=== PATIENT | male | born 1950 | race African-American/Black ===

== ENCOUNTER 2019-02-11 11:23 | Inpatient (IN) | payer OTHER ==
[2019-02-11 11:59] VITALS: BMI 22.6
--- NOTE | 2019-02-11 12:07 | PDOC ---
History of Present Illness - General Chief Complaint: Syncope/Near Syncope Stated Complaint: Syncope/Near Syncope Time Seen by Provider: 02/11/19 12:05 Past History - Past Medical History Allergies/Adverse Reactions: Allergies Allergy/AdvReac Type Severity Reaction Status Date / Time No Known Allergies Allergy Verified 02/11/19 11:59 COPD: No - Suicide/Smoking/Psychosocial Hx Smoking History: Never smoked Have you smoked in the past 12 months: No Information on smoking cessation initiated: No Hx Alcohol Use: No Drug/Substance Use Hx: No *Physical Exam - Vital Signs Last Vital Signs Temp Pulse Resp BP Pulse Ox 97.3 F L 80 16 103/68 100 02/11/19 11:23 02/11/19 11:23 02/11/19 11:23 02/11/19 11:23 02/11/19 11:23
--- NOTE | 2019-02-11 12:37 | PDOC ---
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 Per the patient, he was eating at the table when he felt lightheadedness, similar in quality to his previous episodes, and was subsequently laid down and had a LOC lasting for 1 hour. Per the patient, he did not have the following antecedent symptoms: chest pain, SOB, headache, visual disturbance, nausea, vomiting, and abdominal pain. After the LOC, he had 1x vomiting episode without hematemesis. Currently is asymptomatic. Denies the following: fever, chills, worsening FND, chest pain, palpitations, SOB, head trauma, hx of seizures, and new medication usage. Of note, his BP per EMS had a systolic in the 60s and is s/p 250 cc bolus in the ED. Allergies: NKDA Meds: amlodipine, omeprazole, and aspirin Allergies: NKDA Social: Denies tobacco, alcohol, and substance abuse Shx: Denies Past History - Past Medical History Allergies/Adverse Reactions: Allergies Allergy/AdvReac Type Severity Reaction Status Date / Time No Known Allergies Allergy Verified 02/11/19 11:59 Home Medications: Ambulatory Orders Amlodipine Besylate/Benazepril [Amlodipine-Benazepril 10-20 mg] 1 cap PO DAILY 02/11/19 Atorvastatin Calcium 20 mg PO HS 02/11/19 Brimonidine Tartrate [Alphagan 0.2% -] 1 drop OU BID 02/11/19 Dorzolamide HCl [Trusopt 2% -] 1 drop OU BID 02/11/19 Fluticasone Propionate [Flonase Allergy Relief] 2 spray NS DAILY PRN 02/11/19 Gabapentin 300 mg PO BID 02/11/19 Metformin HCl [Glucophage] 500 mg PO DAILY 02/11/19 Metoclopramide HCl [Reglan] 10 mg PO TID 02/11/19 Montelukast Sodium [Singulair] 10 mg PO DAILY 02/11/19 Omeprazole 40 mg PO DAILY 02/11/19 Sucralfate Oral Suspension [Carafate Oral Suspension -] 10 ml PO TID 02/11/19 COPD: No - Suicide/Smoking/Psychosocial Hx Smoking History: Never smoked Have you smoked in the past 12 months: No Information on smoking cessation initiated: No Hx Alcohol Use: No Drug/Substance Use Hx: No Review of Systems - Review of Systems Able to Perform ROS?: Yes Is the patient limited [place]er proficient: No Constitutional: No: Chills, Diaphoresis, Fever, Weakness HEENTM: No: Eye Pain, Ear Pain, Nose Pain, Throat Pain, Mouth Pain Respiratory: No: Cough, Shortness of Breath, Hemoptysis Cardiac (ROS): Yes: Syncope. No: Chest Pain, Lightheadedness, Palpitations, Chest Tightness ABD/GI: Yes: Nausea. No: Constipated, Diarrhea, Rectal Bleeding, Vomiting, Tarry Stools : No: Burning, Dysuria, Hematuria, Incontinence Musculoskeletal: No: Back Pain, Joint Pain, Neck Pain Integumentary: No: Bruising, Erythema, Rash Neurological: No: Headache, Numbness, Tingling, Tremors Psychiatric: No: Change in Appetite Endocrine: No: Unexplained Weight Gain Hematologic/Lymphatic: No: Anemia *Physical Exam - Vital Signs Last Vital Signs Temp Pulse Resp BP Pulse Ox 97.3 F L 80 16 103/68 100 02/11/19 11:23 02/11/19 11:23 02/11/19 11:23 02/11/19 11:02/11/19 11:23 - Physical Exam General Appearance: Yes: Nourished, Appropriately Dressed. No: Apparent Distress, Intoxicated HEENT: positive: EOMI, SHILPI, Normal Voice, Symmetrical, Pharynx Normal, Hearing Grossly Normal. negative: Pale Conjunctivae, Scleral Icterus (R), Scleral Icterus (L), Muffled/Hoarse voice, Pharyngeal Erythema, Tonsillar Exudate, Tonsillar Erythema, Nasal Congestion, Rhinorrhea, Excessive drooling Neck: positive: Trachea midline, Supple. negative: Tender, Lymphadenopathy (R) , Lymphadenopathy (L), Tender lateral, Tender midline Respiratory/Chest: positive: Lungs Clear, Normal Breath Sounds. negative: Chest Tender, Respiratory Distress, Accessory Muscle Use, Rhonchi, Stridor, Wheezing, Hyperresonant Cardiovascular: positive: Regular Rhythm, Regular Rate, S1, S2. negative: Edema , Systolic Murmur Gastrointestinal/Abdominal: positive: Normal Bowel Sounds, Flat, Soft. negative : Tender, Distended, Guarding, Rebound, Tenderness Lymphatic: negative: Adenopathy Musculoskeletal: positive: Normal Inspection. negative: CVA Tenderness, Vertebral Tenderness Extremity: positive: Normal Capillary Refill, Normal Inspection, Normal Range of Motion. negative: Tender, Swelling ED Treatment Course - LABORATORY CBC & Chemistry Diagram: 02/11/19 12:39 02/11/19 12:39 Medical Decision Making - Medical Decision Making 02/11/19 19:14 68 yo with a hx of CVA (10 years ago with residual weakness in the left leg with difficulty walking) and labile BPs (currently on amlodipine with hypotensive episodes precipitating LOC episodes most recent 1 month ago) presents to the emergency department s/p syncopal event while at home. Initial vitals: Initial Vital Signs Temp Pulse Resp BP Pulse Ox 97.3 F L 80 16 103/68 100 02/11/19 11:23 02/11/19 11:23 02/11/19 11:23 02/11/19 11:23 02/11/19 11:23 Work up: ddx: syncope 2/2 to cardiogenic vs neurogenic vs metabolic abnormality vs anemia Laboratory Tests 02/11/19 02/11/19 02/11/19 12:39 12:39 12:39 WBC 8.1 RBC 4.29 Hgb 14.1 Hct 41.9 MCV 97.7 H MCH 32.9 MCHC 33.6 RDW 13.7 Plt Count 165 MPV 8.6 Absolute Neuts (auto) 6.3 Neutrophils % 77.2 Lymphocytes % 12.2 Monocytes % 9.3 Eosinophils % 1.0 Basophils % 0.3 Nucleated RBC % 0 D-Dimer Sodium 144 Potassium 3.9 Chloride 110 H Carbon Dioxide 29 Anion Gap 6 L BUN 6.5 L Creatinine 1.1 Est GFR (CKD-EPI)AfAm 78.41 Est GFR (CKD-EPI)NonAf 67.66 Random Glucose 100 Calcium 8.4 L Total Bilirubin 0.3 AST 11 L ALT 16 Alkaline Phosphatase 138 H Creatine Kinase 52 Troponin I < 0.02 Total Protein 6.1 L Albumin 3.1 L 02/11/19 15:17 WBC RBC Hgb Hct MCV MCH MCHC RDW Plt Count MPV Absolute Neuts (auto) Neutrophils % Lymphocytes % Monocytes % Eosinophils % Basophils % Nucleated RBC % D-Dimer 6184 H Sodium Potassium Chloride Carbon Dioxide Anion Gap BUN Creatinine Est GFR (CKD-EPI)AfAm Est GFR (CKD-EPI)NonAf Random Glucose Calcium Total Bilirubin AST ALT Alkaline Phosphatase Creatine Kinase Troponin I Total Protein Albumin CT head negative for acute process. CXR negative for acute process. patient's trop negative, but d-dimer is elevated at 6184. considering syncope with hypotension, will rule out obstructive pathology with CTA chest. POCUS reveals no pericardial effusion or gross deficits on LV wall movement. no aortic root dilatation. CTA is negative for PE, but nodules noted in the lung that are stable in nature. Will admit patient for syncope work up. EKG shows NSR without ST elevation or depression. Ventricular rate 90 bpm, QRS is 78 ms, QTc 459 ms. Dispo: Admit *DC/Admit/Observation/Transfer Diagnosis at time of Disposition: Syncope - Referrals - Patient Instructions - Post Discharge Activity
[2019-02-11] MEDS ORDERED: SODIUM CHLORIDE 1,000 ML IV STA ×2 (12:57→16:53)
[2019-02-11 13:17] LABS: BASO % 0.3 % (0-2.0); HEMATOCRIT 41.9 % (35.4-49); HEMOGLOBIN 14.1 GM/dL (11.7-16.9); LYMPH % 12.2 % (8-40); MCH 32.9 pg (25.7-33.7); MCHC 33.6 g/dl (32.0-35.9); MEAN CELL VOLUME 97.7 fl (80-96); MEAN PLT VOLUME 8.6 fl (7.5-11.1); MONO % 9.3 % (3.8-10.2); NEUT % 77.2 % (42.8-82.8); PLATELET COUNT 165 K/MM3 (134-434); RBC 4.29 M/mm3 (4.00-5.60); RDW 13.7 % (11.9-15.9); WHITE BLOOD COUNT 8.1 K/mm3 (4.0-10.0)
[2019-02-11 13:39] LABS: ALBUMIN 3.1 g/dl (3.4-5.0); BILIRUBIN,TOTAL 0.3 mg/dL (0.2-1); BLOOD UREA NITROGEN 6.5 mg/dL (7-18); CALCIUM 8.4 mg/dL (8.5-10.1); CREATININE 1.1 mg/dL (0.55-1.3); POTASSIUM 3.9 mmol/L (3.5-5.1); TOT PROT 6.1 g/dl (6.4-8.2)
--- NOTE | 2019-02-11 14:04 | PDOC ---
Attending Attestation - Resident Resident Name: Сергей Srinivasan - ED Attending Attestation I have performed the following: I have examined & evaluated the patient, The case was reviewed & discussed with the resident, I agree w/resident's findings & plan, Exceptions are as noted
--- NOTE | 2019-02-11 19:25 | PN ---
Teaching Attending Note Name of Resident: Pepe Bowman ATTENDING PHYSICIAN STATEMENT I saw and evaluated the patient. I reviewed the resident's note and discussed the case with the resident. I agree with the resident's findings and plan as documented. SUBJECTIVE: Patient is a 68 year old man with PMH of CVA (10 years ago with residual weakness in the left leg with difficulty walking) and labile BPs (currently on amlodipine with hypotensive episodes precipitating LOC episodes most recent 1 month ago), presents to the ER after a syncopal event while at home. Per the patient, he was eating at the table when he felt lightheadedness, similar in quality to his previous episodes, and was subsequently laid down and had a LOC lasting for 1 hour. He did not have the following antecedent symptoms: chest pain, SOB, headache, visual disturbance, nausea, vomiting, and abdominal pain. After the LOC, he vomited once. Currently is asymptomatic. Denies fever, chills , chest pain, palpitations, SOB or headache. No head trauma, history of seizures or or new medication usage. Of note, per EMS he had a systolic in the 60s and got 250 cc bolus IV NS in the ER. Denies tobacco use, alcohol, or substance abuse OBJECTIVE: Alert and not orthostatic Vital Signs Period Temp Pulse Resp BP Sys/Chance Pulse Ox Last 24 Hr 97.3 F-99.0 F 80-90 16-20 103-127/68-96 96-100 HEENT: No Jaundice, eye redness or discharge, PERRLA, EOMI. Normocephalic, atraumatic. External ears are normal and hearing is grossly intact. No nasal discharge. Neck: Supple, nontender. No palpable adenopathy or thyromegaly. No JVD Chest: Good effort. Clear to auscultation and percussion. Heart: Regular. No S3, rub or murmur Abdomen: Not distended, soft, nontender and no HSM. No rebound or guarding. Normal bowel sounds. Ext: Peripheral pulses intact. No leg edema. Skin: Warm and dry. No petechiae, rash or ecchymosis. Neuro: Alert. Oriented x3. CN 2-12 grossly intact. Sensation grossly intact in all four extremities and DTR are symmetric. Psych: Appropriate mood and affect. Good insight. Abnormal Lab Results 09/05/2002/11/19 02/11/19 12:39 12:39 15:17 MCV 97.7 H D-Dimer 6184 H Chloride 110 H Anion Gap 6 L BUN 6.5 L Calcium 8.4 L AST 11 L Alkaline Phosphatase 138 H Total Protein 6.1 L Albumin 3.1 L ASSESSMENT AND PLAN: 1. Syncope - Etiology unclear. No acute abnormality on CXR, head CT, chest CTA or leg doppler. EKG shows NSR with no significant ST-T wave changes. Will admit to telemetry, get ECHO, carotid doppler, hydrate gently and consult Neurology. Will continue comprehensive care of all his comorbid conditions. 2. Hypoalbuminemia - Possibly due to combined effects of malnutrition and inflammation associated with comorbid chronic conditions. Will ensure adequate dietary protein intake and also consult candy bar attendant. 3. Hypertension - Will hold all outpatient antihypertensive drugs. May restart when clinically appropriate. 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 Nonpharmacologic measures to control hypertension like weight loss , salt restriction and exercise discussed. Importance of adherence to treatment regimen and attainment of normotension emphasized. 4. DVT prophylaxis - Lovenox 40 mg SQ q 24 hours. 5. Advance directives - Full code
--- NOTE | 2019-02-12 00:01 | HP ---
CHIEF COMPLAINT: syncope PCP: Dr. Geetha Freire (in [place]) HISTORY OF PRESENT ILLNESS: Ronnell Duran is a 68 year old male with a past medical history of CVA (10 years ago with residual L sided leg weakness), labile BP's (on amlodipine with hypertensive and hypotensive episodes), GERD, and syncopal episodes who presents for syncope. The patient was sitting at a table on 0700 on day of admission when he told his family he felt unwell and was about to lose consciousness. His family brought him down the ground and stated that there was no head hit. Prior to the episode the patient stated that he felt nauseous, some diaphoresis, visual darkening, dizziness. During the syncopal episode the family noted that he had an episode of vomiting. After the patient awoke after about an hour he stated that he had another vomiting episode. Patient stated that his previous syncopal episode was one year prior and was similar in nature to presentation. Patient noted that he had not been eating well for approximately a week prior to this episode and felt that he was sick, had nausea , and had generalized weakness. On day prior to admission, the patient stated that he took amlodipine 10mg before bed and states that when he takes his blood pressure medications, he gets very labile pressures that can decrease his systolic pressures into the 70's and 80s. At interview, the patient stated that he felt better but continued to have weakness. Denied history of seizures, denied recent head trauma, recent medication changes, sick contacts. Denied chest pain, shortness of breath, abdominal pain, numbness, tingling, dysuria, urinary frequency, hesitancy, urgency, fever, chills. Patient at baseline ambulates with a cane. ER course was notable for: (1) NSx1L (2) D-dimer >6000 (3) Doppler on L leg negative for DVT, CXR with no acute pathology, head CT with no acute intracranial pathology, minimal periventricular chronic microvascular changes (4) Chest CTA with no acute PE. 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 Social History: Smoking: denies Alcohol: denies Drugs: denies Lives at home with family Family History: Sister - HTN Sister - DM Allergies No Known Allergies Allergy (Verified 02/11/19 11:59) HOME MEDICATIONS: REVIEW OF SYSTEMS CONSTITUTIONAL: generalized weakness, loss of appetite Absent: fever, chills, diaphoresis, malaise, weight change HEENT: Absent: rhinorrhea, nasal congestion, throat pain, throat swelling, visual changes CARDIOVASCULAR: syncope, lightheadedness Absent: chest pain, palpitations, irregular heart rate, peripheral edema RESPIRATORY: Absent: cough, shortness of breath, dyspnea with exertion, orthopnea, wheezing, GASTROINTESTINAL: nausea, vomiting, reflux Absent: abdominal pain, abdominal distension, diarrhea, constipation, GENITOURINARY: Absent: dysuria, frequency, urgency, hesitancy, hematuria, flank pain, MUSCULOSKELETAL: Absent: myalgia, arthralgia, joint swelling, back pain, neck pain SKIN: Absent: rash, itching, pallor HEMATOLOGIC/IMMUNOLOGIC: Absent: easy bleeding, easy bruising, lymphadenopathy, frequent infections ENDOCRINE: Absent: unexplained weight gain, unexplained weight loss, heat intolerance, cold intolerance NEUROLOGIC: dizziness, unsteady gait, L leg weakness (chronic) Absent: headache, seizure, mental status changes, bladder or bowel incontinence PSYCHIATRIC: Absent: anxiety, depression, suicidal or homicidal ideation, hallucinations. PHYSICAL EXAMINATION Vital Signs - 24 hr 02/11/19 02/11/19 02/11/19 11:23 12:05 19:03 Temperature 97.3 F L Pulse Rate 80 Pulse Rate [ 87 Right Radial] Respiratory 16 18 Rate Blood Pressure 103/68 Blood Pressure 127/88 [Right Arm] O2 Sat by Pulse 100 99 96 Oximetry (%) 02/11/19 02/11/19 19:30 19:45 Temperature 99.0 F Pulse Rate Pulse Rate [ 90 Right Radial] Respiratory 20 Rate Blood Pressure Blood Pressure 125/96 [Right Arm] O2 Sat by Pulse 97 96 Oximetry (%) GENERAL: Awake, alert, and fully oriented, in no acute distress. HEAD: Normal with no signs of trauma. EYES: Pupils equal, round and reactive to light, extraocular movements intact, sclera anicteric, conjunctival injection. EARS, NOSE, THROAT: Oropharynx clear without exudates. Dry mucous membranes. NECK: Normal range of motion, supple without lymphadenopathy, JVD. LUNGS: Breath sounds equal, clear to auscultation bilaterally. No wheezes, and no crackles. No accessory muscle use. HEART: Regular rate and rhythm, normal S1 and S2 without murmur, rub. ABDOMEN: Soft, nontender, not distended, normoactive bowel sounds, no guarding, no rebound, no masses. MUSCULOSKELETAL: Normal range of motion at all joints. No bony deformities or tenderness. UPPER EXTREMITIES: 2+ pulses, warm, well-perfused. No cyanosis. No clubbing. No peripheral edema. LOWER EXTREMITIES: 2+ pulses, warm, well-perfused. No calf tenderness. No peripheral edema. NEUROLOGICAL: Cranial nerves II-XII intact. 5/5 muscle strength bilaterally upper extremities. 5/5 muscle strength RLE, 4/5 muscle strength LLE. Mild sensory loss on LLE. Babinski downgoing bilaterally. PSYCHIATRIC: Cooperative. Good eye contact. Appropriate mood and affect. SKIN: Warm, dry, normal turgor, no rashes or lesions noted, normal capillary refill. Laboratory Results - last 24 hr 02/11/19 02/11/19 02/11/19 12:39 12:39 12:39 WBC 8.1 RBC 4.29 Hgb 14.1 Hct 41.9 MCV 97.7 H MCH 32.9 MCHC 33.6 RDW 13.7 Plt Count 165 MPV 8.6 Absolute Neuts (auto) 6.3 Neutrophils % 77.2 Lymphocytes % 12.2 Monocytes % 9.3 Eosinophils % 1.0 Basophils % 0.3 Nucleated RBC % 0 D-Dimer Sodium 144 Potassium 3.9 Chloride 110 H Carbon Dioxide 29 Anion Gap 6 L BUN 6.5 L Creatinine 1.1 Est GFR (CKD-EPI)AfAm 78.41 Est GFR (CKD-EPI)NonAf 67.66 Random Glucose 100 Calcium 8.4 L Total Bilirubin 0.3 AST 11 L ALT 16 Alkaline Phosphatase 138 H Creatine Kinase 52 Troponin I < 0.02 Total Protein 6.1 L Albumin 3.1 L 02/11/19 15:17 WBC RBC Hgb Hct MCV MCH MCHC RDW Plt Count MPV Absolute Neuts (auto) Neutrophils % Lymphocytes % Monocytes % Eosinophils % Basophils % Nucleated RBC % D-Dimer 6184 H Sodium Potassium Chloride Carbon Dioxide Anion Gap BUN Creatinine Est GFR (CKD-EPI)AfAm Est GFR (CKD-EPI)NonAf Random Glucose Calcium Total Bilirubin AST ALT Alkaline Phosphatase Creatine Kinase Troponin I Total Protein Albumin EKG--> NSR, left axis deviation, no ST segment changes, QTc 459 ASSESSMENT/PLAN: Ronnell Duran is a 68 year old male with a past medical history of CVA (10 years ago with residual L sided leg weakness), labile BP's (on amlodipine with hypertensive and hypotensive episodes), GERD, and syncopal episodes who is admitted for syncope. Syncope HTN DM hx of CVA Syncope - likely in the setting of poor oral intake, recent sickness, and high BP medication dose - orthostatics taken supine 137/87 HR 87, sitting 126/77 HR 90, refused standing - will need to repeat orthostatics in standing position - EKG as above - cardiac monitoring - echo - carotids - hold BP meds while patient evaluated for syncope, will need outpatient follow up to adjust BP medications properly - gentle IVF at 50 cc/hr - fall precautions - physical therapy - neurology consult HTN - hold BP meds - monitor pressures DM - home meds show that patient on metformin 500mg daily, patient denied DM - BGM - ISS - A1c to assess for status of DM hx of CVA - not on aspirin, obtain records from PCP as to why patient not on aspirin with hx of CVA - continue Lipitor - monitor BP FEN - NS at 50 cc/hr - continue to monitor electrolytes and replete as necessary - sodium controlled diet, may need adjustment if found with DM Prophylaxis - Lovenox 40 units subq daily Code - full code JORDI IVY DO - PGY-1 Visit type - Emergency Visit Emergency Visit: Yes ED Registration Date: 02/11/19 Care time: The patient presented to the Emergency Department on the above date and was hospitalized for further evaluation of their emergent condition. - New Patient This patient is new to me today: Yes Date on this admission: 02/12/19 - Critical Care Critical Care patient: No
[2019-02-12] MEDS: SUCRALFATE 1 GM/10 ML UNIT DOSE CUPS PO SCH ×3 (06:26→21:36)
[2019-02-12] MEDS: METOCLOPRAMIDE HCL 10 MG TABLET (FP) PO SCH ×2 (06:27→14:05)
[2019-02-12] MEDS: SODIUM CHLORIDE 1,000 ML IV SCH ×2 (06:28→21:41)
[2019-02-12] MEDS: INSULIN SLIDING SCALE (NOVOLOG) 1 VIAL SQ SCH ×3 (06:28→21:41)
[2019-02-12 08:05] LABS: BASO % 0.5 % (0-2.0); EOS % 2.2 % (0-4.5); HEMATOCRIT 37.6 % (35.4-49); HEMOGLOBIN 12.7 GM/dL (11.7-16.9); LYMPH % 25.6 % (8-40); MCHC 33.8 g/dl (32.0-35.9); MEAN CELL VOLUME 97.7 fl (80-96); MONO % 9.6 % (3.8-10.2); NEUT % 62.1 % (42.8-82.8); PLATELET COUNT 149 K/MM3 (134-434); RBC 3.84 M/mm3 (4.00-5.60); RDW 13.9 % (11.9-15.9); WHITE BLOOD COUNT 4.6 K/mm3 (4.0-10.0)
[2019-02-12 08:42] LABS: ALBUMIN 2.9 g/dl (3.4-5.0); BILIRUBIN,TOTAL 0.3 mg/dL (0.2-1); BLOOD UREA NITROGEN 8.9 mg/dL (7-18); CALCIUM 8.1 mg/dL (8.5-10.1); MAGNESIUM 1.9 mg/dL (1.8-2.4); POTASSIUM 3.5 mmol/L (3.5-5.1); TOT PROT 5.8 g/dl (6.4-8.2)
[2019-02-12] MEDS ORDERED: LISINOPRIL 20 MG TABLET (FP) PO SCH (10:00)
[2019-02-12] MEDS ORDERED: amLODIPine BESYLATE 10 MG TABLET (FP) PO SCH (10:00)
[2019-02-12] MEDS ORDERED: PATIENT'S OWN MEDICATION (NON-FORMULARY) (Amlodipine Besylate/Benazepril [Amlodipine-Benaz PO SCH (10:00)
[2019-02-12] MEDS: MONTELUKAST NA 10 MG TABLET PO SCH (10:13)
[2019-02-12] MEDS: DORZOLAMIDE 2% HCL OPHTHALMIC SOLUTION 10 ML BOTTLE OU SCH ×2 (10:13→21:41)
[2019-02-12] MEDS: GABAPENTIN 300 MG CAPSULE (FP) PO SCH ×2 (10:13→21:36)
[2019-02-12] MEDS ORDERED: PT OWN MED DRAWER 7, Y5N ONE (10:36)
[2019-02-12] MEDS: BRIMONIDINE TARTRATE 0.2% OPHTHALMIC 5 ML BOTTLE OU SCH ×2 (10:52→21:40)
[2019-02-12] MEDS: FLUTICASONE PROP 0.05% 16 GM NASAL SPRAY NS SCH (10:52)
--- NOTE | 2019-02-12 11:45 | ECHO ---
Name: QIAN LANTIGUA Exam:Adult Echocardiogram Study Date: 02/12/2019 07:16 AM Age: 68 yrs Reason For Study: syncope,evaluate heart function Height: 66 in Weight: 140 lb BSA: 1.7 m2 MMode/2D Measurements & Calculations IVSd: 0.83 cm Ao root diam: 3.3 cm LVIDd: 4.6 cm LA dimension: 1.9 cm LVIDs: 2.8 cm ACS: 1.8 cm LVPWd: 0.89 cm IVSs: 1.3 cm LVPWs: 1.2 cm EDV(Teich): 95.5 ml ESV(Teich): 30.7 ml Doppler Measurements & Calculations MV E max jose david: 43.2 cm/sec Ao V2 max: 117.4 cm/sec MV A max jose david: 60.7 cm/sec Ao max P.5 mmHg MV E/A: 0.71 TR max jose david: 222.9 cm/sec Med Peak E' Jose David: 5.6 cm/sec TR max P.2 mmHg Med E/e': 7.8 Lat Peak E' Jose David: 5.8 cm/sec Lat E/e': 7.5 Left Ventricle Left ventricular systolic function is normal. Ejection Fraction = 55-60%. The transmitral spectral Do ppler flow pattern is suggestive of impaired LV relaxation. Right Ventricle The right ventricle is normal in size and function. Atria Normal left and right atrial size and function. Mitral Valve The mitral valve is normal in structure and function. There is no mitral valve stenosis. There is no mitral regurgitation noted. Tricuspid Valve The tricuspid valve is normal in structure and function. There is mild tricuspid regurgitation. Right ventricular systolic pressure is normal. Aortic Valve The aortic valve is trileaflet. No hemodynamically significant valvular aortic stenosis. No aortic regurgitation is present. Pulmonic Valve The pulmonic valve is not well seen, but is grossly normal. There is no pulmonic valvular stenosis. T here is no pulmonic valvular regurgitation. Great Vessels The aortic root is normal size. Pericardium/Pleura There is no pericardial effusion. Interpretation Summary Left ventricular systolic function is normal. Ejection Fraction = 55-60%. The transmitral spectral Doppler flow pattern is suggestive of impaired LV relaxation. The right ventricle is normal in size and function. There is mild tricuspid regurgitation. Right ventricular systolic pressure is normal. MD Kraft *Yaima 02/12/2019 11:44 AM
--- NOTE | 2019-02-12 14:10 | EKG ---
Test Reason : Blood Pressure : / mmHG Vent. Rate : 090 BPM Atrial Rate : 090 BPM P-R Int : 158 ms QRS Dur : 078 ms QT Int : 376 ms P-R-T Axes : 037 -47 040 degrees QTc Int : 459 ms POOR DATA QUALITY, INTERPRETATION MAY BE ADVERSELY AFFECTED NORMAL SINUS RHYTHM LEFT AXIS DEVIATION CANNOT RULE OUT INFERIOR INFARCT , AGE UNDETERMINED ABNORMAL ECG NO PREVIOUS ECGS AVAILABLE Confirmed by RUTHY JIMÉNEZ, LELE ([id number]) on 02/12/2019 2:10:04 PM Referred By: Confirmed By:LELE BLISS MD
--- NOTE | 2019-02-12 14:16 | PN ---
Teaching Attending Note Name of Resident: Hue Lazcano ATTENDING PHYSICIAN STATEMENT I saw and evaluated the patient. I reviewed the resident's note and discussed the case with the resident. I agree with the resident's findings and plan as documented. SUBJECTIVE: Feeling better - lightheadedness resolved. Denies CP/palpitations. No LOC/HI. No visual impairment/new extremity weakness. OBJECTIVE: Afebrile, Hemodynamically Stable. Last Vital Signs Temp Pulse Resp BP Pulse Ox 98.2 F 79 18 133/83 100 02/12/19 06:00 02/12/19 06:00 02/12/19 06:00 02/12/19 06:00 02/11/19 23:37 HEENT - Atramatic, normocephalic. SHILPI. EOMI. Heart - S1, S2, RRR Lungs - clear to auscultation Abdomen - Soft, non-tender. Bowel Sounds normal. Extrmeities - no edema, no calf tenderness. Neuro - AAO x 3. CN intact. No new neuro deficits. Laboratory Results - last 24 hr 02/11/19 02/12/19 02/12/19 15:17 06:24 06:30 WBC 4.6 RBC 3.84 L Hgb 12.7 Hct 37.6 MCV 97.7 H MCH 33.0 MCHC 33.8 RDW 13.9 Plt Count 149 MPV 9.0 Absolute Neuts (auto) 2.8 Neutrophils % 62.1 Lymphocytes % 25.6 D Monocytes % 9.6 Eosinophils % 2.2 D Basophils % 0.5 Nucleated RBC % 0 D-Dimer 6184 H Sodium Potassium Chloride Carbon Dioxide Anion Gap BUN Creatinine Est GFR (CKD-EPI)AfAm Est GFR (CKD-EPI)NonAf POC Glucometer 103 Random Glucose Hemoglobin A1c % Calcium Magnesium Total Bilirubin AST ALT Alkaline Phosphatase Total Protein Albumin Triglycerides Cholesterol Total LDL Cholesterol HDL Cholesterol TSH 02/12/19 02/12/19 02/12/19 06:30 06:30 11:56 WBC RBC Hgb Hct MCV MCH MCHC RDW Plt Count MPV Absolute Neuts (auto) Neutrophils % Lymphocytes % Monocytes % Eosinophils % Basophils % Nucleated RBC % D-Dimer Sodium 143 Potassium 3.5 Chloride 110 H Carbon Dioxide 28 Anion Gap 6 L BUN 8.9 Creatinine 1.0 Est GFR (CKD-EPI)AfAm 87.99 Est GFR (CKD-EPI)NonAf 75.92 POC Glucometer 110 Random Glucose 108 H Hemoglobin A1c % 6.1 Calcium 8.1 L Magnesium 1.9 Total Bilirubin 0.3 AST 13 L ALT 14 Alkaline Phosphatase 129 H Total Protein 5.8 L Albumin 2.9 L Triglycerides 69 Cholesterol 96 Total LDL Cholesterol 47 HDL Cholesterol 33 L TSH 0.48 Current Medications Generic Name Dose Route Start Last Admin Trade Name Theodore PRN Reason Stop Dose Admin Amlodipine Besylate 10 mg 02/12/19 10:00 Norvasc - PO DAILY NOEMY Atorvastatin Calcium 20 mg 02/12/19 22:00 Lipitor - PO HS [facility] Brimonidine Tartrate 1 drop 02/12/19 10:00 02/12/19 10:52 Alphagan 0.2% - OU 1 drop BID NOEMY Administration Dorzolamide HCl 1 drop 02/12/19 10:00 02/12/19 10:13 Trusopt 2% OU 1 drop BID NOEMY Administration Fluticasone Propionate 2 spray 02/12/19 10:00 02/12/19 10:52 Flonase - NS 2 spray DAILY NOEMY Administration Gabapentin 300 mg 02/12/19 10:00 02/12/19 10:13 Neurontin - PO 300 mg BID NOEMY Administration Sodium Chloride 1,000 mls @ 50 mls/hr 02/11/19 21:30 02/12/19 06:28 Normal Saline - IV 02/12/19 22:00 50 mls/hr ASDIR NOEMY Administration Insulin Aspart 1 vial 02/12/19 07:00 02/12/19 11:58 Novolog Vial Sliding Scale - SQ Not Given ACHS NOEMY Protocol Lisinopril 20 mg 02/12/19 10:00 Prinivil PO DAILY NOEMY Metoclopramide HCl 10 mg 02/12/19 06:00 02/12/19 06:27 Reglan - PO 10 mg TID NOEMY Administration Montelukast Sodium 10 mg 02/12/19 10:00 02/12/19 10:13 Singulair - PO 10 mg DAILY NOEMY Administration Sucralfate 1 gm 02/12/19 06:00 02/12/19 06:26 Carafate Oral Suspension - PO 1 gm TID NOEMY Administration Home Medications Medication Instructions Recorded Amlodipine Besylate/Benazepril 1 cap PO DAILY 02/11/19 [Amlodipine-Benazepril 10-20 mg] Atorvastatin Calcium 20 mg PO HS 02/11/19 Brimonidine Tartrate [Alphagan 1 drop OU BID 02/11/19 0.2% -] Dorzolamide HCl [Trusopt 2% -] 1 drop OU BID 02/11/19 Fluticasone Propionate [Flonase 2 spray NS DAILY PRN 02/11/19 Allergy Relief] Gabapentin 300 mg PO BID 02/11/19 Metformin HCl [Glucophage] 500 mg PO DAILY 02/11/19 Metoclopramide HCl [Reglan] 10 mg PO TID 02/11/19 Montelukast Sodium [Singulair] 10 mg PO DAILY 02/11/19 Omeprazole 40 mg PO DAILY 02/11/19 Sucralfate Oral Suspension 10 ml PO TID 02/11/19 [Carafate Oral Suspension -] ASSESSMENT AND PLAN: 68 year old male with 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 No CP/Palpitations. 1. Post Prandial Hypotension, symptomatic with syncope Orthostatics negative CT head - no acute intracranial findings. Mild/Mod volume loss DDIMER positive - CTA negative for PE; Duplex LEs - no DVT ECG - no acute changes Echo - normal Ef, impaired LV relaxation. Carotid Duplex - no hemodynamically significant stenosis. Neuro consult Counselled regarding importance of small ore freq meals. Will hold Norvasc. Continue Lisinopril. For close BP follow up with PCP. PT and likely discharge home 2. HTN - Hold norvasc. resume Lisinopril, PCP follow up of BP and anti- hypertensive medication titration. 3. DM 2 - Resume home diabetic regimen. 4. Hx CVA - residual LLE weakness Continue Statin. Unclear why not on aspirin. For PCP/Neuro follow up. 5. GERD - Continue PPI/Sucralfate.
--- NOTE | 2019-02-12 15:50 | CONSULT ---
Consult - text type - Consultation Consultation Note: NEUROLOGY CONSULT GREATLY APPRECIATED: Events reviewed. Cardiology consult read and appreciated. Pt examined by me with and grandson at bedside. Discussed with RN. This 68 yo RH [place] man has pmhx R CVA affecting left limb x 10 years ago, S/P ACD, GERD, DM, prior syncope. Ambulates with cane at home. On: amlodipine/benazepril, atorvastatin, gabapentin 300 mg BID, metformin, metoclopramide, Singulair, omeprazole, Carafate. Describes 1 year of post-prandial "dizziness." Within the past month, this prodrome of "dizziness" has progressed to post-prandial syncope last month and today. He denies falls or change in bowel/bladder. Pt descrives persistant hiccoughs x 7 months. Noted lisinopril held today due to persistently low BPs - now 69/49. RN describes diaphoresis and lightheadedness this AM immediately after breakfast which resolved when patient was made supine. Review of systems sign for persistent nausea and poor appetite. Head CT (reviewed): Mild diffuse cerebral atrophy with ex vacuo ventricular dilation. Chronic periventricular ischemic changes present. Calcification of intracranial vessels. Carotid duplex: Mild athlerosclerosis but no heme sig stenosis. EKG NSR. ECHO: EF 55-60% Chest CTA: RLL pulmonary nodules D-Dimer 6184; TSH 0.48; A1c= 6.1%; WBC 4.6 JOE: BP supine 124/78, 124/87 sitting, standing 116/86. Cor reg. No bruit. Neck supple. S/P ACD. No evidence of head trauma. 133/87 sitting -> 100/56 standing (just after dinner). NEURO: Awake, alert, responsive. [facility]. Feb 11 or 2018. TRUMP. A mild OMS may be present. CNII-CNXII: EOM's full. Full webb. No facial. Gag ok. Min jaw tremor with reinforcement. Frequent hiccoughs. Motor: Minimal left drift No tremor. Decreased PEPPER's (L>R). Isolated weakness of toe extensors 4+/5 on L, 4-/5 on R. Reflexes brisk with spread ( Biceps to finger flexors), brisk at knees and present AJ's. Plantars silent. Coordination: No FTN dystaxia. Sensation: Feels vibration both legs to mid-calf (but feels cold). Romberg +/- Gait: Sl flexed, sl. wide-based gait with mild left circumduction. Difficulty with heel walk. Impression: 1. Post-Prandial syncope very suggestive of underlying dysautonomia. Etiology uncertain but would consider a small fibre neuropathy due to diabetes or amyloidosis. 2. Mild extrapyramidal features- dysautonomia can be seen as an early minifestation of PD, as can GI disturbances. 3. Mild B/L cerebral dysfunction with mild, residual, right cerebral accentuation. Suggest: Orthostatic BP's Rx Midodrine 5 mg PO BID at 6AM (before breakfast) and 3 PM D/C metoclopramide Observe off BP meds and monitor BP while home MRI of Brain and Cervical Spine (C-), which can be done on outpatient basis Electrodiagnostic studies of the legs for neuropathy. Autonomic testing can be done at that time. Sleep with HOB elevated, keep OO Bed to Chair as much as possible. Small frequent meals. Neurology follow-up as outpt for testing and dtitration of meds. Thank you very much, Brandin Hutchison MD.
[2019-02-12] MEDS ORDERED: SODIUM CHLORIDE 1,000 ML IV STA (16:50)
--- NOTE | 2019-02-12 19:43 | PN ---
Physical Exam: SUBJECTIVE: Patient seen and examined. Pt had episode of hypotension this morning while eating breakfast. He became lightheaded and diaphoretic. He did not syncopize. Nurse put pt in Trendelenburg, and he quickly recovered. During time of exam, he denies ROB, dizziness, nausea, chest pain, palpitations, and diaphoresis. OBJECTIVE: Vital Signs Period Temp Pulse Resp BP Sys/Chance Pulse Ox Last 24 Hr 98.2 F-99.0 F 79-101 18-20 69-133/49-96 96-100 GENERAL: The patient is awake, alert, and fully oriented, in no acute distress. HEAD: Normal with no signs of trauma. EYES: PERRL, extraocular movements intact, sclera anicteric, conjunctiva clear. No ptosis. ENT: Ears normal, nares patent, moist mucous membranes. NECK: Trachea midline, full range of motion, supple. LUNGS: Breath sounds equal, clear to auscultation bilaterally, no wheezes, no crackles, no accessory muscle use. HEART: Regular rate and rhythm, S1, S2 without murmur, rub or gallop. ABDOMEN: Soft, nontender, nondistended, normoactive bowel sounds EXTREMITIES: 2+ pulses, warm, well-perfused, no edema. NEUROLOGICAL: Cranial nerves II through XII grossly intact. Normal speech, gait not observed. PSYCH: Normal mood, normal affect. SKIN: Warm, dry, normal turgor, no rashes or lesions noted Laboratory Results - last 24 hr 02/12/19 02/12/19 02/12/19 06:24 06:30 06:30 WBC 4.6 RBC 3.84 L Hgb 12.7 Hct 37.6 MCV 97.7 H MCH 33.0 MCHC 33.8 RDW 13.9 Plt Count 149 MPV 9.0 Absolute Neuts (auto) 2.8 Neutrophils % 62.1 Lymphocytes % 25.6 D Monocytes % 9.6 Eosinophils % 2.2 D Basophils % 0.5 Nucleated RBC % 0 Sodium 143 Potassium 3.5 Chloride 110 H Carbon Dioxide 28 Anion Gap 6 L BUN 8.9 Creatinine 1.0 Est GFR (CKD-EPI)AfAm 87.99 Est GFR (CKD-EPI)NonAf 75.92 POC Glucometer 103 Random Glucose 108 H Hemoglobin A1c % Calcium 8.1 L Magnesium 1.9 Total Bilirubin 0.3 AST 13 L ALT 14 Alkaline Phosphatase 129 H Troponin I Total Protein 5.8 L Albumin 2.9 L Triglycerides 69 Cholesterol 96 Total LDL Cholesterol 47 HDL Cholesterol 33 L TSH 0.48 02/12/19 02/12/19 02/12/19 06:30 11:56 18:30 WBC RBC Hgb Hct MCV MCH MCHC RDW Plt Count MPV Absolute Neuts (auto) Neutrophils % Lymphocytes % Monocytes % Eosinophils % Basophils % Nucleated RBC % Sodium Potassium Chloride Carbon Dioxide Anion Gap BUN Creatinine Est GFR (CKD-EPI)AfAm Est GFR (CKD-EPI)NonAf POC Glucometer 110 Random Glucose Hemoglobin A1c % 6.1 Calcium Magnesium Total Bilirubin AST ALT Alkaline Phosphatase Troponin I < 0.02 Total Protein Albumin Triglycerides Cholesterol Total LDL Cholesterol HDL Cholesterol TSH Active Medications Generic Name Dose Route Start Last Admin Trade Name Freq PRN Reason Stop Dose Admin Atorvastatin Calcium 20 mg 02/12/19 22:00 Lipitor - PO HS NOEMY Brimonidine Tartrate 1 drop 02/12/19 10:00 02/12/19 10:52 Alphagan 0.2% - OU 1 drop BID NOEMY Administration Dorzolamide HCl 1 drop 02/12/19 10:00 02/12/19 10:13 Trusopt 2% OU 1 drop BID NOEMY Administration Fluticasone Propionate 2 spray 02/12/19 10:00 02/12/19 10:52 Flonase - NS 2 spray DAILY NOEMY Administration Gabapentin 300 mg 02/12/19 10:00 02/12/19 10:13 Neurontin - PO 300 mg BID NOEMY Administration Sodium Chloride 1,000 mls @ 50 mls/hr 02/11/19 21:30 02/12/19 06:28 Normal Saline - IV 02/12/19 22:00 50 mls/hr ASDIR NOEMY Administration Insulin Aspart 1 vial 02/12/19 07:00 02/12/19 11:58 Novolog Vial Sliding Scale - SQ Not Given ACHS NOEMY Protocol Lisinopril 20 mg 02/12/19 10:00 Prinivil PO DAILY NOEMY Montelukast Sodium 10 mg 02/12/19 10:00 02/12/19 10:13 Singulair - PO 10 mg DAILY NOEMY Administration Sucralfate 1 gm 02/12/19 06:00 02/12/19 17:04 Carafate Oral Suspension - PO 1 gm TID NOEMY Administration ASSESSMENT/PLAN: Mr. 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 #syncope 2/2 post-prandial hypotension Pt reports dizziness and diaphoresis associated with eating. He had 1 other episode of syncope while eating in the last year. He was on amlodipine/ benazapril prior to admission. Orthostatics positive. Became hypotensive again this afternoon and given 1L bolus fluids. -EKG normal -echo EF normal -carotid doppler-minimal atherosclerosis -lisinopril, hold amlodipine -neuro consult- start midodrine 5mg BID at 6am before breakfast and 3pm. D/c metaclopramide. -eat small meals and more frequently -establish care with resident clinic--recently moved from [place], originally from [facility] #GERD asymptomatic today #pulmonary nodule found on CT -f/u in 3 months FEN NS 50mL/hr monitor cardiac diet Visit type - Emergency Visit Emergency Visit: Yes ED Registration Date: 02/11/19 Care time: The patient presented to the Emergency Department on the above date and was hospitalized for further evaluation of their emergent condition. - New Patient This patient is new to me today: Yes Date on this admission: 02/12/19 - Critical Care Critical Care patient: No - Discharge Referral Referred to [facility] Med [facility].C.: No ATTENDING PHYSICIAN STATEMENT I saw and evaluated the patient. I reviewed the resident's note and discussed the case with the resident. I agree with the resident's findings and plan as documented. SUBJECTIVE: OBJECTIVE: ASSESSMENT AND PLAN:
[2019-02-12] MEDS ORDERED: ATORVASTATIN CA 20 MG TABLET (FP) PO SCH (22:00)
[2019-02-13] MEDS: MIDODRINE HCL 2.5 MG TABLET PO SCH ×2 (06:59→10:58)
[2019-02-13] MEDS: INSULIN SLIDING SCALE (NOVOLOG) 1 VIAL SQ SCH ×3 (06:59→16:30)
[2019-02-13] MEDS: SUCRALFATE 1 GM/10 ML UNIT DOSE CUPS PO SCH ×2 (06:59→15:24)
[2019-02-13 07:11] LABS: BASO % 0.6 % (0-2.0); EOS % 3.9 % (0-4.5); HEMATOCRIT 34.3 % (35.4-49); HEMOGLOBIN 11.8 GM/dL (11.7-16.9); LYMPH % 42.6 % (8-40); MCH 33.3 pg (25.7-33.7); MCHC 34.3 g/dl (32.0-35.9); MEAN CELL VOLUME 97.1 fl (80-96); MEAN PLT VOLUME 8.7 fl (7.5-11.1); MONO % 12.8 % (3.8-10.2); NEUT % 40.1 % (42.8-82.8); PLATELET COUNT 138 K/MM3 (134-434); RBC 3.54 M/mm3 (4.00-5.60); WHITE BLOOD COUNT 3.5 K/mm3 (4.0-10.0)
[2019-02-13 07:17] VITALS: TEMP 98.2
[2019-02-13 07:54] LABS: ALBUMIN 2.8 g/dl (3.4-5.0); BILIRUBIN,TOTAL 0.3 mg/dL (0.2-1); BLOOD UREA NITROGEN 10.5 mg/dL (7-18); CALCIUM 8.1 mg/dL (8.5-10.1); POTASSIUM 3.5 mmol/L (3.5-5.1); TOT PROT 5.7 g/dl (6.4-8.2)
[2019-02-13] MEDS: DORZOLAMIDE 2% HCL OPHTHALMIC SOLUTION 10 ML BOTTLE OU SCH (10:55)
[2019-02-13] MEDS: BRIMONIDINE TARTRATE 0.2% OPHTHALMIC 5 ML BOTTLE OU SCH (10:56)
[2019-02-13] MEDS: MONTELUKAST NA 10 MG TABLET PO SCH (10:57)
[2019-02-13] MEDS: FLUTICASONE PROP 0.05% 16 GM NASAL SPRAY NS SCH (10:57)
[2019-02-13] MEDS: GABAPENTIN 300 MG CAPSULE (FP) PO SCH (10:57)
--- NOTE | 2019-02-13 11:57 | PN ---
Teaching Attending Note Name of Resident: Hue Lazcano ATTENDING PHYSICIAN STATEMENT I saw and evaluated the patient. I reviewed the resident's note and discussed the case with the resident. I agree with the resident's findings and plan as documented. SUBJECTIVE: Feeling better - lightheadedness resolved. Denies CP/palpitations. No LOC/HI. No visual impairment/new extremity weakness. OBJECTIVE: Afebrile, Hemodynamically Stable. Episode of hypotension after eating yesterday. Last Vital Signs Temp Pulse Resp BP Pulse Ox 98.2 F 68 20 139/96 100 02/13/19 06:00 02/13/19 06:00 02/13/19 06:00 02/13/19 06:00 02/12/19 20:38 HEENT - Atramatic, normocephalic. SHILPI. EOMI. Heart - S1, S2, RRR Lungs - clear to auscultation Abdomen - Soft, non-tender. Bowel Sounds normal. Extrmeities - no edema, no calf tenderness. Neuro - AAO x 3. CN intact. No new neuro deficits. Laboratory Results - last 24 hr 02/12/19 02/12/19 02/12/19 11:56 18:30 21:35 WBC RBC Hgb Hct MCV MCH MCHC RDW Plt Count MPV Absolute Neuts (auto) Neutrophils % Lymphocytes % Monocytes % Eosinophils % Basophils % Nucleated RBC % Sodium Potassium Chloride Carbon Dioxide Anion Gap BUN Creatinine Est GFR (CKD-EPI)AfAm Est GFR (CKD-EPI)NonAf POC Glucometer 110 127 Random Glucose Calcium Total Bilirubin AST ALT Alkaline Phosphatase Troponin I < 0.02 Total Protein Albumin 02/13/19 02/13/19 02/13/19 05:58 05:58 06:55 WBC 3.5 L RBC 3.54 L Hgb 11.8 Hct 34.3 L MCV 97.1 H MCH 33.3 MCHC 34.3 RDW 13.0 Plt Count 138 MPV 8.7 Absolute Neuts (auto) 1.4 L Neutrophils % 40.1 L D Lymphocytes % 42.6 H D Monocytes % 12.8 H Eosinophils % 3.9 Basophils % 0.6 Nucleated RBC % 0 Sodium 142 Potassium 3.5 Chloride 108 H Carbon Dioxide 27 Anion Gap 6 L BUN 10.5 Creatinine 1.0 Est GFR (CKD-EPI)AfAm 87.99 Est GFR (CKD-EPI)NonAf 75.92 POC Glucometer 109 Random Glucose 111 H Calcium 8.1 L Total Bilirubin 0.3 AST 18 ALT 18 Alkaline Phosphatase 119 H Troponin I Total Protein 5.7 L Albumin 2.8 L 02/13/19 11:12 WBC RBC Hgb Hct MCV MCH MCHC RDW Plt Count MPV Absolute Neuts (auto) Neutrophils % Lymphocytes % Monocytes % Eosinophils % Basophils % Nucleated RBC % Sodium Potassium Chloride Carbon Dioxide Anion Gap BUN Creatinine Est GFR (CKD-EPI)AfAm Est GFR (CKD-EPI)NonAf POC Glucometer 112 Random Glucose Calcium Total Bilirubin AST ALT Alkaline Phosphatase Troponin I Total Protein Albumin Current Medications Generic Name Dose Route Start Last Admin Trade Name Freq PRN Reason Stop Dose Admin Atorvastatin Calcium 20 mg 02/12/19 22:00 02/12/19 21:36 Lipitor - PO 20 mg HS NOEMY Administration Brimonidine Tartrate 1 drop 02/12/19 10:00 02/13/19 10:56 Alphagan 0.2% - OU 1 drop BID NOEMY Administration Dorzolamide HCl 1 drop 02/12/19 10:00 02/13/19 10:55 Trusopt 2% OU 1 drop BID NOEMY Administration Fluticasone Propionate 2 spray 02/12/19 10:00 02/13/19 10:57 Flonase - NS Not Given DAILY NOEMY Gabapentin 300 mg 02/12/19 10:00 02/13/19 10:57 Neurontin - PO 300 mg BID NOEMY Administration Insulin Aspart 1 vial 02/12/19 07:00 02/13/19 06:59 Novolog Vial Sliding Scale - SQ Not Given ACHS NOEMY Protocol Lisinopril 20 mg 02/12/19 10:00 Prinivil PO DAILY NOEMY Midodrine 2.5 mg 02/13/19 06:00 02/13/19 10:58 Proamatine - PO Not Given BID-MID NOEMY Montelukast Sodium 10 mg 02/12/19 10:00 02/13/19 10:57 Singulair - PO 10 mg DAILY NOEMY Administration Sucralfate 1 gm 02/12/19 06:00 02/13/19 06:59 Carafate Oral Suspension - PO 1 gm TID NOEMY Administration Home Medications Medication Instructions Recorded Amlodipine Besylate/Benazepril 1 cap PO DAILY 02/11/19 [Amlodipine-Benazepril 10-20 mg] Atorvastatin Calcium 20 mg PO HS 02/11/19 Brimonidine Tartrate [Alphagan 1 drop OU BID 02/11/19 0.2% -] Dorzolamide HCl [Trusopt 2% -] 1 drop OU BID 02/11/19 Fluticasone Propionate [Flonase 2 spray NS DAILY PRN 02/11/19 Allergy Relief] Gabapentin 300 mg PO BID 02/11/19 Metformin HCl [Glucophage] 500 mg PO DAILY 02/11/19 Metoclopramide HCl [Reglan] 10 mg PO TID 02/11/19 Montelukast Sodium [Singulair] 10 mg PO DAILY 02/11/19 Omeprazole 40 mg PO DAILY 02/11/19 Sucralfate Oral Suspension 10 ml PO TID 02/11/19 [Carafate Oral Suspension -] ASSESSMENT AND PLAN: 68 year old male with 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 No CP/Palpitations. 1. Post Prandial Hypotension, symptomatic with syncope - suggestive of Autonomic Neuropathy ?sec to DM [address] head - no acute intracranial findings. Mild/Mod volume loss DDIMER positive - CTA negative for PE; Duplex LEs - no DVT ECG - no acute changes Echo - normal EF, impaired LV relaxation. Carotid Duplex - no hemodynamically significant stenosis. Neuro consulted - recommend Midodrine, discontinue reglan, small frequent meals , MRI Head and C-Spine as out-patient. Counselled regarding importance of small more freq meals. Will hold CCB and ERNA-I. PT and discharge home with close PCP follow up for BP monitoring and Neuro follow up for further Ix including MRI. 2. HTN - Hold Amlodipine/Benazepril, PCP follow up of BP and anti-hypertensive medication titration. 3. DM 2 - Resume home diabetic regimen. 4. Hx CVA - residual LLE weakness Continue Statin. Unclear why not on aspirin. For PCP/Neuro follow up. 5. GERD - Continue PPI/Sucralfate.
[2019-02-13 12:32] VITALS: BP 160/90; PULSE 74
[2019-02-13] MEDS ORDERED: RANITIDINE HCL 150 MG TABLET (FP) PO ONE (14:00)
[2019-02-13] MEDS: MIDODRINE HCL 5 MG TABLET PO SCH ×2 (15:24→17:32)
--- NOTE | 2019-02-13 16:25 | DS ---
Physical Exam: SUBJECTIVE: Patient seen and examined. Pt reports no hypotensive events since yesterday afternoon. He denies dizziness, diaphoresis, chest pain, palpitations , n/v/d. He reports mild epigastric burning. OBJECTIVE: Vital Signs Period Temp Pulse Resp BP Sys/Chance Pulse Ox Last 24 Hr 98.2 F-98.8 F 68-101 18-20 109-160/54-96 98-100 PHYSICAL EXAM GENERAL: The patient is awake, alert, and fully oriented, in no acute distress. HEAD: Normal with no signs of trauma. EYES: PERRL, extraocular movements intact, sclera anicteric, conjunctiva clear. ENT: Ears normal, nares patent, moist mucous membranes. NECK: Trachea midline, full range of motion, supple. LUNGS: Breath sounds equal, clear to auscultation bilaterally, no wheezes, no crackles, no accessory muscle use. HEART: Regular rate and rhythm, S1, S2 without murmur, rub or gallop. ABDOMEN: Soft, nontender, nondistended, normoactive bowel sounds EXTREMITIES: 2+ pulses, warm, well-perfused, no edema. NEUROLOGICAL: Cranial nerves II through XII grossly intact. Normal speech, gait not observed. PSYCH: Normal mood, normal affect. SKIN: Warm, dry, normal turgor, no rashes or lesions noted. LABS Laboratory Results - last 24 hr 02/12/19 02/12/19 02/13/19 18:30 21:35 05:58 WBC 3.5 L RBC 3.54 L Hgb 11.8 Hct 34.3 L MCV 97.1 H MCH 33.3 MCHC 34.3 RDW 13.0 Plt Count 138 MPV 8.7 Absolute Neuts (auto) 1.4 L Neutrophils % 40.1 L D Lymphocytes % 42.6 H D Monocytes % 12.8 H Eosinophils % 3.9 Basophils % 0.6 Nucleated RBC % 0 Sodium Potassium Chloride Carbon Dioxide Anion Gap BUN Creatinine Est GFR (CKD-EPI)AfAm Est GFR (CKD-EPI)NonAf POC Glucometer 127 Random Glucose Calcium Total Bilirubin AST ALT Alkaline Phosphatase Troponin I < 0.02 Total Protein Albumin 02/13/19 02/13/19 02/13/19 05:58 06:55 11:12 WBC RBC Hgb Hct MCV MCH MCHC RDW Plt Count MPV Absolute Neuts (auto) Neutrophils % Lymphocytes % Monocytes % Eosinophils % Basophils % Nucleated RBC % Sodium 142 Potassium 3.5 Chloride 108 H Carbon Dioxide 27 Anion Gap 6 L BUN 10.5 Creatinine 1.0 Est GFR (CKD-EPI)AfAm 87.99 Est GFR (CKD-EPI)NonAf 75.92 POC Glucometer 109 112 Random Glucose 111 H Calcium 8.1 L Total Bilirubin 0.3 AST 18 ALT 18 Alkaline Phosphatase 119 H Troponin I Total Protein 5.7 L Albumin 2.8 L HOSPITAL COURSE: Mr. 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 He was sitting when he became dizzy and diaphoretic. He reports being unconscious for 1 hour in which time he vomited once per family. He had been feeling weak and generally unwell the week leading to this. He also reports one episode last year. He takes amlodipine/benazapril and reports labile pressures. In the ED, fluids were started. Doppler left leg, CXR, CT head were negative. CTA showed right side pulmonary nodules ( radiologist recommended 3 month f/u). The patient's amlodipine was discontinued. on 02/12 the patient was eating breakfast when he became hypotensive with no loss of consciousness. He also became hypotensive in the afternoon. Neurology saw pt and recommended midodrine 5mg BID 0600 and 1500. Patient was observed overnight and had no acute events. His ERNA inhibitor was also discontinued. He was discharged home with a prescription for midodrine and given instructions to follow up with PCP and neuro. Date of Admission:02/11/19 Date of Discharge: 02/13/19 Minutes to complete discharge: 35 Discharge Summary Reason For Visit: SYNCOPE Current Active Problems Syncope (Acute) Condition: Stable - Instructions Diet, Activity, Other Instructions: Hospital visit: You were admitted to the hospital after you became lightheaded and passed out. Tests were done to check your brain, neck, and heart, and they came back normal. You had multiple episodes where your blood pressure dropped, and you almost passed out at the hospital. You were seen by a neurologist. You have post -prandial hypotension, which means your blood pressure drops when you eat. You are being given a prescription that will help keep your blood pressure steady, so you do not pass out again. Medications: STOP taking your blood pressure medication amlodipine/benazapril. Your pressure is low when you take it. You are being given a prescription for midodrine 5mg twice daily. You should take this medication at 6:00am and 3:00pm. Follow up with the following physicians: Dr. Hutchison, neurology, in the next [address] Garcias, primary care, in the next week If you already have a primary care physician here, you may see that physician instead. Other instructions: You should monitor your blood pressure everyday and write it down in a log. If it gets above 160/100, go to the emergency room. Eat small meals every few hours instead of large meals. You should be sitting when you eat. When you get up from eating, do so slowly so you do not get lightheaded or pass out. If you feel lightheaded and sweaty, you should immediately sit down or lie down. Elevating your feet and legs above the level of your heart may help this pass quicker and stop you from passing out. Staying hydrated by drinking water throughout the day may also help. You should also go to the emergency room if you have lightheadedness and sweating that does not improve within a few minutes, if you do pass out again, if you have chest pain, if you have difficulty breathing. Referrals: Brandin Hutchison MD [Staff Physician] - Sandrita Garcias MD [Staff Physician] - Disposition: HOME - Home Medications Comprehensive Discharge Medication List: Ambulatory Orders Atorvastatin Calcium 20 mg PO HS 02/11/19 Brimonidine Tartrate [Alphagan 0.2% -] 1 drop OU BID 02/11/19 Dorzolamide HCl [Trusopt 2% -] 1 drop OU BID 02/11/19 Fluticasone Propionate [Flonase Allergy Relief] 2 spray NS DAILY PRN 02/11/19 Gabapentin 300 mg PO BID 02/11/19 Metformin HCl [Glucophage] 500 mg PO DAILY 02/11/19 Montelukast Sodium [Singulair] 10 mg PO DAILY 02/11/19 Omeprazole 40 mg PO DAILY 02/11/19 Sucralfate Oral Suspension [Carafate Oral Suspension -] 10 ml PO TID 02/11/19 Midodrine HCl [Proamatine -] 5 mg PO BID-MID 30 Days #60 tablet 02/13/19 This patient is new to me today: No Emergency Visit: Yes ED Registration Date: 02/11/19 Care time: The patient presented to the Emergency Department on the above date and was hospitalized for further evaluation of their emergent condition. Critical Care patient: No - Discharge Referral Referred to [facility] Med P.C.: No ATTENDING PHYSICIAN STATEMENT I saw and evaluated the patient. I reviewed the resident's note and discussed the case with the resident. I agree with the resident's findings and plan as documented. SUBJECTIVE: OBJECTIVE: ASSESSMENT AND PLAN:
== END 2019-02-13 17:33 | disposition home or self-care (01) | DRG 315 ==
LOC: JER 11:23 → JERBED 19:45 → J4W 22:24
PROVIDERS: ADMIT Internal Medicine
DX: I95.9 Hypotension, unspecified (principal); I69.354 Hemiplegia and hemiparesis following cerebral infarction affecting left non-dominant side; E88.09 Other disorders of plasma-protein metabolism, not elsewhere classified; K21.9 Gastro-esophageal reflux disease without esophagitis; I10 Essential (primary) hypertension; E11.40 Type 2 diabetes mellitus with diabetic neuropathy, unspecified; R91.1 Solitary pulmonary nodule; Z79.84 Long term (current) use of oral hypoglycemic drugs
CPT/HCPCS: 36415; 70450-TC; 71045-TC-FY; 71275-TC; 80053; 80061; 82550; 82962; 83036; 83721; 83735; 84443; 84484; 85025; 85379; 93005; 93010; 93306-TC; 93880-TC; 93971-TC; 97116-GP; 97161-GP; 99284-25; J7030

== ENCOUNTER 2019-05-25 15:47 | Inpatient (IN) | payer OTHER ==
--- NOTE | 2019-05-25 16:00 | PDOC ---
History of Present Illness - General Chief Complaint: Nausea/Vomiting Stated Complaint: N/V Time Seen by Provider: 05/25/19 16:00 History Source: Patient Exam Limitations: Language Barrier - History of Present Illness Initial Comments: 05/25/19 16:01 68yM w PMHx labile BPs, L kidney removal, CVA (residual L leg weakness) presenting w constipation, AB pain. Last BM 3 weeks ago. Last 3 days, endorsed diffuse ABD pain, distension, nausea, headache, non productive cough, nasal congestion, vomiting with meals, loss of appetite, body rigors. Denies fevers, chest pain, urinary symptoms. Visiting family from [place] Past History - Past Medical History Allergies/Adverse Reactions: Allergies Allergy/AdvReac Type Severity Reaction Status Date / Time No Known Allergies Allergy Verified 05/25/19 16:19 Home Medications: Ambulatory Orders Atorvastatin Calcium 20 mg PO HS 02/11/19 Brimonidine Tartrate [Alphagan 0.2% -] 1 drop OU BID 02/11/19 Dorzolamide HCl [Trusopt 2% -] 1 drop OU BID 02/11/19 Fluticasone Propionate [Flonase Allergy Relief] 2 spray NS DAILY PRN 02/11/19 Gabapentin 300 mg PO BID 02/11/19 Metformin HCl [Glucophage] 500 mg PO DAILY 02/11/19 Montelukast Sodium [Singulair] 10 mg PO DAILY 02/11/19 Omeprazole 40 mg PO DAILY 02/11/19 Sucralfate Oral Suspension [Carafate Oral Suspension -] 10 ml PO TID 02/11/19 Midodrine HCl [Proamatine -] 5 mg PO BID-MID 30 Days #60 tablet 02/13/19 Anemia: Yes Asthma: No Cancer: No Cardiac Disorders: No CVA: Yes (10 years ago) COPD: No CHF: No Dementia: No Diabetes: No GI Disorders: No Disorders: No HTN: Yes Hypercholesterolemia: No Liver Disease: No Seizures: No Thyroid Disease: No - Psycho Social/Smoking Cessation Hx Smoking History: Never smoked Have you smoked in the past 12 months: No Hx Alcohol Use: No Drug/Substance Use Hx: No Review of Systems - Review of Systems Constitutional: No: Chills, Fever HEENTM: Yes: Nose Congestion. No: Eye Pain, Nose Pain, Throat Pain, Mouth Pain Respiratory: Yes: Cough. No: Shortness of Breath Cardiac (ROS): No: Chest Pain, Palpitations, Syncope ABD/GI: Yes: Abdominal Distended, Constipated, Nausea, Poor Appetite, Vomiting. No: Diarrhea : No: Burning, Dysuria, Hematuria Musculoskeletal: No: Back Pain, Joint Pain Integumentary: No: Bruising, Flushing, Lesions Neurological: Yes: Headache. No: Seizure, Tingling Psychiatric: No: Anxiety, Depression, Stressors Endocrine: No: Excessive Sweating, Flushing, Intolerance to Cold, Intolerance to Heat Hematologic/Lymphatic: No: Anemia, Blood Clots *Physical Exam - Physical Exam General Appearance: Yes: Nourished, Appropriately Dressed, Mild Distress HEENT: positive: EOMI, SHILPI, Normal Voice, Nasal Congestion, Hearing Grossly Normal. negative: Scleral Icterus (R), Scleral Icterus (L) Respiratory/Chest: positive: Lungs Clear, Normal Breath Sounds. negative: Chest Tender, Respiratory Distress, Crackles, Rales, Rhonchi, Stridor, Wheezing Cardiovascular: positive: Regular Rhythm, Regular Rate, S1, S2. negative: Edema , Murmur Gastrointestinal/Abdominal: positive: Normal Bowel Sounds, Tender (mild tenderness diffuse), Flat, Soft, Distended (mild). negative: Organomegaly, Hernia, Mass Rectal Exam: positive: normal exam, normal rectal tone. negative: melena, hemorrhoids Musculoskeletal: negative: CVA Tenderness (R), CVA Tenderness (L) Extremity: positive: Delayed Capillary Refill Integumentary: positive: Normal Color, Dry Neurologic: positive: Fully Oriented, Alert, Normal Response, Motor Strength 5/ 5 (4/5 hip flexion L leg), Responsive. negative: Sensory Deficit, Confused, Disoriented ED Treatment Course - LABORATORY CBC & Chemistry Diagram: 05/25/19 16:47 05/25/19 16:47 Medical Decision Making - Medical Decision Making 05/25/19 16:21 CBC CMP trop lipase lactate UA Ucx CXR shows new R basilar infiltrates CT A/P EKG shows NSR, HR 64, QTc 404, no ST changes tylenol zofran 1L NS WBC 3 (stable), ALP 150, lactate 2.1, trop - lipase - --- 68yM w PMHx labile BPs, L kidney removal, CVA (residual L leg weakness) presenting w 3 wk constipation, 3d AB pain. ABD pain ddx : Diverticulitis vs SBO vs colitis vs constipation. Normal rectal exam. Has community acquired PNA (R basilar infiltrates CXR). Low concern for ACS ( NSR EKG, neg trop) vs pancreatitis (lipase normal). Sable leukopenia WBC 3 Given tylenol, zofran, 2L NS, zosyn, azithromycin for PNA Anticipate admit for CAP, abdominal pathology - pending repeat lactate - pending CT A/P Signed out to night team Discharge - Discharge Information Problems reviewed: Yes Clinical Impression/Diagnosis: Constipation Qualifiers: Constipation type: unspecified constipation type Qualified Code(s): K59.00 - Constipation, unspecified Abdominal pain Qualifiers: Abdominal location: generalized Qualified Code(s): R10.84 - Generalized abdominal pain Condition: Guarded - Follow up/Referral Referrals: ON STAFF,NOT [Primary Care Provider] - - Patient Discharge Instructions - Post Discharge Activity
[2019-05-25] MEDS ORDERED: ACETAMINOPHEN 1000 MG/100 ML VIAL (NON FORMULARY) IVPB ONE (16:17)
[2019-05-25] MEDS ORDERED: SODIUM CHLORIDE 0.9% 500 ML INFUS.BAG IV ONE ×2 (16:17→18:06)
[2019-05-25] MEDS ORDERED: ONDANSETRON 4 MG/2 ML VIAL IVPUSH ONE (16:17)
[2019-05-25] MEDS ORDERED: ACETAMINOPHEN INJECTION 100 ML IVPB ONE (16:54)
[2019-05-25] MEDS ORDERED: ONDANSETRON 4 MG/2 ML VIAL ONE (16:55)
--- NOTE | 2019-05-25 16:55 | PDOC ---
Documentation entered by Miriam Beltre SCRIBE, acting as scribe for Juliana Melton DO. Juliana Melton DO: This documentation has been prepared by the Alexsander greco Brenda, SCRIBE, under my direction and personally reviewed by me in its entirety. I confirm that the documentation accurately reflects all work, treatment, procedures, and medical decision making performed by me. Attending Attestation - Resident Resident Name: Kobe Stacy - ED Attending Attestation I have performed the following: I have examined & evaluated the patient, The case was reviewed & discussed with the resident, I agree w/resident's findings & plan, Exceptions are as noted - HPI HPI: 05/25/19 16:56 The patient is a year old female, with a significant PMH ofabile BPs, L kidney removal, CVA (residual L leg weakness) who presents to the emergency department with constipation for 3 weeks. Patient states that he has not had a bowel movement in 3 weeks along with decreased PO intake and appetite. Patient also endorses intermittent abdominal pain upon eating. Patient is visiting from [place]. The patient denies chest pain, shortness of breath, headache and dizziness. Denies fever, chills, nausea, vomiting, diarrhea. Denies dysuria, frequency, urgency and hematuria. Allergies: NKA PCP: Not on staff - Physicial Exam PE: 05/25/19 16:56 GENERAL: Awake, alert, and fully oriented, in no acute distress HEAD: No signs of trauma EYES: EOMI, sclera anicteric, conjunctiva clear ENT: (+) Dry mucous membranes. hearing grossly normal, nares patent, oropharynx clear without exudates. NECK: Normal ROM, supple, no lymphadenopathy, JVD, or masses LUNGS: Breath sounds equal, clear to auscultation bilaterally. No wheezes, and no crackles HEART: Regular rate and rhythm, normal S1 and S2, no murmurs, rubs or gallops ABDOMEN: no abd ttp, no distension. Soft, normoactive bowel sounds. No guarding , no rebound. No masses EXTREMITIES: Normal range of motion, no edema. No clubbing or cyanosis. No cords, erythema, or tenderness NEUROLOGICAL: Cranial nerves II through XII grossly intact. Normal speech, normal gait SKIN: Warm, Dry, normal turgor, no rashes or lesions noted. 05/25/19 17:02 - Medical Decision Making 05/25/19 16:50 I, Dr. Juliana Melton, DO, attest that this document has been prepared under my direction and personally reviewed by me in its entirety. I further attest, that it accurately reflects all work, treatment, procedures and medical decision -making performed by me. a/p: 68yo male from [place] with n/v and abd pain -pt states last bm was 3 weeks ago -n/v intermittently -pain when he eats -denies wt loss -denies f/c -no cp/sob -visiting from [place] -will send labs, ct abd/pelvis, ekg -will monitor and reassess 05/25/19 18:13 pt with leukopenia elevated lactate ivf hydration running 05/25/19 18:26 cxr shows RML infiltrate recent new cough- will need abx Heart Score/ECG Review - ECG Intrepretation Comment:: 05/25/19 16:54 sinus at 64, nl axis, nl interval, no acute st/t wave findings
[2019-05-25 17:03] LABS: BASO % 0.8 % (0-2.0); EOS % 1.9 % (0-4.5); HEMATOCRIT 43.7 % (35.4-49); HEMOGLOBIN 14.5 GM/dL (11.7-16.9); LYMPH % 47.8 % (8-40); MCH 32.5 pg (25.7-33.7); MCHC 33.2 g/dl (32.0-35.9); MEAN CELL VOLUME 97.9 fl (80-96); MEAN PLT VOLUME 8.3 fl (7.5-11.1); MONO % 9.1 % (3.8-10.2); NEUT % 40.4 % (42.8-82.8); PLATELET COUNT 189 K/MM3 (134-434); RBC 4.47 M/mm3 (4.00-5.60); RDW 14.5 % (11.9-15.9)
[2019-05-25 17:27] LABS: INR 1.06 (0.83-1.09); PROTHROMBIN TIME (PATIENT) 12.5 SEC (9.7-13.0)
[2019-05-25 17:35] LABS: ALBUMIN 3.7 g/dl (3.4-5.0); BILIRUBIN,TOTAL 0.6 mg/dL (0.2-1); CALCIUM 8.8 mg/dL (8.5-10.1); CREATININE 1.3 mg/dL (0.55-1.3); TOT PROT 7.2 g/dl (6.4-8.2)
[2019-05-25] MEDS ORDERED: PIPERACILLIN/TAZOB 4.5 GM 4.5 GM in DEXTROSE 5%-WATER 100 ML IVPB ONE (18:31)
[2019-05-25] MEDS ORDERED: AZITHROMYCIN IVPB 500 MG in DEXTROSE 5%-WATER - 250 ML IVPB ONE (18:31)
[2019-05-25] MEDS ORDERED: PIPERACILLIN/TAZOB 4.5 GM 4.5 GM/100 ML BAG IVPB ONE (19:43)
[2019-05-25] MEDS ORDERED: AZITHROMYCIN IVPB 500 MG/250 ML BAG IVPB ONE (19:43)
--- NOTE | 2019-05-25 20:43 | PDOC ---
*Physical Exam - Vital Signs Last Vital Signs Temp Pulse Resp BP Pulse Ox 98.1 F 64 16 135/95 100 05/25/19 15:47 05/25/19 15:47 05/25/19 15:47 05/25/19 15:47 05/25/19 19:59 ED Treatment Course - LABORATORY CBC & Chemistry Diagram: 05/25/19 16:47 05/25/19 16:47 - ADDITIONAL ORDERS Additional order review: Laboratory Results 05/25/19 05/25/19 05/25/19 16:47 16:47 16:47 PT with INR 12.50 INR 1.06 Sodium Potassium Chloride Carbon Dioxide Anion Gap BUN Creatinine Est GFR (CKD-EPI)AfAm Est GFR (CKD-EPI)NonAf Random Glucose Lactic Acid 2.1 H Calcium Total Bilirubin AST ALT Alkaline Phosphatase Creatine Kinase Troponin I Total Protein Albumin Lipase Blood Type A POSITIVE Antibody Screen Negative 05/25/19 05/25/19 16:47 16:47 PT with INR INR Sodium 139 Potassium 4.0 Chloride 105 Carbon Dioxide 28 Anion Gap 6 L BUN 11.0 Creatinine 1.3 Est GFR (CKD-EPI)AfAm 64.07 Est GFR (CKD-EPI)NonAf 55.28 Random Glucose 88 Lactic Acid Calcium 8.8 Total Bilirubin 0.6 AST 14 L ALT 16 Alkaline Phosphatase 150 H Creatine Kinase 42 Troponin I < 0.02 Total Protein 7.2 Albumin 3.7 Lipase 128 Blood Type Antibody Screen 05/25/19 16:47 RBC 4.47 MCV 97.9 H MCHC 33.2 RDW 14.5 D MPV 8.3 Neutrophils % 40.4 L Lymphocytes % 47.8 H Monocytes % 9.1 Eosinophils % 1.9 Basophils % 0.8 - RADIOLOGY Radiology Studies Ordered: Category Date Time Status CHEST CT WITH CONTRAST [CT] Stat CT Scan 05/25/19 19:11 Completed - Medications Given in the ED: ED Medications Discontinued Medications Generic Name Dose Route Start Last Admin Trade Name Freq PRN Reason Stop Dose Admin Acetaminophen 1,000 mg 05/25/19 16:17 05/25/19 17:05 Ofirmev Injection - IVPB 05/25/19 16:18 1,000 mg ONCE ONE Administration Azithromycin 500 mg/ Dextrose 250 mls @ 250 mls/hr 05/25/19 18:31 05/25/19 20 :21 IVPB 05/25/19 19:30 250 mls/hr ONCE ONE Administration Piperacillin Sod/Tazobactam 100 mls @ 200 mls/hr 05/25/19 18:31 05/25/19 19: 46 Sod 4.5 gm/ Dextrose IVPB 05/25/19 19:00 200 mls/hr ONCE ONE Administration Protocol Ondansetron HCl 4 mg 05/25/19 16:17 05/25/19 17:05 Zofran Injection IVPUSH 05/25/19 16:18 4 mg NOW ONE Administration Sodium Chloride 1,000 ml 05/25/19 16:17 05/25/19 17:05 Normal Saline - IV 05/25/19 16:18 1,000 ml ONCE ONE Administration Sodium Chloride 1,000 ml 05/25/19 18:06 05/25/19 18:30 Normal Saline - IV 05/25/19 18:07 1,000 ml ONCE ONE Administration Medical Decision Making - Medical Decision Making 05/25/19 20:41 CT Chest: No infiltrate or pleural effusion is seen. Small stable right lower lobe pulmonary nodules are noted. Correlation 6 month follow-up CT is suggested. CT Abdomen: No CT evidence of bowel obstruction. There is no CT evidence of acute pathology. The left kidney is not visualized probably on a postsurgical basis. Correlate clinically. 05/25/19 20:52 Patient states he actually has been here in [place] for 6 months, no appetite but can eat if he forces himself. 05/25/19 20:57 No sign of infection on ct. OK to discharge for follow up. Discharge - Discharge Information Problems reviewed: Yes Clinical Impression/Diagnosis: Anorexia Condition: Guarded Disposition: HOME - Admission No - Follow up/Referral Referrals: ON STAFF,NOT [Primary Care Provider] - Carlos Lopez MD [Staff Physician] - Jl Mancera MD [Staff Physician] - Renu Mills MD [Staff Physician] - Geetha Simon DO [Staff Physician] - - Patient Discharge Instructions Patient Printed Discharge Instructions: Anorexia-Adult Additional Instructions: Follow up with the family medicine clinic listed below as well as with the camp head counselor of your choice. Come back to the emergency department for any new, worsening or concerning symptom. - Post Discharge Activity
[2019-05-25 20:50] LABS: PH,URINE 6.5 (5.0-8.0); URINE APPEARANCE CLEAR; URINE BILIRUBIN NEGATIVE (NEGATIVE); URINE COLOR YELLOW; URINE GLUCOSE (UA) NEGATIVE (NEGATIVE); URINE KETONE TRACE (NEGATIVE); URINE LEUK ESTERASE NEGATIVE (NEGATIVE); URINE NITRITE NEGATIVE (NEGATIVE); URINE PROTEIN NEGATIVE (NEGATIVE)
--- NOTE | 2019-05-25 21:54 | PDOC ---
*Physical Exam - Vital Signs Last Vital Signs Temp Pulse Resp BP Pulse Ox 98.3 F 69 18 133/90 100 05/25/19 21:14 05/25/19 21:14 05/25/19 21:14 05/25/19 21:14 05/25/19 21:14 ED Treatment Course - LABORATORY CBC & Chemistry Diagram: 05/25/19 16:47 05/25/19 16:47 - ADDITIONAL ORDERS Additional order review: Laboratory Results 05/25/19 05/25/19 05/25/19 20:30 19:45 16:47 PT with INR INR Sodium Potassium Chloride Carbon Dioxide Anion Gap BUN Creatinine Est GFR (CKD-EPI)AfAm Est GFR (CKD-EPI)NonAf Random Glucose Lactic Acid 1.4 Calcium Total Bilirubin AST ALT Alkaline Phosphatase Creatine Kinase Troponin I Total Protein Albumin Lipase Urine Color Yellow Urine Appearance Clear Urine pH 6.5 Ur Specific [place] 1.018 Urine Protein Negative Urine Glucose (UA) Negative Urine Ketones Trace H Urine Blood Negative Urine Nitrite Negative Urine Bilirubin Negative Urine Urobilinogen 1.0 Ur Leukocyte Esterase Negative Blood Type A POSITIVE Antibody Screen Negative 05/25/19 05/25/19 05/25/19 16:47 16:47 16:47 PT with INR 12.50 INR 1.06 Sodium 139 Potassium 4.0 Chloride 105 Carbon Dioxide 28 Anion Gap 6 L BUN 11.0 Creatinine 1.3 Est GFR (CKD-EPI)AfAm 64.07 Est GFR (CKD-EPI)NonAf 55.28 Random Glucose 88 Lactic Acid 2.1 H Calcium 8.8 Total Bilirubin 0.6 AST 14 L ALT 16 Alkaline Phosphatase 150 H Creatine Kinase Troponin I Total Protein 7.2 Albumin 3.7 Lipase 128 Urine Color Urine Appearance Urine pH Ur Specific [place] Urine Protein Urine Glucose (UA) Urine Ketones Urine Blood Urine Nitrite Urine Bilirubin Urine Urobilinogen Ur Leukocyte Esterase Blood Type Antibody Screen 05/25/19 16:47 PT with INR INR Sodium Potassium Chloride Carbon Dioxide Anion Gap BUN Creatinine Est GFR (CKD-EPI)AfAm Est GFR (CKD-EPI)NonAf Random Glucose Lactic Acid Calcium Total Bilirubin AST ALT Alkaline Phosphatase Creatine Kinase 42 Troponin I < 0.02 Total Protein Albumin Lipase Urine Color Urine Appearance Urine pH Ur Specific [place] Urine Protein Urine Glucose (UA) Urine Ketones Urine Blood Urine Nitrite Urine Bilirubin Urine Urobilinogen Ur Leukocyte Esterase Blood Type Antibody Screen 05/25/19 16:47 RBC 4.47 MCV 97.9 H MCHC 33.2 RDW 14.5 D MPV 8.3 Neutrophils % 40.4 L Lymphocytes % 47.8 H Monocytes % 9.1 Eosinophils % 1.9 Basophils % 0.8 - RADIOLOGY Radiology Studies Ordered: Category Date Time Status CHEST CT WITH CONTRAST [CT] Stat CT Scan 05/25/19 19:[address] WITHOUT CONTRAST [CT] Stat CT Scan 05/25/19 21:52 Ordered - Medications Given in the ED: ED Medications Discontinued Medications Generic Name Dose Route Start Last Admin Trade Name Freq PRN Reason Stop Dose Admin Acetaminophen 1,000 mg 05/25/19 16:17 05/25/19 17:05 Ofirmev Injection - IVPB 05/25/19 16:18 1,000 mg ONCE ONE Administration Azithromycin 500 mg/ Dextrose 250 mls @ 250 mls/hr 05/25/19 18:31 05/25/19 20 :21 IVPB 05/25/19 19:30 250 mls/hr ONCE ONE Administration Piperacillin Sod/Tazobactam 100 mls @ 200 mls/hr 05/25/19 18:31 05/25/19 19: 46 Sod 4.5 gm/ Dextrose IVPB 05/25/19 19:00 200 mls/hr ONCE ONE Administration Protocol Ondansetron HCl 4 mg 05/25/19 16:17 05/25/19 17:05 Zofran Injection IVPUSH 05/25/19 16:18 4 mg NOW ONE Administration Sodium Chloride 1,000 ml 05/25/19 16:17 05/25/19 17:05 Normal Saline - IV 05/25/19 16:18 1,000 ml ONCE ONE Administration Sodium Chloride 1,000 ml 05/25/19 18:06 05/25/19 18:30 Normal Saline - IV 05/25/19 18:07 1,000 ml ONCE ONE Administration Medical Decision Making - Medical Decision Making 05/25/19 23:25 Patient now unable to leave, states he feels too dizzy. Communicated in Georgian with the patient. Has not been able to eat for weeks and vomits if he forces himself. Ct head negative. Will admit for failure to thrive. Discharge - Discharge Information Problems reviewed: Yes Clinical Impression/Diagnosis: Anorexia, Failure to thrive Condition: Guarded - Admission Yes - Follow up/Referral Referrals: Carlos Lopez MD [Staff Physician] - Renu Mills MD [Staff Physician] - Geetha Simon DO [Staff Physician] - ON STAFF,NOT [Primary Care Provider] - Jl Mancera MD [Staff Physician] - - Patient Discharge Instructions Patient Printed Discharge Instructions: Anorexia-Adult Additional Instructions: Follow up with the family medicine clinic listed below as well as with the utility worker of your choice. Come back to the emergency department for any new, worsening or concerning symptom. - Post Discharge Activity
--- NOTE | 2019-05-25 22:55 | PN ---
Teaching Attending Note Name of Resident: Marlene Dugan ATTENDING PHYSICIAN STATEMENT I saw and evaluated the patient. I reviewed the resident's note and discussed the case with the resident. I agree with the resident's findings and plan as documented. SUBJECTIVE: Patient is a year old man visiting from [place] who has a PMH Labile BPs, Prostate cancer (s/p radiotherapy 2010), ?PUD, Left nephrectomy and CVA ( residual left leg weakness) who presents to the ER with constipation for 3 weeks. Patient states that he has not had a bowel movement in 3 weeks along with decreased PO intake and poor appetite. Says he has nausea and vomiting whenever he attempt to eat. Says he has lost about 25 lbs in the past month. Patient also has intermittent abdominal pain upon eating. The patient denies chest pain, shortness of breath, headache, dizziness, fever, chills, nausea, vomiting, diarrhea, dysuria, frequency, urgency or hematuria. No recent sick contacts. Denies alcohol, tobacco or illicit drug use. OBJECTIVE: Alert Vital Signs Period Temp Pulse Resp BP Sys/Chance Pulse Ox Last 24 Hr 98.1 F-98.3 F 64-69 16-18 133-135/90-95 100-100 HEENT: No Jaundice, eye redness or discharge, PERRLA, EOMI. Normocephalic, atraumatic. External ears are normal and hearing is grossly intact. No nasal discharge. Neck: Supple, nontender. No palpable adenopathy or thyromegaly. No JVD Chest: Good effort. Clear to auscultation and percussion. Heart: Regular. No S3, rub or murmur Abdomen: Not distended, soft, nontender and no HSM. No rebound or guarding. Normal bowel sounds. Ext: Peripheral pulses intact. No leg edema. Skin: Warm and dry. No petechiae, rash or ecchymosis. Neuro: Alert. Oriented x3. CN 2-12 grossly intact. Sensation grossly intact in all four extremities and DTR are symmetric. Psych: Appropriate mood and affect. Good insight. Home Medications Medication Instructions Recorded Atorvastatin Calcium 20 mg PO HS 02/11/19 Brimonidine Tartrate [Alphagan 1 drop OU BID 02/11/19 0.2% -] Dorzolamide HCl [Trusopt 2% -] 1 drop OU BID 02/11/19 Fluticasone Propionate [Flonase 2 spray NS DAILY PRN 02/11/19 Allergy Relief] Gabapentin 300 mg PO BID 02/11/19 Metformin HCl [Glucophage] 500 mg PO DAILY 02/11/19 Montelukast Sodium [Singulair] 10 mg PO DAILY 02/11/19 Omeprazole 40 mg PO DAILY 02/11/19 Midodrine HCl [Proamatine -] 5 mg PO BID-MID 30 Days #60 tablet 02/13/19 Abnormal Lab Results 05/25/19 05/25/19 05/25/19 16:47 16:47 16:47 WBC 3.0 L MCV 97.9 H Absolute Neuts (auto) 1.2 L Neutrophils % 40.4 L Lymphocytes % 47.8 H Anion Gap 6 L Lactic Acid 2.1 H AST 14 L Alkaline Phosphatase 150 H Urine Ketones 05/25/19 20:30 WBC MCV Absolute Neuts (auto) Neutrophils % Lymphocytes % Anion Gap Lactic Acid AST Alkaline Phosphatase Urine Ketones Trace H ASSESSMENT AND PLAN: 1. Abdominal pain syndrome - CXR shows cardiomegaly and RLL infiltrate/ atelectasis. Chest CT showed RLL pulmonary nodules but report does not confirm RLL infiltrate/atelectasis. CT scan of abdomen/pelvis with IV contrast showed mild colonic fecal retention but no evidence of obstruction, colitis or diverticulitis. Constipation may explain some of his symptoms. But weight loss and leukopenia are concerning for cancer. Eduardo treat constipation with Fleet enema, then Miralax bid. Repeat CBC, get PSA and consult GI (?EGD), oncology and pulmonary - needs workup for RLL nodules. Lactic acidosis may be partly due to metformin. Will hydrate and repeat lactic acid level. Will continue comprehensive care for all of patients comorbid conditions midodrine for labile BP. 2. DM For now, we will hold the home diabetes drugs and implement sliding scale insulin regimen. Provide comprehensive diabetes care with patient teaching and counseling about the importance of adherence to prescribed diabetes regimen, euglycemia, eye care and foot care. 3. DVT prophylaxis - Lovenox 40 mg SQ q 24 hours. 4. Advance directives - Full code
--- NOTE | 2019-05-26 00:37 | HP ---
CHIEF COMPLAINT: Weakness, decreased appetite PCP: None HISTORY OF PRESENT ILLNESS: Patient is a 68 year old male visiting from [place] with PMH of labile BP, L nephrectomy (2/2 mass), prostate CA (s/p radiation) CVA (>10 years ago, residual LLE weakess), DM, GERD who presents with constipation and decreased appetite for 3 weeks. Pt reports that he has not had a BM for almost a month. He has no appetite, but forces himself to eat. However, 30 min after eating, he develops pain that results in vomiting. Pt has not been able to hold any food down. Endorses a 25 pound weight loss over past month. He states that he feels overall weak and generalized malaise. Denies night sweats. No fevers, chills, urinary symptoms, chest pain, SOB. No recent travel. Pt states that L kidney was removed 15 years ago due to malignant mass and his prostate CA was treated with radiation. He has not followed up with oncologist in 11 years. Last colonoscopy was 15 years ago. He is aware of leuokopenia, but has never been worked up for this. Recent Travel: denies PAST MEDICAL HISTORY: As per HPI PAST SURGICAL HISTORY: L nephrectomy Social History: Smoking: denies Alcohol: denies Drugs: denies Allergies No Known Allergies Allergy (Verified 05/25/19 16:19) HOME MEDICATIONS: Home Medications Medication Instructions Recorded Atorvastatin Calcium 20 mg PO HS 02/11/19 Brimonidine Tartrate [Alphagan 1 drop OU BID 02/11/19 0.2% -] Dorzolamide HCl [Trusopt 2% -] 1 drop OU BID 02/11/19 Fluticasone Propionate [Flonase 2 spray NS DAILY PRN 02/11/19 Allergy Relief] Gabapentin 300 mg PO BID 02/11/19 Metformin HCl [Glucophage] 500 mg PO DAILY 02/11/19 Montelukast Sodium [Singulair] 10 mg PO DAILY 02/11/19 Omeprazole 40 mg PO DAILY 02/11/19 Midodrine HCl [Proamatine -] 5 mg PO BID-MID 30 Days #60 tablet 02/13/19 REVIEW OF SYSTEMS CONSTITUTIONAL: generalized weakness, malaise, loss of appetite, weight change Absent: fever, chills, diaphoresis HEENT: Absent: rhinorrhea, nasal congestion, throat pain, throat swelling, difficulty swallowing, mouth swelling, ear pain, eye pain, visual changes CARDIOVASCULAR: Absent: chest pain, syncope, palpitations, irregular heart rate, lightheadedness , peripheral edema RESPIRATORY: Absent: cough, shortness of breath, dyspnea with exertion, orthopnea, wheezing, stridor, hemoptysis GASTROINTESTINAL: abdominal pain, nausea, vomiting, constipation Absent: abdominal distension, diarrhea, melena, hematochezia GENITOURINARY: Absent: dysuria, frequency, urgency, hesitancy, hematuria, flank pain, genital pain MUSCULOSKELETAL: Absent: myalgia, arthralgia, joint swelling, back pain, neck pain SKIN: Absent: rash, itching, pallor HEMATOLOGIC/IMMUNOLOGIC: Absent: easy bleeding, easy bruising, lymphadenopathy, frequent infections ENDOCRINE: Absent: unexplained weight gain, unexplained weight loss, heat intolerance, cold intolerance NEUROLOGIC: Absent: headache, focal weakness or paresthesias, dizziness, unsteady gait, seizure, mental status changes, bladder or bowel incontinence PSYCHIATRIC: Absent: anxiety, depression, suicidal or homicidal ideation, hallucinations. PHYSICAL EXAMINATION Vital Signs - 24 hr 05/25/19 05/25/19 05/25/19 15:47 19:59 21:14 Temperature 98.1 F 98.3 F Pulse Rate 64 Pulse Rate [ 69 Radial] Respiratory 16 18 Rate Blood Pressure 135/95 Blood Pressure 133/90 [Left Arm] O2 Sat by Pulse 100 100 100 Oximetry (%) GENERAL: Awake, alert, and fully oriented, in no acute distress. Thin appearing HEAD: Normal with no signs of trauma. EYES: Pupils equal, round and reactive to light, extraocular movements intact, sclera anicteric, conjunctiva clear. No lid lag. EARS, NOSE, THROAT: Ears normal, nares patent, oropharynx clear without exudates. Moist mucous membranes. NECK: Normal range of motion, supple without lymphadenopathy, JVD, or masses. LUNGS: Breath sounds equal, clear to auscultation bilaterally. No wheezes, and no crackles. No accessory muscle use. HEART: Regular rate and rhythm, normal S1 and S2 without murmur, rub or gallop. ABDOMEN: Soft, nontender, not distended, normoactive bowel sounds, no guarding, no rebound, no masses. No hepatomegaly or splenomegaly. MUSCULOSKELETAL: Normal range of motion at all joints. No bony deformities or tenderness. No CVA tenderness. UPPER EXTREMITIES: 2+ pulses, warm, well-perfused. No cyanosis. No clubbing. No peripheral edema. LOWER EXTREMITIES: 2+ pulses, warm, well-perfused. No calf tenderness. No peripheral edema. NEUROLOGICAL: Cranial nerves II-XII intact. Normal speech. Gait not observed. Decreases sensation LLE, residual from CVA PSYCHIATRIC: Cooperative. Good eye contact. Appropriate mood and affect. SKIN: Warm, dry, normal turgor, no rashes or lesions noted, normal capillary refill. Laboratory Results - last 24 hr CBC, BMP 05/25/19 16:47 05/25/19 16:47 ASSESSMENT/PLAN: Patient is a 68 year old male visiting from [place] with PMH of labile BP, L nephrectomy (2/2 mass), prostate CA (s/p radiation) CVA (>10 years ago, residual LLE weakess), DM, GERD who presents with constipation and decreased appetite for 3 weeks. #Abdominal pain syndrome CXR: RLL infiltrate/atelectasis Chest CT: RLL pulmonary nodules; report does not confirm RLL infiltrate/ atelectasis >>Pt was given zosyn/azithromycin in ED for PNA. No fevers, WBC, cough and no evidence of PNA on CT. Will hold abx for now. CTAP: mild colonic fecal retention but no evidence of obstruction, colitis or diverticulitis Pt's leuokpenia, weight loss, anorexia, as well as PMH is concerning for cancer metastasis Pulmonary consult (Dr. Hermosillo) for workup of pulmonary nodules. Pt may need bronchoscopy Oncology consult (Dr. Rincon) for pt's unexplained leukopenia and PMH of malignancies (lost to follow up with primary oncologist) GI consult (Dr. Snyder) for abd symptoms, possible malignancy, pt may need endoscopy Will treat constipation with enema followed by Miralax BID Repeat CBC, f/u PSA Cont home omeprazole 40mg daily #DM2 Pt takes metformin at home, will hold during admission ISS TIDAC and frequent FSG monitoring #Labile BP Cont home meds: midodrine 5mg BID #FEN IV NS @ 12 ml/hr Regular diet, as tolerated #DVT ppx Heparin sq #Dispo Monitor on med-surg Pt to be med-rec'ed n am and will cont home meds as necessary Visit type - Emergency Visit Emergency Visit: Yes ED Registration Date: 05/25/19 Care time: The patient presented to the Emergency Department on the above date and was hospitalized for further evaluation of their emergent condition. - New Patient This patient is new to me today: Yes Date on this admission: 05/26/19 - Critical Care Critical Care patient: No ATTENDING PHYSICIAN STATEMENT I saw and evaluated the patient. I reviewed the resident's note and discussed the case with the resident. I agree with the resident's findings and plan as documented. SUBJECTIVE: OBJECTIVE: ASSESSMENT AND PLAN:
[2019-05-26 01:12] VITALS: BMI 21.9
[2019-05-26] MEDS: SODIUM CHLORIDE 1,000 ML IV SCH ×3 (01:50→18:39)
[2019-05-26 02:02] LABS: BASO % 1.9 % (0-2.0); EOS % 2.7 % (0-4.5); HEMOGLOBIN 12.8 GM/dL (11.7-16.9); LYMPH % 39.6 % (8-40); MCH 32.8 pg (25.7-33.7); MCHC 33.7 g/dl (32.0-35.9); MEAN CELL VOLUME 97.4 fl (80-96); MEAN PLT VOLUME 8.4 fl (7.5-11.1); MONO % 10.7 % (3.8-10.2); NEUT % 45.1 % (42.8-82.8); PLATELET COUNT 173 K/MM3 (134-434); RDW 14.1 % (11.9-15.9)
[2019-05-26] MEDS ORDERED: PNEUMOC 13-VAL CONJ-DIP CRM/PF 0.5 ML DISP.SYRIN IM ONE (02:45)
[2019-05-26] MEDS: INSULIN SLIDING SCALE (NOVOLOG) 1 VIAL SQ SCH ×3 (06:03→16:40)
[2019-05-26 09:12] LABS: ALBUMIN 3.3 g/dl (3.4-5.0); BILIRUBIN,TOTAL 0.7 mg/dL (0.2-1); BLOOD UREA NITROGEN 7.9 mg/dL (7-18); CALCIUM 8.3 mg/dL (8.5-10.1); CREATININE 1.1 mg/dL (0.55-1.3); POTASSIUM 4.6 mmol/L (3.5-5.1); TOT PROT 6.6 g/dl (6.4-8.2)
[2019-05-26] MEDS ORDERED: FLU VACCINE QUAD 60 MCG/0.5 ML (MDV 19-20) IM ONE (10:00)
--- NOTE | 2019-05-26 11:27 | CON.PULM ---
Consult Consult Specialty:: PULM/CCM Referred by:: Hospitalist Reason for Consultation:: Abnormal Chest CT - History of Present Illness Chief Complaint: Abdominal pain History of Present Illness: 68 M, non-smoker, HTN, history of a Left nephrectomy (? due to CA), prostate CA (s/p radiation), CVA, DM, and GERD. Patient is visiting from [place]. Admitted via the ER due to constipation and decreased appetite for 3 weeks. He reports not being able to digest his food down and not having a BM for almost 1 month. Reports an almost 25 pound weight loss over the past month. Denies CP, SOB, AGGARWAL, cough, sputum, etc. No history of night sweats or hemoptysis. 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 CT Chest: Compared to 01/2019: 0.5 and 0.4 non-calcified nodules in the Right Lower Lobe by the oblique fissure. - History Source History Provided By: Patient Limitations to Obtaining History: Poor Historian - Alcohol/Substance Use Hx Alcohol Use: No - Smoking History Smoking history: Never smoked Have you smoked in the past 12 months: No Home Medications - Allergies Allergies/Adverse Reactions: Allergies Allergy/AdvReac Type Severity Reaction Status Date / Time No Known Allergies Allergy Verified 05/25/19 16:19 - Home Medications Home Medications: Ambulatory Orders Atorvastatin Calcium 20 mg PO HS 02/11/19 Brimonidine Tartrate [Alphagan 0.2% -] 1 drop OU BID 02/11/19 Dorzolamide HCl [Trusopt 2% -] 1 drop OU BID 02/11/19 Fluticasone Propionate [Flonase Allergy Relief] 2 spray NS DAILY PRN 02/11/19 Gabapentin 300 mg PO BID 02/11/19 Metformin HCl [Glucophage] 500 mg PO DAILY 02/11/19 Montelukast Sodium [Singulair] 10 mg PO DAILY 02/11/19 Omeprazole 40 mg PO DAILY 02/11/19 Midodrine HCl [Proamatine -] 5 mg PO BID-MID 30 Days #60 tablet 02/13/19 Review of Systems - Review of Systems Constitutional: reports: Loss of Appetite, Malaise, Unintentional Wgt. Loss, Weakness. denies: Chills, Diaphoresis, Night Sweats Eyes: reports: No Symptoms HENT: reports: No Symptoms Neck: reports: No Symptoms Cardiovascular: denies: Chest Pain, Edema, Palpitations, Shortness of Breath Respiratory: denies: Cough, Exercise Intolerance, Hemoptysis, Orthopnea, PND, Snoring, SOB on Exertion, Wheezing Gastrointestinal: reports: Abdominal Pain, Constipation, Dysphagia, Indigestion , Nausea, Vomiting. denies: Melena, Rectal Bleeding, Vomiting Blood Genitourinary: reports: No Symptoms Breasts: reports: No Symptoms Reported Musculoskeletal: reports: No Symptoms Integumentary: reports: No Symptoms Neurological: reports: No Symptoms Endocrine: reports: No Symptoms Hematology/Lymphatic: reports: No Symptoms Psychiatric: reports: No Symptoms Physical Exam Vital Sings: Vital Signs Temperature 97.9 F 05/26/19 06:00 Pulse Rate 77 05/26/19 06:00 Respiratory Rate 18 05/26/19 09:00 Blood Pressure 152/97 05/26/19 06:00 O2 Sat by Pulse Oximetry (%) 100 05/26/19 09:00 Constitutional: Yes: No Distress, Thin Eyes: Yes: Conjunctiva Clear, EOM Intact HENT: Yes: Atraumatic, Normocephalic Neck: Yes: Supple, Trachea Midline Cardiovascular: Yes: Regular Rate and Rhythm Respiratory: Yes: Regular, CTA Bilaterally ...Inspection: Yes: WNL ...Clubbing: No Gastrointestinal: Yes: Normal Bowel Sounds, Soft Musculoskeletal: Yes: WNL Extremities: Yes: WNL Edema: No Peripheral Pulses WNL: Yes Integumentary: Yes: WNL Neurological: Yes: WNL, Alert, Oriented ...Motor Strength: WNL Psychiatric: Yes: WNL, Alert, Oriented Labs: CBC, BMP 05/26/19 01:50 05/26/19 08:02 Imaging - Results Chest X-ray: Report Reviewed, Image Reviewed Cat Scan: Report Reviewed, Image Reviewed Problem List - Problems (1) Prostate cancer Code(s): C61 - MALIGNANT NEOPLASM OF PROSTATE (2) History of nephrectomy Code(s): Z90.5 - ACQUIRED ABSENCE OF KIDNEY (3) Lung nodule < 6cm on CT Code(s): R91.1 - SOLITARY PULMONARY NODULE (4) Diabetes mellitus Code(s): E11.9 - TYPE 2 DIABETES MELLITUS WITHOUT COMPLICATIONS (5) GERD (gastroesophageal reflux disease) Code(s): K21.9 - GASTRO-ESOPHAGEAL REFLUX DISEASE WITHOUT ESOPHAGITIS (6) Anorexia Code(s): R63.0 - ANOREXIA Assessment/Plan According to the 2017 updated Fleischner Society Guidelines, if the patient is considered low risk for having Lung carcinoma, no follow up suggested. If he is followed as high risk, the recommendation is for a [address] Chest[address] The patient reports that his health care providers are in [place]. I suggested that he have the images of his 2 CT scans put onto a disc that he can provide to his doctors in [place] for further follow up. No smoking counseled. There is no history that would be consistent with OSAS. GI evaluation and workup is pending. Thank you. Dr Armstrong
--- NOTE | 2019-05-26 12:15 | CON.GI ---
Consult Consult Specialty:: Gastroenterology ( covering the [facility] GI service) Referred by:: Marlene Dugan MD Reason for Consultation:: Abdominal pain and weight loss - History of Present Illness Chief Complaint: Loss or appetite and weight History of Present Illness: 68M reports that his weight has dropped from 160 to 136lbs over the past few weeks. This has occurred in the setting of diminished appetite, early satiety and worsening constipation. He has vomited when he forces himself to eat. He denies any overt bleeding or narrowing of stool caliber. He has a diffuse dull bloating pain. He had an EGD and a colonoscopy remotely. His colon was normal but the EGD revealed an ulcer. 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year[place] 1980 Home Medications - Allergies Allergies/Adverse Reactions: Allergies Allergy/AdvReac Type Severity Reaction Status Date / Time No Known Allergies Allergy Verified 05/25/19 16:19 - Home Medications Home Medications: Ambulatory Orders Atorvastatin Calcium 20 mg PO HS 02/11/19 Brimonidine Tartrate [Alphagan 0.2% -] 1 drop OU BID 02/11/19 Dorzolamide HCl [Trusopt 2% -] 1 drop OU BID 02/11/19 Fluticasone Propionate [Flonase Allergy Relief] 2 spray NS DAILY PRN 02/11/19 Gabapentin 300 mg PO BID 02/11/19 Metformin HCl [Glucophage] 500 mg PO DAILY 02/11/19 Montelukast Sodium [Singulair] 10 mg PO DAILY 02/11/19 Omeprazole 40 mg PO DAILY 02/11/19 Midodrine HCl [Proamatine -] 5 mg PO BID-MID 30 Days #60 tablet 02/13/19 Family Medical History Family Hx Diabetes: Sister (Mother and father "naturally") Review of Systems - Review of Systems Constitutional: reports: Loss of Appetite, Unintentional Wgt. Loss, Weakness Eyes: reports: No Symptoms HENT: reports: No Symptoms Neck: reports: No Symptoms Cardiovascular: reports: No Symptoms Respiratory: reports: No Symptoms Gastrointestinal: reports: Abdominal Pain, Bloating, Constipation, Vomiting Genitourinary: reports: No Symptoms Physical Exam-GI Vital Signs: Vital Signs Temperature 97.9 F 05/26/19 06:00 Pulse Rate 77 05/26/19 06:00 Respiratory Rate 18 05/26/19 09:00 Blood Pressure 152/97 05/26/19 06:00 O2 Sat by Pulse Oximetry (%) 100 05/26/19 09:00 CBC,CMP WBC 3.0 K/mm3 (4.0-10.0) L 05/26/19 01:50 RBC 3.90 M/mm3 (4.00-5.60) L 05/26/19 01:50 Hgb 12.8 GM/dL (11.7-16.9) 05/26/19 01:50 Hct 38.0 % (35.4-49) 05/26/19 01:50 MCV 97.4 fl (80-96) H 05/26/19 01:50 MCH 32.8 pg (25.7-33.7) 05/26/19 01:50 MCHC 33.7 g/dl (32.0-35.9) 05/26/19 01:50 RDW 14.1 % (11.9-15.9) 05/26/19 01:50 Plt Count 173 K/MM3 (134-434) 05/26/19 01:50 MPV 8.4 fl (7.5-11.1) 05/26/19 01:50 Absolute Neuts (auto) 1.4 K/mm3 (1.5-8.0) L 05/26/19 01:50 Neutrophils % 45.1 % (42.8-82.8) 05/26/19 01:50 Lymphocytes % 39.6 % (8-40) 05/26/19 01:50 Monocytes % 10.7 % (3.8-10.2) H 05/26/19 01:50 Eosinophils % 2.7 % (0-4.5) 05/26/19 01:50 Basophils % 1.9 % (0-2.0) 05/26/19 01:50 Nucleated RBC % 0 % (0-0) 05/26/19 01:50 Sodium 140 mmol/L (136-145) 05/26/19 08:02 Potassium 4.6 mmol/L (3.5-5.1) 05/26/19 08:02 Chloride 109 mmol/L (98-107) H 05/26/19 08:02 Carbon Dioxide 21 mmol/L (21-32) 05/26/19 08:02 Anion Gap 10 MMOL/L (8-16) 05/26/19 08:02 BUN 7.9 mg/dL (7-18) 05/26/19 08:02 Creatinine 1.1 mg/dL (0.55-1.3) 05/26/19 08:02 Est GFR (CKD-EPI)AfAm 78.41 05/26/19 08:02 Est GFR (CKD-EPI)NonAf 67.66 05/26/19 08:02 POC Glucometer 69 UNITS (80-120) 05/26/19 11:17 Random Glucose 75 mg/dL (74-106) 05/26/19 08:02 Lactic Acid 1.4 mmol/L (0.4-2.0) 05/25/19 19:45 Calcium 8.3 mg/dL (8.5-10.1) L 05/26/19 08:02 Total Bilirubin 0.7 mg/dL (0.2-1) 05/26/19 08:02 AST 16 U/L (15-37) 05/26/19 08:02 ALT 15 U/L (13-61) 05/26/19 08:02 Alkaline Phosphatase 134 U/L (45-117) H 05/26/19 08:02 Creatine Kinase 42 U/L (26-308) 05/25/19 16:47 Troponin I < 0.02 ng/ml (0.00-0.05) 05/25/19 16:47 Total Protein 6.6 g/dl (6.4-8.2) 05/26/19 08:02 Albumin 3.3 g/dl (3.4-5.0) L 05/26/19 08:02 Lipase 128 U/L (73-393) 05/25/19 16:47 Current Medications Generic Name Dose Route Start Last Admin Trade Name Freq PRN Reason Stop Dose Admin Sodium Chloride 1,000 mls @ 125 mls/hr 05/26/19 01:15 05/26/19 10:05 Normal Saline - IV 125 mls/hr ASDIR NOEMY Administration Insulin Aspart 1 vial 05/26/19 07:00 05/26/19 11:31 Novolog Vial Sliding Scale - SQ Not Given TIDAC [facility] Protocol Constitutional: Yes: Calm Eyes: Yes: Conjunctiva Clear HENT: Yes: Normocephalic Neck: Yes: Trachea Midline Cardiovascular: Yes: Regular Rate and Rhythm Respiratory: Yes: CTA Bilaterally Gastrointestinal Inspection: Yes: Scars (left flank incision) ...Auscultate: Yes: Normoactive Bowel Sounds ...Palpate: Yes: Soft, Other (nontender) ...Rectal Exam: Yes: Guaiac Positive (no masses, no prostate is palpable, brown guaiac positive stool) Edema: No Neurological: Yes: Alert, Oriented Labs: CBC, BMP 05/26/19 01:50 05/26/19 08:02 INR, PTT INR 1.06 (0.83-1.09) 05/25/19 16:47 Imaging - Results Cat Scan: Report Reviewed ( Final Report CT ABDOMEN & PELVIS CT WITH CONTR Show Printer-Friendly Version Patient Name: Ronnell Duran : 1950 ID: [id number] Study Date: 25-May-2019 19:06 [facility] Name: [facility] DEPARTMENT OF RADIOLOGY Phys: Kobe Stacy RESIDENT; Derick Miller RESIDENT : 1950 Age: 68 Sex: M [facility] Acct: [id number] Loc: [address] Exam Date: 05/25/19 Status: HALIE Rob [id number] Unit Number: [id number] EXAM#: TYPE/EXAM: RESULT: [id number] CT/ABDOMEN PELVIS CT WITH CONTR [id number] CT/CHEST CT WITH CONTRAST CHEST CT with contrast CLINICAL INFORMATION: dyspnea Multiplanar imaging was performed following the intravenous administration of nonionic contrast. No infiltrate or pleural effusion is noted. In comparison to a prior CT study of 02/11/2019 interval resolution of minimal to mild bibasilar discoid atelectasis is seen. Unchanged 0.5 cm and 0.4 cm right lower lobe pulmonary nodules are noted adjacent to the oblique fissure ( transaxial image 47). There is no definite cardiac enlargement. No pericardial effusion is seen. No aortic aneurysm is noted. The trachea and central bronchi demonstrate no obvious pathology. No discrete lymphadenopathy is identified. No gross acute osseous abnormality is seen. IMPRESSION: No infiltrate or pleural effusion is seen. Small stable right lower lobe pulmonary nodules are noted. Correlation 6 month follow- up CT is suggested. ABDOMEN AND PELVIS CT with contrast CLINICAL INFORMATION: 3 wks constipation, pain, evaluate for small bowel obstruction Multiplanar imaging was performed following the intravenous administration of nonionic contrast. Enteric contrast was not administered. No prior dedicated abdomen/pelvic imaging studies are available at this facility for direct comparison. No evidence of pneumoperitoneum, abscess, free intraperitoneal fluid or bowel obstruction. Mild colonic fecal retention. The left kidney is not visualized which may be on a postsurgical basis. Surgical clips are seen within the left lower retroperitoneum. Correlate with surgical history. The right kidney, right adrenal gland, liver, spleen, pancreas, and gallbladder demonstrate no discrete pathology. Minimal to mild stable left adrenal gland thickening is noted in comparison to a chest CT exam of 2018 probably on the basis of nodule hyperplasia versus subcentimeter adenomas. There is no aortic aneurysm. No definite lymphadenopathy is seen on the basis of size criteria. The appendix appears unremarkable. No CT evidence of acute diverticulitis or obvious acute colitis. There is no gross noncontrast small bowel abnormality. Mild to moderate prostate enlargement. Healed fracture of the right inferior pubic ramus. Moderate to marked multilevel lumbar degenerative disc changes. IMPRESSION: No CT evidence of bowel obstruction. There is no CT evidence of acute pathology. The left kidney is not visualized probably on a postsurgical basis. Correlate clinically. IMPRESSION: Reported By: Dom Agee MD 05/25/192024 Kobe Stacy RESIDENT; Derick Miller Technologist: Jacoby Malave Transcribed Date/Time: 05/25/192024 Banking Assistant: Dom Agee Printed Date/Time: By: Signed by: Dom Agee Signed on: 2018 20:27) Problem List - Problems (1) Abnormal weight loss Code(s): R63.4 - ABNORMAL WEIGHT LOSS (2) Occult blood in stools Code(s): R19.5 - OTHER FECAL ABNORMALITIES (3) Constipation Code(s): K59.00 - CONSTIPATION, UNSPECIFIED (4) Abdominal pain Code(s): R10.9 - UNSPECIFIED ABDOMINAL PAIN (5) Early satiety Code(s): R68.81 - EARLY SATIETY (6) Vomiting Code(s): R11.10 - VOMITING, UNSPECIFIED (7) Kidney carcinoma Code(s): C64.9 - MALIGNANT NEOPLASM OF UNSP KIDNEY, EXCEPT RENAL PELVIS (8) Glaucoma Code(s): H40.9 - UNSPECIFIED GLAUCOMA (9) Diabetes mellitus Code(s): E11.9 - TYPE 2 DIABETES MELLITUS WITHOUT COMPLICATIONS (10) History of nephrectomy Code(s): Z90.5 - ACQUIRED ABSENCE OF KIDNEY (11) Prostate cancer Code(s): C61 - MALIGNANT NEOPLASM OF PROSTATE (12) Anorexia Code(s): R63.0 - ANOREXIA Assessment/Plan Impression: - Given his occult bleeding, early satiety and vomiting and altered bowel habits towards constipation gastric and colon cancers need to be excluded as the cause of Ronnell's weight loss. I have advised an EGD and a colonoscopy. I informed Ronnell of the potential for such complications as perforation and hemorrhage and he has granted an informed consent. - Personal h/o peptic ulcer - a recurrence with gastric outlet obstruction could alternatively explain his symptoms Plan: -- Miralax TID -- PPI empirically -- Golytely prep tomorrow for EGD and colonoscopy for 05/[address] Porter
--- NOTE | 2019-05-26 13:00 | PN ---
Progress Note (short form) - Note Progress Note: Subjective: no fever or chills. abd discomfort. had a small BM after enema last night . feels nauseous when he eats Objective: Vital Signs: Last Vital Signs Temp Pulse Resp BP Pulse Ox 97.9 F 77 18 152/97 100 05/26/19 06:00 05/26/19 06:00 05/26/19 09:00 05/26/19 06:00 05/26/19 09:00 Laboratory Results - last 24 hr 05/25/19 05/25/19 05/25/19 16:47 16:47 16:47 WBC 3.0 L RBC 4.47 Hgb 14.5 Hct 43.7 D MCV 97.9 H MCH 32.5 MCHC 33.2 RDW 14.5 D Plt Count 189 D MPV 8.3 Absolute Neuts (auto) 1.2 L Neutrophils % 40.4 L Lymphocytes % 47.8 H Monocytes % 9.1 Eosinophils % 1.9 Basophils % 0.8 Nucleated RBC % 0 PT with INR INR Sodium 139 Potassium 4.0 Chloride 105 Carbon Dioxide 28 Anion Gap 6 L BUN 11.0 Creatinine 1.3 Est GFR (CKD-EPI)AfAm 64.07 Est GFR (CKD-EPI)NonAf 55.28 POC Glucometer Random Glucose 88 Lactic Acid Calcium 8.8 Total Bilirubin 0.6 AST 14 L ALT 16 Alkaline Phosphatase 150 H Creatine Kinase 42 Troponin I < 0.02 Total Protein 7.2 Albumin 3.7 Lipase 128 Urine Color Urine Appearance Urine pH Ur Specific Chama Urine Protein Urine Glucose (UA) Urine Ketones Urine Blood Urine Nitrite Urine Bilirubin Urine Urobilinogen Ur Leukocyte Esterase Blood Type Antibody Screen 05/25/19 05/25/19 05/25/19 16:47 16:47 16:47 WBC RBC Hgb Hct MCV MCH MCHC RDW Plt Count MPV Absolute Neuts (auto) Neutrophils % Lymphocytes % Monocytes % Eosinophils % Basophils % Nucleated RBC % PT with INR 12.50 INR 1.06 Sodium Potassium Chloride Carbon Dioxide Anion Gap BUN Creatinine Est GFR (CKD-EPI)AfAm Est GFR (CKD-EPI)NonAf POC Glucometer Random Glucose Lactic Acid 2.1 H Calcium Total Bilirubin AST ALT Alkaline Phosphatase Creatine Kinase Troponin I Total Protein Albumin Lipase Urine Color Urine Appearance Urine pH Ur Specific Chama Urine Protein Urine Glucose (UA) Urine Ketones Urine Blood Urine Nitrite Urine Bilirubin Urine Urobilinogen Ur Leukocyte Esterase Blood Type A POSITIVE Antibody Screen Negative 05/25/19 05/25/19 05/26/19 19:45 20:30 01:50 WBC 3.0 L RBC 3.90 L Hgb 12.8 Hct 38.0 MCV 97.4 H MCH 32.8 MCHC 33.7 RDW 14.1 Plt Count 173 MPV 8.4 Absolute Neuts (auto) 1.4 L Neutrophils % 45.1 Lymphocytes % 39.6 Monocytes % 10.7 H Eosinophils % 2.7 Basophils % 1.9 Nucleated RBC % 0 PT with INR INR Sodium Potassium Chloride Carbon Dioxide Anion Gap BUN Creatinine Est GFR (CKD-EPI)AfAm Est GFR (CKD-EPI)NonAf POC Glucometer Random Glucose Lactic Acid 1.4 Calcium Total Bilirubin AST ALT Alkaline Phosphatase Creatine Kinase Troponin I Total Protein Albumin Lipase Urine Color Yellow Urine Appearance Clear Urine pH 6.5 Ur Specific Chama 1.018 Urine Protein Negative Urine Glucose (UA) Negative Urine Ketones Trace H Urine Blood Negative Urine Nitrite Negative Urine Bilirubin Negative Urine Urobilinogen 1.0 Ur Leukocyte Esterase Negative Blood Type Antibody Screen 05/26/19 05/26/19 05/26/19 05:35 08:02 11:17 WBC RBC Hgb Hct MCV MCH MCHC RDW Plt Count MPV Absolute Neuts (auto) Neutrophils % Lymphocytes % Monocytes % Eosinophils % Basophils % Nucleated RBC % PT with INR INR Sodium 140 Potassium 4.6 Chloride 109 H Carbon Dioxide 21 Anion Gap 10 BUN 7.9 Creatinine 1.1 Est GFR (CKD-EPI)AfAm 78.41 Est GFR (CKD-EPI)NonAf 67.66 POC Glucometer 87 69 Random Glucose 75 Lactic Acid Calcium 8.3 L Total Bilirubin 0.7 AST 16 ALT 15 Alkaline Phosphatase 134 H Creatine Kinase Troponin I Total Protein 6.6 Albumin 3.3 L Lipase Urine Color Urine Appearance Urine pH Ur Specific Chama Urine Protein Urine Glucose (UA) Urine Ketones Urine Blood Urine Nitrite Urine Bilirubin Urine Urobilinogen Ur Leukocyte Esterase Blood Type Antibody Screen Physical Exam: NAD, comfortable in bed CV: RRR, no MRG Lungs: CTAB Ext : No edema or erythema in uper or lower ext Abd: soft, NT, ND , NL BS. Imaging: CT of abd and head reviewed. EKG reviewed. Assessment/Plan: 68 y/o man with h/o prostate cancer s/p RTx , h/o HTN ( off meds due to hypotension) , PUD, CVA, left nephrectomy, who presented with abd pain and constipation 1- ABd pain , due to constipation . Abd exam is benign and he had a BM after an enema. last colo and EGD were [address] scan reviewed. - GI Recs pending, but Per RN patient will undergo colonoscopy on or Friday - cont miralax ZTID. - diet as tolerated - ZOfran for nausea if needed . QTC 404 - for the colonoscopy, which is a low risk procedrue , this patient is considered at low risk for mckenzie-surgical cardiac complications . his EKG is SInus with L axis but no ischemic changes. no exertional CP . no h/o NC or CAD. has h/o stroke but no sx now and CT head is unremarkable. will monitor his BP before procedure 2- H/o HTN: he self stopped his norvasc 10 mg daily due to low BP and syncope frm that . - meds were confirmed with him. will dc midodrine form his med list - Monitor BP 3- H/o Stroke: - on asa at home .hold for now, in case something is found in colo or he needs a procedrue - cont statin 4- h/o DM : sugar in 70s here . check A1c . 5- Weight loss. colonoscopy . other cancer screening as out pt 6- leukopenia. unclear etiology. need to r/o BM pathology ( MDS ) due to macrocytosis - check B12 and folic . r/o B12 and folate def - referral to heme as out pt if B12 and folate are nl dispo : HLOC Visit type - Emergency Visit Emergency Visit: Yes ED Registration Date: 05/25/19 Care time: The patient presented to the Emergency Department on the above date and was hospitalized for further evaluation of their emergent condition. - New Patient This patient is new to me today: Yes Date on this admission: 05/26/19 - Critical Care Critical Care patient: No
[2019-05-26] MEDS ORDERED: PT OWN MED DRAWER 7, Y5N ONE (13:59)
[2019-05-26] MEDS: POLYETHYLENE GLYCOL 3350 119 GM BTL PO SCH ×2 (14:14→22:45)
[2019-05-26] MEDS: ACETAMINOPHEN 500 MG TABLET (FP) PO PRN (14:59)
--- NOTE | 2019-05-26 16:26 | CONSULT ---
Consult - text type - Consultation Consultation Note: 68M reports that his weight has dropped from 160 to 136lbs over the past few weeks. This has occurred in the setting of diminished appetite, early satiety and worsening constipation. He has vomited when he forces himself to eat. He denies any overt bleeding or narrowing of stool caliber. Also reports chest tightness h/o strokes -- reports limited mobility since 05/2018--bed bound per patient He had an EGD and a colonoscopy remotely. His colon was normal but the EGD revealed an ulcer. 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 1980 Home Medications - Allergies Allergies/Adverse Reactions: Allergies Allergy/AdvReac Type Severity Reaction Status Date / Time No Known Allergies Allergy Verified 05/25/19 16:19 - Home Medications Home Medications: Ambulatory Orders Atorvastatin Calcium 20 mg PO HS 02/11/19 Brimonidine Tartrate [Alphagan 0.2% -] 1 drop OU BID 02/11/19 Dorzolamide HCl [Trusopt 2% -] 1 drop OU BID 02/11/19 Fluticasone Propionate [Flonase Allergy Relief] 2 spray NS DAILY PRN 02/11/19 Gabapentin 300 mg PO BID 02/11/19 Metformin HCl [Glucophage] 500 mg PO DAILY 02/11/19 Montelukast Sodium [Singulair] 10 mg PO DAILY 02/11/19 Omeprazole 40 mg PO DAILY 02/11/19 Midodrine HCl [Proamatine -] 5 mg PO BID-MID 30 Days #60 tablet 02/13/19 Family Medical History Family Hx Diabetes: Sister (Mother and father "naturally") Vital Signs: Last Vital Signs Temp Pulse Resp BP Pulse Ox 98.4 F 70 18 137/87 100 05/26/19 14:10 05/26/19 14:10 05/26/19 14:10 05/26/19 14:10 05/26/19 09:00 Cor: RSR, No murmurs, No gallops Lungs: Clear to P&A Abd: Soft, Normal bowel sounds, No organomegaly Ext:No significant edema labs/meds reviewed Assessment/Plan 68M reports that his weight has dropped from 160 to 136lbs over the past few weeks. This has occurred in the setting of diminished appetite, early satiety and worsening constipation. He has vomited when he forces himself to eat. He denies any overt bleeding or narrowing of stool caliber. He has a diffuse dull bloating pain. He had an EGD and a colonoscopy remotely. His colon was normal but the EGD revealed an ulcer. Also reports chest tightness h/o strokes -- reports limited mobility since 05/2018--bed bound per patient He had an EGD and a colonoscopy remotely. His colon was normal but the EGD revealed an ulcer. h/o left renal cancer --s/p nephrectomy 2007 h/o prostate cancer --s/p EBRT --2005 GI w/u for wt. loss check PSA check bone scan cardiology consult - atypical chest pain
[2019-05-26] MEDS: MONTELUKAST NA 10 MG TABLET PO SCH (22:44)
[2019-05-26] MEDS: GABAPENTIN 300 MG CAPSULE (FP) PO SCH (22:44)
[2019-05-26] MEDS: PANTOPRAZOLE 40 MG TABLET (FP) PO SCH (22:44)
[2019-05-26] MEDS: ATORVASTATIN CA 20 MG TABLET (FP) PO SCH (22:44)
[2019-05-26] MEDS: BRIMONIDINE TARTRATE 0.2% OPHTHALMIC 5 ML BOTTLE OU SCH (22:44)
[2019-05-26] MEDS: DORZOLAMIDE 2% HCL OPHTHALMIC SOLUTION 10 ML BOTTLE OU SCH (22:45)
[2019-05-27] MEDS: SODIUM CHLORIDE 1,000 ML IV SCH ×2 (03:00→08:00)
--- NOTE | 2019-05-27 05:22 | EKG ---
Test Reason : Blood Pressure : / mmHG Vent. Rate : 064 BPM Atrial Rate : 064 BPM P-R Int : 132 ms QRS Dur : 076 ms QT Int : 392 ms P-R-T Axes : 062 -24 042 degrees QTc Int : 404 ms NORMAL SINUS RHYTHM NORMAL ECG WHEN COMPARED WITH ECG OF 11-FEB-2019 11:57, QT HAS SHORTENED Confirmed by CARLINE PERAZA MD ([id number]) on 05/27/2019 5:22:47 AM Referred By: Confirmed By:CARLINE PERAZA MD
[2019-05-27] MEDS: INSULIN SLIDING SCALE (NOVOLOG) 1 VIAL SQ SCH ×3 (06:23→18:18)
[2019-05-27] MEDS: POLYETHYLENE GLYCOL 3350 119 GM BTL PO SCH ×3 (06:23→21:37)
[2019-05-27 09:00] LABS: BLOOD UREA NITROGEN 5.4 mg/dL (7-18); CALCIUM 8.3 mg/dL (8.5-10.1)
[2019-05-27] MEDS ORDERED: PEG 3350/NA SULF BICARB CL/KCL 4000 ML SOLN.RECON PO ONE (09:00)
[2019-05-27] MEDS ORDERED: PT OWN MED DRAWER 7, Y5N ONE (09:52)
[2019-05-27] MEDS: GABAPENTIN 300 MG CAPSULE (FP) PO SCH ×2 (10:17→21:38)
[2019-05-27] MEDS: PANTOPRAZOLE 40 MG TABLET (FP) PO SCH ×2 (10:17→21:37)
[2019-05-27] MEDS: BRIMONIDINE TARTRATE 0.2% OPHTHALMIC 5 ML BOTTLE OU SCH ×2 (10:18→21:38)
[2019-05-27] MEDS: DORZOLAMIDE 2% HCL OPHTHALMIC SOLUTION 10 ML BOTTLE OU SCH ×2 (10:18→21:38)
--- NOTE | 2019-05-27 13:28 | PN ---
Progress Note (short form) - Note Progress Note: Resting in NAD. No CP or SOB. Small BM post enema last night. Intake & Output 05/24/19 05/25/19 05/26/19 05/27/19 23:59 23:59 23:59 23:59 Intake Total 2775 1450 Output Total 600 760 Balance 2175 690 Weight 160 lb 136 lb Last Vital Signs Temp Pulse Resp BP Pulse Ox 98.6 F 77 20 141/77 98 05/27/19 10:19 05/27/19 10:19 05/27/19 10:19 05/27/19 10:19 05/26/19 21:00 Active Medications Acetaminophen (Tylenol -) 500 mg PO Q6H PRN PRN Reason: PAIN 1-3 Last Admin: 05/26/19 14:59 Dose: 500 mg Atorvastatin Calcium (Lipitor -) 20 mg PO HS [facility] Last Admin: 05/26/19 22:44 Dose: 20 mg Bisacodyl (Dulcolax -) 20 mg PO ONCE ONE Stop: 05/27/19 18:01 Brimonidine Tartrate (Alphagan 0.2% -) 1 drop OU BID [facility] Last Admin: 05/27/19 10:18 Dose: 1 drop Dorzolamide HCl (Trusopt 2%) 1 drop OU BID [facility] Last Admin: 05/27/19 10:18 Dose: 1 drop Gabapentin (Neurontin -) 300 mg PO BID [facility] Last Admin: 05/27/19 10:17 Dose: 300 mg Sodium Chloride (Normal Saline -) 1,000 mls @ 75 mls/hr IV ASDIR [facility] Last Admin: 05/27/19 08:00 Dose: 75 mls/hr Insulin Aspart (Novolog Vial Sliding Scale -) 1 vial SQ TIDAC [facility]; Protocol Last Admin: 05/27/19 12:46 Dose: Not Given Montelukast Sodium (Singulair -) 10 mg PO HS [facility] Last Admin: 05/26/19 22:44 Dose: 10 mg Pantoprazole Sodium (Protonix -) 40 mg PO BID [facility] Last Admin: 05/27/19 10:17 Dose: 40 mg Polyethylene Glycol (Miralax (For Daily Use) -) 17 gm PO TID [facility] Last Admin: 05/27/19 06:23 Dose: 17 gm Constitutional: Yes: No Distress, Thin Eyes: Yes: Conjunctiva Clear, EOM Intact HENT: Yes: Atraumatic, Normocephalic Neck: Yes: Supple, Trachea Midline Cardiovascular: Yes: Regular Rate and Rhythm Respiratory: Yes: Regular, CTA Bilaterally ...Inspection: Yes: WNL ...Clubbing: No Gastrointestinal: Yes: Normal Bowel Sounds, Soft Musculoskeletal: Yes: WNL Extremities: Yes: WNL Edema: No Peripheral Pulses WNL: Yes Integumentary: Yes: WNL Neurological: Yes: WNL, Alert, Oriented ...Motor Strength: WNL Psychiatric: Yes: WNL, Alert, Oriented Labs: Laboratory Results - last 24 hr 05/26/19 05/26/19 05/27/19 16:38 22:40 06:22 Sodium Potassium Chloride Carbon Dioxide Anion Gap BUN Creatinine Est GFR (CKD-EPI)AfAm Est GFR (CKD-EPI)NonAf POC Glucometer 78 113 77 Random Glucose Hemoglobin A1c % Calcium Vitamin B12 Serum Folate 05/27/19 05/27/19 07:28 07:28 Sodium 142 Potassium 4.0 Chloride 110 H Carbon Dioxide 28 Anion Gap 4 L BUN 5.4 L Creatinine 1.0 Est GFR (CKD-EPI)AfAm 87.99 Est GFR (CKD-EPI)NonAf 75.92 POC Glucometer Random Glucose 80 Hemoglobin A1c % 5.6 Calcium 8.3 L Vitamin B12 580 Serum Folate 15 Problem List - Problems (1) Prostate cancer Code(s): C61 - MALIGNANT NEOPLASM OF PROSTATE (2) History of nephrectomy Code(s): Z90.5 - ACQUIRED ABSENCE OF KIDNEY (3) Lung nodule < 6cm on CT Code(s): R91.1 - SOLITARY PULMONARY NODULE (4) Diabetes mellitus Code(s): E11.9 - TYPE 2 DIABETES MELLITUS WITHOUT COMPLICATIONS (5) GERD (gastroesophageal reflux disease) Code(s): K21.9 - GASTRO-ESOPHAGEAL REFLUX DISEASE WITHOUT ESOPHAGITIS (6) Anorexia Code(s): R63.0 - ANOREXIA Assessment/Plan According to the 2017 updated Fleischner Society Guidelines, if the patient is considered low risk for having Lung carcinoma, no follow up suggested. If he is followed as high risk, the recommendation is for a [address] Chest. The patient reports that his health care providers are in [place]. I suggested that he have the images of his 2 CT scans put onto a disc that he can provide to his doctors in [place] for further follow up. No smoking counseled. GI workup ongoing Dr Armstrong Problem List - Problems (1) Prostate cancer Code(s): C61 - MALIGNANT NEOPLASM OF PROSTATE (2) History of nephrectomy Code(s): Z90.5 - ACQUIRED ABSENCE OF KIDNEY (3) Lung nodule < 6cm on CT Code(s): R91.1 - SOLITARY PULMONARY NODULE (4) Diabetes mellitus Code(s): E11.9 - TYPE 2 DIABETES MELLITUS WITHOUT COMPLICATIONS (5) GERD (gastroesophageal reflux disease) Code(s): K21.9 - GASTRO-ESOPHAGEAL REFLUX DISEASE WITHOUT ESOPHAGITIS (6) Anorexia Code(s): R63.0 - ANOREXIA
--- NOTE | 2019-05-27 13:28 | CON.CARD ---
Consult Consult Specialty:: Cardiology Referred by:: Dr. Rincon Reason for Consultation:: Atypical chest pain - History of Present Illness Chief Complaint: Atypical chest pain History of Present Illness: 68 M, non-smoker, HTN, history of a Left nephrectomy (? due to CA), prostate CA (s/p radiation), CVA, DM, and GERD admitted for constipation, early satiety, diffuse dull bloating pain, and decreased appetite for 3 weeks. He reports not being able to keep his food down, odynophagia , and vomits when he forces himself to eat, has not had a BM for almost 1 month. Reports an almost 25 pound weight loss over the past month. Denies CP, SOB, AGGARWAL, cough, palpitations, orthopnea, PND or LE edema. He had an EGD and a colonoscopy remotely. His colon was normal but the EGD revealed an ulcer. He is a prostate and renal cancer survivor. - History Source History Provided By: Patient Limitations to Obtaining History: No Limitations - Past Medical History [employer]: Yes: CVA (left hemiparesis resolved), Other (Glaucoma) Cardio/Vascular: Yes: HTN, Hyperlipdemia Gastrointestinal: Yes: Constipation, Peptic Ulcer Disease Renal/: Yes: Cancer (Prostate cancer was radiated. 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 Home Medications - Allergies Allergies/Adverse Reactions: Allergies Allergy/AdvReac Type Severity Reaction Status Date / Time No Known Allergies Allergy Verified 05/25/19 16:19 - Home Medications Home Medications: Ambulatory Orders Atorvastatin Calcium 20 mg PO HS 02/11/19 Brimonidine Tartrate [Alphagan 0.2% -] 1 drop OU BID 02/11/19 Dorzolamide HCl [Trusopt 2% -] 1 drop OU BID 02/11/19 Fluticasone Propionate [Flonase Allergy Relief] 2 spray NS DAILY PRN 02/11/19 Gabapentin 300 mg PO BID 02/11/19 Metformin HCl [Glucophage] 500 mg PO DAILY 02/11/19 Montelukast Sodium [Singulair] 10 mg PO DAILY 02/11/19 Omeprazole 40 mg PO DAILY 02/11/19 Aspirin Coated [Ecotrin -] 1 tab PO DAILY 05/26/19 Review of Systems - Review of Systems Gastrointestinal: reports: Abdominal Pain, Bloating, Constipation, Dysphagia, Vomiting Vital Signs: Vital Signs Temperature 98.6 F 05/27/19 10:19 Pulse Rate 77 05/27/19 10:19 Respiratory Rate 20 05/27/19 10:19 Blood Pressure 141/77 05/27/19 10:19 O2 Sat by Pulse Oximetry (%) 98 05/26/19 21:00 Constitutional: Yes: No Distress, Calm, Thin Neck: Yes: Supple Respiratory: Yes: Regular, CTA Bilaterally Gastrointestinal: Yes: Soft, Hypoactive Bowel Sounds Cardiovascular: Yes: Regular Rate and Rhythm JVD: No Carotid Bruit: No Heart Sounds: Yes: S1, S2 Murmur: Yes: Systolic Murmur, Grade 1 Edema: No - Other Data Labs, Other Data: CBC, BMP 05/26/19 01:50 05/27/19 07:28 INR, PTT INR 1.06 (0.83-1.09) 05/25/19 16:47 NSR @ 64 Ejection Fraction %: LVEF > or = 40 % Imaging - Results Chest X-ray: Report Reviewed (NAD) Cat Scan: Report Reviewed (CT Chest: Compared to 01/2019: 0.5 and 0.4 non- calcified nodules in the Right Lower Lobe by the oblique fissure.) Problem List - Problems (1) Atypical chest pain Code(s): R07.89 - OTHER CHEST PAIN (2) Dysphagia Code(s): R13.10 - DYSPHAGIA, UNSPECIFIED Qualifiers: Dysphagia type: esophageal phase Qualified Code(s): R13.10 - Dysphagia, unspecified (3) Pre-procedural cardiovascular examination Code(s): Z01.810 - ENCOUNTER FOR PREPROCEDURAL CARDIOVASCULAR EXAMINATION (4) Abdominal pain Code(s): R10.9 - UNSPECIFIED ABDOMINAL PAIN (5) Early satiety Code(s): R68.81 - EARLY SATIETY (6) GERD (gastroesophageal reflux disease) Code(s): K21.9 - GASTRO-ESOPHAGEAL REFLUX DISEASE WITHOUT ESOPHAGITIS Qualifiers: Esophagitis presence: esophagitis presence not specified Qualified Code(s) : K21.9 - Gastro-esophageal reflux disease without esophagitis (7) Vomiting Code(s): R11.10 - VOMITING, UNSPECIFIED Qualifiers: Vomiting type: unspecified (8) Anorexia Code(s): R63.0 - ANOREXIA Assessment/Plan 05/27/2019 Echo: Normal LV and RV size and fxn, tr TR 1. Atypical chest pain and dysphagia 2. H/o strokes, bedbound since 05/2018 3. Pre-procedure CV evaluation 4. h/o left renal cancer --s/p nephrectomy 2007 5. h/o prostate cancer --s/p EBRT --2005 6. HTN 7. Hyperlipidemia 8. Leukopenia r/o MDS 9. H/o peptic ulcer r/o recurrence with gastric outlet obstruction P: 1. May proceed with EGD/colonoscopy from CV-standpoint given absence of symptoms of acute coronary syndrome, decompensated CHF or maliganant arrhythmia 2. F/u PSA, bone scan 3. F/u GI studies, PPI empirically 4. Thank you for consultative opportunity
--- NOTE | 2019-05-27 15:19 | ECHO ---
Name: QIAN LANTIGUA Exam:Adult Echocardiogram Study Date: 05/27/2019 01:12 PM Age: 68 yrs Reason For Study: SOB Height: 66 in Weight: 136 lb BSA: 1.7 m2 MMode/2D Measurements & Calculations IVSd: 0.79 cm Ao root diam: 3.0 cm LVIDd: 5.0 cm LA dimension: 3.1 cm LVIDs: 3.5 cm ACS: 2.0 cm LVPWd: 1.1 cm IVSs: 0.89 cm LVPWs: 1.3 cm EDV(Teich): 119.8 ml ESV(Teich): 51.1 ml Doppler Measurements & Calculations MV E max jose david: 40.2 cm/sec Ao V2 max: 120.5 cm/sec MV A max jose david: 81.9 cm/sec Ao max P.8 mmHg MV E/A: 0.49 Ao V2 mean: 85.0 cm/sec Ao mean P.2 mmHg Ao V2 VTI: 21.2 cm TR max jose david: 184.0 cm/sec Med Peak E' Jose David: 3.0 cm/sec TR max P.5 mmHg Med E/e': 13.3 Lat Peak E' Jose David: 3.5 cm/sec Lat E/e': 11.5 Procedure A complete two-dimensional transthoracic echocardiogram was performed (2D, M-mode, Doppler and color flow Doppler). Left Ventricle The left ventricular size, thickness and function are normal. The left ventricular ejection fraction is normal. Ejection Fraction = 60-65%. The left ventricular wall motion is normal. Right Ventricle The right ventricle is normal in size and function. Atria Normal left and right atrial size and function. Mitral Valve There is no mitral regurgitation noted. Tricuspid Valve There is trace tricuspid regurgitation. There was insufficient TR detected to calculate RV systolic p ressure. Aortic Valve No hemodynamically significant valvular aortic stenosis. No aortic regurgitation is present. Pulmonic Valve There is no pulmonic valvular regurgitation. Great Vessels The aortic root is normal size. Pericardium/Pleura There is no pericardial effusion. Interpretation Summary The left ventricular size, thickness and function are normal The right ventricle is normal in size and function. There is trace tricuspid regurgitation. MD Vincent Campos 05/27/2019 03:19 PM
--- NOTE | 2019-05-27 16:08 | PN ---
Teaching Attending Note Name of Resident: Yoan Frias ATTENDING PHYSICIAN STATEMENT I saw and evaluated the patient. I reviewed the resident's note and discussed the case with the resident. I agree with the resident's findings and plan as documented. SUBJECTIVE: No fever or chills. No ROB . no abd pain today. no BM since the one he had after the enema. no N/V. he denies CP today or yesterday. He again denies DPE, or exertional CP. spoke to vasyl Martinez reported to her tightness in chest yesterday OBJECTIVE: NAD, comfortable in bed CV: RRR, no MRG Lungs: CTAB Ext: No edema or erythema in upper or lower ext. Abd: soft, NT, ND, NL BS. Assessment/Plan: 68 y/o man with h/o prostate cancer s/p RTx , h/o HTN ( off meds due to hypotension) , PUD, CVA, left nephrectomy due to L renal cancer , who presented with abd pain and constipation 1- ABd pain, due to constipation . resolved today - for colonoscopy tomorrow - bowel prep tonight, NPO after MN - patient cont to deny any CP or exertional sx to me. he informed Dr. Rincon of Chest tightness yesterday. card was consulted by brianna. Recs are pending 2- H/o HTN: not on any meds for now. BP is slightly elevated. Will watch and give antihypertensives if needed 3- H/o Stroke: - hold asa till after the procedure in case a mass is found and a procedure is needed - cont statin 4- h/o DM : A1c 5.6. actually patient is no longer on metformin as outpt 5- Weight loss. colonoscopy. due to h/o prosate and renal , cancer Bone scan was ordered. regardless of the results , the patint is to follow up with his oncologist in [place] 6- Leukopenia. unclear etiology. need to r/o BM pathology ( MDS ) due to macrocytosis - B12 and folic normal . - out pt complete w/u dispo : HLOC
[2019-05-27] MEDS ORDERED: BISACODYL 5 MG TABLET.DR (FP) PO ONE (18:00)
[2019-05-27] MEDS: MONTELUKAST NA 10 MG TABLET PO SCH (21:38)
[2019-05-27] MEDS: ATORVASTATIN CA 20 MG TABLET (FP) PO SCH (21:38)
--- NOTE | 2019-05-27 23:47 | PN ---
Physical Exam: SUBJECTIVE: Patient seen and examined at bedside this morning with present. He offers no new complaints and is eager to know when he can go home. He denies CP, palpitations, and stomach ache. OBJECTIVE: Vital Signs Period Temp Pulse Resp BP Sys/Chance Pulse Ox Last 24 Hr 97.9 F-98.6 F 75-78 20-20 141-151/77-99 98 GENERAL: AOx3, in no acute distress HEAD: NCAT EYES: KEVIN, EOMI, conjunctiva clear. ENT: Ears normal, nares patent, oropharynx clear without exudates. Moist mucous membranes. NECK: Normal range of motion, supple without lymphadenopathy, JVD, or masses. LUNGS: CTAB. No wheezes, and no crackles. No accessory muscle use. HEART: RRR s1 s2 ABDOMEN: Soft, BS present in all 4 quadrants, non-distended, no JVD, MUSCULOSKELETAL: No bony deformities or tenderness. No CVA tenderness. UPPER EXTREMITIES: 2+ pulses, warm, well-perfused. No cyanosis. No clubbing. No peripheral edema. LOWER EXTREMITIES: 2+ pulses, warm, well-perfused. No calf tenderness. No peripheral edema. NEUROLOGICAL: No focal deficits. Cranial nerves II-XII intact. Normal speech. Ambulates with cane. PSYCHIATRIC: Cooperative. Good eye contact. Appropriate mood and affect. SKIN: Warm, dry, normal turgor, no rashes or lesions noted, normal capillary refill. Laboratory Results - last 24 hr 05/26/19 05/26/19 05/27/19 10:28 10:28 06:22 Sodium Potassium Chloride Carbon Dioxide Anion Gap BUN Creatinine Est GFR (CKD-EPI)AfAm Est GFR (CKD-EPI)NonAf POC Glucometer 77 Random Glucose Hemoglobin A1c % Calcium Prostate Specific Ag 0.50 % Free PSA 26.0 Vitamin B12 Serum Folate 05/27/19 05/27/19 05/27/19 07:28 07:28 18:23 Sodium 142 Potassium 4.0 Chloride 110 H Carbon Dioxide 28 Anion Gap 4 L BUN 5.4 L Creatinine 1.0 Est GFR (CKD-EPI)AfAm 87.99 Est GFR (CKD-EPI)NonAf 75.92 POC Glucometer 96 Random Glucose 80 Hemoglobin A1c % 5.6 Calcium 8.3 L Prostate Specific Ag % Free PSA Vitamin B12 580 Serum Folate 15 05/27/19 21:20 Sodium Potassium Chloride Carbon Dioxide Anion Gap BUN Creatinine Est GFR (CKD-EPI)AfAm Est GFR (CKD-EPI)NonAf POC Glucometer 112 Random Glucose Hemoglobin A1c % Calcium Prostate Specific Ag % Free PSA Vitamin B12 Serum Folate Active Medications Generic Name Dose Route Start Last Admin Trade Name Freq PRN Reason Stop Dose Admin Acetaminophen 500 mg 05/26/19 12:50 05/26/19 14:59 Tylenol - PO 500 mg Q6H PRN Administration PAIN 1-3 Atorvastatin Calcium 20 mg 05/26/19 22:00 05/27/19 21:38 Lipitor - PO 20 mg HS [facility] Administration Brimonidine Tartrate 1 drop 05/26/19 22:00 05/27/19 21:38 Alphagan 0.2% - OU 1 drop BID [facility] Administration Dorzolamide HCl 1 drop 05/26/19 22:00 05/27/19 21:38 Trusopt 2% OU 1 drop BID [facility] Administration Gabapentin 300 mg 05/26/19 22:00 05/27/19 21:38 Neurontin - PO 300 mg BID [facility] Administration Sodium Chloride 1,000 mls @ 75 mls/hr 05/27/19 08:00 05/27/19 08:00 Normal Saline - IV 75 mls/hr ASDIR [facility] Administration Insulin Aspart 1 vial 05/26/19 07:00 05/27/19 18:18 Novolog Vial Sliding Scale - SQ Not Given TIDAC [facility] Protocol Montelukast Sodium 10 mg 05/26/19 22:00 05/27/19 21:38 Singulair - PO 10 mg HS [facility] Administration Pantoprazole Sodium 40 mg 05/26/19 22:00 05/27/19 21:37 Protonix - PO 40 mg BID [facility] Administration Polyethylene Glycol 17 gm 05/26/19 14:00 05/27/19 21:37 Miralax (For Daily Use) - PO 17 gm TID [facility] Administration ASSESSMENT/PLAN: 68 y/o male PMH prostate and renal CA s/p rtx, RVP, CVA with LEFT sided deficit , and constant abdominal pain. Constipation for nearly 2 weeks. # Ab pain/constipation - Miralax - Colonoscopy tomorrow 28 May 2019 - Latoya tonight - ECHO today and cardiology assessment. CP noted in chart but pt denying CP. Will f/u. - Hold ASA for coloscopy (part of regimen given stroke hx) # HTN - Normotensive - Not currently on a home regimen - Cont. appropriate diet # DM Hx - A1c 5.6 - Not currently on a home regimen - Cont. appropriate diet # Leukopenia and weight loss - Etiology unclear etiolog - R/o BM pathology (MDS) given macrocytosis - B12 and folic normal . - out pt complete w/u in pt's medical spraggs/[place] # F/E/N - NS - Cont. to monitor - Regular diet # DVT prophylaxis - Heparin SQ # Disposition - Admit to observation Tony Templeton MD Visit type - Emergency Visit Emergency Visit: No - New Patient This patient is new to me today: Yes Date on this admission: 05/28/19 - Critical Care Critical Care patient: No ATTENDING PHYSICIAN STATEMENT I saw and evaluated the patient. I reviewed the resident's note and discussed the case with the resident. I agree with the resident's findings and plan as documented. SUBJECTIVE: OBJECTIVE: ASSESSMENT AND PLAN:
[2019-05-28] MEDS: POLYETHYLENE GLYCOL 3350 119 GM BTL PO SCH ×3 (05:34→22:30)
[2019-05-28] MEDS: INSULIN SLIDING SCALE (NOVOLOG) 1 VIAL SQ SCH ×3 (06:15→16:51)
[2019-05-28] MEDS ORDERED: ACETAMINOPHEN 1000 MG/100 ML VIAL (NON FORMULARY) IVPB ONE (07:45)
[2019-05-28] MEDS: SODIUM CHLORIDE 1,000 ML IV SCH (07:59)
[2019-05-28] MEDS ORDERED: PT OWN MED DRAWER 7, Y5N ONE (10:08)
--- NOTE | 2019-05-28 10:19 | PN ---
Progress Note, Physician History of Present Illness: EGD shows mild gastritis, colonoscopy shows mild diverticulosis and small ulcer in rectum stercocal vs radiation proctitis, reports lack of appetite persists. - Current Medication List Current Medications: Active Medications Acetaminophen (Tylenol -) 500 mg PO Q6H PRN PRN Reason: PAIN 1-3 Last Admin: 05/26/19 14:59 Dose: 500 mg Atorvastatin Calcium (Lipitor -) 20 mg PO [facility] Last Admin: 05/27/19 21:38 Dose: 20 mg Brimonidine Tartrate (Alphagan 0.2% -) 1 drop OU BID [facility] Last Admin: 05/27/19 21:38 Dose: 1 drop Dorzolamide HCl (Trusopt 2%) 1 drop OU BID [facility] Last Admin: 05/27/19 21:38 Dose: 1 drop Gabapentin (Neurontin -) 300 mg PO BID [facility] Last Admin: 05/27/19 21:38 Dose: 300 mg Sodium Chloride (Normal Saline -) 1,000 mls @ 75 mls/hr IV ASDIR [facility] Last Admin: 05/28/19 07:59 Dose: 75 mls/hr Insulin Aspart (Novolog Vial Sliding Scale -) 1 vial SQ TIDAC [facility]; Protocol Last Admin: 05/28/19 06:15 Dose: Not Given Montelukast Sodium (Singulair -) 10 mg PO [facility] Last Admin: 05/27/19 21:38 Dose: 10 mg Pantoprazole Sodium (Protonix -) 40 mg PO BID [facility] Last Admin: 05/27/19 21:37 Dose: 40 mg Polyethylene Glycol (Miralax (For Daily Use) -) 17 gm PO TID [facility] Last Admin: 05/28/19 05:34 Dose: Not Given - Objective Vital Signs: Vital Signs Temperature 98.3 F 05/28/19 02:00 Pulse Rate 77 05/28/19 06:15 Respiratory Rate 20 05/28/19 06:15 Blood Pressure 123/87 05/28/19 06:15 O2 Sat by Pulse Oximetry (%) 98 05/27/19 21:00 Constitutional: Yes: No Distress, Calm Neck: Yes: Supple Cardiovascular: Yes: Regular Rate and Rhythm Respiratory: Yes: Regular, CTA Bilaterally Gastrointestinal: Yes: Soft, Hypoactive Bowel Sounds Edema: No Labs: INR, PTT INR 1.06 (0.83-1.09) 05/25/19 16:47 Problem List - Problems (1) Atypical chest pain Code(s): R07.89 - OTHER CHEST PAIN (2) Dysphagia Code(s): R13.10 - DYSPHAGIA, UNSPECIFIED Qualifiers: Dysphagia type: esophageal phase Qualified Code(s): R13.10 - Dysphagia, unspecified (3) Abdominal pain Code(s): R10.9 - UNSPECIFIED ABDOMINAL PAIN (4) Early satiety Code(s): R68.81 - EARLY SATIETY (5) GERD (gastroesophageal reflux disease) Code(s): K21.9 - GASTRO-ESOPHAGEAL REFLUX DISEASE WITHOUT ESOPHAGITIS Qualifiers: Esophagitis presence: esophagitis presence not specified Qualified Code(s) : K21.9 - Gastro-esophageal reflux disease without esophagitis (6) Vomiting Code(s): R11.10 - VOMITING, UNSPECIFIED Qualifiers: Vomiting type: unspecified (7) Anorexia Code(s): R63.0 - ANOREXIA (8) Rectal ulcer Code(s): K62.6 - ULCER OF ANUS AND RECTUM Assessment/Plan 05/27/2019 Echo: Normal LV and RV size and fxn, tr TR 05/27/2019 Bone scan: No metastases 1. Atypical chest pain and dysphagia 2. H/o strokes, bedbound since 05/2018 3. Glaucoma 4. h/o left renal cancer --s/p nephrectomy 2007 5. h/o prostate cancer --s/p EBRT --2005 6. HTN 7. Hyperlipidemia 8. Leukopenia r/o MDS 9. Gastritis, diverticulosis and rectal ulcer (stercocal vs radiation) P: 1. EGD and colonoscopy results noted 2. PPI empirically, Lipitor 20 qd
[2019-05-28] MEDS: GABAPENTIN 300 MG CAPSULE (FP) PO SCH ×2 (10:35→22:30)
[2019-05-28] MEDS: PANTOPRAZOLE 40 MG TABLET (FP) PO SCH (10:35)
[2019-05-28] MEDS: DORZOLAMIDE 2% HCL OPHTHALMIC SOLUTION 10 ML BOTTLE OU SCH ×2 (10:36→22:53)
[2019-05-28] MEDS: BRIMONIDINE TARTRATE 0.2% OPHTHALMIC 5 ML BOTTLE OU SCH ×2 (10:37→22:52)
[2019-05-28 10:45] LABS: BILIRUBIN,TOTAL 0.4 mg/dL (0.2-1); BLOOD UREA NITROGEN 3.9 mg/dL (7-18); CALCIUM 8.2 mg/dL (8.5-10.1); MAGNESIUM 1.8 mg/dL (1.8-2.4); PHOSPHOROUS 3.5 mg/dL (2.5-4.9); TOT PROT 6.1 g/dl (6.4-8.2)
[2019-05-28 10:58] LABS: BASO % 0.6 % (0-2.0); EOS % 3.1 % (0-4.5); HEMATOCRIT 37.4 % (35.4-49); HEMOGLOBIN 12.7 GM/dL (11.7-16.9); LYMPH % 27.3 % (8-40); MCH 33.1 pg (25.7-33.7); MCHC 33.9 g/dl (32.0-35.9); MEAN CELL VOLUME 97.7 fl (80-96); MEAN PLT VOLUME 9.3 fl (7.5-11.1); MONO % 11.2 % (3.8-10.2); NEUT % 57.8 % (42.8-82.8); PLATELET COUNT 153 K/MM3 (134-434); RBC 3.83 M/mm3 (4.00-5.60); RDW 14.3 % (11.9-15.9); WHITE BLOOD COUNT 3.5 K/mm3 (4.0-10.0)
--- NOTE | 2019-05-28 14:30 | PN ---
Progress Note (short form) - Note Progress Note: EGD/Colon complete. Reports left in physical chart and will be scanned into [facility] [employer]. No source of weight loss identified
--- NOTE | 2019-05-28 15:19 | PN ---
Progress Note (short form) - Note Progress Note: Resting in NAD. No CP or SOB. Post endoscopy. Intake & Output 05/25/19 05/26/19 05/27/19 05/28/19 23:59 23:59 23:59 23:59 Intake Total 2775 4450 750 Output Total 600 1485 Balance 2175 2965 750 Weight 160 lb 136 lb 136 lb Last Vital Signs Temp Pulse Resp BP Pulse Ox 97 F L 71 18 116/80 100 05/28/19 14:27 05/28/19 14:57 05/28/19 14:57 05/28/19 14:57 05/28/19 14:57 Active Medications Acetaminophen (Tylenol -) 500 mg PO Q6H PRN PRN Reason: PAIN 1-3 Last Admin: 05/26/19 14:59 Dose: 500 mg Atorvastatin Calcium (Lipitor -) 20 mg PO [facility] Last Admin: 05/27/19 21:38 Dose: 20 mg Brimonidine Tartrate (Alphagan 0.2% -) 1 drop OU BID [facility] Last Admin: 05/28/19 10:37 Dose: 1 drop Dorzolamide HCl (Trusopt 2%) 1 drop OU BID [facility] Last Admin: 05/28/19 10:36 Dose: 1 drop Gabapentin (Neurontin -) 300 mg PO BID [facility] Last Admin: 05/28/19 10:35 Dose: 300 mg Sodium Chloride (Normal Saline -) 1,000 mls @ 75 mls/hr IV [facility] Last Admin: 05/28/19 07:59 Dose: 75 mls/hr Insulin Aspart (Novolog Vial Sliding Scale -) 1 vial SQ [facility]; Protocol Last Admin: 05/28/19 11:40 Dose: Not Given Montelukast Sodium (Singulair -) 10 mg PO [facility] Last Admin: 05/27/19 21:38 Dose: 10 mg Polyethylene Glycol (Miralax (For Daily Use) -) 17 gm PO BID [facility] Constitutional: Yes: No Distress, Thin Eyes: Yes: Conjunctiva Clear, EOM Intact HENT: Yes: Atraumatic, Normocephalic Neck: Yes: Supple, Trachea Midline Cardiovascular: Yes: Regular Rate and Rhythm Respiratory: Yes: Regular, CTA Bilaterally ...Inspection: Yes: WNL ...Clubbing: No Gastrointestinal: Yes: Normal Bowel Sounds, Soft Musculoskeletal: Yes: WNL Extremities: Yes: WNL Edema: No Peripheral Pulses WNL: Yes Integumentary: Yes: WNL Neurological: Yes: WNL, Alert, Oriented ...Motor Strength: WNL Psychiatric: Yes: WNL, Alert, Oriented Labs: Laboratory Results - last 24 hr 05/26/19 05/26/19 05/27/19 10:28 10:28 18:23 WBC RBC Hgb Hct MCV MCH MCHC RDW Plt Count MPV Absolute Neuts (auto) Neutrophils % Lymphocytes % Monocytes % Eosinophils % Basophils % Nucleated RBC % Sodium Potassium Chloride Carbon Dioxide Anion Gap BUN Creatinine Est GFR (CKD-EPI)AfAm Est GFR (CKD-EPI)NonAf POC Glucometer 96 Random Glucose Calcium Phosphorus Magnesium Total Bilirubin AST ALT Alkaline Phosphatase Total Protein Albumin Prostate Specific Ag 0.50 % Free PSA 26.0 05/27/19 05/28/19 05/28/19 21:20 06:14 09:40 WBC 3.5 L RBC 3.83 L Hgb 12.7 Hct 37.4 MCV 97.7 H MCH 33.1 MCHC 33.9 RDW 14.3 Plt Count 153 MPV 9.3 D Absolute Neuts (auto) 2.0 Neutrophils % 57.8 D Lymphocytes % 27.3 D Monocytes % 11.2 H Eosinophils % 3.1 Basophils % 0.6 Nucleated RBC % 0 Sodium Potassium Chloride Carbon Dioxide Anion Gap BUN Creatinine Est GFR (CKD-EPI)AfAm Est GFR (CKD-EPI)NonAf POC Glucometer 112 99 Random Glucose Calcium Phosphorus Magnesium Total Bilirubin AST ALT Alkaline Phosphatase Total Protein Albumin Prostate Specific Ag % Free PSA 05/28/19 05/28/19 09:40 11:38 WBC RBC Hgb Hct MCV MCH MCHC RDW Plt Count MPV Absolute Neuts (auto) Neutrophils % Lymphocytes % Monocytes % Eosinophils % Basophils % Nucleated RBC % Sodium 143 Potassium 4.0 Chloride 108 H Carbon Dioxide 29 Anion Gap 6 L BUN 3.9 L Creatinine 1.0 Est GFR (CKD-EPI)AfAm 87.99 Est GFR (CKD-EPI)NonAf 75.92 POC Glucometer 85 Random Glucose 88 Calcium 8.2 L Phosphorus 3.5 Magnesium 1.8 Total Bilirubin 0.4 AST 13 L ALT 12 L Alkaline Phosphatase 134 H Total Protein 6.1 L Albumin 3.0 L Prostate Specific Ag % Free PSA Problem List - Problems (1) Prostate cancer Code(s): C61 - MALIGNANT NEOPLASM OF PROSTATE (2) History of nephrectomy Code(s): Z90.5 - ACQUIRED ABSENCE OF KIDNEY (3) Lung nodule < 6cm on CT Code(s): R91.1 - SOLITARY PULMONARY NODULE (4) Diabetes mellitus Code(s): E11.9 - TYPE 2 DIABETES MELLITUS WITHOUT COMPLICATIONS (5) GERD (gastroesophageal reflux disease) Code(s): K21.9 - GASTRO-ESOPHAGEAL REFLUX DISEASE WITHOUT ESOPHAGITIS (6) Anorexia Code(s): R63.0 - ANOREXIA Assessment/Plan According to the 2017 updated Fleischner Society Guidelines, if the patient is considered low risk for having Lung carcinoma, no follow up suggested. If he is followed as high risk, the recommendation is for a [address] Chest. The patient reports that his health care providers are in [place]. I suggested that he have the images of his 2 CT scans put onto a disc that he can provide to his doctors in [place] for further follow up. No smoking counseled. GI workup ongoing Dr Armstrong Problem List - Problems (1) Prostate cancer Code(s): C61 - MALIGNANT NEOPLASM OF PROSTATE (2) History of nephrectomy Code(s): Z90.5 - ACQUIRED ABSENCE OF KIDNEY (3) Lung nodule < 6cm on CT Code(s): R91.1 - SOLITARY PULMONARY NODULE (4) Diabetes mellitus Code(s): E11.9 - TYPE 2 DIABETES MELLITUS WITHOUT COMPLICATIONS (5) GERD (gastroesophageal reflux disease) Code(s): K21.9 - GASTRO-ESOPHAGEAL REFLUX DISEASE WITHOUT ESOPHAGITIS Qualifiers: Esophagitis presence: esophagitis presence not specified Qualified Code(s) : K21.9 - Gastro-esophageal reflux disease without esophagitis (6) Anorexia Code(s): R63.0 - ANOREXIA
--- NOTE | 2019-05-28 17:29 | PN ---
Physical Exam: SUBJECTIVE: Patient seen and examined in bed. Overnight he completed 3/4 bowel prep and is s/p warm water enema. BM have been watery and clear/yellow; confirmed this is ok with GI. Today he has a mild holocranial ROB consistent with tension headaches he has had in the past. Otherwise he has no other concerns. OBJECTIVE: Vital Signs Period Temp Pulse Resp BP Sys/Chance Pulse Ox Last 24 Hr 97 F-98.3 F 66-81 18-20 112-159/74-100 98-100 GENERAL: AOx3, in no acute distress HEAD: NCAT EYES: KEVIN, EOMI, conjunctiva clear. ENT: Ears normal, nares patent, oropharynx clear without exudates. Moist mucous membranes. NECK: Normal range of motion, supple without lymphadenopathy, JVD, or masses. LUNGS: CTAB. No wheezes, and no crackles. No accessory muscle use. HEART: RRR s1 s2 ABDOMEN: Soft, BS present in all 4 quadrants, non-distended, no JVD, MUSCULOSKELETAL: No bony deformities or tenderness. No CVA tenderness. UPPER EXTREMITIES: 2+ pulses, warm, well-perfused. No cyanosis. No clubbing. No peripheral edema. LOWER EXTREMITIES: 2+ pulses, warm, well-perfused. No calf tenderness. No peripheral edema. NEUROLOGICAL: No focal deficits. Cranial nerves II-XII intact. Normal speech. Ambulates with cane. PSYCHIATRIC: Cooperative. Good eye contact. Appropriate mood and affect. SKIN: Warm, dry, normal turgor, no rashes or lesions noted, normal capillary refill Laboratory Results - last 24 hr 05/26/19 05/27/19 05/27/19 10:28 18:23 21:20 WBC RBC Hgb Hct MCV MCH MCHC RDW Plt Count MPV Absolute Neuts (auto) Neutrophils % Lymphocytes % Monocytes % Eosinophils % Basophils % Nucleated RBC % Sodium Potassium Chloride Carbon Dioxide Anion Gap BUN Creatinine Est GFR (CKD-EPI)AfAm Est GFR (CKD-EPI)NonAf POC Glucometer 96 112 Random Glucose Calcium Phosphorus Magnesium Total Bilirubin AST ALT Alkaline Phosphatase Total Protein Albumin Prostate Specific Ag 0.50 05/28/19 05/28/19 05/28/19 06:14 09:40 09:40 WBC 3.5 L RBC 3.83 L Hgb 12.7 Hct 37.4 MCV 97.7 H MCH 33.1 MCHC 33.9 RDW 14.3 Plt Count 153 MPV 9.3 D Absolute Neuts (auto) 2.0 Neutrophils % 57.8 D Lymphocytes % 27.3 D Monocytes % 11.2 H Eosinophils % 3.1 Basophils % 0.6 Nucleated RBC % 0 Sodium 143 Potassium 4.0 Chloride 108 H Carbon Dioxide 29 Anion Gap 6 L BUN 3.9 L Creatinine 1.0 Est GFR (CKD-EPI)AfAm 87.99 Est GFR (CKD-EPI)NonAf 75.92 POC Glucometer 99 Random Glucose 88 Calcium 8.2 L Phosphorus 3.5 Magnesium 1.8 Total Bilirubin 0.4 AST 13 L ALT 12 L Alkaline Phosphatase 134 H Total Protein 6.1 L Albumin 3.0 L Prostate Specific Ag 05/28/19 05/28/19 11:38 16:49 WBC RBC Hgb Hct MCV MCH MCHC RDW Plt Count MPV Absolute Neuts (auto) Neutrophils % Lymphocytes % Monocytes % Eosinophils % Basophils % Nucleated RBC % Sodium Potassium Chloride Carbon Dioxide Anion Gap BUN Creatinine Est GFR (CKD-EPI)AfAm Est GFR (CKD-EPI)NonAf POC Glucometer 85 74 Random Glucose Calcium Phosphorus Magnesium Total Bilirubin AST ALT Alkaline Phosphatase Total Protein Albumin Prostate Specific Ag Active Medications Generic Name Dose Route Start Last Admin Trade Name Freq PRN Reason Stop Dose Admin Acetaminophen 500 mg 05/26/19 12:50 05/26/19 14:59 Tylenol - PO 500 mg Q6H PRN Administration PAIN 1-3 Atorvastatin Calcium 20 mg 05/26/19 22:00 05/27/19 21:38 Lipitor - PO 20 mg HS [facility] Administration Brimonidine Tartrate 1 drop 05/26/19 22:00 05/28/19 10:37 Alphagan 0.2% - OU 1 drop BID [facility] Administration Dorzolamide HCl 1 drop 05/26/19 22:00 05/28/19 10:36 Trusopt 2% OU 1 drop BID [facility] Administration Gabapentin 300 mg 05/26/19 22:00 05/28/19 10:35 Neurontin - PO 300 mg BID [facility] Administration Sodium Chloride 1,000 mls @ 75 mls/hr 05/27/19 08:00 05/28/19 07:59 Normal Saline - IV 75 mls/hr ASDIR [facility] Administration Insulin Aspart 1 vial 05/26/19 07:00 05/28/19 16:51 Novolog Vial Sliding Scale - SQ Not Given TIDAC [facility] Protocol Montelukast Sodium 10 mg 05/26/19 22:00 05/27/19 21:38 Singulair - PO 10 mg HS [facility] Administration Polyethylene Glycol 17 gm 05/28/19 22:00 Miralax (For Daily Use) - PO BID [facility] ASSESSMENT/PLAN: 68 y/o male PMH prostate and renal CA s/p rtx, RVP, CVA with LEFT sided deficit , and constant abdominal pain. Constipation for nearly 2 weeks. # Ab pain/constipation, resolved - Not present today. Going for colonoscopy today. - Miralax - Golytely tonight - ECHO EF 60-65% and trace tricuspid regurg. - Bone scan with no bone lesions - CP noted in chart but pt denying CP. - Can resume ASA; was held for coloscopy (part of regimen given stroke hx) # HTN - Normotensive - Not currently on a home regimen - Cont. appropriate diet # DM Hx - A1c 5.6 - Not currently on a home regimen - Cont. appropriate diet # Leukopenia and weight loss - Etiology unclear etiology - R/o BM pathology (MDS) given macrocytosis - B12 and folic normal . - out pt complete w/u in pt's medical [place] # F/E/N - NS - Cont. to monitor - Regular diet # DVT prophylaxis - Heparin SQ # Disposition - Pending colonoscopy results and PT assessment, DC to home Tony Templeton MD Visit type - Emergency Visit Emergency Visit: No - New Patient This patient is new to me today: No - Critical Care Critical Care patient: No ATTENDING PHYSICIAN STATEMENT I saw and evaluated the patient. I reviewed the resident's note and discussed the case with the resident. I agree with the resident's findings and plan as documented. SUBJECTIVE: OBJECTIVE: ASSESSMENT AND PLAN:
--- NOTE | 2019-05-28 19:46 | PN ---
Teaching Attending Note Name of Resident: Tony Templeton ATTENDING PHYSICIAN STATEMENT I saw and evaluated the patient. I reviewed the resident's note and discussed the case with the resident. I agree with the resident's findings and plan as documented. SUBJECTIVE: no fever or chills. No ROB. no abd pain. OBJECTIVE: NAD, comfortable in bed CV: RRR, no MRG Lungs: CTAB Ext: No edema or erythema in upper or lower ext. Abd: soft, NT, ND, NL BS. Assessment/Plan: 68 y/o man with h/o prostate cancer s/p RTx , h/o HTN ( off meds due to hypotension) , PUD, CVA, left nephrectomy due to L renal cancer , who presented with abd pain and constipation 1- ABD pain, due to constipation. - colonoscopy performed today 2- H/o HTN: not on any meds for now. nl Bp . cont to monitor 3- H/o Stroke: - resume aspirin - cont statin 4- h/o DM : A1c 5.6. actually patient is no longer on metformin as outpt 5- Weight loss. colonoscopy. bone scan with no bone lesions. cont w/u as out pt 6- Leukopenia. unclear etiology. need to r/o BM pathology ( MDS ) due to macrocytosis - B12 and folic normal . - out pt complete w/u dispo : needs pT as he complains of weakness
[2019-05-28] MEDS: ATORVASTATIN CA 20 MG TABLET (FP) PO SCH (22:30)
[2019-05-28] MEDS: MONTELUKAST NA 10 MG TABLET PO SCH (22:30)
[2019-05-29] MEDS: INSULIN SLIDING SCALE (NOVOLOG) 1 VIAL SQ SCH ×3 (06:34→17:26)
[2019-05-29 08:00] LABS: HEMATOCRIT 36.7 % (35.4-49); HEMOGLOBIN 12.3 GM/dL (11.7-16.9); MCH 32.7 pg (25.7-33.7); MCHC 33.6 g/dl (32.0-35.9); MEAN CELL VOLUME 97.3 fl (80-96); MEAN PLT VOLUME 9.1 fl (7.5-11.1); PLATELET COUNT 152 K/MM3 (134-434); RBC 3.77 M/mm3 (4.00-5.60); RDW 14.2 % (11.9-15.9); WHITE BLOOD COUNT 3.1 K/mm3 (4.0-10.0)
[2019-05-29 08:22] LABS: ALBUMIN 2.9 g/dl (3.4-5.0); BILIRUBIN,TOTAL 0.4 mg/dL (0.2-1); BLOOD UREA NITROGEN 5.8 mg/dL (7-18); CALCIUM 8.4 mg/dL (8.5-10.1); MAGNESIUM 1.7 mg/dL (1.8-2.4); PHOSPHOROUS 3.9 mg/dL (2.5-4.9); POTASSIUM 3.5 mmol/L (3.5-5.1); TOT PROT 5.8 g/dl (6.4-8.2)
[2019-05-29] MEDS: DORZOLAMIDE 2% HCL OPHTHALMIC SOLUTION 10 ML BOTTLE OU SCH ×2 (09:42→22:39)
[2019-05-29] MEDS: POLYETHYLENE GLYCOL 3350 119 GM BTL PO SCH ×2 (09:46→22:38)
[2019-05-29] MEDS: GABAPENTIN 300 MG CAPSULE (FP) PO SCH ×2 (09:48→22:37)
[2019-05-29] MEDS: BRIMONIDINE TARTRATE 0.2% OPHTHALMIC 5 ML BOTTLE OU SCH ×2 (09:52→22:39)
[2019-05-29] MEDS: SODIUM CHLORIDE 1,000 ML IV SCH (09:54)
--- NOTE | 2019-05-29 11:00 | PN ---
Progress Note (short form) - Note Progress Note: Resting in NAD. No CP or SOB. Intake & Output 05/26/19 05/27/19 05/28/19 05/29/19 23:59 23:59 23:59 23:59 Intake Total 2775 4450 2025 300 Output Total 600 1485 300 Balance 2175 2965 1725 300 Weight 136 lb 136 lb Last Vital Signs Temp Pulse Resp BP Pulse Ox 98.7 F 70 18 142/89 98 05/29/19 06:00 05/29/19 06:00 05/29/19 06:00 05/29/19 06:00 05/28/19 21:00 Active Medications Acetaminophen (Tylenol -) 500 mg PO Q6H PRN PRN Reason: PAIN 1-3 Last Admin: 05/26/19 14:59 Dose: 500 mg Atorvastatin Calcium (Lipitor -) 20 mg PO [facility] Last Admin: 05/28/19 22:30 Dose: 20 mg Brimonidine Tartrate (Alphagan 0.2% -) 1 drop OU BID [facility] Last Admin: 05/29/19 09:52 Dose: 1 drop Dorzolamide HCl (Trusopt 2%) 1 drop OU BID [facility] Last Admin: 05/29/19 09:42 Dose: 1 drop Gabapentin (Neurontin -) 300 mg PO BID [facility] Last Admin: 05/29/19 09:48 Dose: 300 mg Sodium Chloride (Normal Saline -) 1,000 mls @ 75 mls/hr IV ASDIR [facility] Last Admin: 05/29/19 09:54 Dose: 75 mls/hr Insulin Aspart (Novolog Vial Sliding Scale -) 1 vial SQ TIDAC [facility]; Protocol Last Admin: 05/29/19 06:34 Dose: Not Given Montelukast Sodium (Singulair -) 10 mg PO [facility] Last Admin: 05/28/19 22:30 Dose: 10 mg Polyethylene Glycol (Miralax (For Daily Use) -) 17 gm PO BID [facility] Last Admin: 05/29/19 09:46 Dose: 17 gm Constitutional: Yes: No Distress, Thin Eyes: Yes: Conjunctiva Clear, EOM Intact HENT: Yes: Atraumatic, Normocephalic Neck: Yes: Supple, Trachea Midline Cardiovascular: Yes: Regular Rate and Rhythm Respiratory: Yes: Regular, CTA Bilaterally ...Inspection: Yes: WNL ...Clubbing: No Gastrointestinal: Yes: Normal Bowel Sounds, Soft Musculoskeletal: Yes: WNL Extremities: Yes: WNL Edema: No Peripheral Pulses WNL: Yes Integumentary: Yes: WNL Neurological: Yes: WNL, Alert, Oriented ...Motor Strength: WNL Psychiatric: Yes: WNL, Alert, Oriented Labs: Laboratory Results - last 24 hr 05/28/19 05/28/19 05/28/19 09:40 11:38 16:49 WBC 3.5 L RBC 3.83 L Hgb 12.7 Hct 37.4 MCV 97.7 H MCH 33.1 MCHC 33.9 RDW 14.3 Plt Count 153 MPV 9.3 D Absolute Neuts (auto) 2.0 Neutrophils % 57.8 D Lymphocytes % 27.3 D Monocytes % 11.2 H Eosinophils % 3.1 Basophils % 0.6 Nucleated RBC % 0 Sodium Potassium Chloride Carbon Dioxide Anion Gap BUN Creatinine Est GFR (CKD-EPI)AfAm Est GFR (CKD-EPI)NonAf POC Glucometer 85 74 Random Glucose Calcium Phosphorus Magnesium Total Bilirubin AST ALT Alkaline Phosphatase Total Protein Albumin 05/29/19 05/29/19 05/29/19 06:31 07:25 07:25 WBC 3.1 L RBC 3.77 L Hgb 12.3 Hct 36.7 MCV 97.3 H MCH 32.7 MCHC 33.6 RDW 14.2 Plt Count 152 MPV 9.1 Absolute Neuts (auto) Neutrophils % Lymphocytes % Monocytes % Eosinophils % Basophils % Nucleated RBC % Sodium 142 Potassium 3.5 Chloride 108 H Carbon Dioxide 28 Anion Gap 6 L BUN 5.8 L Creatinine 1.0 Est GFR (CKD-EPI)AfAm 87.99 Est GFR (CKD-EPI)NonAf 75.92 POC Glucometer 92 Random Glucose 98 Calcium 8.4 L Phosphorus 3.9 Magnesium 1.7 L Total Bilirubin 0.4 AST 8 L ALT 12 L Alkaline Phosphatase 123 H Total Protein 5.8 L Albumin 2.9 L Problem List - Problems (1) Prostate cancer Code(s): C61 - MALIGNANT NEOPLASM OF PROSTATE (2) History of nephrectomy Code(s): Z90.5 - ACQUIRED ABSENCE OF KIDNEY (3) Lung nodule < 6cm on CT Code(s): R91.1 - SOLITARY PULMONARY NODULE (4) Diabetes mellitus Code(s): E11.9 - TYPE 2 DIABETES MELLITUS WITHOUT COMPLICATIONS (5) GERD (gastroesophageal reflux disease) Code(s): K21.9 - GASTRO-ESOPHAGEAL REFLUX DISEASE WITHOUT ESOPHAGITIS (6) Anorexia Code(s): R63.0 - ANOREXIA Assessment/Plan According to the 2017 updated Fleischner Society Guidelines, if the patient is considered low risk for having Lung carcinoma, no follow up suggested. If he is followed as high risk, the recommendation is for a [address] Chest. The patient reports that his health care providers are in [place]. I suggested that he have the images of his 2 CT scans put onto a disc that he can provide to his doctors in [place] for further follow up. No smoking counseled. GI workup ongoing Dr Armstrong Problem List - Problems (1) Prostate cancer Code(s): C61 - MALIGNANT NEOPLASM OF PROSTATE (2) History of nephrectomy Code(s): Z90.5 - ACQUIRED ABSENCE OF KIDNEY (3) Lung nodule < 6cm on CT Code(s): R91.1 - SOLITARY PULMONARY NODULE (4) Diabetes mellitus Code(s): E11.9 - TYPE 2 DIABETES MELLITUS WITHOUT COMPLICATIONS (5) GERD (gastroesophageal reflux disease) Code(s): K21.9 - GASTRO-ESOPHAGEAL REFLUX DISEASE WITHOUT ESOPHAGITIS Qualifiers: Esophagitis presence: esophagitis presence not specified Qualified Code(s) : K21.9 - Gastro-esophageal reflux disease without esophagitis (6) Anorexia Code(s): R63.0 - ANOREXIA
--- NOTE | 2019-05-29 13:48 | PN ---
Physical Exam: SUBJECTIVE: Patient seen and examined in bed s/p colonoscopy and endoscopy. He still has no appetite, has not eaten, and has not had a BM since the procedures. He endorses LLQ pain. Otherwise he has no complaints. OBJECTIVE: Vital Signs Period Temp Pulse Resp BP Sys/Chance Pulse Ox Last 24 Hr 97 F-98.7 F 66-83 18-18 116-153/74-96 97-100 GENERAL: AOx3, in no acute distress HEAD: NCAT EYES: KEVIN, EOMI, conjunctiva clear. ENT: Ears normal, nares patent, oropharynx clear without exudates. Moist mucous membranes. NECK: Normal range of motion, supple without lymphadenopathy, JVD, or masses. LUNGS: CTAB. No wheezes, and no crackles. No accessory muscle use. HEART: RRR s1 s2 ABDOMEN: Soft, BS present in all 4 quadrants, non-distended, no JVD, MUSCULOSKELETAL: No bony deformities or tenderness. No CVA tenderness. UPPER EXTREMITIES: 2+ pulses, warm, well-perfused. No cyanosis. No clubbing. No peripheral edema. LOWER EXTREMITIES: 2+ pulses, warm, well-perfused. No calf tenderness. No peripheral edema. NEUROLOGICAL: No focal deficits. Cranial nerves II-XII intact. Normal speech. Ambulates with cane. PSYCHIATRIC: Cooperative. Good eye contact. Appropriate mood and affect. SKIN: Warm, dry, normal turgor, no rashes or lesions noted, normal capillary refill Laboratory Results - last 24 hr 05/28/19 05/29/19 05/29/19 16:49 06:31 07:25 WBC 3.1 L RBC 3.77 L Hgb 12.3 Hct 36.7 MCV 97.3 H MCH 32.7 MCHC 33.6 RDW 14.2 Plt Count 152 MPV 9.1 Sodium Potassium Chloride Carbon Dioxide Anion Gap BUN Creatinine Est GFR (CKD-EPI)AfAm Est GFR (CKD-EPI)NonAf POC Glucometer 74 92 Random Glucose Calcium Phosphorus Magnesium Total Bilirubin AST ALT Alkaline Phosphatase Total Protein Albumin 05/29/19 05/29/19 07:25 11:51 WBC RBC Hgb Hct MCV MCH MCHC RDW Plt Count MPV Sodium 142 Potassium 3.5 Chloride 108 H Carbon Dioxide 28 Anion Gap 6 L BUN 5.8 L Creatinine 1.0 Est GFR (CKD-EPI)AfAm 87.99 Est GFR (CKD-EPI)NonAf 75.92 POC Glucometer 115 Random Glucose 98 Calcium 8.4 L Phosphorus 3.9 Magnesium 1.7 L Total Bilirubin 0.4 AST 8 L ALT 12 L Alkaline Phosphatase 123 H Total Protein 5.8 L Albumin 2.9 L Active Medications Generic Name Dose Route Start Last Admin Trade Name Freq PRN Reason Stop Dose Admin Acetaminophen 500 mg 05/26/19 12:50 05/26/19 14:59 Tylenol - PO 500 mg Q6H PRN Administration PAIN 1-3 Atorvastatin Calcium 20 mg 05/26/19 22:00 05/28/19 22:30 Lipitor - PO 20 mg HS [facility] Administration Brimonidine Tartrate 1 drop 05/26/19 22:00 05/29/19 09:52 Alphagan 0.2% - OU 1 drop BID [facility] Administration Dorzolamide HCl 1 drop 05/26/19 22:00 05/29/19 09:42 Trusopt 2% OU 1 drop BID [facility] Administration Gabapentin 300 mg 05/26/19 22:00 05/29/19 09:48 Neurontin - PO 300 mg BID [facility] Administration Sodium Chloride 1,000 mls @ 75 mls/hr 05/27/19 08:00 05/29/19 09:54 Normal Saline - IV 75 mls/hr ASD[facility] Administration Insulin Aspart 1 vial 05/26/19 07:00 05/29/19 12:00 Novolog Vial Sliding Scale - SQ Not Given TIDAC [facility] Protocol Montelukast Sodium 10 mg 05/26/19 22:00 05/28/19 22:30 Singulair - PO 10 mg HS [facility] Administration Polyethylene Glycol 17 gm 05/28/19 22:00 05/29/19 09:46 Miralax (For Daily Use) - PO 17 gm BID [facility] Administration ASSESSMENT/PLAN: 68 y/o male PMH prostate and renal CA s/p rtx, RVP, CVA with LEFT sided deficit , and constant abdominal pain. Constipation for nearly 2 weeks. # Ab pain/constipation - Pt encouraged/educated on diet - EGD shows mild gastritis, colonoscopy shows mild diverticulosis and small ulcer in rectum stercocal vs radiation proctitis - ECHO EF 60-65% and trace tricuspid regurg. - Bone scan with no bone lesions - CP noted in chart but pt denying CP. - Can resume ASA; was held for coloscopy (part of regimen given stroke hx) - Miralax 17 gm PO BID # Hypomagnesemia - 1.7 today - Magneseum oxide 400 mg PO ONCE provided # HTN - Normotensive - Not currently on a home regimen - Cont. appropriate diet # HLD/ H/o stroke - Atorvastatin 20 mg P HS # Glaucoma - Cont. home regimen: brimonidine 1 drop OU BID and dorzolamide 1 drop ou BID # DM Hx - A1c 5.6 - Not currently on a home regimen - ISS BGM ACHS - Cont. appropriate diet # Leukopenia and weight loss - Etiology unclear etiology - R/o BM pathology (MDS) given macrocytosis - B12 and folic normal . - out pt complete w/u in pt's medical home/[place] # F/E/N - NS - Cont. to monitor - Regular diet # DVT prophylaxis - Heparin SQ # Disposition - PT walked 80 feet with PT but was unsteady and could benefit from rehab. servicing manager made aware. - Pt advised on need to get medical records (CT, bone scan, endoscopy/ colonoscopy report); facilitated by requesting help from [facility] records office closed on weekend. Tony Templeton MD Visit type - Emergency Visit Emergency Visit: No - New Patient This patient is new to me today: No - Critical Care Critical Care patient: No ATTENDING PHYSICIAN STATEMENT I saw and evaluated the patient. I reviewed the resident's note and discussed the case with the resident. I agree with the resident's findings and plan as documented. SUBJECTIVE: OBJECTIVE: ASSESSMENT AND PLAN:
[2019-05-29] MEDS ORDERED: MAGNESIUM OXIDE 400 MG TABLET (FP) PO ONE (17:38)
--- NOTE | 2019-05-29 18:31 | PN ---
Teaching Attending Note Name of Resident: Tony Templeton ATTENDING PHYSICIAN STATEMENT I saw and evaluated the patient. I reviewed the resident's note and discussed the case with the resident. I agree with the resident's findings and plan as documented. SUBJECTIVE: no fever or chills. No ROB . no abd pain. decreased appetite. OBJECTIVE: NAD, comfortable in bed CV: RRR, no MRG Lungs: CTAB Ext: No edema or erythema in upper or lower ext. Abd: soft, NT, ND, NL BS. Assessment/Plan: 68 y/o man with h/o prostate cancer s/p RTx , h/o HTN ( off meds due to hypotension) , PUD, CVA, left nephrectomy due to L renal cancer , who presented with abd pain and constipation 1- ABD pain, due to constipation. - Reports of colo and EGD reviewed. colonoscopy with stercoral ulcer on anterior rectal wall. polys were found. EGD with gastritis - Bx to be followed - avoid constipation. cont miralax and add senna 2- H/o HTN: not on any meds for now. nl Bp . cont to monitor 3- H/o Stroke: - cont aspirin - cont statin 4- H/o DM: A1c 5.6. patient is no longer on metformin as outpt 5- Weight loss. bone scan with no bone lesions. cont w/u as out pt 6- Leukopenia. unclear etiology. need to r/o BM pathology ( MDS ) due to macrocytosis - B12 and folic normal . - out pt complete w/u with his oncologist . he was informed 7- Pulmonary nodule on CT scan: f/u as out pt with repeat imaging in 12 month per pulm recs. will make sure we provide with the disc at [place] and he can request his chart [facility] medical records after dc Dispo: Needs rehab. he is agreeable. CM was notified
[2019-05-29] MEDS: SENNOSIDES 8.6MG TABLET (FP) PO SCH (22:37)
[2019-05-29] MEDS: ATORVASTATIN CA 20 MG TABLET (FP) PO SCH (22:37)
[2019-05-29] MEDS: MONTELUKAST NA 10 MG TABLET PO SCH (22:38)
[2019-05-30] MEDS: SODIUM CHLORIDE 1,000 ML IV SCH ×2 (02:18→21:17)
[2019-05-30] MEDS: INSULIN SLIDING SCALE (NOVOLOG) 1 VIAL SQ SCH ×3 (06:59→18:00)
[2019-05-30 08:07] LABS: ALBUMIN 2.9 g/dl (3.4-5.0); BILIRUBIN,TOTAL 0.3 mg/dL (0.2-1); BLOOD UREA NITROGEN 4.6 mg/dL (7-18); CALCIUM 8.3 mg/dL (8.5-10.1); CREATININE 0.8 mg/dL (0.55-1.3); POTASSIUM 3.3 mmol/L (3.5-5.1); TOT PROT 5.9 g/dl (6.4-8.2)
--- NOTE | 2019-05-30 10:47 | PN ---
Progress Note (short form) - Note Progress Note: Resting in NAD. No CP or SOB. Intake & Output 05/27/19 05/28/19 05/29/19 05/30/19 23:59 23:59 23:59 23:59 Intake Total 4450 2025 600 600 Output Total 1485 300 350 Balance 2965 1725 250 600 Weight 136 lb Last Vital Signs Temp Pulse Resp BP Pulse Ox 98.4 F 74 18 140/94 99 05/30/19 06:00 05/30/19 06:00 05/30/19 06:00 05/30/19 06:00 05/29/19 21:00 Active Medications Acetaminophen (Tylenol -) 500 mg PO Q6H PRN PRN Reason: PAIN 1-3 Last Admin: 05/26/19 14:59 Dose: 500 mg Atorvastatin Calcium (Lipitor -) 20 mg PO [facility] Last Admin: 05/29/19 22:37 Dose: 20 mg Brimonidine Tartrate (Alphagan 0.2% -) 1 drop OU BID [facility] Last Admin: 05/29/19 22:39 Dose: 1 drop Dorzolamide HCl (Trusopt 2%) 1 drop OU BID [facility] Last Admin: 05/29/19 22:39 Dose: 1 drop Gabapentin (Neurontin -) 300 mg PO BID [facility] Last Admin: 05/29/19 22:37 Dose: 300 mg Sodium Chloride (Normal Saline -) 1,000 mls @ 75 mls/hr IV ASDIR [facility] Last Admin: 05/30/19 02:18 Dose: 75 mls/hr Insulin Aspart (Novolog Vial Sliding Scale -) 1 vial SQ TIDAC [facility]; Protocol Last Admin: 05/30/19 06:59 Dose: Not Given Montelukast Sodium (Singulair -) 10 mg PO HS [facility] Last Admin: 05/29/19 22:38 Dose: 10 mg Polyethylene Glycol (Miralax (For Daily Use) -) 17 gm PO BID [facility] Last Admin: 05/29/19 22:38 Dose: 17 gm Senna (Senna -) 2 tab PO [facility] Last Admin: 05/29/19 22:37 Dose: 2 tab Constitutional: Yes: No Distress, Thin Eyes: Yes: Conjunctiva Clear, EOM Intact HENT: Yes: Atraumatic, Normocephalic Neck: Yes: Supple, Trachea Midline Cardiovascular: Yes: Regular Rate and Rhythm Respiratory: Yes: Regular, CTA Bilaterally ...Inspection: Yes: WNL ...Clubbing: No Gastrointestinal: Yes: Normal Bowel Sounds, Soft Musculoskeletal: Yes: WNL Extremities: Yes: WNL Edema: No Peripheral Pulses WNL: Yes Integumentary: Yes: WNL Neurological: Yes: WNL, Alert, Oriented ...Motor Strength: WNL Psychiatric: Yes: WNL, Alert, Oriented Labs: Laboratory Results - last 24 hr 05/29/19 05/29/19 05/29/19 11:51 17:16 22:34 Sodium Potassium Chloride Carbon Dioxide Anion Gap BUN Creatinine Est GFR (CKD-EPI)AfAm Est GFR (CKD-EPI)NonAf POC Glucometer 115 106 112 Random Glucose Calcium Total Bilirubin AST ALT Alkaline Phosphatase Total Protein Albumin 05/30/19 05/30/19 06:48 06:54 Sodium 140 Potassium 3.3 L Chloride 109 H Carbon Dioxide 27 Anion Gap 4 L BUN 4.6 L Creatinine 0.8 Est GFR (CKD-EPI)AfAm 104.90 Est GFR (CKD-EPI)NonAf 90.51 POC Glucometer 117 Random Glucose 115 H Calcium 8.3 L Total Bilirubin 0.3 AST 11 L ALT 13 Alkaline Phosphatase 117 Total Protein 5.9 L Albumin 2.9 L Problem List - Problems (1) Prostate cancer Code(s): C61 - MALIGNANT NEOPLASM OF PROSTATE (2) History of nephrectomy Code(s): Z90.5 - ACQUIRED ABSENCE OF KIDNEY (3) Lung nodule < 6cm on CT Code(s): R91.1 - SOLITARY PULMONARY NODULE (4) Diabetes mellitus Code(s): E11.9 - TYPE 2 DIABETES MELLITUS WITHOUT COMPLICATIONS (5) GERD (gastroesophageal reflux disease) Code(s): K21.9 - GASTRO-ESOPHAGEAL REFLUX DISEASE WITHOUT ESOPHAGITIS (6) Anorexia Code(s): R63.0 - ANOREXIA Assessment/Plan According to the 2017 updated Fleischner Society Guidelines, if the patient is considered low risk for having Lung carcinoma, no follow up suggested. If he is followed as high risk, the recommendation is for a [address] Chest. The patient reports that his health care providers are in [place]. I suggested that he have the images of his 2 CT scans put onto a disc that he can provide to his doctors in [place] for further follow up. No smoking counseled. Dr Armstrong Problem List - Problems (1) Prostate cancer Code(s): C61 - MALIGNANT NEOPLASM OF PROSTATE (2) History of nephrectomy Code(s): Z90.5 - ACQUIRED ABSENCE OF KIDNEY (3) Lung nodule < 6cm on CT Code(s): R91.1 - SOLITARY PULMONARY NODULE (4) Diabetes mellitus Code(s): E11.9 - TYPE 2 DIABETES MELLITUS WITHOUT COMPLICATIONS (5) GERD (gastroesophageal reflux disease) Code(s): K21.9 - GASTRO-ESOPHAGEAL REFLUX DISEASE WITHOUT ESOPHAGITIS Qualifiers: Esophagitis presence: esophagitis presence not specified Qualified Code(s) : K21.9 - Gastro-esophageal reflux disease without esophagitis (6) Anorexia Code(s): R63.0 - ANOREXIA
[2019-05-30] MEDS ORDERED: PT OWN MED DRAWER 7, Y5N ONE (12:10)
[2019-05-30] MEDS: BRIMONIDINE TARTRATE 0.2% OPHTHALMIC 5 ML BOTTLE OU SCH ×2 (12:13→22:08)
[2019-05-30] MEDS: DORZOLAMIDE 2% HCL OPHTHALMIC SOLUTION 10 ML BOTTLE OU SCH ×2 (12:13→22:08)
[2019-05-30] MEDS: POLYETHYLENE GLYCOL 3350 119 GM BTL PO SCH ×2 (12:13→22:06)
[2019-05-30] MEDS: GABAPENTIN 300 MG CAPSULE (FP) PO SCH ×2 (12:13→22:08)
--- NOTE | 2019-05-30 14:51 | PN ---
Progress Note (short form) - Note Progress Note: Subjective: no fever or chills. has abd pain in LLQ. no fever or chills. no BM today . nauseous Objective: Vital Signs: Last Vital Signs Temp Pulse Resp BP Pulse Ox 98.4 F 74 18 140/94 99 05/30/19 06:00 05/30/19 06:00 05/30/19 06:00 05/30/19 06:00 05/29/19 21:00 Laboratory Results - last 24 hr 05/29/19 05/29/19 05/30/19 17:16 22:34 06:48 Sodium 140 Potassium 3.3 L Chloride 109 H Carbon Dioxide 27 Anion Gap 4 L BUN 4.6 L Creatinine 0.8 Est GFR (CKD-EPI)AfAm 104.90 Est GFR (CKD-EPI)NonAf 90.51 POC Glucometer 106 112 Random Glucose 115 H Calcium 8.3 L Total Bilirubin 0.3 AST 11 L ALT 13 Alkaline Phosphatase 117 Total Protein 5.9 L Albumin 2.9 L 05/30/19 05/30/19 06:54 12:09 Sodium Potassium Chloride Carbon Dioxide Anion Gap BUN Creatinine Est GFR (CKD-EPI)AfAm Est GFR (CKD-EPI)NonAf POC Glucometer 117 125 Random Glucose Calcium Total Bilirubin AST ALT Alkaline Phosphatase Total Protein Albumin Physical Exam: NAD, comfortable in bed CV: RRR, no MRG Lungs: CTAB Ext: No edema or erythema in upper or lower ext. Abd: soft, NT, ND, NL BS. Assessment/Plan: 68 y/o man with h/o prostate cancer s/p RTx , h/o HTN ( off meds due to hypotension) , PUD, CVA, left nephrectomy due to L renal cancer , who presented with abd pain and constipation 1- ABD pain, due to constipation. s/p EGD and colo - follow Bx from EGD and colonoscopy - avoid constipation. cont miralax and senna - KUB today due to abd pain after colo. Nl gas pattern,no free air 2- H/o HTN: will d/w patient if he agrees to resuming low dose of antihypertensive meds. 3- H/o Stroke: - cont aspirin - cont statin 4- H/o DM: A1c 5.6. patient is no longer on metformin as outpt 5- Weight loss. bone scan with no bone lesions. cont w/u as out pt 6- Leukopenia. unclear etiology. need to r/o BM pathology ( MDS ) due to macrocytosis - B12 and folic normal . - out pt complete w/u with his oncologist. 7- Pulmonary nodule on CT scan: f/u as out pt with repeat imaging in 12 month per pulm recs. will make sure we provide with the disc at dc and he can request his chart from medical records after dc 8- Protein calorie malnutrition Dispo: Needs rehab. d/w CM . no labs tomorrow Visit type - Emergency Visit Emergency Visit: Yes ED Registration Date: 05/25/19 Care time: The patient presented to the Emergency Department on the above date and was hospitalized for further evaluation of their emergent condition. - New Patient This patient is new to me today: No - Critical Care Critical Care patient: No
[2019-05-30] MEDS: SENNOSIDES 8.6MG TABLET (FP) PO SCH (22:07)
[2019-05-30] MEDS: MONTELUKAST NA 10 MG TABLET PO SCH (22:07)
[2019-05-30] MEDS: ATORVASTATIN CA 20 MG TABLET (FP) PO SCH (22:07)
[2019-05-31] MEDS: INSULIN SLIDING SCALE (NOVOLOG) 1 VIAL SQ SCH ×3 (07:08→16:41)
[2019-05-31] MEDS ORDERED: POTASSIUM CHLORIDE TABS 20 MEQ TABLET.ER (FP) PO ONE (08:26)
[2019-05-31] MEDS: POLYETHYLENE GLYCOL 3350 119 GM BTL PO SCH ×2 (10:07→21:39)
[2019-05-31] MEDS: GABAPENTIN 300 MG CAPSULE (FP) PO SCH ×2 (10:07→21:41)
[2019-05-31] MEDS: SODIUM CHLORIDE 1,000 ML IV SCH (10:08)
[2019-05-31] MEDS: BRIMONIDINE TARTRATE 0.2% OPHTHALMIC 5 ML BOTTLE OU SCH ×2 (10:09→21:43)
[2019-05-31] MEDS: DORZOLAMIDE 2% HCL OPHTHALMIC SOLUTION 10 ML BOTTLE OU SCH ×2 (10:09→21:43)
--- NOTE | 2019-05-31 10:15 | PN ---
Progress Note, Physician Chief Complaint: Events noted Complains of abdominal discomfort intermittently History of Present Illness: Patient was seen and examined. Awake and alert. Chart was reviewed Denies chest pain, SOB or palpitations - Current Medication List Current Medications: Active Medications Acetaminophen (Tylenol -) 500 mg PO Q6H PRN PRN Reason: PAIN 1-3 Last Admin: 05/26/19 14:59 Dose: 500 mg Atorvastatin Calcium (Lipitor -) 20 mg PO [facility] Last Admin: 05/30/19 22:07 Dose: 20 mg Brimonidine Tartrate (Alphagan 0.2% -) 1 drop OU BID [facility] Last Admin: 05/31/19 10:09 Dose: 1 drop Dorzolamide HCl (Trusopt 2%) 1 drop OU BID [facility] Last Admin: 05/31/19 10:09 Dose: 1 drop Gabapentin (Neurontin -) 300 mg PO BID [facility] Last Admin: 05/31/19 10:07 Dose: 300 mg Sodium Chloride (Normal Saline -) 1,000 mls @ 75 mls/hr IV ASDIR [facility] Last Admin: 05/31/19 10:08 Dose: 75 mls/hr Insulin Aspart (Novolog Vial Sliding Scale -) 1 vial SQ TIDAC [facility]; Protocol Last Admin: 05/31/19 07:08 Dose: Not Given Montelukast Sodium (Singulair -) 10 mg PO [facility] Last Admin: 05/30/19 22:07 Dose: 10 mg Polyethylene Glycol (Miralax (For Daily Use) -) 17 gm PO BID [facility] Last Admin: 05/31/19 10:07 Dose: 17 gm Senna (Senna -) 2 tab PO [facility] Last Admin: 05/30/19 22:07 Dose: 2 tab - Objective Vital Signs: Vital Signs Temperature 98.5 F 05/31/19 10:05 Pulse Rate 76 05/31/19 10:05 Respiratory Rate 18 05/31/19 10:05 Blood Pressure 140/85 05/31/19 10:05 O2 Sat by Pulse Oximetry (%) 99 05/30/19 22:00 Eyes: Yes: PERRL HENT: Yes: Atraumatic Neck: Yes: Supple Cardiovascular: Yes: Regular Rate and Rhythm, S1, S2 Respiratory: Yes: CTA Bilaterally Gastrointestinal: Yes: Normal Bowel Sounds, Soft Edema: No Labs: CBC, BMP 05/29/19 07:25 12/29/19 06:48 Problem List - Problems (1) Diverticulosis Code(s): K57.90 - DVRTCLOS OF INTEST, PART UNSP, W/O PERF OR ABSCESS W/O BLEED (2) Abdominal pain Code(s): R10.9 - UNSPECIFIED ABDOMINAL PAIN (3) Atypical chest pain Code(s): R07.89 - OTHER CHEST PAIN (4) Constipation Code(s): K59.00 - CONSTIPATION, UNSPECIFIED (5) Diabetes mellitus Code(s): E11.9 - TYPE 2 DIABETES MELLITUS WITHOUT COMPLICATIONS (6) GERD (gastroesophageal reflux disease) Code(s): K21.9 - GASTRO-ESOPHAGEAL REFLUX DISEASE WITHOUT ESOPHAGITIS Qualifiers: Esophagitis presence: esophagitis presence not specified Qualified Code(s) : K21.9 - Gastro-esophageal reflux disease without esophagitis (7) History of nephrectomy Code(s): Z90.5 - ACQUIRED ABSENCE OF KIDNEY (8) Kidney carcinoma Code(s): C64.9 - MALIGNANT NEOPLASM OF UNSP KIDNEY, EXCEPT RENAL PELVIS (9) Prostate cancer Code(s): C61 - MALIGNANT NEOPLASM OF PROSTATE Assessment/Plan 1. Atypical chest pain and dysphagia 2. History of stroke 3. Glaucoma 4. Renal cancer s/p left nephrectomy 5. Prostate cancer s/p EBRT 6. HTN 7. Hyperlipidemia 8. Leukopenia r/o MDS 9. Gastritis, diverticulosis and rectal ulcer PLAN: 1. EGD and colonoscopy results noted. GI follow up 2. PPI empirically as per GI 3. Continue Lipitor 20 mg QHS Josh Carroll MD
[2019-05-31] MEDS ORDERED: MIRTAZAPINE 15 MG TABLET (FP) PO SCH (14:45)
[2019-05-31] MEDS: ACETAMINOPHEN 500 MG TABLET (FP) PO PRN ×2 (15:06→21:40)
--- NOTE | 2019-05-31 15:13 | PN ---
Teaching Attending Note Name of Resident: Tony Templeton ATTENDING PHYSICIAN STATEMENT I saw and evaluated the patient. I reviewed the resident's note and discussed the case with the resident. I agree with the resident's findings and plan as documented. SUBJECTIVE: No fever or chills. No ROB. no abd pain, no nausea today. tolerated food. decreased appetite OBJECTIVE: NAD, comfortable in bed CV: RRR, no MRG Lungs: CTAB Ext: No edema or erythema in his extremities Abd: soft, NT, ND, NL BS. Assessment/Plan: 68 y/o man with h/o prostate cancer s/p RTx , h/o HTN ( off meds due to hypotension) , PUD, CVA, left nephrectomy due to L renal cancer , who presented with abd pain and constipation 1- ABD pain, due to constipation. s/p EGD and colonoscopy - follow Bx from EGD and colonoscopy - patient understands that bx results need to be followed by him and his PCP. ideally, he needs to follow with GI, if not back to [place], his home city - avoid constipation. cont miralax and senna - KUB reviewed. 2- H/o HTN: will d/w patient if he agrees to being on BP medication ( preferably low dose lisinopril with BMP in 1 week) 3- H/o Stroke: - cont aspirin - cont statin 4- H/o DM: A1c 5.6. patient is no longer on metformin as outpt 5- Weight loss. bone scan with no bone lesions. cont w/u as out pt add remeron for appetite stimulation 6- Leukopenia. unclear etiology. need to r/o BM pathology ( MDS ) due to macrocytosis - B12 and folic normal . - out pt complete w/u with his oncologist. 7- Pulmonary nodule on CT scan: f/u as out pt with repeat imaging in 12 month per pulm recs. will make sure we provide with the disc at dc and he can request his chart from medical records after dc 8- Protein calorie malnutrition Dispo: d/wd [facility]. rehab placement pending '
--- NOTE | 2019-05-31 17:37 | PN ---
Physical Exam: SUBJECTIVE: Patient seen and examined at bedside. He was eating for the 1st time in 2 days; hospital breakfast of pancakes. He denies abdominal pain and headache. No BM yet. Voiding well. OBJECTIVE: Vital Signs Period Temp Pulse Resp BP Sys/Chance Pulse Ox Last 24 Hr 98.5 F-98.8 F 74-82 18-18 121-148/79-96 98-99 GENERAL: AOx3, in no acute distress HEAD: NCAT EYES: KEVIN, EOMI, conjunctiva clear. ENT: Ears normal, nares patent, oropharynx clear without exudates. Moist mucous membranes. NECK: Normal range of motion, supple without lymphadenopathy, JVD, or masses. LUNGS: CTAB. No wheezes, and no crackles. No accessory muscle use. HEART: RRR s1 s2 ABDOMEN: Soft, BS present in all 4 quadrants, non-distended, no JVD, MUSCULOSKELETAL: No bony deformities or tenderness. No CVA tenderness. UPPER EXTREMITIES: 2+ pulses, warm, well-perfused. No cyanosis. No clubbing. No peripheral edema. LOWER EXTREMITIES: 2+ pulses, warm, well-perfused. No calf tenderness. No peripheral edema. NEUROLOGICAL: No focal deficits. Cranial nerves II-XII intact. Normal speech. Ambulates with cane. PSYCHIATRIC: Cooperative. Good eye contact. Appropriate mood and affect. SKIN: Warm, dry, normal turgor, no rashes or lesions noted, normal capillary refill Laboratory Results - last 24 hr 05/30/19 05/31/19 05/31/19 17:59 07:06 12:18 POC Glucometer 132 117 157 05/31/19 16:39 POC Glucometer 105 Active Medications Generic Name Dose Route Start Last Admin Trade Name Freq PRN Reason Stop Dose Admin Acetaminophen 500 mg 05/26/19 12:50 05/31/19 15:06 Tylenol - PO 500 mg Q6H PRN Administration PAIN 1-3 Atorvastatin Calcium 20 mg 05/26/19 22:00 05/30/19 22:07 Lipitor - PO 20 mg HS NOEMY Administration Brimonidine Tartrate 1 drop 05/26/19 22:00 05/31/19 10:09 Alphagan 0.2% - OU 1 drop BID [facility] Administration Dorzolamide HCl 1 drop 05/26/19 22:00 05/31/19 10:09 Trusopt 2% OU 1 drop BID [facility] Administration Gabapentin 300 mg 05/26/19 22:00 05/31/19 10:07 Neurontin - PO 300 mg BID NO[facility] Administration Sodium Chloride 1,000 mls @ 75 mls/hr 05/27/19 08:00 05/31/19 10:08 Normal Saline - IV 75 mls/hr ASDIR [facility] Administration Insulin Aspart 1 vial 05/26/19 07:00 05/31/19 16:41 Novolog Vial Sliding Scale - SQ Not Given [facility] Protocol Mirtazapine 7.5 mg 05/31/19 22:00 Remeron - PO HS NOEMY Montelukast Sodium 10 mg 05/26/19 22:00 05/30/19 22:07 Singulair - PO 10 mg HS [facility] Administration Polyethylene Glycol 17 gm 05/28/19 22:00 05/31/19 10:07 Miralax (For Daily Use) - PO 17 gm BID [facility] Administration Senna 2 tab 05/29/19 22:00 05/30/19 22:07 Senna - PO 2 tab HS [facility]EMY Administration ASSESSMENT/PLAN: 68 y/o male PMH prostate and renal CA s/p rtx, RVP, CVA with LEFT sided deficit , and constant abdominal pain. Constipation for nearly 2 weeks. # Ab pain/constipation - Pt encouraged/educated on diet - EGD shows mild gastritis, colonoscopy shows mild diverticulosis and small ulcer in rectum stercocal vs radiation proctitis - ECHO EF 60-65% and trace tricuspid regurg. - Bone scan with no bone lesions - CP noted in chart but pt denying CP. - Can resume ASA; was held for coloscopy (part of regimen given stroke hx) - Miralax 17 gm PO BID # Hypomagnesemia - 1.7 today - Magneseum oxide 400 mg PO ONCE provided # HTN - Normotensive - Not currently on a home regimen - Cont. appropriate diet # HLD/ H/o stroke - Atorvastatin 20 mg P HS # Glaucoma - Cont. home regimen: brimonidine 1 drop OU BID and dorzolamide 1 drop ou BID # DM Hx - A1c 5.6 - Not currently on a home regimen - ISS BGM ACHS - Cont. appropriate diet # Leukopenia and weight loss - Etiology unclear etiology - R/o BM pathology (MDS) given macrocytosis - B12 and folic normal . - out pt complete w/u in pt's medical home/[place] # F/E/N - NS - Cont. to monitor - Regular diet # DVT prophylaxis - Heparin SQ # Disposition - PT walked 80 feet with PT but was unsteady and could benefit from rehab. change management manager made aware and process of acquiring prior auth initiated - Pt advised on need to get medical records (CT, bone scan, endoscopy/ colonoscopy report) Tony Templeton MD Visit type - Emergency Visit Emergency Visit: No - New Patient This patient is new to me today: No - Critical Care Critical Care patient: No ATTENDING PHYSICIAN STATEMENT I saw and evaluated the patient. I reviewed the resident's note and discussed the case with the resident. I agree with the resident's findings and plan as documented. SUBJECTIVE: OBJECTIVE: ASSESSMENT AND PLAN:
[2019-05-31] MEDS: SENNOSIDES 8.6MG TABLET (FP) PO SCH (21:40)
[2019-05-31] MEDS: MONTELUKAST NA 10 MG TABLET PO SCH (21:41)
[2019-05-31] MEDS: ATORVASTATIN CA 20 MG TABLET (FP) PO SCH (21:42)
[2019-05-31] MEDS: MIRTAZAPINE 15 MG TABLET (FP) PO SCH (21:42)
[2019-06-01] MEDS: SODIUM CHLORIDE 1,000 ML IV SCH ×2 (00:27→09:33)
[2019-06-01] MEDS: INSULIN SLIDING SCALE (NOVOLOG) 1 VIAL SQ SCH ×3 (06:04→17:52)
[2019-06-01] MEDS: ACETAMINOPHEN 500 MG TABLET (FP) PO PRN (06:10)
[2019-06-01] MEDS: DORZOLAMIDE 2% HCL OPHTHALMIC SOLUTION 10 ML BOTTLE OU SCH ×2 (09:40→21:10)
[2019-06-01] MEDS: POLYETHYLENE GLYCOL 3350 119 GM BTL PO SCH ×2 (09:40→21:10)
[2019-06-01] MEDS: GABAPENTIN 300 MG CAPSULE (FP) PO SCH ×2 (09:40→21:07)
[2019-06-01] MEDS: BRIMONIDINE TARTRATE 0.2% OPHTHALMIC 5 ML BOTTLE OU SCH ×2 (09:42→21:11)
--- NOTE | 2019-06-01 14:44 | PN ---
Physical Exam: SUBJECTIVE: Patient seen and examined at bedside. He is doing well this AM and offers no complaints. His insurance is based in [place] and prior auth to be performed by [facility]; anticipate placement/dc to SNF for 03 Jun 2019. OBJECTIVE: Vital Signs Period Temp Pulse Resp BP Sys/Chance Pulse Ox Last 24 Hr 98.6 F-99.2 F 73-82 18-20 121-152/76-101 98 GENERAL: AOx3, in no acute distress HEAD: NCAT EYES: KEVIN, EOMI, conjunctiva clear. ENT: Ears normal, nares patent, oropharynx clear without exudates. Moist mucous membranes. NECK: Normal range of motion, supple without lymphadenopathy, JVD, or masses. LUNGS: CTAB. No wheezes, and no crackles. No accessory muscle use. HEART: RRR s1 s2 ABDOMEN: Soft, BS present in all 4 quadrants, non-distended, no JVD, MUSCULOSKELETAL: No bony deformities or tenderness. No CVA tenderness. UPPER EXTREMITIES: 2+ pulses, warm, well-perfused. No cyanosis. No clubbing. No peripheral edema. LOWER EXTREMITIES: 2+ pulses, warm, well-perfused. No calf tenderness. No peripheral edema. NEUROLOGICAL: No focal deficits. Cranial nerves II-XII intact. Normal speech. Ambulates with cane. PSYCHIATRIC: Cooperative. Good eye contact. Appropriate mood and affect. SKIN: Warm, dry, normal turgor, no rashes or lesions noted, normal capillary refill Laboratory Results - last 24 hr 05/31/19 06/01/19 06/01/19 16:39 06:01 11:58 POC Glucometer 105 92 139 Active Medications Generic Name Dose Route Start Last Admin Trade Name Freq PRN Reason Stop Dose Admin Acetaminophen 500 mg 05/26/19 12:50 06/01/19 06:10 Tylenol - PO 500 mg Q6H PRN Administration PAIN 1-3 Atorvastatin Calcium 20 mg 05/26/19 22:00 05/31/19 21:42 Lipitor - PO 20 mg HS [facility] Administration Brimonidine Tartrate 1 drop 05/26/19 22:00 06/01/19 09:42 Alphagan 0.2% - OU 1 drop BID [facility] Administration Dorzolamide HCl 1 drop 05/26/19 22:00 06/01/19 09:40 Trusopt 2% OU 1 drop BID [facility] Administration Gabapentin 300 mg 05/26/19 22:00 06/01/19 09:40 Neurontin - PO 300 mg BID [facility] Administration Sodium Chloride 1,000 mls @ 75 mls/hr 05/27/19 08:00 06/01/19 09:33 Normal Saline - IV Not Given ASDIR [facility] Insulin Aspart 1 vial 05/26/19 07:00 06/01/19 12:00 Novolog Vial Sliding Scale - SQ Not Given TIDAC [facility] Protocol Mirtazapine 7.5 mg 05/31/19 22:00 05/31/19 21:42 Remeron - PO 7.5 mg HS [facility] Administration Montelukast Sodium 10 mg 05/26/19 22:00 05/31/19 21:41 Singulair - PO 10 mg HS [facility] Administration Polyethylene Glycol 17 gm 05/28/19 22:00 06/01/19 09:40 Miralax (For Daily Use) - PO 17 gm BID [facility] Administration Senna 2 tab 05/29/19 22:00 05/31/19 21:40 Senna - PO 2 tab HS [facility] Administration ASSESSMENT/PLAN: 68 y/o male PMH prostate and renal CA s/p rtx, RVP, CVA with LEFT sided deficit , and constant abdominal pain. Constipation for nearly 2 weeks. # Ab pain/constipation, resolved - Pt encouraged/educated on diet - EGD shows mild gastritis, colonoscopy shows mild diverticulosis and small ulcer in rectum stercocal vs radiation proctitis - ECHO EF 60-65% and trace tricuspid regurg. - Bone scan with no bone lesions - CP noted in chart but pt denying CP. - Can resume ASA; was held for coloscopy (part of regimen given stroke hx) - Miralax 17 gm PO BID # Hypomagnesemia, resolved - Magneseum oxide 400 mg PO ONCE provided # HTN - Normotensive - Not currently on a home regimen - Cont. appropriate diet # HLD/ H/o stroke - Atorvastatin 20 mg P HS # Glaucoma - Cont. home regimen: brimonidine 1 drop OU BID and dorzolamide 1 drop ou BID # DM Hx - A1c 5.6 - Not currently on a home regimen - ISS BGM ACHS - Cont. appropriate diet # Leukopenia and weight loss - Etiology unclear etiology - R/o BM pathology (MDS) given macrocytosis - B12 and folic normal . - out pt complete w/u in pt's medical home/[place] # Severe protein calorie malnutrition - Diet as tolerated # F/E/N - NS - Cont. to monitor - Regular diet # DVT prophylaxis - Heparin SQ # Disposition - PT walked 80 feet with PT but was unsteady and could benefit from rehab. manager non profit made aware and process of acquiring prior auth initiated (see above) - Pt advised on need to get medical records (CT, bone scan, endoscopy/ colonoscopy report) and he now has these documents at bedside. - Advised to f/u with GI for biopsy results Tony Templeton MD Visit type - Emergency Visit Emergency Visit: No - New Patient This patient is new to me today: No - Critical Care Critical Care patient: No ATTENDING PHYSICIAN STATEMENT I saw and evaluated the patient. I reviewed the resident's note and discussed the case with the resident. I agree with the resident's findings and plan as documented. SUBJECTIVE: OBJECTIVE: ASSESSMENT AND PLAN:
--- NOTE | 2019-06-01 17:16 | PN ---
Teaching Attending Note Name of Resident: Tony Templeton ATTENDING PHYSICIAN STATEMENT I saw and evaluated the patient. I reviewed the resident's note and discussed the case with the resident. I agree with the resident's findings and plan as documented. SUBJECTIVE: no fever or chills. no ROB , no SOB , no abd pain , no diarrhea OBJECTIVE: NAD, comfortable in bed CV: RRR, no MRG Lungs: CTAB Ext: No edema or erythema in his extremities Abd: soft, NT, ND, NL BS. Assessment/Plan: 68 y/o man with h/o prostate cancer s/p RTx , h/o HTN ( off meds due to hypotension) , PUD, CVA, left nephrectomy due to L renal cancer , who presented with abd pain and constipation 1- ABD pain, due to constipation. s/p EGD and colonoscopy - follow Bx from EGD and colonoscopy -f/u with GI in 1 week for Bx results - avoid constipation. cont miralax and senna 2- H/o HTN: labile BP. monitor ( self stopped his out pt norvasc due to hypotension and syncope ) 3- H/o Stroke: - cont aspirin - cont statin 4- H/o DM: A1c 5.6. patient is no longer on metformin as outpt 5- Weight loss. bone scan with no bone lesions. cont w/u as out pt remeron for appetite stimulation ( added here ) 6- Leukopenia. unclear etiology. need to r/o BM pathology ( MDS ) due to macrocytosis - B12 and folic normal . - out pt complete w/u with his oncologist. 7- Pulmonary nodule on CT scan: f/u as out pt with repeat imaging in 12 month per pulm recs. will make sure we provide with the disc at dc and he can request his chart from medical records after dc 8- Protein calorie malnutrition 9- F/u with his oncologist for prostate and kidney cancer Dispo:. rehab placement probably on
[2019-06-01] MEDS: ATORVASTATIN CA 20 MG TABLET (FP) PO SCH (21:07)
[2019-06-01] MEDS: SENNOSIDES 8.6MG TABLET (FP) PO SCH (21:08)
[2019-06-01] MEDS: MONTELUKAST NA 10 MG TABLET PO SCH (21:08)
[2019-06-01] MEDS: MIRTAZAPINE 15 MG TABLET (FP) PO SCH (21:08)
[2019-06-02] MEDS: SODIUM CHLORIDE 1,000 ML IV SCH ×2 (05:47→09:14)
[2019-06-02] MEDS: INSULIN SLIDING SCALE (NOVOLOG) 1 VIAL SQ SCH ×3 (06:03→17:34)
--- NOTE | 2019-06-02 08:45 | PN ---
Teaching Attending Note Name of Resident: Tony Templeton ATTENDING PHYSICIAN STATEMENT I saw and evaluated the patient. I reviewed the resident's note and discussed the case with the resident. I agree with the resident's findings and plan as documented. SUBJECTIVE: Patient is comfortable with no acute distress. No nausea or vomiting. Vital Signs Temperature 98.6 F 06/02/19 06:00 Pulse Rate 73 06/02/19 06:00 Respiratory Rate 18 06/02/19 06:00 Blood Pressure 141/93 06/02/19 06:00 O2 Sat by Pulse Oximetry (%) 98 06/01/19 21:00 GENERAL: The patient is awake, alert, and fully oriented, in no acute distress. HEAD: Normal with no signs of trauma. EYES: PERRL, extraocular movements intact, sclera anicteric, conjunctiva clear. ENT: Ears normal, oropharynx clear without exudates, moist mucous membranes. NECK: Trachea midline, full range of motion, supple. LUNGS: Breath sounds equal, clear to auscultation bilaterally, no wheezes, no crackles, no accessory muscle use. HEART: Regular rate and rhythm, S1, S2 without murmur, rub or gallop. ABDOMEN: Soft, nontender, nondistended, normoactive bowel sounds, no guarding, no rebound, no hepatosplenomegaly, no masses. EXTREMITIES: 2+ pulses, warm, well-perfused, no edema. NEUROLOGICAL: Cranial nerves II through XII grossly intact. Normal speech, gait not observed. PSYCH: Normal mood, normal affect. SKIN: Warm, dry, normal turgor, no rashes or lesions noted CBCD WBC 3.1 K/mm3 (4.0-10.0) L 05/29/19 07:25 RBC 3.77 M/mm3 (4.00-5.60) L 05/29/19 07:25 Hgb 12.3 GM/dL (11.7-16.9) 05/29/19 07:25 Hct 36.7 % (35.4-49) 05/29/19 07:25 MCV 97.3 fl (80-96) H 05/29/19 07:25 MCHC 33.6 g/dl (32.0-35.9) 05/29/19 07:25 RDW 14.2 % (11.9-15.9) 05/29/19 07:25 Plt Count 152 K/MM3 (134-434) 05/29/19 07:25 MPV 9.1 fl (7.5-11.1) 05/29/19 07:25 CMP Sodium 140 mmol/L (136-145) 05/30/19 06:48 Potassium 3.3 mmol/L (3.5-5.1) L 05/30/19 06:48 Chloride 109 mmol/L (98-107) H 05/30/19 06:48 Carbon Dioxide 27 mmol/L (21-32) 05/30/19 06:48 Anion Gap 4 MMOL/L (8-16) L 05/30/19 06:48 BUN 4.6 mg/dL (7-18) L 05/30/19 06:48 Creatinine 0.8 mg/dL (0.55-1.3) 05/30/19 06:48 Random Glucose 115 mg/dL (74-106) H 05/30/19 06:48 Calcium 8.3 mg/dL (8.5-10.1) L 05/30/19 06:48 Total Bilirubin 0.3 mg/dL (0.2-1) 05/30/19 06:48 AST 11 U/L (15-37) L 05/30/19 06:48 ALT 13 U/L (13-61) 05/30/19 06:48 Alkaline Phosphatase 117 U/L (45-117) 05/30/19 06:48 Total Protein 5.9 g/dl (6.4-8.2) L 05/30/19 06:48 Albumin 2.9 g/dl (3.4-5.0) L 05/30/19 06:48 CARDIAC ENZYMES Creatine Kinase 42 U/L (26-308) 05/25/19 16:47 Troponin I < 0.02 ng/ml (0.00-0.05) 05/25/19 16:47 Assessment/Plan: 68 y/o man with h/o prostate cancer s/p RTx , h/o HTN ( off meds due to hypotension) , PUD, CVA, left nephrectomy due to L renal cancer , who presented with abd pain and constipation # Acute ABD pain, due to constipation. s/p EGD and colonoscopy , follow Bx from EGD; esophagus appeared normal, mild gastritis in the gastric body continue taking protonix, follow the bx result. f/u with GI in 1 week for Bx results # Constipation. cont miralax 17gm 2x per day # H/o HTN: labile BP. monitor ( self stopped his out pt norvasc due to hypotension and syncope ) # H/o Stroke: continue aspirin , statin # H/o DM: A1c 5.6. patient is no longer on metformin as outpt # Weight loss. bone scan with no bone lesions. cont w/u as out pt, remeron for appetite stimulation ( added here ) # Leukopenia. unclear etiology. need to r/o BM pathology ( MDS ) due to macrocytosis - B12 and folic normal . out pt complete w/u with his oncologist. F/u with his oncologist for prostate and kidney cancer # Pulmonary nodule on CT scan: f/u as out pt with repeat imaging in 12 month per pulm recluther. will make sure we provide with the disc at dc and he can request his chart from medical records after dc # Protein calorie malnutrition Dispo:. rehab placement probably on
[2019-06-02] MEDS ORDERED: PT OWN MED DRAWER 7, Y5N ONE (09:10)
[2019-06-02] MEDS: GABAPENTIN 300 MG CAPSULE (FP) PO SCH ×2 (09:13→21:10)
[2019-06-02] MEDS: POLYETHYLENE GLYCOL 3350 119 GM BTL PO SCH ×2 (09:13→21:10)
[2019-06-02] MEDS: DORZOLAMIDE 2% HCL OPHTHALMIC SOLUTION 10 ML BOTTLE OU SCH ×2 (09:18→21:11)
[2019-06-02] MEDS: BRIMONIDINE TARTRATE 0.2% OPHTHALMIC 5 ML BOTTLE OU SCH ×2 (09:18→21:11)
--- NOTE | 2019-06-02 18:31 | PN ---
Physical Exam: SUBJECTIVE: Patient seen and examined at bedside. He is doing well this AM. He states that he continues to feel weak/heaviness in abdomen. His insurance is based in [place] and prior auth to be performed by [facility]; anticipate placement/dc to SNF for 03 Jun 2019. OBJECTIVE: Vital Signs Period Temp Pulse Resp BP Sys/Chance Pulse Ox Last 24 Hr 98.1 F-98.6 F 73-82 18-18 127-141/84-93 98-98 GENERAL: AOx3, in no acute distress HEAD: NCAT EYES: KEVIN, EOMI, conjunctiva clear. ENT: Ears normal, nares patent, oropharynx clear without exudates. Moist mucous membranes. NECK: Normal range of motion, supple without lymphadenopathy, JVD, or masses. LUNGS: CTAB. No wheezes, and no crackles. No accessory muscle use. HEART: RRR s1 s2 ABDOMEN: Soft, BS present in all 4 quadrants, non-distended, no JVD, MUSCULOSKELETAL: No bony deformities or tenderness. No CVA tenderness. UPPER EXTREMITIES: 2+ pulses, warm, well-perfused. No cyanosis. No clubbing. No peripheral edema. LOWER EXTREMITIES: 2+ pulses, warm, well-perfused. No calf tenderness. No peripheral edema. NEUROLOGICAL: No focal deficits. Cranial nerves II-XII intact. Normal speech. Ambulates with cane. PSYCHIATRIC: Cooperative. Good eye contact. Appropriate mood and affect. SKIN: Warm, dry, normal turgor, no rashes or lesions noted, normal capillary refill Laboratory Results - last 24 hr 06/02/19 06/02/19 06/02/19 05:42 12:30 17:28 POC Glucometer 90 121 90 Active Medications Generic Name Dose Route Start Last Admin Trade Name Freq PRN Reason Stop Dose Admin Acetaminophen 500 mg 05/26/19 12:50 06/01/19 06:10 Tylenol - PO 500 mg Q6H PRN Administration PAIN 1-3 Atorvastatin Calcium 20 mg 05/26/19 22:00 06/01/19 21:07 Lipitor - PO 20 mg HS NOEMY Administration Brimonidine Tartrate 1 drop 05/26/19 22:00 06/02/19 09:18 Alphagan 0.2% - OU 1 drop BID NOEMY Administration Dorzolamide HCl 1 drop 05/26/19 22:00 06/02/19 09:18 Trusopt 2% OU 1 drop BID NOEMY Administration Gabapentin 300 mg 05/26/19 22:00 06/02/19 09:13 Neurontin - PO 300 mg BID NOEMY Administration Sodium Chloride 1,000 mls @ 75 mls/hr 05/27/19 08:00 06/02/19 09:14 Normal Saline - IV 75 mls/hr ASDIR NOEMY Administration Insulin Aspart 1 vial 05/26/19 07:00 06/02/19 17:34 Novolog Vial Sliding Scale - SQ Not Given TIDAC [facility] Protocol Mirtazapine 7.5 mg 05/31/19 22:00 06/01/19 21:08 Remeron - PO 7.5 mg HS NOEMY Administration Montelukast Sodium 10 mg 05/26/19 22:00 06/01/19 21:08 Singulair - PO 10 mg HS NOEMY Administration Polyethylene Glycol 17 gm 05/28/19 22:00 06/02/19 09:13 Miralax (For Daily Use) - PO 17 gm BID NOEMY Administration Senna 2 tab 05/29/19 22:00 06/01/19 21:08 Senna - PO 2 tab HS NOEMY Administration ASSESSMENT/PLAN: 68 y/o male PMH prostate and renal CA s/p rtx, RVP, CVA with LEFT sided deficit , and constant abdominal pain. Constipation for nearly 2 weeks. # Ab pain/constipation, resolved - Pt passed stool, loose but mainly formed - He is eating well now - Pt encouraged/educated on diet - EGD shows mild gastritis, colonoscopy shows mild diverticulosis and small ulcer in rectum stercocal vs radiation proctitis - ECHO EF 60-65% and trace tricuspid regurg. - Bone scan with no bone lesions - CP noted in chart but pt denying CP. - Can resume ASA; was held for coloscopy (part of regimen given stroke hx) - Miralax 17 gm PO BID # Hypomagnesemia, resolved - Magneseum oxide 400 mg PO ONCE provided # HTN - Normotensive - Not currently on a home regimen - Cont. appropriate diet # HLD/ H/o stroke - Atorvastatin 20 mg P HS # Glaucoma - Cont. home regimen: brimonidine 1 drop OU BID and dorzolamide 1 drop ou BID # DM Hx - A1c 5.6 - Not currently on a home regimen - ISS BGM ACHS - Cont. appropriate diet # Leukopenia and weight loss - Etiology unclear etiology - R/o BM pathology (MDS) given macrocytosis - B12 and folic normal . - out pt complete w/u in pt's medical home/[place] # Severe protein calorie malnutrition - Diet as tolerated # F/E/N - NS - Cont. to monitor - Regular diet # DVT prophylaxis - Heparin SQ # Disposition - PT walked 80 feet with PT but was unsteady and could benefit from rehab. real estate portfolio manager made aware and process of acquiring prior auth initiated (see above) - Pt advised on need to get medical records (CT, bone scan, endoscopy/ colonoscopy report) and he now has these documents at bedside. - Advised to f/u with GI for biopsy results Tony Templeton MD Visit type - Emergency Visit Emergency Visit: No - New Patient This patient is new to me today: No - Critical Care Critical Care patient: No ATTENDING PHYSICIAN STATEMENT I saw and evaluated the patient. I reviewed the resident's note and discussed the case with the resident. I agree with the resident's findings and plan as documented. SUBJECTIVE: OBJECTIVE: ASSESSMENT AND PLAN:
[2019-06-02] MEDS: SENNOSIDES 8.6MG TABLET (FP) PO SCH (21:10)
[2019-06-02] MEDS: MONTELUKAST NA 10 MG TABLET PO SCH (21:11)
[2019-06-02] MEDS: ATORVASTATIN CA 20 MG TABLET (FP) PO SCH (21:11)
[2019-06-02] MEDS: MIRTAZAPINE 15 MG TABLET (FP) PO SCH (21:11)
[2019-06-03] MEDS: SODIUM CHLORIDE 1,000 ML IV SCH ×2 (05:39→08:00)
[2019-06-03] MEDS: INSULIN SLIDING SCALE (NOVOLOG) 1 VIAL SQ SCH ×3 (06:01→16:29)
[2019-06-03 07:43] LABS: HEMATOCRIT 36.2 % (35.4-49); HEMOGLOBIN 12.1 GM/dL (11.7-16.9); MCH 32.5 pg (25.7-33.7); MCHC 33.5 g/dl (32.0-35.9); MEAN CELL VOLUME 96.9 fl (80-96); MEAN PLT VOLUME 8.4 fl (7.5-11.1); PLATELET COUNT 166 K/MM3 (134-434); RBC 3.74 M/mm3 (4.00-5.60); RDW 14.4 % (11.9-15.9)
[2019-06-03 08:38] LABS: ALBUMIN 2.7 g/dl (3.4-5.0); BILIRUBIN,TOTAL 0.4 mg/dL (0.2-1); BLOOD UREA NITROGEN 11.3 mg/dL (7-18); CALCIUM 8.4 mg/dL (8.5-10.1); CREATININE 0.9 mg/dL (0.55-1.3); PHOSPHOROUS 4.2 mg/dL (2.5-4.9)
[2019-06-03] MEDS ORDERED: PT OWN MED DRAWER 7, Y5N ONE (09:05)
[2019-06-03] MEDS: GABAPENTIN 300 MG CAPSULE (FP) PO SCH ×2 (09:08→21:19)
[2019-06-03] MEDS: BRIMONIDINE TARTRATE 0.2% OPHTHALMIC 5 ML BOTTLE OU SCH ×2 (09:10→21:23)
[2019-06-03] MEDS: DORZOLAMIDE 2% HCL OPHTHALMIC SOLUTION 10 ML BOTTLE OU SCH ×2 (09:11→21:23)
[2019-06-03] MEDS: POLYETHYLENE GLYCOL 3350 119 GM BTL PO SCH ×2 (09:13→21:18)
--- NOTE | 2019-06-03 10:06 | PN ---
Progress Note, Physician History of Present Illness: EGD shows mild gastritis, colonoscopy shows mild diverticulosis and small ulcer in rectum stercocal vs radiation proctitis, lack of appetite improved on Remeron. - Current Medication List Current Medications: Active Medications Acetaminophen (Tylenol -) 500 mg PO Q6H PRN PRN Reason: PAIN 1-3 Last Admin: 06/01/19 06:10 Dose: 500 mg Atorvastatin Calcium (Lipitor -) 20 mg PO [facility] Last Admin: 06/02/19 21:11 Dose: 20 mg Brimonidine Tartrate (Alphagan 0.2% -) 1 drop OU BID [facility] Last Admin: 06/03/19 09:10 Dose: 1 drop Dorzolamide HCl (Trusopt 2%) 1 drop OU BID [facility] Last Admin: 06/03/19 09:11 Dose: 1 drop Gabapentin (Neurontin -) 300 mg PO BID [facility] Last Admin: 06/03/19 09:08 Dose: 300 mg Sodium Chloride (Normal Saline -) 1,000 mls @ 75 mls/hr IV ASDIR [facility] Last Admin: 06/03/19 08:00 Dose: Not Given Insulin Aspart (Novolog Vial Sliding Scale -) 1 vial SQ TIDAC [facility]; Protocol Last Admin: 06/03/19 06:01 Dose: Not Given Mirtazapine (Remeron -) 7.5 mg PO [facility] Last Admin: 06/02/19 21:11 Dose: 7.5 mg Montelukast Sodium (Singulair -) 10 mg PO [facility] Last Admin: 06/02/19 21:11 Dose: 10 mg Polyethylene Glycol (Miralax (For Daily Use) -) 17 gm PO BID [facility] Last Admin: 06/03/19 09:13 Dose: 17 gm Senna (Senna -) 2 tab PO [facility] Last Admin: 06/02/19 21:10 Dose: 2 tab - Objective Vital Signs: Vital Signs Temperature 98.2 F 06/03/19 05:32 Pulse Rate 78 06/03/19 05:32 Respiratory Rate 18 06/03/19 05:32 Blood Pressure 129/92 06/03/19 05:32 O2 Sat by Pulse Oximetry (%) 98 06/02/19 21:00 Constitutional: Yes: No Distress, Calm, Thin Neck: Yes: Supple Cardiovascular: Yes: Regular Rate and Rhythm Respiratory: Yes: Regular, CTA Bilaterally Gastrointestinal: Yes: Normal Bowel Sounds, Soft Edema: No Labs: CBC, BMP 06/03/19 06:50 06/03/19 06:50 INR, PTT INR 1.06 (0.83-1.09) 05/25/19 16:47 Problem List - Problems (1) Atypical chest pain Code(s): R07.89 - OTHER CHEST PAIN (2) Dysphagia Code(s): R13.10 - DYSPHAGIA, UNSPECIFIED Qualifiers: Dysphagia type: esophageal phase Qualified Code(s): R13.10 - Dysphagia, unspecified (3) Abdominal pain Code(s): R10.9 - UNSPECIFIED ABDOMINAL PAIN (4) Early satiety Code(s): R68.81 - EARLY SATIETY (5) GERD (gastroesophageal reflux disease) Code(s): K21.9 - GASTRO-ESOPHAGEAL REFLUX DISEASE WITHOUT ESOPHAGITIS Qualifiers: Esophagitis presence: esophagitis presence not specified Qualified Code(s) : K21.9 - Gastro-esophageal reflux disease without esophagitis (6) Vomiting Code(s): R11.10 - VOMITING, UNSPECIFIED Qualifiers: Vomiting type: unspecified (7) Anorexia Code(s): R63.0 - ANOREXIA (8) Rectal ulcer Code(s): K62.6 - ULCER OF ANUS AND RECTUM Assessment/Plan 05/27/2019 Echo: Normal LV and RV size and fxn, tr TR 05/27/2019 Bone scan: No metastases 1. Atypical chest pain and dysphagia 2. History of stroke 3. Glaucoma 4. Renal cancer s/p left nephrectomy 5. Prostate cancer s/p EBRT 6. HTN 7. Hyperlipidemia 8. Leukopenia r/o MDS 9. Gastritis, diverticulosis and rectal ulcer PLAN: 1. EGD and colonoscopy results noted. GI follow up 2. PPI empirically as per GI 3. Continue Lipitor 20 mg QHS
--- NOTE | 2019-06-03 12:10 | PATH ---
Surgical Pathology Report Patient Name: QIAN LANTIGUA [facility]. Rec. #: [id number] /Age/Gender: 1950 (Age: 68) / M Account: [id number] Location: [address] [place] [address]/[facility] Taken: 05/28/2019 Received: 05/31/2019 Reported: 06/03/2019 Physicians: Fernando Porter D.O. Specimen(s) Received A: GASTRITIS STOMACH B: ANGULARIS AND BODY C: TRANSVERSE COLON POLYP D: DESCENDING COLON POLYP E: RECTUM ULCER Clinical History Weight loss, altered bowel habits Postoperative diagnosis: Gastritis, diverticulosis in colon, colon polyps, rectal ulcer Final Diagnosis A. GASTRITIS, STOMACH, BIOPSY: GASTRIC MUCOSA WITH CHRONIC, FOCALLY ACUTE GASTRITIS. IMMUNOSTAIN FOR H. PYLORI IS NEGATIVE. NEGATIVE FOR INTESTINAL METAPLASIA. B. ANGULARIS, BODY, BIOPSY: GASTRIC MUCOSA WITH CHRONIC GASTRITIS. IMMUNOSTAIN FOR H. PYLORI IS NEGATIVE. NEGATIVE FOR INTESTINAL METAPLASIA. C. TRANSVERSE COLON POLYP, POLYPECTOMY: TUBULAR ADENOMA. D. DESCENDING COLON POLYP, POLYPECTOMY: TUBULAR ADENOMA. E. RECTAL ULCER, BIOPSY: COLONIC MUCOSA WITH ULCERATION AND ASSOCIATED ACUTE INFLAMMATION. NEGATIVE FOR CARCINOMA. SEE COMMENT. Comment: Multiple serial H&E stained levels have been examined. Electronically Signed Chase Joya M.D. Gross Description A. Received in formalin, labeled "biopsy gastritis stomach" are 2 peres, irregular portions of soft tissue averaging 0.3 cm. in greatest dimension. The specimens are submitted in toto in one cassette. B. Received in formalin, labeled "biopsy angularis and body" are 2 peres, irregular portions of soft tissue measuring 0.1 and 0.3 cm. in greatest dimension. The specimens are submitted in toto in one cassette. C. Received in formalin, labeled "biopsy transverse colon polyp" are 2 peres, irregular portions of soft tissue measuring 0.1 and 0.3 cm. in greatest dimension. The specimens are submitted in toto in one cassette. D. Received in formalin, labeled "biopsy polyp descending" is a peres, irregular portion of soft tissue measuring 0.4 cm. in greatest dimension. The specimen is submitted in toto in one cassette. E. Received in formalin, labeled "biopsy rectal ulcer" are 2 peres, irregular portions of soft tissue measuring 0.1 and 0.4 cm. in greatest dimension. The specimens are submitted in toto in one cassette. 05/31/201905/31/2019
--- NOTE | 2019-06-03 16:00 | DS ---
Physical Exam: SUBJECTIVE: Patient seen and examined at bedside. He feels well and is eating more regularly. He described generalized weakness; same as described in PT note. He is eager to continue care at physical rehab. He denies ROB, nausea, vomiting, and abdominal pain. Last BM 2 days ago and was normal. OBJECTIVE: Vital Signs Period Temp Pulse Resp BP Sys/Chance Pulse Ox Last 24 Hr 98.2 F-98.7 F 78-85 18-18 120-143/79-96 98-98 PHYSICAL EXAM GENERAL: AOx3, in no acute distress HEAD: NCAT EYES: KEVIN, EOMI, conjunctiva clear. ENT: Ears normal, nares patent, oropharynx clear without exudates. Moist mucous membranes. NECK: Normal range of motion, supple without lymphadenopathy, JVD, or masses. LUNGS: CTAB. No wheezes, and no crackles. No accessory muscle use. HEART: RRR s1 s2 ABDOMEN: Soft, BS present in all 4 quadrants, non-distended, no JVD, MUSCULOSKELETAL: No bony deformities or tenderness. No CVA tenderness. UPPER EXTREMITIES: 2+ pulses, warm, well-perfused. No cyanosis. No clubbing. No peripheral edema. LOWER EXTREMITIES: 2+ pulses, warm, well-perfused. No calf tenderness. No peripheral edema. NEUROLOGICAL: No focal deficits. Cranial nerves II-XII intact. Normal speech. Ambulates with cane. PSYCHIATRIC: Cooperative. Good eye contact. Appropriate mood and affect. SKIN: Warm, dry, normal turgor, no rashes or lesions noted, normal capillary refill LABS Laboratory Results - last 24 hr 06/02/19 06/03/19 06/03/19 17:28 05:33 06:50 WBC RBC Hgb Hct MCV MCH MCHC RDW Plt Count MPV Sodium 145 Potassium 4.0 Chloride 110 H Carbon Dioxide 29 Anion Gap 6 L BUN 11.3 Creatinine 0.9 Est GFR (CKD-EPI)AfAm 99.94 Est GFR (CKD-EPI)NonAf 86.23 POC Glucometer 90 98 Random Glucose 100 Hemoglobin A1c % Calcium 8.4 L Phosphorus 4.2 Magnesium 2.0 Total Bilirubin 0.4 AST 11 L ALT 17 Alkaline Phosphatase 110 Total Protein 6.0 L Albumin 2.7 L 06/03/19 06/03/19 06/03/19 06:50 06:50 11:06 WBC 4.0 RBC 3.74 L Hgb 12.1 Hct 36.2 MCV 96.9 H MCH 32.5 MCHC 33.5 RDW 14.4 Plt Count 166 MPV 8.4 Sodium Potassium Chloride Carbon Dioxide Anion Gap BUN Creatinine Est GFR (CKD-EPI)AfAm Est GFR (CKD-EPI)NonAf POC Glucometer 121 Random Glucose Hemoglobin A1c % 5.8 Calcium Phosphorus Magnesium Total Bilirubin AST ALT Alkaline Phosphatase Total Protein Albumin HOSPITAL COURSE: Date of Admission:05/25/19 68 y/o male PMH prostate and renal CA s/p rtx, RVP, CVA with LEFT sided deficit , and constant abdominal pain. He came in with c/o generalized weakness and constipation for nearly 2 weeks. He was administered a bowel regimen and produced BM. Severe protein calorie malnutrition tx with diet/Ensure. While here , he was assessed for potential causes of constipation given h/o malignancy. Leukopenia and weight loss noted but etiology unclear. Pt from [place] and chooses to cont onc care at home. Would r/o BM pathology (MDS) given macrocytosis. His B12 and folic were normal. His records were physically provided to him and it was recommended he cont out pt care at medical home/ [place]. Bone scan with no bone lesions. EGD shows mild gastritis, colonoscopy shows mild diverticulosis and small ulcer in rectum stercocal vs radiation proctitis. Bowel regimen cont. and pt encouraged/educated on diet. CP noted in chart but pt denies CP and instead describes chest weakness consistent with overall weakness. ECHO EF 60-65% and trace tricuspid regurg. Whil here he demonstrated hypomagnesemia, which resolved with magneseum oxide 400 mg PO ONCE provided. His chronic conditions are not medically treated; normotensive throughout stay HTN, FS WNL for DM a1c 5.6. HLD given h/o stroke tx w Atorvastatin 20 mg P HS. His glaucoma was tx w home regimen: brimonidine 1 drop OU BID and dorzolamide 1 drop ou BID. Date of Discharge: 06/03/19 Tony Templeton MD Discharge Summary Problems reviewed: Yes Reason For Visit: LOSS OF APPETITE, FAILURE TO THRIVE Current Active Problems Abdominal pain (Acute) Abnormal weight loss (Acute) Atypical chest pain (Acute) Constipation (Acute) Diabetes mellitus (Acute) Diverticulosis (Acute) Dysphagia (Acute) Early satiety (Acute) GERD (gastroesophageal reflux disease) (Acute) Glaucoma (Acute) History of nephrectomy (Acute) Kidney carcinoma (Acute) Lung nodule < 6cm on CT (Acute) Occult blood in stools (Acute) Pre-procedural cardiovascular examination (Acute) Prostate cancer (Acute) Rectal ulcer (Acute) Vomiting (Acute) Condition: Improved - Instructions Diet, Activity, Other Instructions: YOUR VISIT You came to the hospital because you were feeling generalized weakness. You were admitted to the hospital for care. While here, you were seen by pulmonology , gastroenterology, and hematology/oncology. A colonoscopy and bone scan were performed. Physical therapy determined you can benefit from physical rehab. You are now stable and can continue care at rehab. MEDICATIONS Please continue to take your home medications as prescribed. Continue miralax and senna to avoid constipation. ADDITIONAL CARE Please make an appointment to see your primary care provider, 1 week from today. It is important you take a copy of the CT images, bone scan, and colonoscopy reports performed here with you to your doctors in [place]. -Please follow up with wine and spirits clerk, Dr Porter, for your biopsy results. Please follow up with the sponsorship coordinator as you were found to have a pulmonary nodule. Repeat imaging in 12 month per pulmonology. Please make appointments within a week to see a sponsorship coordinator, wine and spirits clerk, and visual developer/oncologist in [place], when you return. ADDITIONAL INFORMATION Please call 911 or come directly to the emergency department if you experience unusual headache, vision change, shortness of breath, chest pain, numbness, tingling, loss of alertness/awareness, loss of function, unusual bleeding or any alarming symptoms. Referrals: Biju Porter DO [Staff Physician] - ON STAFF,NOT [Primary Care Provider] - Disposition: HALF-WAY FACILITY - Home Medications Comprehensive Discharge Medication List: Ambulatory Orders Atorvastatin Calcium 20 mg PO HS 02/11/19 Brimonidine Tartrate [Alphagan 0.2% -] 1 drop OU BID 02/11/19 Dorzolamide HCl [Trusopt 2% -] 1 drop OU BID 02/11/19 Fluticasone Propionate [Flonase Allergy Relief] 2 spray NS DAILY PRN 02/11/19 Gabapentin 300 mg PO BID 02/11/19 Metformin HCl [Glucophage] 500 mg PO DAILY 02/11/19 Montelukast Sodium [Singulair] 10 mg PO DAILY 02/11/19 Omeprazole 40 mg PO DAILY 02/11/19 Aspirin Coated [Ecotrin -] 1 tab PO DAILY 05/26/19 ATTENDING PHYSICIAN STATEMENT I saw and evaluated the patient. I reviewed the resident's note and discussed the case with the resident. I agree with the resident's findings and plan as documented. SUBJECTIVE: OBJECTIVE: ASSESSMENT AND PLAN:
--- NOTE | 2019-06-03 16:14 | PN ---
Teaching Attending Note Name of Resident: Tony Templeton ATTENDING PHYSICIAN STATEMENT I saw and evaluated the patient. I reviewed the resident's note and discussed the case with the resident. I agree with the resident's findings and plan as documented. SUBJECTIVE: Patient is feeling better , but continues to feel weak, but better in general . OBJECTIVE: Vital Signs Temperature 98.6 F 06/03/19 14:00 Pulse Rate 85 06/03/19 14:00 Respiratory Rate 18 06/03/19 14:00 Blood Pressure 120/79 06/03/19 14:00 O2 Sat by Pulse Oximetry (%) 98 06/03/19 09:00 GENERAL: The patient is awake, alert, and fully oriented, in no acute distress. HEAD: Normal with no signs of trauma. EYES: PERRL, extraocular movements intact, sclera anicteric, conjunctiva clear. ENT: Ears normal, oropharynx clear without exudates, moist mucous membranes. NECK: Trachea midline, full range of motion, supple. LUNGS: Breath sounds equal, clear to auscultation bilaterally, no wheezes, no crackles, no accessory muscle use. HEART: Regular rate and rhythm, S1, S2 without murmur, rub or gallop. ABDOMEN: Soft, nontender, nondistended, normoactive bowel sounds, no guarding, no rebound, no hepatosplenomegaly, no masses. EXTREMITIES: 2+ pulses, warm, well-perfused, no edema. NEUROLOGICAL: Cranial nerves II through XII grossly intact. Normal speech, gait not observed. PSYCH: Normal mood, normal affect. SKIN: Warm, dry, normal turgor, no rashes or lesions noted CBCD WBC 4.0 K/mm3 (4.0-10.0) 06/03/19 06:50 RBC 3.74 M/mm3 (4.00-5.60) L 06/03/19 06:50 Hgb 12.1 GM/dL (11.7-16.9) 06/03/19 06:50 Hct 36.2 % (35.4-49) 06/03/19 06:50 MCV 96.9 fl (80-96) H 06/03/19 06:50 MCHC 33.5 g/dl (32.0-35.9) 06/03/19 06:50 RDW 14.4 % (11.9-15.9) 06/03/19 06:50 Plt Count 166 K/MM3 (134-434) 06/03/19 06:50 MPV 8.4 fl (7.5-11.1) 06/03/19 06:50 CMP Sodium 145 mmol/L (136-145) 06/03/19 06:50 Potassium 4.0 mmol/L (3.5-5.1) 06/03/19 06:50 Chloride 110 mmol/L (98-107) H 06/03/19 06:50 Carbon Dioxide 29 mmol/L (21-32) 06/03/19 06:50 Anion Gap 6 MMOL/L (8-16) L 06/03/19 06:50 BUN 11.3 mg/dL (7-18) 06/03/19 06:50 Creatinine 0.9 mg/dL (0.55-1.3) 06/03/19 06:50 Random Glucose 100 mg/dL (74-106) 06/03/19 06:50 Calcium 8.4 mg/dL (8.5-10.1) L 06/03/19 06:50 Total Bilirubin 0.4 mg/dL (0.2-1) 06/03/19 06:50 AST 11 U/L (15-37) L 06/03/19 06:50 ALT 17 U/L (13-61) 06/03/19 06:50 Alkaline Phosphatase 110 U/L (45-117) 06/03/19 06:50 Total Protein 6.0 g/dl (6.4-8.2) L 06/03/19 06:50 Albumin 2.7 g/dl (3.4-5.0) L 06/03/19 06:50 CARDIAC ENZYMES Creatine Kinase 42 U/L (26-308) 05/25/19 16:47 Troponin I < 0.02 ng/ml (0.00-0.05) 05/25/19 16:47 Current Medications Generic Name Dose Route Start Last Admin Trade Name Freq PRN Reason Stop Dose Admin Acetaminophen 500 mg 05/26/19 12:50 06/01/19 06:10 Tylenol - PO 500 mg Q6H PRN Administration PAIN 1-3 Atorvastatin Calcium 20 mg 05/26/19 22:00 06/02/19 21:11 Lipitor - PO 20 mg HS NOEMY Administration Brimonidine Tartrate 1 drop 05/26/19 22:00 06/03/19 09:10 Alphagan 0.2% - OU 1 drop BID NOEMY Administration Dorzolamide HCl 1 drop 05/26/19 22:00 06/03/19 09:11 Trusopt 2% OU 1 drop BID NOEMY Administration Gabapentin 300 mg 05/26/19 22:00 06/03/19 09:08 Neurontin - PO 300 mg BID NOEMY Administration Insulin Aspart 1 vial 05/26/19 07:00 06/03/19 11:10 Novolog Vial Sliding Scale - SQ Not Given TIDAC [facility] Protocol Mirtazapine 7.5 mg 05/31/19 22:00 06/02/19 21:11 Remeron - PO 7.5 mg HS NOEMY Administration Montelukast Sodium 10 mg 05/26/19 22:00 06/02/19 21:11 Singulair - PO 10 mg HS NOEMY Administration Polyethylene Glycol 17 gm 05/28/19 22:00 06/03/19 09:13 Miralax (For Daily Use) - PO 17 gm BID NOEMY Administration Senna 2 tab 05/29/19 22:00 06/02/19 21:10 Senna - PO 2 tab HS NOEMY Administration Home Medications Medication Instructions Recorded Atorvastatin Calcium 20 mg PO HS 02/11/19 Brimonidine Tartrate [Alphagan 1 drop OU BID 02/11/19 0.2% -] Dorzolamide HCl [Trusopt 2% -] 1 drop OU BID 02/11/19 Fluticasone Propionate [Flonase 2 spray NS DAILY PRN 02/11/19 Allergy Relief] Gabapentin 300 mg PO BID 02/11/19 Metformin HCl [Glucophage] 500 mg PO DAILY 02/11/19 Montelukast Sodium [Singulair] 10 mg PO DAILY 02/11/19 Omeprazole 40 mg PO DAILY 02/11/19 Aspirin Coated [Ecotrin -] 1 tab PO DAILY 05/26/19 Microbiology 05/25/19 19:45 Blood - Peripheral Venous Blood Culture - Final NO GROWTH AFTER 5 DAYS INCUBATION 05/25/19 19:45 Blood - Peripheral Venous Blood Culture - Final NO GROWTH AFTER 5 DAYS INCUBATION 05/25/19 20:30 Urine - Urine Clean Catch Urine Culture - Final Gram Negative Mahesh Assessment/Plan: Patient is a 68 y/o man with h/o prostate cancer s/p RTx , h/o HTN ( off meds due to hypotension) , PUD, CVA, left nephrectomy due to L renal cancer , who presented with abdominal pain and constipation # Acute Abdominal pain improved due to constipation. s/p EGD and colonoscopy , follow Bx from EGD; esophagus appeared normal, mild gastritis in the gastric body continue taking protonix, follow the bx result. f/u with GI in 1 week for Bx results # Constipation. cont miralax 17gm 2x per day # Generalized weakness with hx of CVA : being evaluated by PT # H/o HTN: labile BP. monitor ( self stopped his out pt norvasc due to hypotension and syncope ) # H/o Stroke: continue aspirin , statin # H/o DM: A1c 5.6. patient is no longer on metformin as outpt # Weight loss. bone scan with no bone lesions. cont w/u as out pt, remeron for appetite stimulation ( added here ) # Leukopenia. improved , further follow up with hem/onc for possible bx if needed. to r/o BM pathology ( MDS ) due to macrocytosis - B12 and folic normal . out pt complete w/u with his oncologist. F/u with his oncologist for prostate and kidney cancer # Pulmonary nodule on CT scan: f/u as out pt with repeat imaging in 12 month per pulm recluther. will make sure we provide with the disc at dc and he can request his chart from medical records after dc # Protein calorie malnutrition Dispo:. rehab placement
[2019-06-03] MEDS: ACETAMINOPHEN 500 MG TABLET (FP) PO PRN (20:35)
[2019-06-03] MEDS: ATORVASTATIN CA 20 MG TABLET (FP) PO SCH (21:18)
[2019-06-03] MEDS: SENNOSIDES 8.6MG TABLET (FP) PO SCH (21:19)
[2019-06-03] MEDS: MONTELUKAST NA 10 MG TABLET PO SCH (21:19)
[2019-06-03] MEDS: MIRTAZAPINE 15 MG TABLET (FP) PO SCH (21:20)
[2019-06-03] MEDS: ACETIC ACID 2% OTIC SOLN 15ML BOTTLE AU SCH (21:21)
[2019-06-04] MEDS: ACETIC ACID 2% OTIC SOLN 15ML BOTTLE AU SCH ×2 (05:47→14:06)
[2019-06-04] MEDS: INSULIN SLIDING SCALE (NOVOLOG) 1 VIAL SQ SCH ×3 (06:19→17:25)
--- NOTE | 2019-06-04 10:03 | PN ---
Progress Note, Physician History of Present Illness: EGD shows mild gastritis, colonoscopy shows mild diverticulosis and small ulcer in rectum stercocal vs radiation proctitis, lack of appetite improved on Remeron. - Current Medication List Current Medications: Active Medications Acetaminophen (Tylenol -) 500 mg PO Q6H PRN PRN Reason: PAIN 1-3 Last Admin: 06/03/19 20:35 Dose: 500 mg Acetic Acid (Vosol 2% Ear Drops -) 3 drop AU TID [facility] Last Admin: 06/04/19 05:47 Dose: 3 drop Atorvastatin Calcium (Lipitor -) 20 mg PO [facility] Last Admin: 06/03/19 21:18 Dose: 20 mg Brimonidine Tartrate (Alphagan 0.2% -) 1 drop OU BID [facility] Last Admin: 06/03/19 21:23 Dose: 1 drop Dorzolamide HCl (Trusopt 2%) 1 drop OU BID [facility] Last Admin: 06/03/19 21:23 Dose: 1 drop Gabapentin (Neurontin -) 300 mg PO BID [facility] Last Admin: 06/03/19 21:19 Dose: 300 mg Insulin Aspart (Novolog Vial Sliding Scale -) 1 vial SQ TIDAC [facility]; Protocol Last Admin: 06/04/19 06:19 Dose: Not Given Mirtazapine (Remeron -) 7.5 mg PO [facility] Last Admin: 06/03/19 21:20 Dose: 7.5 mg Montelukast Sodium (Singulair -) 10 mg PO [facility] Last Admin: 06/03/19 21:19 Dose: 10 mg Pantoprazole Sodium (Protonix -) 40 mg PO DAILY [facility] Polyethylene Glycol (Miralax (For Daily Use) -) 17 gm PO BID [facility] Last Admin: 06/03/19 21:18 Dose: 17 gm Senna (Senna -) 2 tab PO [facility] Last Admin: 06/03/19 21:19 Dose: 2 tab - Objective Vital Signs: Vital Signs Temperature 98.3 F 06/04/19 06:00 Pulse Rate 79 06/04/19 06:00 Respiratory Rate 18 06/04/19 06:00 Blood Pressure 120/83 06/04/19 06:00 O2 Sat by Pulse Oximetry (%) 98 06/03/19 21:00 Constitutional: Yes: No Distress, Calm Neck: Yes: Supple Cardiovascular: Yes: Regular Rate and Rhythm Respiratory: Yes: Regular, CTA Bilaterally Gastrointestinal: Yes: Normal Bowel Sounds, Soft Edema: No Labs: CBC, BMP 06/03/19 06:50 06/03/19 06:50 INR, PTT INR 1.06 (0.83-1.09) 05/25/19 16:47 Problem List - Problems (1) Atypical chest pain Code(s): R07.89 - OTHER CHEST PAIN (2) Dysphagia Code(s): R13.10 - DYSPHAGIA, UNSPECIFIED Qualifiers: Dysphagia type: esophageal phase Qualified Code(s): R13.10 - Dysphagia, unspecified (3) Abdominal pain Code(s): R10.9 - UNSPECIFIED ABDOMINAL PAIN (4) Early satiety Code(s): R68.81 - EARLY SATIETY (5) GERD (gastroesophageal reflux disease) Code(s): K21.9 - GASTRO-ESOPHAGEAL REFLUX DISEASE WITHOUT ESOPHAGITIS Qualifiers: Esophagitis presence: esophagitis presence not specified Qualified Code(s) : K21.9 - Gastro-esophageal reflux disease without esophagitis (6) Vomiting Code(s): R11.10 - VOMITING, UNSPECIFIED Qualifiers: Vomiting type: unspecified (7) Anorexia Code(s): R63.0 - ANOREXIA (8) Rectal ulcer Code(s): K62.6 - ULCER OF ANUS AND RECTUM Assessment/Plan 05/27/2019 Echo: Normal LV and RV size and fxn, tr TR 05/27/2019 Bone scan: No metastases 1. Atypical chest pain and dysphagia since resolved 2. History of stroke 3. Glaucoma 4. Renal cancer s/p left nephrectomy 5. Prostate cancer s/p EBRT 6. HTN 7. Hyperlipidemia 8. Leukopenia r/o MDS 9. Gastritis, diverticulosis and rectal ulcer PLAN: 1. EGD and colonoscopy results noted. Remeron for appetite stimulant. 2. PPI empirically as per GI 3. Continue Lipitor 20 mg QHS 4. D/c planning
--- NOTE | 2019-06-04 10:20 | PN ---
Physical Exam: SUBJECTIVE: Patient seen and examined at bedside. Overnight he c/o earpain. PM team offered tylenol and acetic acid, which provided relief. Upon assessment today, pt confirm use of Q-tips/cotton-tipped swabs for his ears and was education on dangers/cessation; otoscopic examination described below. He offers no complaints today. BM last night. Was dc in anticipation for SNF but out of [facility] insurance is still processing. OBJECTIVE: Vital Signs Period Temp Pulse Resp BP Sys/Chance Pulse Ox Last 24 Hr 98.3 F-98.8 F 78-85 18-18 120-142/76-96 98 GENERAL: AOx3, in no acute distress HEAD: NCAT (healed scars on LEFT scalp) EYES: KEVIN, EOMI, conjunctiva clear. ENT: Ears normal morphology with no gross discharge. Tragus NT. Otoscopic examination demonstrated auditory canal stripped of wax, no errythema or bleeding, some hair. + lgiht reflection from umbo with no evidence of perforation, translucent and in neutral position. Nares patent, oropharynx clear without exudates. Moist mucous membranes. NECK: Normal range of motion, supple without lymphadenopathy, JVD, or masses. LUNGS: CTAB. No wheezes, and no crackles. No accessory muscle use. HEART: RRR s1 s2 ABDOMEN: Soft, BS present in all 4 quadrants, non-distended, no JVD, MUSCULOSKELETAL: No bony deformities or tenderness. No CVA tenderness. UPPER EXTREMITIES: 2+ pulses, warm, well-perfused. No cyanosis. No clubbing. No peripheral edema. LOWER EXTREMITIES: 2+ pulses, warm, well-perfused. No calf tenderness. No peripheral edema. NEUROLOGICAL: No focal deficits. Cranial nerves II-XII intact. Normal speech. Ambulates with cane. PSYCHIATRIC: Cooperative. Good eye contact. Appropriate mood and affect. SKIN: Warm, dry, normal turgor, no rashes or lesions noted, normal capillary refill Laboratory Results - last 24 hr 06/03/19 06/03/19 06/04/19 11:06 16:15 05:45 POC Glucometer 121 90 124 Active Medications Acetaminophen (Tylenol -) 500 mg PO Q6H PRN PRN Reason: PAIN 1-3 Last Admin: 06/03/19 20:35 Dose: 500 mg Acetic Acid (Vosol 2% Ear Drops -) 3 drop AU TID [facility] Last Admin: 06/04/19 05:47 Dose: 3 drop Atorvastatin Calcium (Lipitor -) 20 mg PO [facility] Last Admin: 06/03/19 21:18 Dose: 20 mg Brimonidine Tartrate (Alphagan 0.2% -) 1 drop OU BID [facility] Last Admin: 06/03/19 21:23 Dose: 1 drop Dorzolamide HCl (Trusopt 2%) 1 drop OU BID [facility] Last Admin: 06/03/19 21:23 Dose: 1 drop Gabapentin (Neurontin -) 300 mg PO BID [facility] Last Admin: 06/03/19 21:19 Dose: 300 mg Insulin Aspart (Novolog Vial Sliding Scale -) 1 vial SQ TIDAC [facility]; Protocol Last Admin: 06/04/19 06:19 Dose: Not Given Mirtazapine (Remeron -) 7.5 mg PO [facility] Last Admin: 06/03/19 21:20 Dose: 7.5 mg Montelukast Sodium (Singulair -) 10 mg PO [facility] Last Admin: 06/03/19 21:19 Dose: 10 mg Pantoprazole Sodium (Protonix -) 40 mg PO DAILY [facility] Polyethylene Glycol (Miralax (For Daily Use) -) 17 gm PO BID [facility] Last Admin: 06/03/19 21:18 Dose: 17 gm Senna (Senna -) 2 tab PO [facility] Last Admin: 06/03/19 21:19 Dose: 2 tab ASSESSMENT/PLAN: 68 y/o male PMH prostate and renal CA s/p rtx, RVP, CVA with LEFT sided deficit , and constant abdominal pain. Constipation for nearly 2 weeks. Cause of constipation unclear (see work up below). Pt to f/u with medical home in [place], [place]. Records provided. Awaiting insurance approval for SNF. # Ear pain - Educated on ear hygeine / warm wash cloth to ears - DO NOT provide cotton tipped swabs # Ab pain/constipation, resolved - Pt passed stool, loose but mainly formed - He is eating well now - Pt encouraged/educated on diet - EGD shows mild gastritis, colonoscopy shows mild diverticulosis and small ulcer in rectum stercocal vs radiation proctitis - ECHO EF 60-65% and trace tricuspid regurg. - Bone scan with no bone lesions - CP noted in chart but pt denying CP. - Can resume ASA; was held for coloscopy (part of regimen given stroke hx) - Miralax 17 gm PO BID # Hypomagnesemia, resolved - Magneseum oxide 400 mg PO ONCE provided # HTN - Normotensive - Not currently on a home regimen - Cont. appropriate diet # HLD/ H/o stroke - Atorvastatin 20 mg PO HS # Glaucoma - Cont. home regimen: brimonidine 1 drop OU BID and dorzolamide 1 drop ou BID # DM Hx - A1c 5.8 on 03 Jun 2019 - Not currently on a home regimen - ISS BGM ACHS - Cont. appropriate diet # Leukopenia and weight loss - Etiology unclear etiology - R/o BM pathology (MDS) given macrocytosis - B12 and folic normal . - out pt complete w/u in pt's medical home/[facility] # Severe protein calorie malnutrition - Diet as tolerated # F/E/N - PO - Cont. to monitor - Diabetic diet, mirtazepine 7.5 mg PO HS for appetite stimulation # GI ppx - Pantoprazole 40 mg PO QD # DVT prophylaxis - Heparin SQ # Disposition - PT walked 80 feet with PT but was unsteady and could benefit from rehab. casework manager made aware and process of acquiring prior auth initiated (see above) - Pt advised on need to get medical records (CT, bone scan, endoscopy/ colonoscopy report) and he now has these documents at bedside. - Advised to f/u with GI for biopsy results Tony Templeton MD Visit type - Emergency Visit Emergency Visit: No - New Patient This patient is new to me today: No - Critical Care Critical Care patient: No ATTENDING PHYSICIAN STATEMENT I saw and evaluated the patient. I reviewed the resident's note and discussed the case with the resident. I agree with the resident's findings and plan as documented. SUBJECTIVE: OBJECTIVE: ASSESSMENT AND PLAN:
[2019-06-04] MEDS: PANTOPRAZOLE 40 MG TABLET (FP) PO SCH (10:31)
[2019-06-04] MEDS: POLYETHYLENE GLYCOL 3350 119 GM BTL PO SCH ×2 (10:31→21:15)
[2019-06-04] MEDS: GABAPENTIN 300 MG CAPSULE (FP) PO SCH ×2 (10:31→21:15)
[2019-06-04] MEDS: DORZOLAMIDE 2% HCL OPHTHALMIC SOLUTION 10 ML BOTTLE OU SCH ×2 (10:32→21:16)
[2019-06-04] MEDS: BRIMONIDINE TARTRATE 0.2% OPHTHALMIC 5 ML BOTTLE OU SCH ×2 (10:32→21:16)
[2019-06-04] MEDS ORDERED: PT OWN MED DRAWER 7, Y5N ONE (18:16)
--- NOTE | 2019-06-04 18:55 | PN ---
Teaching Attending Note Name of Resident: Tony Templeton ATTENDING PHYSICIAN STATEMENT I saw and evaluated the patient. I reviewed the resident's note and discussed the case with the resident. I agree with the resident's findings and plan as documented. SUBJECTIVE: Patient is feeling better with no acute distress. continues to feel weak. Vital Signs Temperature 97.3 F L 06/04/19 14:00 Pulse Rate 82 06/04/19 14:00 Respiratory Rate 18 06/04/19 14:00 Blood Pressure 110/73 06/04/19 14:00 O2 Sat by Pulse Oximetry (%) 98 06/04/19 09:00 GENERAL: The patient is awake, alert, and oriented, in no acute distress. HEAD: Normal with no signs of trauma. EYES: PERRL, extraocular movements intact, sclera anicteric, conjunctiva clear. ENT: Ears normal, oropharynx clear without exudates, moist mucous membranes. NECK: Trachea midline, full range of motion, supple. LUNGS: Breath sounds equal, clear to auscultation bilaterally, no wheezes, no crackles, no accessory muscle use. HEART: Regular rate and rhythm, S1, S2 without murmur, rub or gallop. ABDOMEN: Soft, nontender, nondistended, normoactive bowel sounds, no guarding, no rebound, no hepatosplenomegaly, no masses. EXTREMITIES: 2+ pulses, warm, well-perfused, no edema. NEUROLOGICAL: Cranial nerves II through XII grossly intact. Normal speech, gait not observed. PSYCH: Normal mood, normal affect. SKIN: Warm, dry, normal turgor, no rashes or lesions noted CBCD WBC 4.0 K/mm3 (4.0-10.0) 06/03/19 06:50 RBC 3.74 M/mm3 (4.00-5.60) L 06/03/19 06:50 Hgb 12.1 GM/dL (11.7-16.9) 06/03/19 06:50 Hct 36.2 % (35.4-49) 06/03/19 06:50 MCV 96.9 fl (80-96) H 06/03/19 06:50 MCHC 33.5 g/dl (32.0-35.9) 06/03/19 06:50 RDW 14.4 % (11.9-15.9) 06/03/19 06:50 Plt Count 166 K/MM3 (134-434) 06/03/19 06:50 MPV 8.4 fl (7.5-11.1) 06/03/19 06:50 CMP Sodium 145 mmol/L (136-145) 06/03/19 06:50 Potassium 4.0 mmol/L (3.5-5.1) 06/03/19 06:50 Chloride 110 mmol/L (98-107) H 06/03/19 06:50 Carbon Dioxide 29 mmol/L (21-32) 06/03/19 06:50 Anion Gap 6 MMOL/L (8-16) L 06/03/19 06:50 BUN 11.3 mg/dL (7-18) 06/03/19 06:50 Creatinine 0.9 mg/dL (0.55-1.3) 06/03/19 06:50 Random Glucose 100 mg/dL (74-106) 06/03/19 06:50 Calcium 8.4 mg/dL (8.5-10.1) L 06/03/19 06:50 Total Bilirubin 0.4 mg/dL (0.2-1) 06/03/19 06:50 AST 11 U/L (15-37) L 06/03/19 06:50 ALT 17 U/L (13-61) 06/03/19 06:50 Alkaline Phosphatase 110 U/L (45-117) 06/03/19 06:50 Total Protein 6.0 g/dl (6.4-8.2) L 06/03/19 06:50 Albumin 2.7 g/dl (3.4-5.0) L 06/03/19 06:50 CARDIAC ENZYMES Creatine Kinase 42 U/L (26-308) 05/25/19 16:47 Troponin I < 0.02 ng/ml (0.00-0.05) 05/25/19 16:47 Home Medications Medication Instructions Recorded Atorvastatin Calcium 20 mg PO HS 02/11/19 Brimonidine Tartrate [Alphagan 1 drop OU BID 02/11/19 0.2% -] Dorzolamide HCl [Trusopt 2% -] 1 drop OU BID 02/11/19 Fluticasone Propionate [Flonase 2 spray NS DAILY PRN 02/11/19 Allergy Relief] Gabapentin 300 mg PO BID 02/11/19 Metformin HCl [Glucophage] 500 mg PO DAILY 02/11/19 Montelukast Sodium [Singulair] 10 mg PO DAILY 02/11/19 Omeprazole 40 mg PO DAILY 02/11/19 Aspirin Coated [Ecotrin -] 1 tab PO DAILY 05/26/19 Current Medications Generic Name Dose Route Start Last Admin Trade Name Freq PRN Reason Stop Dose Admin Acetaminophen 500 mg 05/26/19 12:50 06/03/19 20:35 Tylenol - PO 500 mg Q6H PRN Administration PAIN 1-3 Atorvastatin Calcium 20 mg 05/26/19 22:00 06/03/19 21:18 Lipitor - PO 20 mg HS NOEMY Administration Brimonidine Tartrate 1 drop 05/26/19 22:00 06/04/19 10:32 Alphagan 0.2% - OU 1 drop BID NOEMY Administration Dorzolamide HCl 1 drop 05/26/19 22:00 06/04/19 10:32 Trusopt 2% OU 1 drop BID NOEMY Administration Gabapentin 300 mg 05/26/19 22:00 06/04/19 10:31 Neurontin - PO 300 mg BID NOEMY Administration Insulin Aspart 1 vial 05/26/19 07:00 06/04/19 17:25 Novolog Vial Sliding Scale - SQ Not Given TIDAC [facility] Protocol Mirtazapine 7.5 mg 05/31/19 22:00 06/03/19 21:20 Remeron - PO 7.5 mg HS NOEMY Administration Montelukast Sodium 10 mg 05/26/19 22:00 06/03/19 21:19 Singulair - PO 10 mg HS NOEMY Administration Pantoprazole Sodium 40 mg 06/04/19 10:00 06/04/19 10:31 Protonix - PO 40 mg DAILY [facility] Administration Polyethylene Glycol 17 gm 05/28/19 22:00 06/04/19 10:31 Miralax (For Daily Use) - PO 17 gm BID NOEMY Administration Senna 2 tab 05/29/19 22:00 06/03/19 21:19 Senna - PO 2 tab HS NOEMY Administration Microbiology 05/25/19 19:45 Blood - Peripheral Venous Blood Culture - Final NO GROWTH AFTER 5 DAYS INCUBATION 05/25/19 19:45 Blood - Peripheral Venous Blood Culture - Final NO GROWTH AFTER 5 DAYS INCUBATION 05/25/19 20:30 Urine - Urine Clean Catch Urine Culture - Final Gram Negative Mahesh Assessment/Plan: Patient is a 68 y/o man with h/o prostate cancer s/p RTx , h/o HTN ( off meds due to hypotension) , PUD, CVA, left nephrectomy due to L renal cancer , who presented with abdominal pain and constipation # Acute Abdominal pain improved due to constipation. s/p EGD and colonoscopy , follow Bx from EGD; esophagus appeared normal, mild gastritis in the gastric body continue taking protonix, follow the bx result. f/u with GI in 1 week for Bx results. colonscopy within a year to be repeated. # Constipation. cont miralax 17gm 2x per day # Generalized weakness with hx of CVA : being evaluated by PT # H/o HTN: labile BP. monitor ( self stopped his out pt norvasc due to hypotension and syncope ) # H/o Stroke: continue aspirin , statin # H/o DM: A1c 5.6. patient is no longer on metformin as outpt # Weight loss. bone scan with no bone lesions. cont w/u as out pt, remeron for appetite stimulation ( added here ) # Leukopenia. improved , further follow up with hem/onc for possible bx if needed. to r/o BM pathology ( MDS ) due to macrocytosis - B12 and folic normal . out pt complete w/u with his oncologist. F/u with his oncologist for prostate and kidney cancer # Pulmonary nodule on CT scan: f/u as out pt with repeat imaging in 12 month per pulm recs. will make sure we provide with the disc at dc and he can request his chart from medical records after dc # Protein calorie malnutrition Dispo: waiting for rehab placement
[2019-06-04] MEDS: ACETAMINOPHEN 500 MG TABLET (FP) PO PRN (19:43)
[2019-06-04] MEDS: SENNOSIDES 8.6MG TABLET (FP) PO SCH (21:15)
[2019-06-04] MEDS: ATORVASTATIN CA 20 MG TABLET (FP) PO SCH (21:15)
[2019-06-04] MEDS: MONTELUKAST NA 10 MG TABLET PO SCH (21:15)
[2019-06-04] MEDS: MIRTAZAPINE 15 MG TABLET (FP) PO SCH (21:15)
[2019-06-05] MEDS: ACETAMINOPHEN 500 MG TABLET (FP) PO PRN ×2 (04:39→23:15)
[2019-06-05] MEDS: INSULIN SLIDING SCALE (NOVOLOG) 1 VIAL SQ SCH ×3 (06:19→16:26)
[2019-06-05 08:37] LABS: HEMATOCRIT 35.8 % (35.4-49); MCH 32.7 pg (25.7-33.7); MCHC 33.6 g/dl (32.0-35.9); MEAN CELL VOLUME 97.6 fl (80-96); MEAN PLT VOLUME 8.3 fl (7.5-11.1); PLATELET COUNT 185 K/MM3 (134-434); RBC 3.67 M/mm3 (4.00-5.60); RDW 14.6 % (11.9-15.9); WHITE BLOOD COUNT 4.2 K/mm3 (4.0-10.0)
[2019-06-05] MEDS ORDERED: PT OWN MED DRAWER 7, Y5N ONE (08:45)
[2019-06-05 09:03] LABS: ALBUMIN 2.7 g/dl (3.4-5.0); BILIRUBIN,TOTAL 0.1 mg/dL (0.2-1); BLOOD UREA NITROGEN 14.5 mg/dL (7-18); CREATININE 0.9 mg/dL (0.55-1.3); POTASSIUM 4.3 mmol/L (3.5-5.1); TOT PROT 5.9 g/dl (6.4-8.2)
[2019-06-05] MEDS: POLYETHYLENE GLYCOL 3350 119 GM BTL PO SCH ×2 (09:11→22:16)
[2019-06-05] MEDS: PANTOPRAZOLE 40 MG TABLET (FP) PO SCH ×2 (09:11→10:00)
[2019-06-05] MEDS: GABAPENTIN 300 MG CAPSULE (FP) PO SCH ×2 (09:11→22:14)
[2019-06-05] MEDS: DORZOLAMIDE 2% HCL OPHTHALMIC SOLUTION 10 ML BOTTLE OU SCH ×2 (09:14→22:19)
[2019-06-05] MEDS: BRIMONIDINE TARTRATE 0.2% OPHTHALMIC 5 ML BOTTLE OU SCH ×2 (09:14→22:19)
[2019-06-05] MEDS: SENNOSIDES 8.6MG TABLET (FP) PO SCH (10:15)
--- NOTE | 2019-06-05 17:46 | PN ---
Progress Note (short form) - Note Progress Note: Patient is comfortablw with saruabh cute distress, no new complains. Selected Entries 06/05/19 09:00 Temperature 98.7 F Temperature Oral Source Respiratory 18 Rate Blood Pressure 129/87 Blood Pressure 102 Mean O2 Sat by Pulse 97 Oximetry (%) GENERAL: The patient is awake, alert, and oriented, in no acute distress. HEAD: Normal with no signs of trauma. EYES: PERRL, extraocular movements intact, sclera anicteric, conjunctiva clear. ENT: Ears normal, oropharynx clear without exudates, moist mucous membranes. NECK: Trachea midline, full range of motion, supple. LUNGS: Breath sounds equal, clear to auscultation bilaterally, no wheezes, no crackles, no accessory muscle use. HEART: Regular rate and rhythm, S1, S2 without murmur, rub or gallop. ABDOMEN: Soft, nontender, nondistended, normoactive bowel sounds, no guarding, no rebound, no hepatosplenomegaly, no masses. EXTREMITIES: 2+ pulses, warm, well-perfused, no edema. NEUROLOGICAL: Cranial nerves II through XII grossly intact. Normal speech, gait not observed. PSYCH: Normal mood, normal affect. SKIN: Warm, dry, normal turgor, no rashes or lesions noted CBCD WBC 4.0 K/mm3 (4.0-10.0) 06/03/19 06:50 RBC 3.74 M/mm3 (4.00-5.60) L 06/03/19 06:50 Hgb 12.1 GM/dL (11.7-16.9) 06/03/19 06:50 Hct 36.2 % (35.4-49) 06/03/19 06:50 MCV 96.9 fl (80-96) H 06/03/19 06:50 MCHC 33.5 g/dl (32.0-35.9) 06/03/19 06:50 RDW 14.4 % (11.9-15.9) 06/03/19 06:50 Plt Count 166 K/MM3 (134-434) 06/03/19 06:50 MPV 8.4 fl (7.5-11.1) 06/03/19 06:50 CMP Sodium 145 mmol/L (136-145) 06/03/19 06:50 Potassium 4.0 mmol/L (3.5-5.1) 06/03/19 06:50 Chloride 110 mmol/L (98-107) H 06/03/19 06:50 Carbon Dioxide 29 mmol/L (21-32) 06/03/19 06:50 Anion Gap 6 MMOL/L (8-16) L 06/03/19 06:50 BUN 11.3 mg/dL (7-18) 06/03/19 06:50 Creatinine 0.9 mg/dL (0.55-1.3) 06/03/19 06:50 Random Glucose 100 mg/dL (74-106) 06/03/19 06:50 Calcium 8.4 mg/dL (8.5-10.1) L 06/03/19 06:50 Total Bilirubin 0.4 mg/dL (0.2-1) 06/03/19 06:50 AST 11 U/L (15-37) L 06/03/19 06:50 ALT 17 U/L (13-61) 06/03/19 06:50 Alkaline Phosphatase 110 U/L (45-117) 06/03/19 06:50 Total Protein 6.0 g/dl (6.4-8.2) L 06/03/19 06:50 Albumin 2.7 g/dl (3.4-5.0) L 06/03/19 06:50 CARDIAC ENZYMES Creatine Kinase 42 U/L (26-308) 05/25/19 16:47 Troponin I < 0.02 ng/ml (0.00-0.05) 05/25/19 16:47 Home Medications Medication Instructions Recorded Atorvastatin Calcium 20 mg PO HS 02/11/19 Brimonidine Tartrate [Alphagan 1 drop OU BID 02/11/19 0.2% -] Dorzolamide HCl [Trusopt 2% -] 1 drop OU BID 02/11/19 Fluticasone Propionate [Flonase 2 spray NS DAILY PRN 02/11/19 Allergy Relief] Gabapentin 300 mg PO BID 02/11/19 Metformin HCl [Glucophage] 500 mg PO DAILY 02/11/19 Montelukast Sodium [Singulair] 10 mg PO DAILY 02/11/19 Omeprazole 40 mg PO DAILY 02/11/19 Aspirin Coated [Ecotrin -] 1 tab PO DAILY 05/26/19 Current Medications Generic Name Dose Route Start Last Admin Trade Name Freq PRN Reason Stop Dose Admin Acetaminophen 500 mg 05/26/19 12:50 06/03/19 20:35 Tylenol - PO 500 mg Q6H PRN Administration PAIN 1-3 Atorvastatin Calcium 20 mg 05/26/19 22:00 06/03/19 21:18 Lipitor - PO 20 mg HS NOEMY Administration Brimonidine Tartrate 1 drop 05/26/19 22:00 06/04/19 10:32 Alphagan 0.2% - OU 1 drop BID NOEMY Administration Dorzolamide HCl 1 drop 05/26/19 22:00 06/04/19 10:32 Trusopt 2% OU 1 drop BID NOEMY Administration Gabapentin 300 mg 05/26/19 22:00 06/04/19 10:31 Neurontin - PO 300 mg BID NOEMY Administration Insulin Aspart 1 vial 05/26/19 07:00 06/04/19 17:25 Novolog Vial Sliding Scale - SQ Not Given TIDAC [facility] Protocol Mirtazapine 7.5 mg 05/31/19 22:00 06/03/19 21:20 Remeron - PO 7.5 mg HS NOEMY Administration Montelukast Sodium 10 mg 05/26/19 22:00 06/03/19 21:19 Singulair - PO 10 mg HS NOEMY Administration Pantoprazole Sodium 40 mg 06/04/19 10:00 06/04/19 10:31 Protonix - PO 40 mg DAILY NOEMY Administration Polyethylene Glycol 17 gm 05/28/19 22:00 06/04/19 10:31 Miralax (For Daily Use) - PO 17 gm BID NOEMY Administration Senna 2 tab 05/29/19 22:00 06/03/19 21:19 Senna - PO 2 tab HS NOEMY Administration Microbiology 05/25/19 19:45 Blood - Peripheral Venous Blood Culture - Final NO GROWTH AFTER 5 DAYS INCUBATION 05/25/19 19:45 Blood - Peripheral Venous Blood Culture - Final NO GROWTH AFTER 5 DAYS INCUBATION 05/25/19 20:30 Urine - Urine Clean Catch Urine Culture - Final Gram Negative Mahesh Assessment/Plan: Patient is a 68 y/o man with h/o prostate cancer s/p RTx , h/o HTN ( off meds due to hypotension) , PUD, CVA, left nephrectomy due to L renal cancer , who presented with abdominal pain and constipation no new complains. # Acute Abdominal pain improved due to constipation. s/p EGD and colonoscopy , follow Bx from EGD; esophagus appeared normal, mild gastritis in the gastric body continue taking protonix, follow the bx result. f/u with GI in 1 week for Bx results. colonscopy within a year to be repeated. # Constipation. cont miralax 17gm 2x per day # Generalized weakness with hx of CVA : being evaluated by PT # H/o HTN: labile BP. monitor ( self stopped his out pt norvasc due to hypotension and syncope ) # H/o Stroke: continue aspirin , statin # H/o DM: A1c 5.6. patient is no longer on metformin as outpt # Weight loss. bone scan with no bone lesions. cont w/u as out pt, remeron for appetite stimulation ( added here ) # Leukopenia. improved , further follow up with hem/onc for possible bx if needed. to r/o BM pathology ( MDS ) due to macrocytosis - B12 and folic normal . out pt complete w/u with his oncologist. F/u with his oncologist for prostate and kidney cancer # Pulmonary nodule on CT scan: f/u as out pt with repeat imaging in 12 month per pulm recs. will make sure we provide with the disc at dc and he can request his chart from medical records after dc # Protein calorie malnutrition Dispo: waiting for rehab placement , waiting authorization Visit type - Emergency Visit Emergency Visit: Yes ED Registration Date: 05/25/19 Care time: The patient presented to the Emergency Department on the above date and was hospitalized for further evaluation of their emergent condition. - New Patient This patient is new to me today: No - Critical Care Critical Care patient: No - Discharge Referral Referred to [facility] Med P.C.: No
[2019-06-05] MEDS: MONTELUKAST NA 10 MG TABLET PO SCH (22:13)
[2019-06-05] MEDS: MIRTAZAPINE 15 MG TABLET (FP) PO SCH (22:15)
[2019-06-05] MEDS: ATORVASTATIN CA 20 MG TABLET (FP) PO SCH (22:22)
[2019-06-06] MEDS: INSULIN SLIDING SCALE (NOVOLOG) 1 VIAL SQ SCH ×3 (06:23→17:32)
[2019-06-06] MEDS: PANTOPRAZOLE 40 MG TABLET (FP) PO SCH (07:53)
[2019-06-06] MEDS: DORZOLAMIDE 2% HCL OPHTHALMIC SOLUTION 10 ML BOTTLE OU SCH ×2 (09:47→22:40)
[2019-06-06] MEDS: BRIMONIDINE TARTRATE 0.2% OPHTHALMIC 5 ML BOTTLE OU SCH ×2 (09:48→22:40)
[2019-06-06] MEDS: POLYETHYLENE GLYCOL 3350 119 GM BTL PO SCH ×2 (09:48→22:35)
[2019-06-06] MEDS: GABAPENTIN 300 MG CAPSULE (FP) PO SCH ×2 (09:48→22:34)
--- NOTE | 2019-06-06 14:32 | PN ---
Physical Exam: SUBJECTIVE: Patient seen and examined at bedside. No complaints overnight. Normal BM last night. Plan to go to [facility] tomorrow 06 Jun 2019. He presently denies ROB, CP, ear pain, and abdominal pain. OBJECTIVE: Vital Signs Period Temp Pulse Resp BP Sys/Chance Pulse Ox Last 24 Hr 97.8 F-98.4 F 79-90 18-18 105-145/57-86 98 GENERAL: AOx3, in no acute distress HEAD: NCAT (healed scars on LEFT scalp) EYES: KEVIN, EOMI, conjunctiva clear. ENT: Ears normal morphology with no gross discharge. Tragus NT. Otoscopic examination demonstrated auditory canal stripped of wax, no errythema or bleeding, some hair. + lgiht reflection from umbo with no evidence of perforation, translucent and in neutral position. Nares patent, oropharynx clear without exudates. Moist mucous membranes. NECK: Normal range of motion, supple without lymphadenopathy, JVD, or masses. LUNGS: CTAB. No wheezes, and no crackles. No accessory muscle use. HEART: RRR s1 s2 ABDOMEN: Soft, BS present in all 4 quadrants, non-distended, no JVD, MUSCULOSKELETAL: No bony deformities or tenderness. No CVA tenderness. UPPER EXTREMITIES: 2+ pulses, warm, well-perfused. No cyanosis. No clubbing. No peripheral edema. LOWER EXTREMITIES: 2+ pulses, warm, well-perfused. No calf tenderness. No peripheral edema. NEUROLOGICAL: No focal deficits. Cranial nerves II-XII intact. Normal speech. Ambulates with cane. PSYCHIATRIC: Cooperative. Good eye contact. Appropriate mood and affect. SKIN: Warm, dry, normal turgor, no rashes or lesions noted, normal capillary refill Laboratory Results - last 24 hr 06/05/19 06/05/19 06/06/19 16:23 22:40 06:22 POC Glucometer 97 128 113 06/06/19 11:39 POC Glucometer 139 Active Medications Acetaminophen (Tylenol -) 500 mg PO Q6H PRN PRN Reason: PAIN 1-3 Last Admin: 06/05/19 23:15 Dose: 500 mg Atorvastatin Calcium (Lipitor -) 20 mg PO HS [facility] Last Admin: 06/05/19 22:22 Dose: Not Given Brimonidine Tartrate (Alphagan 0.2% -) 1 drop OU BID NOEMY Last Admin: 06/06/19 09:48 Dose: 1 drop Dorzolamide HCl (Trusopt 2%) 1 drop OU BID [facility] Last Admin: 06/06/19 09:47 Dose: 1 drop Gabapentin (Neurontin -) 300 mg PO BID [facility] Last Admin: 06/06/19 09:48 Dose: 300 mg Insulin Aspart (Novolog Vial Sliding Scale -) 1 vial SQ TIDAC [facility]; Protocol Last Admin: 06/06/19 11:40 Dose: Not Given Mirtazapine (Remeron -) 7.5 mg PO [facility] Last Admin: 06/05/19 22:15 Dose: 7.5 mg Montelukast Sodium (Singulair -) 10 mg PO [facility] Last Admin: 06/05/19 22:13 Dose: 10 mg Pantoprazole Sodium (Protonix -) 40 mg PO 729 [facility] Last Admin: 06/06/19 07:53 Dose: 40 mg Polyethylene Glycol (Miralax (For Daily Use) -) 17 gm PO BID [facility] Last Admin: 06/06/19 09:48 Dose: 17 gm Senna (Senna -) 2 tab PO [facility] Last Admin: 06/05/19 10:15 Dose: 2 tab ASSESSMENT/PLAN: 68 y/o male PMH prostate and renal CA s/p rtx, RVP, CVA with LEFT sided deficit , and constant abdominal pain. Constipation for nearly 2 weeks. Cause of constipation unclear (see work up below). Pt to f/u with medical home in [place], [place]. Records provided. Plan to go to [facility] tomorrow 06 Jun 2019 # Ear pain - Educated on ear hygeine / warm wash cloth to ears - DO NOT provide cotton tipped swabs # Ab pain/constipation, resolved - Pt passed stool, loose but mainly formed - He is eating well now - Pt encouraged/educated on diet - EGD shows mild gastritis, colonoscopy shows mild diverticulosis and small ulcer in rectum stercocal vs radiation proctitis - ECHO EF 60-65% and trace tricuspid regurg. - Bone scan with no bone lesions - CP noted in chart but pt denying CP. - Can resume ASA; was held for coloscopy (part of regimen given stroke hx) - Miralax 17 gm PO BID # Hypomagnesemia, resolved - Magnesium oxide 400 mg PO ONCE provided # HTN - Normotensive - Not currently on a home regimen - Cont. appropriate diet # HLD/ H/o stroke - Atorvastatin 20 mg PO HS # Glaucoma - Cont. home regimen: brimonidine 1 drop OU BID and dorzolamide 1 drop ou BID # DM Hx - A1c 5.8 on 03 Jun 2019 - Not currently on a home regimen - ISS BGM ACHS - Cont. appropriate diet # Leukopenia and weight loss - Etiology unclear etiology - R/o BM pathology (MDS) given macrocytosis - B12 and folic normal . - out pt complete w/u in pt's medical home/[place] # Severe protein calorie malnutrition - Diet as tolerated # F/E/N - PO - Cont. to monitor - Diabetic diet, mirtazepine 7.5 mg PO HS for appetite stimulation # GI ppx - Pantoprazole 40 mg PO QD # DVT prophylaxis - Heparin SQ # Disposition - PT walked 80 feet with PT but was unsteady and could benefit from rehab. manager training made aware and process of acquiring prior auth initiated (see above) - Pt advised on need to get medical records (CT, bone scan, endoscopy/ colonoscopy report) and he now has these documents at bedside. - Advised to f/u with GI for biopsy results - Plan to go to [facility] tomorrow 06 Jun 2019 Tony Templeton MD Visit type - Emergency Visit Emergency Visit: No - New Patient This patient is new to me today: No - Critical Care Critical Care patient: No ATTENDING PHYSICIAN STATEMENT I saw and evaluated the patient. I reviewed the resident's note and discussed the case with the resident. I agree with the resident's findings and plan as documented. SUBJECTIVE: OBJECTIVE: ASSESSMENT AND PLAN:
--- NOTE | 2019-06-06 19:07 | PN ---
Teaching Attending Note Name of Resident: Tony Templeton ATTENDING PHYSICIAN STATEMENT I saw and evaluated the patient. I reviewed the resident's note and discussed the case with the resident. I agree with the resident's findings and plan as documented. SUBJECTIVE: No new events, comfortable. Vital Signs Temperature 98.3 F 06/06/19 18:23 Pulse Rate 87 06/06/19 18:23 Respiratory Rate 19 06/06/19 18:23 Blood Pressure 119/73 06/06/19 18:23 O2 Sat by Pulse Oximetry (%) 98 06/06/19 09:00 GENERAL: The patient is awake, alert, and oriented, in no acute distress. HEAD: Normal with no signs of trauma. EYES: PERRL, extraocular movements intact, sclera anicteric, conjunctiva clear. ENT: Ears normal, oropharynx clear without exudates, moist mucous membranes. NECK: Trachea midline, full range of motion, supple. LUNGS: Breath sounds equal, clear to auscultation bilaterally, no wheezes, no crackles, no accessory muscle use. HEART: Regular rate and rhythm, S1, S2 without murmur, rub or gallop. ABDOMEN: Soft, nontender, nondistended, normoactive bowel sounds, no guarding, no rebound, no hepatosplenomegaly, no masses. EXTREMITIES: 2+ pulses, warm, well-perfused, no edema. NEUROLOGICAL: Cranial nerves II through XII grossly intact. Normal speech, gait not observed. PSYCH: Normal mood, normal affect. SKIN: Warm, dry, normal turgor, no rashes or lesions noted CBCD WBC 4.2 K/mm3 (4.0-10.0) 06/05/19 07:33 RBC 3.67 M/mm3 (4.00-5.60) L 06/05/19 07:33 Hgb 12.0 GM/dL (11.7-16.9) 06/05/19 07:33 Hct 35.8 % (35.4-49) 06/05/19 07:33 MCV 97.6 fl (80-96) H 06/05/19 07:33 MCHC 33.6 g/dl (32.0-35.9) 06/05/19 07:33 RDW 14.6 % (11.9-15.9) 01/04/20 07:33 Plt Count 185 K/MM3 (134-434) 06/05/19 07:33 MPV 8.3 fl (7.5-11.1) 06/05/19 07:33 CMP Sodium 142 mmol/L (136-145) 06/05/19 07:33 Potassium 4.3 mmol/L (3.5-5.1) 06/05/19 07:33 Chloride 108 mmol/L (98-107) H 06/05/19 07:33 Carbon Dioxide 30 mmol/L (21-32) 06/05/19 07:33 Anion Gap 4 MMOL/L (8-16) L 06/05/19 07:33 BUN 14.5 mg/dL (7-18) 06/05/19 07:33 Creatinine 0.9 mg/dL (0.55-1.3) 06/05/19 07:33 Random Glucose 92 mg/dL (74-106) 06/05/19 07:33 Calcium 8.0 mg/dL (8.5-10.1) L 06/05/19 07:33 Total Bilirubin 0.1 mg/dL (0.2-1) L 06/05/19 07:33 AST 16 U/L (15-37) 06/05/19 07:33 ALT 26 U/L (13-61) 06/05/19 07:33 Alkaline Phosphatase 102 U/L (45-117) 06/05/19 07:33 Total Protein 5.9 g/dl (6.4-8.2) L 06/05/19 07:33 Albumin 2.7 g/dl (3.4-5.0) L 06/05/19 07:33 CARDIAC ENZYMES Creatine Kinase 42 U/L (26-308) 05/25/19 16:47 Troponin I < 0.02 ng/ml (0.00-0.05) 05/25/19 16:47 Current Medications Generic Name Dose Route Start Last Admin Trade Name Freq PRN Reason Stop Dose Admin Acetaminophen 500 mg 05/26/19 12:50 06/05/19 23:15 Tylenol - PO 500 mg Q6H PRN Administration PAIN 1-3 Atorvastatin Calcium 20 mg 05/26/19 22:00 06/05/19 22:22 Lipitor - PO Not Given HS NOEMY Brimonidine Tartrate 1 drop 05/26/19 22:00 06/06/19 09:48 Alphagan 0.2% - OU 1 drop BID NOEMY Administration Dorzolamide HCl 1 drop 05/26/19 22:00 06/06/19 09:47 Trusopt 2% OU 1 drop BID NOEMY Administration Gabapentin 300 mg 05/26/19 22:00 06/06/19 09:48 Neurontin - PO 300 mg BID NOEMY Administration Insulin Aspart 1 vial 05/26/19 07:00 06/06/19 17:32 Novolog Vial Sliding Scale - SQ [facility] Protocol Mirtazapine 7.5 mg 05/31/19 22:00 06/05/19 22:15 Remeron - PO 7.5 mg HS NOEMY Administration Montelukast Sodium 10 mg 05/26/19 22:00 06/05/19 22:13 Singulair - PO 10 mg HS NOEMY Administration Pantoprazole Sodium 40 mg 06/05/19 09:30 06/06/19 07:53 Protonix - PO 40 mg 0730 NOEMY Administration Polyethylene Glycol 17 gm 05/28/19 22:00 06/06/19 09:48 Miralax (For Daily Use) - PO 17 gm BID NOEMY Administration Senna 2 tab 05/29/19 22:00 06/05/19 10:15 Senna - PO 2 tab HS NOEMY Administration Home Medications Medication Instructions Recorded Atorvastatin Calcium 20 mg PO HS 02/11/19 Brimonidine Tartrate [Alphagan 1 drop OU BID 02/11/19 0.2% -] Dorzolamide HCl [Trusopt 2% -] 1 drop OU BID 02/11/19 Fluticasone Propionate [Flonase 2 spray NS DAILY PRN 02/11/19 Allergy Relief] Gabapentin 300 mg PO BID 02/11/19 Metformin HCl [Glucophage] 500 mg PO DAILY 02/11/19 Montelukast Sodium [Singulair] 10 mg PO DAILY 02/11/19 Omeprazole 40 mg PO DAILY 02/11/19 Aspirin Coated [Ecotrin -] 1 tab PO DAILY 05/26/19 Acetaminophen [Tylenol 500 mg PO Q6H PRN tablet 06/04/19 .Extra-Strength -] Insulin Sliding Scale [Novolog 1 vial SQ TIDAC units 06/04/19 Vial Sliding Scale -] Mirtazapine [Remeron -] 7.5 mg PO HS tablet 06/04/19 Polyethylene Glycol 3350 [Miralax 17 gm PO BID bottle 06/04/19 119 gm Btl -] Microbiology 05/25/19 19:45 Blood - Peripheral Venous Blood Culture - Final NO GROWTH AFTER 5 DAYS INCUBATION 05/25/19 19:45 Blood - Peripheral Venous Blood Culture - Final NO GROWTH AFTER 5 DAYS INCUBATION 05/25/19 20:30 Urine - Urine Clean Catch Urine Culture - Final Gram Negative Mahesh Assessment/Plan: Patient is a 68 y/o man with h/o prostate cancer s/p RTx , h/o HTN ( off meds due to hypotension) , PUD, CVA, left nephrectomy due to L renal cancer , who presented with abdominal pain and constipation continue current management. # Acute Abdominal pain improved due to constipation. s/p EGD and colonoscopy , follow Bx from EGD; esophagus appeared normal, mild gastritis in the gastric body continue taking protonix, follow the bx result. f/u with GI in 1 week for Bx results. colonscopy within a year to be repeated. # Constipation. cont miralax 17gm 2x per day # Generalized weakness with hx of CVA : being evaluated by PT # H/o HTN: labile BP. monitor ( self stopped his out pt norvasc due to hypotension and syncope ) # H/o Stroke: continue aspirin , statin # H/o DM: A1c 5.6. patient is no longer on metformin as outpt # Weight loss. bone scan with no bone lesions. cont w/u as out pt, remeron for appetite stimulation ( added here ) # Leukopenia. improved , further follow up with hem/onc for possible bx if needed. to r/o BM pathology ( MDS ) due to macrocytosis - B12 and folic normal . out pt complete w/u with his oncologist. F/u with his oncologist for prostate and kidney cancer # Pulmonary nodule on CT scan: f/u as out pt with repeat imaging in 12 month per pulm recs. will make sure we provide with the disc at dc and he can request his chart from medical records after dc # Protein calorie malnutrition Dispo: waiting for rehab placement/authorization
[2019-06-06] MEDS: ACETAMINOPHEN 500 MG TABLET (FP) PO PRN (20:35)
[2019-06-06] MEDS: MIRTAZAPINE 15 MG TABLET (FP) PO SCH (22:34)
[2019-06-06] MEDS: SENNOSIDES 8.6MG TABLET (FP) PO SCH (22:34)
[2019-06-06] MEDS: MONTELUKAST NA 10 MG TABLET PO SCH (22:34)
[2019-06-06] MEDS: ATORVASTATIN CA 20 MG TABLET (FP) PO SCH ×2 (22:34→22:42)
[2019-06-07] MEDS: INSULIN SLIDING SCALE (NOVOLOG) 1 VIAL SQ SCH ×3 (06:49→16:43)
[2019-06-07] MEDS: PANTOPRAZOLE 40 MG TABLET (FP) PO SCH (06:50)
--- NOTE | 2019-06-07 09:36 | PN ---
Progress Note, Physician History of Present Illness: EGD shows mild gastritis, colonoscopy shows mild diverticulosis and small ulcer in rectum stercocal vs radiation proctitis, lack of appetite improved on Remeron. Awaiting SNF placement. - Current Medication List Current Medications: Active Medications Acetaminophen (Tylenol -) 500 mg PO Q6H PRN PRN Reason: PAIN 1-3 Last Admin: 06/06/19 20:35 Dose: 500 mg Atorvastatin Calcium (Lipitor -) 20 mg PO [facility] Last Admin: 06/06/19 22:42 Dose: Not Given Brimonidine Tartrate (Alphagan 0.2% -) 1 drop OU BID [facility] Last Admin: 06/06/19 22:40 Dose: 1 drop Dorzolamide HCl (Trusopt 2%) 1 drop OU BID [facility] Last Admin: 06/06/19 22:40 Dose: 1 drop Gabapentin (Neurontin -) 300 mg PO BID [facility] Last Admin: 06/06/19 22:34 Dose: 300 mg Insulin Aspart (Novolog Vial Sliding Scale -) 1 vial SQ TIDAC [facility]; Protocol Last Admin: 06/07/19 06:49 Dose: Not Given Mirtazapine (Remeron -) 7.5 mg PO [facility] Last Admin: 06/06/19 22:34 Dose: 7.5 mg Montelukast Sodium (Singulair -) 10 mg PO [facility] Last Admin: 06/06/19 22:34 Dose: 10 mg Pantoprazole Sodium (Protonix -) 40 mg PO 0730 [facility] Last Admin: 06/07/19 06:50 Dose: 40 mg Polyethylene Glycol (Miralax (For Daily Use) -) 17 gm PO BID [facility] Last Admin: 06/06/19 22:35 Dose: 17 gm Senna (Senna -) 2 tab PO [facility] Last Admin: 06/06/19 22:34 Dose: 2 tab - Objective Vital Signs: Vital Signs Temperature 98.4 F 06/07/19 06:00 Pulse Rate 84 06/07/19 06:00 Respiratory Rate 18 06/07/19 06:00 Blood Pressure 125/83 06/07/19 06:00 O2 Sat by Pulse Oximetry (%) 99 06/06/19 21:00 Constitutional: Yes: No Distress, Calm, Thin Neck: Yes: Supple Cardiovascular: Yes: Regular Rate and Rhythm Respiratory: Yes: Regular, CTA Bilaterally Gastrointestinal: Yes: Normal Bowel Sounds, Soft Edema: No Labs: CBC, BMP 06/05/19 07:33 06/05/19 07:33 INR, PTT INR 1.06 (0.83-1.09) 05/25/19 16:47 Problem List - Problems (1) Atypical chest pain Code(s): R07.89 - OTHER CHEST PAIN (2) Dysphagia Code(s): R13.10 - DYSPHAGIA, UNSPECIFIED Qualifiers: Dysphagia type: esophageal phase Qualified Code(s): R13.10 - Dysphagia, unspecified (3) Abdominal pain Code(s): R10.9 - UNSPECIFIED ABDOMINAL PAIN (4) Early satiety Code(s): R68.81 - EARLY SATIETY (5) GERD (gastroesophageal reflux disease) Code(s): K21.9 - GASTRO-ESOPHAGEAL REFLUX DISEASE WITHOUT ESOPHAGITIS Qualifiers: Esophagitis presence: esophagitis presence not specified Qualified Code(s) : K21.9 - Gastro-esophageal reflux disease without esophagitis (6) Vomiting Code(s): R11.10 - VOMITING, UNSPECIFIED Qualifiers: Vomiting type: unspecified (7) Anorexia Code(s): R63.0 - ANOREXIA (8) Rectal ulcer Code(s): K62.6 - ULCER OF ANUS AND RECTUM Assessment/Plan 05/27/2019 Echo: Normal LV and RV size and fxn, tr TR 05/27/2019 Bone scan: No metastases 1. Atypical chest pain and dysphagia since resolved 2. History of stroke 3. Glaucoma 4. Renal cancer s/p left nephrectomy 5. Prostate cancer s/p EBRT 6. HTN 7. Hyperlipidemia 8. Leukopenia r/o MDS 9. Gastritis, diverticulosis and rectal ulcer PLAN: 1. EGD and colonoscopy results noted. Remeron for appetite stimulant. 2. PPI empirically as per GI 3. Continue Lipitor 20 mg QHS 4. D/c planning
[2019-06-07] MEDS: GABAPENTIN 300 MG CAPSULE (FP) PO SCH ×2 (09:40→21:24)
[2019-06-07] MEDS: POLYETHYLENE GLYCOL 3350 119 GM BTL PO SCH ×2 (09:40→21:23)
[2019-06-07] MEDS: BRIMONIDINE TARTRATE 0.2% OPHTHALMIC 5 ML BOTTLE OU SCH ×2 (09:41→21:28)
[2019-06-07] MEDS: DORZOLAMIDE 2% HCL OPHTHALMIC SOLUTION 10 ML BOTTLE OU SCH ×2 (09:41→21:27)
--- NOTE | 2019-06-07 16:51 | PN ---
Physical Exam: SUBJECTIVE: Patient seen and examined at bedside today. There were no events overnight. He offers no complaints today and is eager to go to rehab. [facility] r spoke with CM Norma oSusa ([phone]) who reported they were not able to come to an agreement with [place] [facility]. Norma stated that the would have to work with another SNF. [facility] asked Karina to reach out to [facility] to obtain Auth, since Karina is accepting. Will need follow up. OBJECTIVE: Vital Signs Period Temp Pulse Resp BP Sys/Chance Pulse Ox Last 24 Hr 97.9 F-98.6 F 84-88 18-19 92-145/53-95 99-99 GENERAL: AOx3, in no acute distress HEAD: NCAT (healed scars on LEFT scalp) EYES: KEVIN, EOMI, conjunctiva clear. ENT: Ears normal morphology with no gross discharge. Tragus NT. Otoscopic examination demonstrated auditory canal stripped of wax, no errythema or bleeding, some hair. + lgiht reflection from umbo with no evidence of perforation, translucent and in neutral position. Nares patent, oropharynx clear without exudates. Moist mucous membranes. NECK: Normal range of motion, supple without lymphadenopathy, JVD, or masses. LUNGS: CTAB. No wheezes, and no crackles. No accessory muscle use. HEART: RRR s1 s2 ABDOMEN: Soft, BS present in all 4 quadrants, non-distended, no JVD, MUSCULOSKELETAL: No bony deformities or tenderness. No CVA tenderness. UPPER EXTREMITIES: 2+ pulses, warm, well-perfused. No cyanosis. No clubbing. No peripheral edema. LOWER EXTREMITIES: 2+ pulses, warm, well-perfused. No calf tenderness. No peripheral edema. NEUROLOGICAL: No focal deficits. Cranial nerves II-XII intact. Normal speech. Ambulates with cane. PSYCHIATRIC: Cooperative. Good eye contact. Appropriate mood and affect. SKIN: Warm, dry, normal turgor, no rashes or lesions noted, normal capillary refill Laboratory Results - last 24 hr 06/06/19 06/07/19 06/07/19 17:21 06:44 11:18 POC Glucometer 101 130 137 Active Medications Acetaminophen (Tylenol -) 500 mg PO Q6H PRN PRN Reason: PAIN 1-3 Last Admin: 06/06/19 20:35 Dose: 500 mg Atorvastatin Calcium (Lipitor -) 20 mg PO [facility] Last Admin: 06/06/19 22:42 Dose: Not Given Brimonidine Tartrate (Alphagan 0.2% -) 1 drop OU BID [facility] Last Admin: 06/07/19 09:41 Dose: 1 drop Dorzolamide HCl (Trusopt 2%) 1 drop OU BID [facility] Last Admin: 06/07/19 09:41 Dose: 1 drop Gabapentin (Neurontin -) 300 mg PO BID [facility] Last Admin: 06/07/19 09:40 Dose: 300 mg Insulin Aspart (Novolog Vial Sliding Scale -) 1 vial SQ TIDAC [facility]; Protocol Last Admin: 06/07/19 16:43 Dose: Not Given Mirtazapine (Remeron -) 7.5 mg PO [facility] Last Admin: 06/06/19 22:34 Dose: 7.5 mg Montelukast Sodium (Singulair -) 10 mg PO [facility] Last Admin: 06/06/19 22:34 Dose: 10 mg Pantoprazole Sodium (Protonix -) 40 mg PO 0730 [facility] Last Admin: 06/07/19 06:50 Dose: 40 mg Polyethylene Glycol (Miralax (For Daily Use) -) 17 gm PO BID [facility] Last Admin: 06/07/19 09:40 Dose: 17 gm Senna (Senna -) 2 tab PO [facility] Last Admin: 06/06/19 22:34 Dose: 2 tab ASSESSMENT/PLAN: 68 y/o male PMH prostate and renal CA s/p rtx, RVP, CVA with LEFT sided deficit , and constant abdominal pain. Constipation for nearly 2 weeks. Cause of constipation unclear (see work up below). Pt to f/u with medical home in [place], [place]. Records provided. Pt walked 80 feet with PT but was unsteady and could benefit from SNF. STILL AWAITING PLACEMENT. # Ab pain/constipation, resolved - Pt passed stool, loose but mainly formed - He is eating well now - Pt encouraged/educated on diet - EGD shows mild gastritis, colonoscopy shows mild diverticulosis and small ulcer in rectum stercocal vs radiation proctitis - ECHO EF 60-65% and trace tricuspid regurg. - Bone scan with no bone lesions - CP noted in chart but pt denying CP. - Can resume ASA; was held for coloscopy (part of regimen given stroke hx) - Miralax 17 gm PO BID # Ear pain, resolved - Educated on ear hygeine / warm wash cloth to ears - DO NOT provide cotton tipped swabs # Hypomagnesemia, resolved - Magnesium oxide 400 mg PO ONCE provided # HTN - Normotensive - Not currently on a home regimen - Cont. appropriate diet # HLD/ H/o stroke - Atorvastatin 20 mg PO HS # Glaucoma - Cont. home regimen: brimonidine 1 drop OU BID and dorzolamide 1 drop ou BID # DM Hx - A1c 5.8 on 03 Jun 2019 - Not currently on a home regimen - ISS BGM ACHS - Cont. appropriate diet # Leukopenia and weight loss - Etiology unclear etiology - R/o BM pathology (MDS) given macrocytosis - B12 and folic normal. - Out pt complete w/u in pt's medical home/[place] # Severe protein calorie malnutrition - Diet as tolerated # F/E/N - PO - Cont. to monitor - Diabetic diet, mirtazepine 7.5 mg PO HS for appetite stimulation # GI ppx - Pantoprazole 40 mg PO QD # DVT prophylaxis - Heparin SQ # Disposition - PT walked 80 feet with PT but was unsteady and could benefit from rehab. manager credit collections made aware and process of acquiring prior auth initiated (see above) - Pt advised on need to get medical records (CT, bone scan, endoscopy/ colonoscopy report) and he now has these documents at bedside. - Advised to f/u with GI for biopsy results - Plan to go to SNF Tony Templeton MD Visit type - Emergency Visit Emergency Visit: No - New Patient This patient is new to me today: No - Critical Care Critical Care patient: No ATTENDING PHYSICIAN STATEMENT I saw and evaluated the patient. I reviewed the resident's note and discussed the case with the resident. I agree with the resident's findings and plan as documented. SUBJECTIVE: OBJECTIVE: ASSESSMENT AND PLAN:
--- NOTE | 2019-06-07 20:41 | PN ---
Teaching Attending Note Name of Resident: Tony Templeton ATTENDING PHYSICIAN STATEMENT I saw and evaluated the patient. I reviewed the resident's note and discussed the case with the resident. I agree with the resident's findings and plan as documented. SUBJECTIVE: Patient is comfortable with no acute distress. Vital Signs Temperature 98.6 F 06/07/19 14:00 Pulse Rate 85 06/07/19 14:00 Respiratory Rate 18 06/07/19 14:00 Blood Pressure 92/54 L 06/07/19 14:00 O2 Sat by Pulse Oximetry (%) 99 06/07/19 09:00 GENERAL: The patient is awake, alert, and oriented, in no acute distress. HEAD: Normal with no signs of trauma. EYES: PERRL, extraocular movements intact, sclera anicteric, conjunctiva clear. ENT: Ears normal, oropharynx clear without exudates, moist mucous membranes. NECK: Trachea midline, full range of motion, supple. LUNGS: Breath sounds equal, clear to auscultation bilaterally, no wheezes, no crackles, no accessory muscle use. HEART: Regular rate and rhythm, S1, S2 without murmur, rub or gallop. ABDOMEN: Soft, nontender, nondistended, normoactive bowel sounds, no guarding, no rebound, no hepatosplenomegaly, no masses. EXTREMITIES: 2+ pulses, warm, well-perfused, no edema. NEUROLOGICAL: Cranial nerves II through XII grossly intact. Normal speech, gait not observed. PSYCH: Normal mood, normal affect. SKIN: Warm, dry, normal turgor, no rashes or lesions noted CBCD WBC 4.2 K/mm3 (4.0-10.0) 06/05/19 07:33 RBC 3.67 M/mm3 (4.00-5.60) L 06/05/19 07:33 Hgb 12.0 GM/dL (11.7-16.9) 06/05/19 07:33 Hct 35.8 % (35.4-49) 06/05/19 07:33 MCV 97.6 fl (80-96) H 06/05/19 07:33 MCHC 33.6 g/dl (32.0-35.9) 06/05/19 07:33 RDW 14.6 % (11.9-15.9) 06/05/19 07:33 Plt Count 185 K/MM3 (134-434) 06/05/19 07:33 MPV 8.3 fl (7.5-11.1) 06/05/19 07:33 CMP Sodium 142 mmol/L (136-145) 06/05/19 07:33 Potassium 4.3 mmol/L (3.5-5.1) 06/05/19 07:33 Chloride 108 mmol/L (98-107) H 06/05/19 07:33 Carbon Dioxide 30 mmol/L (21-32) 06/05/19 07:33 Anion Gap 4 MMOL/L (8-16) L 06/05/19 07:33 BUN 14.5 mg/dL (7-18) 06/05/19 07:33 Creatinine 0.9 mg/dL (0.55-1.3) 06/05/19 07:33 Random Glucose 92 mg/dL (74-106) 06/05/19 07:33 Calcium 8.0 mg/dL (8.5-10.1) L 06/05/19 07:33 Total Bilirubin 0.1 mg/dL (0.2-1) L 06/05/19 07:33 AST 16 U/L (15-37) 06/05/19 07:33 ALT 26 U/L (13-61) 06/05/19 07:33 Alkaline Phosphatase 102 U/L (45-117) 06/05/19 07:33 Total Protein 5.9 g/dl (6.4-8.2) L 06/05/19 07:33 Albumin 2.7 g/dl (3.4-5.0) L 06/05/19 07:33 CARDIAC ENZYMES Creatine Kinase 42 U/L (26-308) 05/25/19 16:47 Troponin I < 0.02 ng/ml (0.00-0.05) 05/25/19 16:47 Home Medications Medication Instructions Recorded Atorvastatin Calcium 20 mg PO HS 02/11/19 Brimonidine Tartrate [Alphagan 1 drop OU BID 02/11/19 0.2% -] Dorzolamide HCl [Trusopt 2% -] 1 drop OU BID 02/11/19 Fluticasone Propionate [Flonase 2 spray NS DAILY PRN 02/11/19 Allergy Relief] Gabapentin 300 mg PO BID 02/11/19 Metformin HCl [Glucophage] 500 mg PO DAILY 02/11/19 Montelukast Sodium [Singulair] 10 mg PO DAILY 02/11/19 Omeprazole 40 mg PO DAILY 02/11/19 Aspirin Coated [Ecotrin -] 1 tab PO DAILY 05/26/19 Acetaminophen [Tylenol 500 mg PO Q6H PRN tablet 06/04/19 .Extra-Strength -] Insulin Sliding Scale [Novolog 1 vial SQ TIDAC units 06/04/19 Vial Sliding Scale -] Mirtazapine [Remeron -] 7.5 mg PO HS tablet 06/04/19 Polyethylene Glycol 3350 [Miralax 17 gm PO BID bottle 06/04/19 119 gm Btl -] Current Medications Generic Name Dose Route Start Last Admin Trade Name Freq PRN Reason Stop Dose Admin Acetaminophen 500 mg 05/26/19 12:50 06/06/19 20:35 Tylenol - PO 500 mg Q6H PRN Administration PAIN 1-3 Atorvastatin Calcium 20 mg 05/26/19 22:00 06/06/19 22:42 Lipitor - PO Not Given HS [facility] Brimonidine Tartrate 1 drop 05/26/19 22:00 06/07/19 09:41 Alphagan 0.2% - OU 1 drop BID [facility] Administration Dorzolamide HCl 1 drop 05/26/19 22:00 06/07/19 09:41 Trusopt 2% OU 1 drop BID [facility] Administration Gabapentin 300 mg 05/26/19 22:00 06/07/19 09:40 Neurontin - PO 300 mg BID [facility] Administration Insulin Aspart 1 vial 05/26/19 07:00 06/07/19 16:43 Novolog Vial Sliding Scale - SQ Not Given TIDAC [facility] Protocol Mirtazapine 7.5 mg 05/31/19 22:00 06/06/19 22:34 Remeron - PO 7.5 mg HS [facility] Administration Montelukast Sodium 10 mg 05/26/19 22:00 06/06/19 22:34 Singulair - PO 10 mg HS [facility] Administration Pantoprazole Sodium 40 mg 06/05/19 09:30 06/07/19 06:50 Protonix - PO 40 mg 0730 [facility] Administration Polyethylene Glycol 17 gm 05/28/19 22:00 06/07/19 09:40 Miralax (For Daily Use) - PO 17 gm BID [facility] Administration Senna 2 tab 05/29/19 22:00 06/06/19 22:34 Senna - PO 2 tab HS [facility] Administration Microbiology 05/25/19 19:45 Blood - Peripheral Venous Blood Culture - Final NO GROWTH AFTER 5 DAYS INCUBATION 05/25/19 19:45 Blood - Peripheral Venous Blood Culture - Final NO GROWTH AFTER 5 DAYS INCUBATION 05/25/19 20:30 Urine - Urine Clean Catch Urine Culture - Final Gram Negative Mahesh Assessment/Plan: Patient is a 68 y/o man with h/o prostate cancer s/p RTx , h/o HTN ( off meds due to hypotension) , PUD, CVA, left nephrectomy due to L renal cancer , who presented with abdominal pain and constipation continue current management. # Acute Abdominal pain improved due to constipation. s/p EGD and colonoscopy , follow Bx from EGD; esophagus appeared normal, mild gastritis in the gastric body continue taking protonix, follow the bx result. f/u with GI in 1 week for Bx results. colonscopy within a year to be repeated. # Constipation. cont miralax 17gm 2x per day # Generalized weakness with hx of CVA : being evaluated by PT # H/o HTN: labile BP. monitor ( self stopped his out pt norvasc due to hypotension and syncope ) # H/o Stroke: continue aspirin , statin # H/o DM: A1c 5.6. patient is no longer on metformin as outpt # Weight loss. bone scan with no bone lesions. cont w/u as out pt, remeron for appetite stimulation ( added here ) # Leukopenia. improved , further follow up with hem/onc for possible bx if needed. to r/o BM pathology ( MDS ) due to macrocytosis - B12 and folic normal . out pt complete w/u with his oncologist. F/u with his oncologist for prostate and kidney cancer # Pulmonary nodule on CT scan: f/u as out pt with repeat imaging in 12 month per pulm recs. will make sure we provide with the disc at dc and he can request his chart from medical records after dc # Protein calorie malnutrition waiting for rehab placement/authorization no new events
[2019-06-07] MEDS: ATORVASTATIN CA 20 MG TABLET (FP) PO SCH (21:23)
[2019-06-07] MEDS: MIRTAZAPINE 15 MG TABLET (FP) PO SCH (21:24)
[2019-06-07] MEDS: MONTELUKAST NA 10 MG TABLET PO SCH (21:24)
[2019-06-07] MEDS: SENNOSIDES 8.6MG TABLET (FP) PO SCH (21:24)
--- NOTE | 2019-06-07 23:27 | PN ---
Progress Note (short form) - Note Progress Note: Patient seen nd examined c/o tightness over various parts of the body AFVSS Cor: RSR, No murmurs, No gallops Lungs: Clear to P&A Abd: Soft, Normal bowel sounds, No organomegaly Ext:No significant edema Labs/meds reviewed a/p 68M reports that his weight has dropped from 160 to 136lbs over the past few weeks. This has occurred in the setting of diminished appetite, early satiety and worsening constipation. He has vomited when he forces himself to eat. He denies any overt bleeding or narrowing of stool caliber. He has a diffuse dull bloating pain. h/o strokes -- reports limited mobility since 05/2018--bed bound per patient h/o left renal cancer --s/p nephrectomy 2007 h/o prostate cancer --s/p EBRT --2005 GI w/u for wt. loss unrevealing bone scan,psa negative CT c/a/p w/contrast -- stble RLL pulmonary nodules ( 6 month follow up). no other aacute pathology consider neuro/rheumatology consults ---for complaint of generalized , bothersome stiffness
[2019-06-08] MEDS: PANTOPRAZOLE 40 MG TABLET (FP) PO SCH (06:44)
[2019-06-08] MEDS: INSULIN SLIDING SCALE (NOVOLOG) 1 VIAL SQ SCH ×3 (06:46→16:06)
[2019-06-08] MEDS: ACETAMINOPHEN 500 MG TABLET (FP) PO PRN ×2 (08:30→21:51)
--- NOTE | 2019-06-08 09:16 | PN ---
Teaching Attending Note Name of Resident: Tony Templeton ATTENDING PHYSICIAN STATEMENT I saw and evaluated the patient. I reviewed the resident's note and discussed the case with the resident. I agree with the resident's findings and plan as documented. SUBJECTIVE: No new changes comfortable. Vital Signs Temperature 98.6 F 06/08/19 06:30 Pulse Rate 84 06/08/19 06:30 Respiratory Rate 18 06/08/19 06:30 Blood Pressure 138/82 06/08/19 06:30 O2 Sat by Pulse Oximetry (%) 100 06/07/19 21:00 GENERAL: The patient is awake, alert, and oriented, in no acute distress. HEAD: Normal with no signs of trauma. EYES: PERRL, extraocular movements intact, sclera anicteric, conjunctiva clear. ENT: Ears normal, oropharynx clear without exudates, moist mucous membranes. NECK: Trachea midline, full range of motion, supple. LUNGS: Breath sounds equal, clear to auscultation bilaterally, no wheezes, no crackles, no accessory muscle use. HEART: Regular rate and rhythm, S1, S2 without murmur, rub or gallop. ABDOMEN: Soft, nontender, nondistended, normoactive bowel sounds, no guarding, no rebound, no hepatosplenomegaly, no masses. EXTREMITIES: 2+ pulses, warm, well-perfused, no edema. NEUROLOGICAL: Cranial nerves II through XII grossly intact. Normal speech, gait not observed. PSYCH: Normal mood, normal affect. SKIN: Warm, dry, normal turgor, no rashes or lesions noted CBCD WBC 4.2 K/mm3 (4.0-10.0) 06/05/19 07:33 RBC 3.67 M/mm3 (4.00-5.60) L 06/05/19 07:33 Hgb 12.0 GM/dL (11.7-16.9) 06/05/19 07:33 Hct 35.8 % (35.4-49) 06/05/19 07:33 MCV 97.6 fl (80-96) H 06/05/19 07:33 MCHC 33.6 g/dl (32.0-35.9) 06/05/19 07:33 RDW 14.6 % (11.9-15.9) 06/05/19 07:33 Plt Count 185 K/MM3 (134-434) 06/05/19 07:33 MPV 8.3 fl (7.5-11.1) 06/05/19 07:33 CMP Sodium 142 mmol/L (136-145) 06/05/19 07:33 Potassium 4.3 mmol/L (3.5-5.1) 06/05/19 07:33 Chloride 108 mmol/L (98-107) H 06/05/19 07:33 Carbon Dioxide 30 mmol/L (21-32) 06/05/19 07:33 Anion Gap 4 MMOL/L (8-16) L 06/05/19 07:33 BUN 14.5 mg/dL (7-18) 06/05/19 07:33 Creatinine 0.9 mg/dL (0.55-1.3) 06/05/19 07:33 Random Glucose 92 mg/dL (74-106) 06/05/19 07:33 Calcium 8.0 mg/dL (8.5-10.1) L 06/05/19 07:33 Total Bilirubin 0.1 mg/dL (0.2-1) L 06/05/19 07:33 AST 16 U/L (15-37) 06/05/19 07:33 ALT 26 U/L (13-61) 06/05/19 07:33 Alkaline Phosphatase 102 U/L (45-117) 06/05/19 07:33 Total Protein 5.9 g/dl (6.4-8.2) L 06/05/19 07:33 Albumin 2.7 g/dl (3.4-5.0) L 06/05/19 07:33 CARDIAC ENZYMES Creatine Kinase 42 U/L (26-308) 05/25/19 16:47 Troponin I < 0.02 ng/ml (0.00-0.05) 05/25/19 16:47 Home Medications Medication Instructions Recorded Atorvastatin Calcium 20 mg PO HS 02/11/19 Brimonidine Tartrate [Alphagan 1 drop OU BID 02/11/19 0.2% -] Dorzolamide HCl [Trusopt 2% -] 1 drop OU BID 02/11/19 Fluticasone Propionate [Flonase 2 spray NS DAILY PRN 02/11/19 Allergy Relief] Gabapentin 300 mg PO BID 02/11/19 Metformin HCl [Glucophage] 500 mg PO DAILY 02/11/19 Montelukast Sodium [Singulair] 10 mg PO DAILY 02/11/19 Omeprazole 40 mg PO DAILY 02/11/19 Aspirin Coated [Ecotrin -] 1 tab PO DAILY 05/26/19 Acetaminophen [Tylenol 500 mg PO Q6H PRN tablet 06/04/19 .Extra-Strength -] Insulin Sliding Scale [Novolog 1 vial SQ TIDAC units 06/04/19 Vial Sliding Scale -] Mirtazapine [Remeron -] 7.5 mg PO HS tablet 06/04/19 Polyethylene Glycol 3350 [Miralax 17 gm PO BID bottle 06/04/19 119 gm Btl -] Current Medications Generic Name Dose Route Start Last Admin Trade Name Freq PRN Reason Stop Dose Admin Acetaminophen 500 mg 05/26/19 12:50 06/08/19 08:30 Tylenol - PO 500 mg Q6H PRN Administration PAIN 1-3 Atorvastatin Calcium 20 mg 05/26/19 22:00 06/07/19 21:23 Lipitor - PO Not Given HS [facility]EMY Brimonidine Tartrate 1 drop 05/26/19 22:00 06/07/19 21:28 Alphagan 0.2% - OU 1 drop BID [facility] Administration Dorzolamide HCl 1 drop 05/26/19 22:00 06/07/19 21:27 Trusopt 2% OU 1 drop BID [facility] Administration Gabapentin 300 mg 05/26/19 22:00 06/07/19 21:24 Neurontin - PO 300 mg BID [facility] Administration Insulin Aspart 1 vial 05/26/19 07:00 06/08/19 06:46 Novolog Vial Sliding Scale - SQ Not Given TIDAC [facility] Protocol Mirtazapine 7.5 mg 05/31/19 22:00 06/07/19 21:24 Remeron - PO 7.5 mg HS [facility] Administration Montelukast Sodium 10 mg 05/26/19 22:00 06/07/19 21:24 Singulair - PO 10 mg HS [facility] Administration Pantoprazole Sodium 40 mg 06/05/19 09:30 06/08/19 06:44 Protonix - PO 40 mg 0730 [facility] Administration Polyethylene Glycol 17 gm 05/28/19 22:00 06/07/19 21:23 Miralax (For Daily Use) - PO Not Given BID [facility] Senna 2 tab 05/29/19 22:00 06/07/19 21:24 Senna - PO 2 tab HS [facility] Administration Microbiology 05/25/19 19:45 Blood - Peripheral Venous Blood Culture - Final NO GROWTH AFTER 5 DAYS INCUBATION 05/25/19 19:45 Blood - Peripheral Venous Blood Culture - Final NO GROWTH AFTER 5 DAYS INCUBATION 05/25/19 20:30 Urine - Urine Clean Catch Urine Culture - Final Gram Negative Mahesh Assessment/Plan: Patient is a 68 y/o man with h/o prostate cancer s/p RTx , h/o HTN ( off meds due to hypotension) , PUD, CVA, left nephrectomy due to L renal cancer , who presented with abdominal pain and constipation continue current management. # Acute Abdominal pain improved due to constipation. s/p EGD and colonoscopy , follow Bx from EGD; esophagus appeared normal, mild gastritis in the gastric body continue taking protonix, follow the bx result. f/u with GI in 1 week for Bx results. colonscopy within a year to be repeated. # Constipation. cont miralax 17gm 2x per day # Generalized weakness with hx of CVA : being evaluated by PT # H/o HTN: labile BP. monitor ( self stopped his out pt norvasc due to hypotension and syncope ) # H/o Stroke: continue aspirin , statin # H/o DM: A1c 5.6. patient is no longer on metformin as outpt # Weight loss. bone scan with no bone lesions. cont w/u as out pt, remeron for appetite stimulation ( added here ) # Leukopenia. improved , further follow up with hem/onc for possible bx if needed. to r/o BM pathology ( MDS ) due to macrocytosis - B12 and folic normal . out pt complete w/u with his oncologist. F/u with his oncologist for prostate and kidney cancer # Pulmonary nodule on CT scan: f/u as out pt with repeat imaging in 12 month per pulm recs. will make sure we provide with the disc at dc and he can request his chart from medical records after dc # Protein calorie malnutrition waiting for rehab placement/authorization no new events
[2019-06-08] MEDS: GABAPENTIN 300 MG CAPSULE (FP) PO SCH ×2 (10:06→21:44)
[2019-06-08] MEDS: DORZOLAMIDE 2% HCL OPHTHALMIC SOLUTION 10 ML BOTTLE OU SCH ×2 (10:06→21:43)
[2019-06-08] MEDS: BRIMONIDINE TARTRATE 0.2% OPHTHALMIC 5 ML BOTTLE OU SCH ×2 (10:06→21:43)
[2019-06-08] MEDS: POLYETHYLENE GLYCOL 3350 119 GM BTL PO SCH ×2 (10:10→21:44)
--- NOTE | 2019-06-08 12:26 | PN ---
Progress Note, Physician Chief Complaint: Events noted Not in distress History of Present Illness: Patient was seen and examined. Awake and alert. Chart was reviewed Denies chest pain, SOB or palpitations - Current Medication List Current Medications: Active Medications Acetaminophen (Tylenol -) 500 mg PO Q6H PRN PRN Reason: PAIN 1-3 Last Admin: 06/08/19 08:30 Dose: 500 mg Atorvastatin Calcium (Lipitor -) 20 mg PO [facility] Last Admin: 06/07/19 21:23 Dose: Not Given Brimonidine Tartrate (Alphagan 0.2% -) 1 drop OU BID [facility] Last Admin: 06/08/19 10:06 Dose: 1 drop Dorzolamide HCl (Trusopt 2%) 1 drop OU BID [facility] Last Admin: 06/08/19 10:06 Dose: 1 drop Gabapentin (Neurontin -) 300 mg PO BID [facility] Last Admin: 06/08/19 10:06 Dose: 300 mg Insulin Aspart (Novolog Vial Sliding Scale -) 1 vial SQ TIDAC [facility]; Protocol Last Admin: 06/08/19 11:53 Dose: Not Given Mirtazapine (Remeron -) 7.5 mg PO [facility] Last Admin: 06/07/19 21:24 Dose: 7.5 mg Montelukast Sodium (Singulair -) 10 mg PO [facility] Last Admin: 06/07/19 21:24 Dose: 10 mg Pantoprazole Sodium (Protonix -) 40 mg PO 729 [facility] Last Admin: 06/08/19 06:44 Dose: 40 mg Polyethylene Glycol (Miralax (For Daily Use) -) 17 gm PO BID [facility] Last Admin: 06/08/19 10:10 Dose: Not Given Senna (Senna -) 2 tab PO [facility] Last Admin: 06/07/19 21:24 Dose: 2 tab - Objective Vital Signs: Vital Signs Temperature 98.6 F 06/08/19 06:30 Pulse Rate 84 06/08/19 06:30 Respiratory Rate 18 06/08/19 09:00 Blood Pressure 138/82 06/08/19 06:30 O2 Sat by Pulse Oximetry (%) 98 06/08/19 09:00 HENT: Yes: Atraumatic Neck: Yes: Supple Cardiovascular: Yes: Regular Rate and Rhythm, S1, S2 Respiratory: Yes: CTA Bilaterally Gastrointestinal: Yes: Normal Bowel Sounds, Soft. No: Tenderness Edema: No Labs: CBC, BMP 06/05/19 07:33 06/05/19 07:33 Problem List - Problems (1) Diverticulosis Code(s): K57.90 - DVRTCLOS OF INTEST, PART UNSP, W/O PERF OR ABSCESS W/O BLEED (2) Abdominal pain Code(s): R10.9 - UNSPECIFIED ABDOMINAL PAIN (3) Atypical chest pain Code(s): R07.89 - OTHER CHEST PAIN (4) Constipation Code(s): K59.00 - CONSTIPATION, UNSPECIFIED (5) Diabetes mellitus Code(s): E11.9 - TYPE 2 DIABETES MELLITUS WITHOUT COMPLICATIONS (6) GERD (gastroesophageal reflux disease) Code(s): K21.9 - GASTRO-ESOPHAGEAL REFLUX DISEASE WITHOUT ESOPHAGITIS Qualifiers: Esophagitis presence: esophagitis presence not specified Qualified Code(s) : K21.9 - Gastro-esophageal reflux disease without esophagitis (7) History of nephrectomy Code(s): Z90.5 - ACQUIRED ABSENCE OF KIDNEY (8) Kidney carcinoma Code(s): C64.9 - MALIGNANT NEOPLASM OF UNSP KIDNEY, EXCEPT RENAL PELVIS (9) Prostate cancer Code(s): C61 - MALIGNANT NEOPLASM OF PROSTATE Assessment/Plan 1. Atypical chest pain and dysphagia 2. History of stroke 3. Glaucoma 4. Renal cancer s/p left nephrectomy 5. Prostate cancer s/p EBRT 6. HTN 7. Hyperlipidemia 8. Leukopenia r/o MDS 9. Gastritis, diverticulosis and rectal ulcer PLAN: 1. EGD and colonoscopy results noted. 2. PPI empirically as per GI 3. Continue Lipitor 20 mg QHS 4. SNF placement Discharge planning. No specific cardiac therapy at this time Josh Carroll MD
--- NOTE | 2019-06-08 17:15 | PN ---
Physical Exam: SUBJECTIVE: Patient seen and examined at bedside. He describes long-standing LEFT arm numbness/tingling still present; a residual deficit of stroke and not an acute finding. He offers no complaints. Awaiting SNF placement. OBJECTIVE: Vital Signs Temp Pulse Resp BP Pulse Ox 98.3 F 87 18 115/76 98 06/08/19 15:41 06/08/19 15:41 06/08/19 15:41 06/08/19 15:41 06/08/19 09:00 GENERAL: AOx3, in no acute distress HEAD: NCAT (healed scars on LEFT scalp) EYES: KEVIN, EOMI, conjunctiva clear. ENT: Ears normal morphology with no gross discharge. Tragus NT. Otoscopic examination demonstrated auditory canal stripped of wax, no errythema or bleeding, some hair. + lgiht reflection from umbo with no evidence of perforation, translucent and in neutral position. Nares patent, oropharynx clear without exudates. Moist mucous membranes. NECK: Normal range of motion, supple without lymphadenopathy, JVD, or masses. LUNGS: CTAB. No wheezes, and no crackles. No accessory muscle use. HEART: RRR s1 s2 ABDOMEN: Soft, BS present in all 4 quadrants, non-distended, no JVD, MUSCULOSKELETAL: No bony deformities or tenderness. No CVA tenderness. UPPER EXTREMITIES: 2+ pulses, warm, well-perfused. No cyanosis. No clubbing. No peripheral edema. LOWER EXTREMITIES: 2+ pulses, warm, well-perfused. No calf tenderness. No peripheral edema. NEUROLOGICAL: No focal deficits. Cranial nerves II-XII intact. Normal speech. Ambulates with cane. PSYCHIATRIC: Cooperative. Good eye contact. Appropriate mood and affect. SKIN: Warm, dry, normal turgor, no rashes or lesions noted, normal capillary refill Laboratory Results - last 24 hr 06/08/19 06/08/19 06/08/19 06:42 11:02 16:04 POC Glucometer 99 154 115 Active Medications Acetaminophen (Tylenol -) 500 mg PO Q6H PRN PRN Reason: PAIN 1-3 Last Admin: 06/08/19 08:30 Dose: 500 mg Atorvastatin Calcium (Lipitor -) 20 mg PO HS [facility] Last Admin: 06/07/19 21:23 Dose: Not Given Brimonidine Tartrate (Alphagan 0.2% -) 1 drop OU BID [facility] Last Admin: 06/08/19 10:06 Dose: 1 drop Dorzolamide HCl (Trusopt 2%) 1 drop OU BID [facility] Last Admin: 06/08/19 10:06 Dose: 1 drop Gabapentin (Neurontin -) 300 mg PO BID [facility] Last Admin: 06/08/19 10:06 Dose: 300 mg Insulin Aspart (Novolog Vial Sliding Scale -) 1 vial SQ TIDAC [facility]; Protocol Last Admin: 06/08/19 16:06 Dose: Not Given Mirtazapine (Remeron -) 7.5 mg PO [facility] Last Admin: 06/07/19 21:24 Dose: 7.5 mg Montelukast Sodium (Singulair -) 10 mg PO [facility] Last Admin: 06/07/19 21:24 Dose: 10 mg Pantoprazole Sodium (Protonix -) 40 mg PO 729 [facility] Last Admin: 06/08/19 06:44 Dose: 40 mg Polyethylene Glycol (Miralax (For Daily Use) -) 17 gm PO BID [facility] Last Admin: 06/08/19 10:10 Dose: Not Given Senna (Senna -) 2 tab PO [facility] Last Admin: 06/07/19 21:24 Dose: 2 tab ASSESSMENT/PLAN: 68 y/o male PMH prostate and renal CA s/p rtx, RVP, CVA with LEFT sided deficit , and constant abdominal pain. Constipation for nearly 2 weeks. Cause of constipation unclear (see work up below). Pt to f/u with medical home in [place], [place]. Records provided. Pt walked 80 feet with PT but was unsteady and could benefit from SNF. AWAITING PLACEMENT. # Ab pain/constipation, resolved - Pt passed stool, loose but mainly formed - He is eating well now - Pt encouraged/educated on diet - EGD shows mild gastritis, colonoscopy shows mild diverticulosis and small ulcer in rectum stercocal vs radiation proctitis - ECHO EF 60-65% and trace tricuspid regurg. - Bone scan with no bone lesions - CP noted in chart but pt denying CP. - Can resume ASA; was held for coloscopy (part of regimen given stroke hx) - Miralax 17 gm PO BID # Ear pain, resolved - Educated on ear hygeine / warm wash cloth to ears - DO NOT provide cotton tipped swabs # Hypomagnesemia, resolved - Magnesium oxide 400 mg PO ONCE provided # HTN - Normotensive - Not currently on a home regimen - Cont. appropriate diet # HLD/ H/o stroke - Atorvastatin 20 mg PO HS, ASA 81 mg PO QD # Glaucoma - Cont. home regimen: brimonidine 1 drop OU BID and dorzolamide 1 drop ou BID # DM Hx - A1c 5.8 on 03 Jun 2019 - Not currently on a home regimen - ISS BGM ACHS - Cont. appropriate diet # Leukopenia and weight loss - Etiology unclear etiology - R/o BM pathology (MDS) given macrocytosis - B12 and folic normal. - Out pt complete w/u in pt's medical home/[place] # Severe protein calorie malnutrition - Diet as tolerated # F/E/N - PO - Cont. to monitor - Diabetic diet, mirtazepine 7.5 mg PO HS for appetite stimulation # GI ppx - Pantoprazole 40 mg PO QD # DVT prophylaxis - Heparin SQ # Disposition - PT walked 80 feet with PT but was unsteady and could benefit from rehab. commercial development manager made aware and process of acquiring prior auth initiated (see above) - Pt advised on need to get medical records (CT, bone scan, endoscopy/ colonoscopy report) and he now has these documents at bedside. - Advised to f/u with GI for biopsy results - Plan to go to SNF Tony Templeton MD Visit type - Emergency Visit Emergency Visit: No - New Patient This patient is new to me today: No - Critical Care Critical Care patient: No ATTENDING PHYSICIAN STATEMENT I saw and evaluated the patient. I reviewed the resident's note and discussed the case with the resident. I agree with the resident's findings and plan as documented. SUBJECTIVE: OBJECTIVE: ASSESSMENT AND PLAN:
[2019-06-08] MEDS: SENNOSIDES 8.6MG TABLET (FP) PO SCH (21:44)
[2019-06-08] MEDS: MONTELUKAST NA 10 MG TABLET PO SCH (21:44)
[2019-06-08] MEDS: MIRTAZAPINE 15 MG TABLET (FP) PO SCH (21:44)
[2019-06-08] MEDS: ATORVASTATIN CA 20 MG TABLET (FP) PO SCH (21:44)
[2019-06-09] MEDS: ACETAMINOPHEN 500 MG TABLET (FP) PO PRN (05:42)
[2019-06-09] MEDS: INSULIN SLIDING SCALE (NOVOLOG) 1 VIAL SQ SCH ×3 (06:04→16:30)
[2019-06-09] MEDS: PANTOPRAZOLE 40 MG TABLET (FP) PO SCH (06:37)
[2019-06-09 07:03] VITALS: PULSE 81
[2019-06-09 09:06] VITALS: BP 105/71; TEMP 97.5
[2019-06-09] MEDS: POLYETHYLENE GLYCOL 3350 119 GM BTL PO SCH (09:07)
[2019-06-09] MEDS: GABAPENTIN 300 MG CAPSULE (FP) PO SCH (09:07)
[2019-06-09] MEDS: BRIMONIDINE TARTRATE 0.2% OPHTHALMIC 5 ML BOTTLE OU SCH (09:08)
[2019-06-09] MEDS: DORZOLAMIDE 2% HCL OPHTHALMIC SOLUTION 10 ML BOTTLE OU SCH (09:08)
--- NOTE | 2019-06-09 11:58 | PN ---
Progress Note, Physician History of Present Illness: EGD shows mild gastritis, colonoscopy shows mild diverticulosis and small ulcer in rectum stercocal vs radiation proctitis, lack of appetite improved on Remeron. Awaiting SNF placement. - Current Medication List Current Medications: Active Medications Acetaminophen (Tylenol -) 500 mg PO Q6H PRN PRN Reason: PAIN 1-3 Last Admin: 06/09/19 05:42 Dose: 500 mg Atorvastatin Calcium (Lipitor -) 20 mg PO [facility] Last Admin: 06/08/19 21:44 Dose: 20 mg Brimonidine Tartrate (Alphagan 0.2% -) 1 drop OU BID [facility] Last Admin: 06/09/19 09:08 Dose: 1 drop Dorzolamide HCl (Trusopt 2%) 1 drop OU BID [facility] Last Admin: 06/09/19 09:08 Dose: 1 drop Gabapentin (Neurontin -) 300 mg PO BID [facility] Last Admin: 06/09/19 09:07 Dose: 300 mg Insulin Aspart (Novolog Vial Sliding Scale -) 1 vial SQ TIDAC [facility]; Protocol Last Admin: 06/09/19 06:04 Dose: Not Given Mirtazapine (Remeron -) 7.5 mg PO [facility] Last Admin: 06/08/19 21:44 Dose: 7.5 mg Montelukast Sodium (Singulair -) 10 mg PO [facility] Last Admin: 06/08/19 21:44 Dose: 10 mg Pantoprazole Sodium (Protonix -) 40 mg PO 0730 [facility] Last Admin: 06/09/19 06:37 Dose: 40 mg Polyethylene Glycol (Miralax (For Daily Use) -) 17 gm PO BID [facility] Last Admin: 06/09/19 09:07 Dose: Not Given Senna (Senna -) 2 tab PO [facility] Last Admin: 06/08/19 21:44 Dose: 2 tab - Objective Vital Signs: Vital Signs Temperature 97.5 F L 06/09/19 09:06 Pulse Rate 81 06/09/19 09:06 Respiratory Rate 18 06/09/19 09:06 Blood Pressure 105/71 06/09/19 09:06 O2 Sat by Pulse Oximetry (%) 98 06/09/19 09:00 Labs: CBC, BMP 06/05/19 07:33 06/05/19 07:33 INR, PTT INR 1.06 (0.83-1.09) 05/25/19 16:47 Problem List - Problems (1) Atypical chest pain Code(s): R07.89 - OTHER CHEST PAIN (2) Dysphagia Code(s): R13.10 - DYSPHAGIA, UNSPECIFIED Qualifiers: Dysphagia type: esophageal phase Qualified Code(s): R13.10 - Dysphagia, unspecified (3) Abdominal pain Code(s): R10.9 - UNSPECIFIED ABDOMINAL PAIN (4) Early satiety Code(s): R68.81 - EARLY SATIETY (5) GERD (gastroesophageal reflux disease) Code(s): K21.9 - GASTRO-ESOPHAGEAL REFLUX DISEASE WITHOUT ESOPHAGITIS Qualifiers: Esophagitis presence: esophagitis presence not specified Qualified Code(s) : K21.9 - Gastro-esophageal reflux disease without esophagitis (6) Vomiting Code(s): R11.10 - VOMITING, UNSPECIFIED Qualifiers: Vomiting type: unspecified (7) Anorexia Code(s): R63.0 - ANOREXIA (8) Rectal ulcer Code(s): K62.6 - ULCER OF ANUS AND RECTUM Assessment/Plan 05/27/2019 Echo: Normal LV and RV size and fxn, tr TR 05/27/2019 Bone scan: No metastases 1. Atypical chest pain and dysphagia 2. History of stroke 3. Glaucoma 4. Renal cancer s/p left nephrectomy 5. Prostate cancer s/p EBRT 6. HTN 7. Hyperlipidemia 8. Leukopenia r/o MDS 9. Gastritis, diverticulosis and rectal ulcer PLAN: 1. EGD and colonoscopy results noted. 2. PPI empirically as per GI 3. Continue Lipitor 20 mg QHS 4. SNF placement Discharge planning. No specific cardiac therapy at this time
[2019-06-09] MEDS ORDERED: SODIUM CHLORIDE 1,000 ML IV STA (12:18)
[2019-06-09 13:19] LABS: HEMATOCRIT 35.7 % (35.4-49); HEMOGLOBIN 11.7 GM/dL (11.7-16.9); MCH 32.2 pg (25.7-33.7); MCHC 32.7 g/dl (32.0-35.9); MEAN CELL VOLUME 98.7 fl (80-96); MEAN PLT VOLUME 7.7 fl (7.5-11.1); PLATELET COUNT 216 K/MM3 (134-434); RBC 3.62 M/mm3 (4.00-5.60); RDW 14.3 % (11.9-15.9); WHITE BLOOD COUNT 3.1 K/mm3 (4.0-10.0)
[2019-06-09 13:56] LABS: BLOOD UREA NITROGEN 18.7 mg/dL (7-18); CALCIUM 8.1 mg/dL (8.5-10.1); CREATININE 1.2 mg/dL (0.55-1.3); POTASSIUM 3.9 mmol/L (3.5-5.1)
--- NOTE | 2019-06-09 17:11 | DS ---
Physical Exam: SUBJECTIVE: Patient seen and examined OBJECTIVE: Vital Signs Period Temp Pulse Resp BP Sys/Chance Pulse Ox Last 24 Hr 97.5 F-98.9 F 81-85 18-18 105-137/71-90 98-98 PHYSICAL EXAM GENERAL: The patient is awake, alert, and fully oriented, in no acute distress. HEAD: Normal with no signs of trauma. EYES: PERRL, extraocular movements intact, sclera anicteric, conjunctiva clear. ENT: Ears normal, nares patent, oropharynx clear without exudates, moist mucous membranes. NECK: Trachea midline, full range of motion, supple. LUNGS: Breath sounds equal, clear to auscultation bilaterally, no wheezes, no crackles, no accessory muscle use. HEART: Regular rate and rhythm, S1, S2 without murmur, rub or gallop. ABDOMEN: Soft, nontender, nondistended, normoactive bowel sounds, no guarding, no rebound, no hepatosplenomegaly, no masses. EXTREMITIES: 2+ pulses, warm, well-perfused, no edema. NEUROLOGICAL: Cranial nerves II through XII grossly intact. Normal speech, gait not observed. PSYCH: Normal mood, normal affect. SKIN: Warm, dry, normal turgor, no rashes or lesions noted. LABS Laboratory Results - last 24 hr 06/09/19 06/09/19 06/09/19 05:40 11:56 12:56 WBC 3.1 L RBC 3.62 L Hgb 11.7 Hct 35.7 MCV 98.7 H MCH 32.2 MCHC 32.7 RDW 14.3 Plt Count 216 MPV 7.7 Sodium Potassium Chloride Carbon Dioxide Anion Gap BUN Creatinine Est GFR (CKD-EPI)AfAm Est GFR (CKD-EPI)NonAf POC Glucometer 94 143 Random Glucose Calcium 06/09/19 12:56 WBC RBC Hgb Hct MCV MCH MCHC RDW Plt Count MPV Sodium 141 Potassium 3.9 Chloride 106 Carbon Dioxide 30 Anion Gap 6 L BUN 18.7 H Creatinine 1.2 Est GFR (CKD-EPI)AfAm 70.58 Est GFR (CKD-EPI)NonAf 60.90 POC Glucometer Random Glucose 102 Calcium 8.1 L HOSPITAL COURSE: Date of Admission:05/25/19 Date of Discharge: 06/09/19 Discharge Summary Problems reviewed: Yes Reason For Visit: LOSS OF APPETITE, FAILURE TO THRIVE Condition: Improved - Instructions Diet, Activity, Other Instructions: YOUR VISIT You came to the hospital because you were feeling generalized weakness. You were admitted to the hospital for care. While here, you were seen by pulmonology , gastroenterology, and hematology/oncology. A colonoscopy and bone scan were performed. Physical therapy determined you can benefit from physical rehab. You are now stable and can continue care at rehab. MEDICATIONS Please continue to take your home medications as prescribed. Continue miralax 17gm 2x per day to avoid constipation. High fiber diet Repeat colonoscopy within one year. follow up with Pulmonary for repeat Cat scan for further evaluation Follow up with hematology and oncology for further assessment for macrocytosis. ADDITIONAL CARE Please make an appointment to see your primary care provider, 1 week from today. It is important you take a copy of the CT images, bone scan, and colonoscopy reports performed here with you to your doctors in [place]. -Please follow up with environmental planning engineer, Dr. Porter, for your biopsy results. Please follow up with the line up worker as you were found to have a pulmonary nodule. Repeat imaging in 12 month per pulmonology. Please make appointments within a week to see a line up worker, environmental planning engineer, and educational adviser/oncologist in [place], when you return. ADDITIONAL INFORMATION Please call 911 or come directly to the emergency department if you experience unusual headache, vision change, shortness of breath, chest pain, numbness, tingling, loss of alertness/awareness, loss of function, unusual bleeding or any alarming symptoms. Referrals: Dom Lerma MD [Staff Physician] - 2 Weeks Biju Porter DO [Staff Physician] - 2 Weeks (to follow the biopsy result ) ON STAFF,NOT [Primary Care Provider] - Dewayne Correia MD [Staff Physician] - 2 Weeks Disposition: ASSISTED FACILITY - Home Medications Comprehensive Discharge Medication List: Ambulatory Orders Atorvastatin Calcium 20 mg PO HS 02/11/19 Brimonidine Tartrate [Alphagan 0.2% -] 1 drop OU BID 02/11/19 Dorzolamide HCl [Trusopt 2% -] 1 drop OU BID 02/11/19 Fluticasone Propionate [Flonase Allergy Relief] 2 spray NS DAILY PRN 02/11/19 Gabapentin 300 mg PO BID 02/11/19 Metformin HCl [Glucophage] 500 mg PO DAILY 02/11/19 Montelukast Sodium [Singulair] 10 mg PO DAILY 02/11/19 Omeprazole 40 mg PO DAILY 02/11/19 Aspirin Coated [Ecotrin -] 1 tab PO DAILY 05/26/19 Acetaminophen [Tylenol .Extra-Strength -] 500 mg PO Q6H PRN tablet 06/04/19 Insulin Sliding Scale [Novolog Vial Sliding Scale -] 1 vial SQ TIDAC units 08/19 Mirtazapine [Remeron -] 7.5 mg PO HS tablet 06/04/19 Polyethylene Glycol 3350 [Miralax 119 gm Btl -] 17 gm PO BID bottle 06/04/19 - Discharge Referral Referred to [facility] No ATTENDING PHYSICIAN STATEMENT I saw and evaluated the patient. I reviewed the resident's note and discussed the case with the resident. I agree with the resident's findings and plan as documented. SUBJECTIVE: OBJECTIVE: ASSESSMENT AND PLAN:
--- NOTE | 2019-06-09 20:05 | PN ---
Teaching Attending Note Name of Resident: Tony Templeton ATTENDING PHYSICIAN STATEMENT I saw and evaluated the patient. I reviewed the resident's note and discussed the case with the resident. I agree with the resident's findings and plan as documented. SUBJECTIVE: no fever or chills. felt dizzy when seen this am OBJECTIVE: NAD, sitting in chair. BP 65/41 . placed in bed CV: RRR, no MRG Lungs: CTAB Ext: No edema or erythema in his extremities Abd: soft, NT, ND, NL BS. Assessment/Plan: 68 y/o man with h/o prostate cancer s/p RTx , h/o HTN ( off meds due to hypotension) , PUD, CVA, left nephrectomy due to L renal cancer , who presented with abd pain and constipation 1- ABD pain, due to constipation. s/p EGD and colonoscopy - bx results reviewed. - cont bowel regimen 2-Hypotension . given IVF in a bolus and BP normalized 3- H/o Stroke: - cont aspirin - cont statin 4- H/o DM: A1c 5.6. patient is no longer on metformin as outpt 5- Weight loss. bone scan with no bone lesions. cont w/u as out pt remeron for appetite stimulation ( added here ) 6- Leukopenia.f/u with heme as out pt 7- Pulmonary nodule on CT scan: f/u as out pt with repeat imaging in 12 month per rey baker. 8- Protein calorie malnutrition 9- F/u with his oncologist for prostate and kidney cancer Dispo:. dc to rehab
== END 2019-06-09 16:30 | DRG 391 ==
LOC: JER 15:47 → J5S 22:41
PROVIDERS: ADMIT Internal Medicine; ATTEND Internal Medicine
PROC: 0DBM8ZX Excision of Descending Colon, Via Natural or Artificial Opening Endoscopic, Diagnostic (ICD-10-PCS; 2019-05-28)
PROC: 0DBP8ZX Excision of Rectum, Via Natural or Artificial Opening Endoscopic, Diagnostic (ICD-10-PCS; 2019-05-28)
PROC: 0DB68ZX Excision of Stomach, Via Natural or Artificial Opening Endoscopic, Diagnostic (ICD-10-PCS; 2019-05-28)
PROC: 0DBL8ZX Excision of Transverse Colon, Via Natural or Artificial Opening Endoscopic, Diagnostic (ICD-10-PCS; principal; 2019-05-28 11:00)
DX: K59.00 Constipation, unspecified (principal); E43 Unspecified severe protein-calorie malnutrition; K62.6 Ulcer of anus and rectum; I69.354 Hemiplegia and hemiparesis following cerebral infarction affecting left non-dominant side; K29.70 Gastritis, unspecified, without bleeding; R10.84 Generalized abdominal pain; R91.1 Solitary pulmonary nodule; E11.9 Type 2 diabetes mellitus without complications; K21.9 Gastro-esophageal reflux disease without esophagitis; R63.0 Anorexia; K63.5 Polyp of colon; K29.00 Acute gastritis without bleeding; I95.9 Hypotension, unspecified; D72.819 Decreased white blood cell count, unspecified; R62.7 Adult failure to thrive; E83.42 Hypomagnesemia; H40.9 Unspecified glaucoma; E78.5 Hyperlipidemia, unspecified; K57.90 Diverticulosis of intestine, part unspecified, without perforation or abscess without bleeding; R07.89 Other chest pain; R13.10 Dysphagia, unspecified
CPT/HCPCS: 36415; 70450-TC; 71045-TC-FY; 71260-TC; 74018-TC-FY; 74177-TC; 78306-TC; 80048; 80053; 81003; 82550; 82607; 82746; 82962; 83036; 83605; 83690; 83735; 84100; 84153; 84484; 85025; 85027; 85610; 86850; 86900; 86901; 87040; 87086; 90670; 93005; 93010; 93306-TC; 97116-GP; 97162-GP; 99284-25; A9503; G0008; G0009; J0131; J7030; Q2036; Q9967

== ENCOUNTER 2019-07-22 15:57 | Inpatient (IN) | payer OTHER ==
--- NOTE | 2019-07-22 16:08 | PDOC ---
History of Present Illness - History of Present Illness Initial Comments: The pt is a 68M w/ a history of prostate Ca s/p Rads (2010), s/p left nephrectomy, CVA (residual LLE weakness), DM, GERD who presents for evaluation s /p syncopal episode today. The pt reports being a PT today at 1000 and while sitting in a chair he felt lightheaded and 'passed out' for approximately 30 seconds. He denies falling out of the chair or hitting his head. He denies chest pain before/after. He states currently at rest he does not feel lightheaded but if he moves too much he feels the symptom. The pt also reports 2 days of intermittent epigastric abdominal pain 07/22/19 16:10 <Dhruv Duran - Last Filed: 07/22/19 19:57> <Yoan Pena - Last Filed: 07/30/19 01:00> - General Chief Complaint: Syncope/Near Syncope Stated Complaint: SYNCOPY Past History - Past Medical History Anemia: Yes Asthma: No Cancer: No Cardiac Disorders: No CVA: Yes (10 years ago) COPD: No CHF: No Dementia: No Diabetes: No GI Disorders: No Disorders: No HTN: Yes Hypercholesterolemia: No Liver Disease: No Seizures: No Thyroid Disease: No - Surgical History GI Surgery: Yes (LEFT KIDNEY REMOVAL) - Immunization History Immunization Up to Date: Yes - Psycho Social/Smoking Cessation Hx Smoking History: Never smoked Have you smoked in the past 12 months: No Hx Alcohol Use: No Drug/Substance Use Hx: No Substance Use Type: None <Dhruv Duran - Last Filed: 07/22/19 19:57> <Yoan Pena - Last Filed: 07/30/19 01:00> - Past Medical History Allergies/Adverse Reactions: Allergies Allergy/AdvReac Type Severity Reaction Status Date / Time No Known Allergies Allergy Verified 07/22/19 16:03 Home Medications: Ambulatory Orders Atorvastatin Calcium 20 mg PO HS 02/11/19 Brimonidine Tartrate [Alphagan 0.2% -] 1 drop OU BID 02/11/19 Dorzolamide HCl [Trusopt 2% -] 1 drop OU BID 02/11/19 Fluticasone Propionate [Flonase Allergy Relief] 2 spray NS DAILY PRN 02/11/19 Gabapentin 300 mg PO BID 02/11/19 Metformin HCl [Glucophage] 500 mg PO BID 02/11/19 Montelukast Sodium [Singulair] 10 mg PO DAILY 02/11/19 Omeprazole 40 mg PO DAILY 02/11/19 Acetaminophen [Tylenol .Extra-Strength -] 500 mg PO Q6H PRN tablet 06/04/19 Insulin Sliding Scale [Novolog Vial Sliding Scale -] 1 vial SQ TIDAC units 08/19 Mirtazapine [Remeron -] 7.5 mg PO HS tablet 06/04/19 Polyethylene Glycol 3350 [Miralax 119 gm Btl -] 17 gm PO BID bottle 06/04/19 Sennosides [Senna] 2 tab PO HS 07/22/19 Review of Systems - Review of Systems Able to Perform ROS?: Yes Comments:: GENERAL/CONSTITUTIONAL: No fever or chills HEAD, EYES, EARS, NOSE AND THROAT: No change in vision. No change in hearing. No sore throat CARDIOVASCULAR: No chest pain or shortness of breath RESPIRATORY: Denies cough, hemoptysis GASTROINTESTINAL: No nausea, vomiting, diarrhea or constipation GENITOURINARY: No dysuria, frequency, or change in urination MUSCULOSKELETAL: No joint or muscle swelling or pain. No neck or back pain SKIN: No rash NEUROLOGIC: No headache, vertigo, or acute change in strength/sensation ENDOCRINE: No increased thirst. No abnormal weight change HEMATOLOGIC/LYMPHATIC: No anemia, easy bleeding, or history of blood clots ALLERGIC/IMMUNOLOGIC: No hives or skin allergy 07/22/19 16:07 Is the patient limited Wallisian proficient: No <Dhruv Duran - Last Filed: 07/22/19 19:57> *Physical Exam - Vital Signs Last Vital Signs Temp Pulse Resp BP Pulse Ox 97.0 F L 73 18 145/86 100 07/22/19 15:59 07/22/19 15:59 07/22/19 15:59 07/22/19 15:59 07/22/19 15:59 - Physical Exam GENERAL: Awake, alert, and oriented to person/place/time, in no acute distress HEAD: No signs of trauma, normocephalic, atraumatic EYES: PERRLA, EOMI, sclera anicteric, conjunctiva clear ENT: Hearing grossly normal, nares patent, oropharynx clear without exudates. No uvular deviation. Moist mucosa LUNGS: No distress, speaks in full sentences, clear to auscultation bilaterally HEART: Regular rate and rhythm, normal S1 and S2, no murmurs appreciated, peripheral pulses normal and equal bilaterally ABDOMEN: Soft, mild epigastric TTP w/o rebound or guarding, normoactive bowel sounds EXTREMITIES: Moves all extremities independently NEUROLOGICAL: Cranial nerves II through XII grossly intact. Normal speech, LLE weakness relative to RLE (reported chronic) SKIN: Warm, Dry 07/22/19 16:07 <Dhruv Duran - Last Filed: 07/22/19 19:57> - Vital Signs Last Vital Signs Temp Pulse Resp BP Pulse Ox 98.2 F 81 18 141/90 98 07/29/19 22:00 07/29/19 22:00 07/29/19 22:00 07/29/19 22:00 07/29/19 21:00 <Yoan Pena - Last Filed: 07/30/19 01:00> ED Treatment Course - LABORATORY CBC & Chemistry Diagram: 07/22/19 17:00 07/22/19 17:00 - RADIOLOGY Radiograph Interpretation: CT/HEAD CT WITHOUT CONTRAST No intracranial hemorrhage is seen. There is no extra-axial fluid collection. There is a possible Chiari type I malformation versus possible nonspecific focal enlargement of the left cerebellar tonsil. MRI evaluation is suggested. No obvious infarct is noted. There is no obstructive hydrocephalus. The calvarium appears intact. Impression: As noted above. 07/22/19 18:23 <Dhruv Duran - Last Filed: 07/22/19 19:57> - LABORATORY CBC & Chemistry Diagram: 07/27/19 06:35 07/28/19 08:10 - ADDITIONAL ORDERS Additional order review: 07/26/19 07/26/19 07/25/19 06:05 05:35 17:22 RBC 3.86 L MCV 96.9 H MCHC 34.1 RDW 14.8 MPV 9.0 Neutrophils % Lymphocytes % Monocytes % Eosinophils % Basophils % POC Glucometer 98 118 07/25/19 07/25/19 07/24/19 11:58 05:44 17:33 RBC MCV MCHC RDW MPV Neutrophils % Lymphocytes % Monocytes % Eosinophils % Basophils % POC Glucometer 101 92 103 07/24/19 07/24/19 07/24/19 11:33 06:42 05:51 RBC MCV MCHC RDW MPV Neutrophils % Lymphocytes % Monocytes % Eosinophils % Basophils % POC Glucometer 126 79 89 07/23/19 07/23/19 07/23/19 18:04 11:21 08:36 RBC MCV MCHC RDW MPV Neutrophils % Lymphocytes % Monocytes % Eosinophils % Basophils % POC Glucometer 93 90 90 07/23/19 07/22/19 07/22/19 07:45 17:00 16:29 RBC 3.90 L 4.19 MCV 96.9 H 98.6 H MCHC 34.0 33.6 RDW 14.7 14.9 MPV 8.8 9.1 D Neutrophils % 56.1 Lymphocytes % 31.5 Monocytes % 9.7 Eosinophils % 1.9 Basophils % 0.8 POC Glucometer 107 - Medications Given in the ED: ED Medications Discontinued Medications Generic Name Dose Route Start Last Admin Trade Name Freq PRN Reason Stop Dose Admin Acetaminophen 1,000 mg 07/22/19 16:34 07/22/19 16:50 Ofirmev Injection - IVPB 07/22/19 16:35 1,000 mg ONCE ONE Administration Acetaminophen 500 mg 07/23/19 12:57 07/29/19 04:00 Tylenol - PO 500 mg Q6H PRN Administration PAIN 1-3 Al Hydroxide/Mg Hydroxide 30 ml 07/23/19 15:13 07/25/19 20:51 Mylanta Oral Suspension - PO 30 ml Q6H PRN Administration DYSPEPSIA Atorvastatin Calcium 20 mg 07/23/19 22:00 07/28/19 22:35 Lipitor - PO Not Given HS NOEMY Brimonidine Tartrate 1 drop 07/23/19 22:00 07/28/19 22:40 Alphagan 0.2% - OU 1 drop BID NOEMY Administration Dorzolamide HCl 1 drop 07/23/19 22:00 07/28/19 22:40 Trusopt 2% OU 1 drop BID NOEMY Administration Gabapentin 300 mg 07/23/19 22:00 07/27/19 21:43 Neurontin - PO 300 mg BID NOEMY Administration Heparin Sodium (Porcine) 5,000 unit 07/23/19 06:00 07/28/19 22:36 Heparin - SQ 5,000 unit TID NOEMY Administration Famotidine/Sodium Chloride 20 mg in 50 mls @ 100 mls/hr 07/22/19 16:34 17:30 Pepcid 20 Mg Premixed Ivpb - IVPB 07/22/19 17:03 100 mls/hr ONCE ONE Administration Sodium Chloride 1,000 mls @ 100 mls/hr 07/22/19 22:00 07/25/19 21:33 Normal Saline - IV Not Given ASDIR [facility] Insulin Aspart 1 vial 07/23/19 07:00 07/29/19 11:07 Novolog Vial Sliding Scale - SQ Not Given TIDAC [facility] Protocol Metformin HCl 500 mg 07/23/19 16:30 07/28/19 16:59 Glucophage - PO Not Given BIDAC [facility] Metoclopramide HCl 10 mg 07/23/19 15:15 07/24/19 09:40 Reglan Injection - IVPUSH 10 mg Q6H-IV NOEMY Administration Mirtazapine 7.5 mg 07/23/19 22:00 07/28/19 22:35 Remeron - PO 7.5 mg HS NOEMY Administration Montelukast Sodium 10 mg 07/24/19 22:00 07/28/19 22:35 Singulair - PO 10 mg HS NOEMY Administration Pantoprazole Sodium 40 mg 07/23/19 13:15 07/23/19 14:31 Protonix Iv IVPUSH 07/23/19 13:16 40 mg ONCE ONE Administration Pantoprazole Sodium 40 mg 07/23/19 22:00 07/27/19 09:11 Protonix Iv IVPUSH 40 mg BID NOEMY Administration Pantoprazole Sodium 20 mg 07/28/19 10:00 07/29/19 10:01 Protonix - PO 20 mg DAILY NOEMY Administration Polyethylene Glycol 17 gm 07/23/19 22:00 07/28/19 22:35 Miralax (For Daily Use) - PO Not Given BID NOEMY Potassium Chloride 20 meq 07/27/19 16:16 07/27/19 16:46 K-Dur - PO 07/27/19 16:17 20 meq ONCE ONE Administration <Yoan Pena - Last Filed: 07/30/19 01:00> Medical Decision Making - Medical Decision Making The pt is a 68M w/ a history of prostate Ca s/p Rads (2010), s/p left nephrectomy, CVA (residual LLE weakness), DM, GERD who presents for evaluation s /p syncopal episode today Consider ACS, not likely orthostatic, vasovagal, CVA, infection ED Course CMP, CBC, Trop I CXR, CT head ECG ECG w/ NSR; HR 74; QTc 408; left axis deviation; no BLADIMIR; abn ecg 07/22/19 17:27 Initial Trop I neg No anemia Lytes unremarkable No APRIL LFTs unremarkable 07/22/19 18:02 CT Head w/o acute bleed, possible Chiari Type I malformation vs nonspecific focal enlargement of L cerebellar tonsil. Radiology recommends MRI evaluation. 07/22/19 18:23 UA w/o evidence of UTI CXR w/o acute pathology Pt signed out to [facility] Admitting <Dhruv Duran - Last Filed: 07/22/19 19:57> - Medical Decision Making 07/30/19 00:58 I have seen and evaluated the patient. I agree with the resident's note as well as management and care. <Yoan Pena - Last Filed: 07/30/19 01:00> Discharge - Discharge Information Problems reviewed: Yes - Admission Yes <Dhruv Duran - Last Filed: 07/22/19 19:57> <Yoan Pena - Last Filed: 07/30/19 01:00> - Discharge Information Clinical Impression/Diagnosis: Syncope Qualifiers: Syncope type: unspecified Qualified Code(s): R55 - Syncope and collapse Abdominal pain Qualifiers: Abdominal location: epigastric Qualified Code(s): R10.13 - Epigastric pain Condition: Good
[2019-07-22] MEDS ORDERED: FAMOTIDINE 20 MG/50 ML IVPB 20 MG/50 ML MG IVPB ONE ×2 (16:34→17:08)
[2019-07-22] MEDS ORDERED: ACETAMINOPHEN 1000 MG/100 ML VIAL (NON FORMULARY) IVPB ONE (16:34)
[2019-07-22] MEDS ORDERED: ACETAMINOPHEN INJECTION 100 ML IVPB ONE (17:07)
[2019-07-22 17:11] LABS: BASO % 0.8 % (0-2.0); EOS % 1.9 % (0-4.5); HEMATOCRIT 41.4 % (35.4-49); HEMOGLOBIN 13.9 GM/dL (11.7-16.9); LYMPH % 31.5 % (8-40); MCH 33.1 pg (25.7-33.7); MCHC 33.6 g/dl (32.0-35.9); MEAN CELL VOLUME 98.6 fl (80-96); MEAN PLT VOLUME 9.1 fl (7.5-11.1); MONO % 9.7 % (3.8-10.2); NEUT % 56.1 % (42.8-82.8); PLATELET COUNT 143 K/MM3 (134-434); RBC 4.19 M/mm3 (4.00-5.60); RDW 14.9 % (11.9-15.9); WHITE BLOOD COUNT 3.5 K/mm3 (4.0-10.0)
[2019-07-22 17:47] LABS: ALBUMIN 3.5 g/dl (3.4-5.0); BILIRUBIN,TOTAL 0.5 mg/dL (0.2-1); BLOOD UREA NITROGEN 9.7 mg/dL (7-18); CALCIUM 8.8 mg/dL (8.5-10.1); CREATININE 1.2 mg/dL (0.55-1.3); POTASSIUM 4.3 mmol/L (3.5-5.1); TOT PROT 7.3 g/dl (6.4-8.2)
[2019-07-22 19:17] LABS: URINE APPEARANCE CLEAR; URINE BILIRUBIN NEGATIVE (NEGATIVE); URINE COLOR YELLOW; URINE GLUCOSE (UA) NEGATIVE (NEGATIVE); URINE KETONE NEGATIVE (NEGATIVE); URINE LEUK ESTERASE NEGATIVE (NEGATIVE); URINE NITRITE NEGATIVE (NEGATIVE); URINE PROTEIN NEGATIVE (NEGATIVE)
--- NOTE | 2019-07-22 21:45 | HP ---
CHIEF COMPLAINT: passed out PCP: Dr. 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 Patient is currently a resident of [facility], [place] for rehab. He states that he first passed out while he was PT while sitting in a wheelchair and felt lightheaded. He passed out for 30 seconds but did not fall out of his chair. He did not have any incontinence. He believes that his blood pressure was low but does not remember what it was when it was checked. He then also passed out again a second time after he returned to [facility]. Again he was sitting in a chair and did not fall out of the chair but he does not recall how long he was unconscious for. He denied any incontinence during this episode. He states he has fainting episodes in the past due to low blood pressure but he does not recall the last time he had a fainting episode. He feels little dizzy when he moves his head around. He denies any new focal weakness. He denies chest pain or palpitations during either episode. He states that he did vomit once yesterday, NBNB, but no vomit today. He complains of chronic nausea with eating and states this is why he is on omeprazole. Patient complaints of blood in urine once last Friday (07/16/19) but no episodes of hematuria since then. He denies being on blood thinners. He had an EGD during his last hospitalization here. Patient denies chest pain, diarrhea, headache, fever, chills, changes in vision. During prior hospitalization: EGD showed mild gastritis, colonoscopy showed mild diverticulosis and small ulcer in rectum stercocal vs radiation proctitis. Bone scan with no bone lesions. ECHO EF 60-65% and trace tricuspid regurg. ER course was notable for: (1) Trop negative (2) Head CT without acute pathology, no infarct or bleed noted. Possible Chiari type I malformation vs. 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, DM, GERD PAST SURGICAL HISTORY: Left nephrectomy due to renal mass Social History: Smoking: denies ever smoking Alcohol: denies ever drinking Drugs: denies ever using illicit drugs Allergies No Known Allergies Allergy (Verified 07/22/19 16:03) HOME MEDICATIONS: Home Medications Medication Instructions Recorded Atorvastatin Calcium 20 mg PO HS 02/11/19 Brimonidine Tartrate [Alphagan 1 drop OU BID 02/11/19 0.2% -] Dorzolamide HCl [Trusopt 2% -] 1 drop OU BID 02/11/19 Fluticasone Propionate [Flonase 2 spray NS DAILY PRN 02/11/19 Allergy Relief] Gabapentin 300 mg PO BID 02/11/19 Metformin HCl [Glucophage] 500 mg PO BID 02/11/19 Montelukast Sodium [Singulair] 10 mg PO DAILY 02/11/19 Omeprazole 40 mg PO DAILY 02/11/19 Acetaminophen [Tylenol 500 mg PO Q6H PRN tablet 06/04/19 .Extra-Strength -] Insulin Sliding Scale [Novolog 1 vial SQ TIDAC units 06/04/19 Vial Sliding Scale -] Mirtazapine [Remeron -] 7.5 mg PO HS tablet 06/04/19 Polyethylene Glycol 3350 [Miralax 17 gm PO BID bottle 06/04/19 119 gm Btl -] Sennosides [Senna] 2 tab PO HS 07/22/19 REVIEW OF SYSTEMS As per HPI PHYSICAL EXAMINATION Vital Signs - 24 hr 07/22/19 07/22/19 15:59 18:39 Temperature 97.0 F L Pulse Rate 73 Respiratory 18 Rate Blood Pressure 145/86 O2 Sat by Pulse 100 96 Oximetry (%) GENERAL: Awake, alert, and fully oriented, in no acute distress. HEAD: NC/AT EYES: PERRL, EOMI, no scleral icterus EARS, NOSE, THROAT: dry mucous membranes NECK: supple, trachea midline LUNGS: Breath sounds equal, clear to auscultation bilaterally. No wheezes, and no crackles. No accessory muscle use. HEART: Regular rate and rhythm, normal S1 and S2 without murmur, rub or gallop. ABDOMEN: Soft, nontender, not distended, normoactive bowel sounds, no guarding, no rebound, no masses MUSCULOSKELETAL: No bony deformities or tenderness EXTREMITIES: 2+ pulses, warm, well-perfused. No calf tenderness. No peripheral edema. NEUROLOGICAL: Cranial nerves II-XII intact. Normal speech. gait not observed. No facial droop noted. 5/5 strength bilateral upper extremities. 5/5 strength RLE, 4/5 strength of LLE. sensation decreased on LLE compared to RLE. PSYCHIATRIC: Cooperative. Good eye contact. Appropriate mood and affect. SKIN: Warm, dry, normal turgor, no rashes or lesions noted, normal capillary refill. Laboratory Results - last 24 hr 07/22/19 07/22/19 07/22/19 16:29 17:00 17:00 WBC 3.5 L RBC 4.19 Hgb 13.9 Hct 41.4 D MCV 98.6 H MCH 33.1 MCHC 33.6 RDW 14.9 Plt Count 143 D MPV 9.1 D Absolute Neuts (auto) 2.0 Neutrophils % 56.1 Lymphocytes % 31.5 Monocytes % 9.7 Eosinophils % 1.9 Basophils % 0.8 Nucleated RBC % 0 Sodium 139 Potassium 4.3 Chloride 104 Carbon Dioxide 31 Anion Gap 4 L BUN 9.7 Creatinine 1.2 Est GFR (CKD-EPI)AfAm 70.58 Est GFR (CKD-EPI)NonAf 60.90 POC Glucometer 107 Random Glucose 113 H Calcium 8.8 Total Bilirubin 0.5 AST 13 L ALT 13 Alkaline Phosphatase 146 H Troponin I Total Protein 7.3 Albumin 3.5 Urine Color Urine Appearance Urine pH Ur Specific [place] Urine Protein Urine Glucose (UA) Urine Ketones Urine Blood Urine Nitrite Urine Bilirubin Urine Urobilinogen Ur Leukocyte Esterase 07/22/19 07/22/19 17:00 18:41 WBC RBC Hgb Hct MCV MCH MCHC RDW Plt Count MPV Absolute Neuts (auto) Neutrophils % Lymphocytes % Monocytes % Eosinophils % Basophils % Nucleated RBC % Sodium Potassium Chloride Carbon Dioxide Anion Gap BUN Creatinine Est GFR (CKD-EPI)AfAm Est GFR (CKD-EPI)NonAf POC Glucometer Random Glucose Calcium Total Bilirubin AST ALT Alkaline Phosphatase Troponin I < 0.02 Total Protein Albumin Urine Color Yellow Urine Appearance Clear Urine pH 6.0 Ur Specific [place] 1.009 L Urine Protein Negative Urine Glucose (UA) Negative Urine Ketones Negative Urine Blood Negative Urine Nitrite Negative Urine Bilirubin Negative Urine Urobilinogen 1.0 Ur Leukocyte Esterase Negative ASSESSMENT/PLAN: 68 y/o/m with PMHx of Prostate cancer s/p radiation (2010), s/p L sided nephrectomy in 2008, 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 #Syncope - Orthostatics positive: 120/90 lying down, 110/76 sitting, unable to tolerate standing - Recent Echo in 05/20 showing EF of 60-65% - patient states he has had syncopal episodes in the past due to low BP - 1st Trop negative, f/u second trop - EKG showing NSR @ 74 BPM, QTc 408 - fall precautions - cardiac monitoring - Physical therapy - IVF - Carotid doppler in 02/18 without evidence of hemodynamically significant stenosis - Head CT without evidence of bleed or infarct #Possible Chiari type I malformation - Head CT read: Possible Chiari type I malformation vs. nonspecific focal enlargement of the left cerebelllar tonsil, MRI suggested - Past head CT reads do not mention possible chiari malformation - no changes compared to prior head CTs noted by my read #Hematuria - patient complains of one episode of hematuria on 07/16/19 - Renal ultrasound ordered for further evaluation - hx of prostate cancer, left nephrectomy #GERD - continue omeprazole once med rec'ed #DM - BGMs - ISS - hold home diabetes meds #HLD - continue Atorvastatin once med rec'ed #Prophylaxis - SCDs - Heparin #FEN - NS @100mls/hr - Diabetic diet - monitor and replete lytes as needed #Disposition - admitted to tele obs Visit type - Emergency Visit Emergency Visit: Yes ED Registration Date: 07/22/19 Care time: The patient presented to the Emergency Department on the above date and was hospitalized for further evaluation of their emergent condition. - New Patient This patient is new to me today: Yes Date on this admission: 07/23/19 - Critical Care Critical Care patient: No ATTENDING PHYSICIAN STATEMENT I saw and evaluated the patient. I reviewed the resident's note and discussed the case with the resident. I agree with the resident's findings and plan as documented. SUBJECTIVE: OBJECTIVE: ASSESSMENT AND PLAN:
--- NOTE | 2019-07-22 22:08 | PN ---
Teaching Attending Note Name of Resident: Sandeep Neslon ATTENDING PHYSICIAN STATEMENT I saw and evaluated the patient. I reviewed the resident's note and discussed the case with the resident. I agree with the resident's findings and plan as documented. SUBJECTIVE: 68[facility] with a history of prostate cancer status post radiation therapy 2010, status post left-sided nephrectomy in 2008, CVA 15 years ago with residual left lower extremity weakness, GERD presents status post 2 syncopal episodes on 07/30/2019. Patient was consciousness when he was sitting in a wheelchair and felt lightheaded, lasted 30 seconds no history of incontinence or tongue biting. No history of bowel or bladder incontinence. Shortly after 1 more episode of syncope. OBJECTIVE: Last Vital Signs Temp Pulse Resp BP Pulse Ox 98.0 F 77 18 113/72 98 07/22/19 22:54 07/22/19 22:54 07/22/19 21:00 07/22/19 22:54 07/22/19 22:54 On physical exam patient was not any acute distress, conversive, nontoxic- appearing. Head exam did not show any signs of trauma, moist mucous membranes, PERRLA. Lungs are clear to auscultation bilaterally, CVS1 plus, S2 plus, abdomen soft nontender. Skin without any rashes, lower extremities negative for pedal edema. Residual left-sided weakness status post stroke. Abnormal Lab Results 07/22/19 07/22/19 07/22/19 17:00 17:00 18:41 WBC 3.5 L MCV 98.6 H Anion Gap 4 L Random Glucose 113 H AST 13 L Alkaline Phosphatase 146 H Ur Specific [place] 1.009 L Imaging studies reviewed Head CT reviewedpossible Chiari type I malformation versus possible nonspecific focal enlargement of the left cerebellar tonsil. No obvious infarct is noted, no obstructive hydrocephalus. Chest x-ray did not show any acute chest pathology. ASSESSMENT AND PLAN: # syncopesuspect may be secondary to orthostatic hypotension. Recent transthoracic echo was appreciated from 05/20EF was noted to be over 60% with normal left ventricular wall motion, and no aortic valve stenosis reported. Telemetry observation Trend troponins Fluid hydration Bedrest and fall precautions Physical therapy evaluation Recent echo appreciated #Possible Chiari type I formation on head CT Neurology evaluation #Diabetes mellitus NovoLog siding scale Basal insulin A1c Diabetic diet #GERD Protonix 40 mg p.o. daily DVT prophylaxisheparin subcutaneously
[2019-07-23] MEDS: SODIUM CHLORIDE 1,000 ML IV SCH ×2 (01:13→22:27)
[2019-07-23] MEDS ORDERED: HEPARIN NA (PORCINE) 5,000 UNITS/ML 1ML VIAL ONE ×2 (06:21→14:46)
[2019-07-23] MEDS: HEPARIN NA (PORCINE) 5,000 UNITS/ML 1ML VIAL SQ SCH ×3 (06:52→22:23)
[2019-07-23 08:37] LABS: HEMATOCRIT 37.8 % (35.4-49); HEMOGLOBIN 12.9 GM/dL (11.7-16.9); MEAN CELL VOLUME 96.9 fl (80-96); MEAN PLT VOLUME 8.8 fl (7.5-11.1); PLATELET COUNT 135 K/MM3 (134-434); RDW 14.7 % (11.9-15.9)
[2019-07-23] MEDS: INSULIN SLIDING SCALE (NOVOLOG) 1 VIAL SQ SCH ×3 (08:56→18:06)
[2019-07-23 09:12] LABS: ALBUMIN 3.3 g/dl (3.4-5.0); BILIRUBIN,TOTAL 0.5 mg/dL (0.2-1); CALCIUM 8.4 mg/dL (8.5-10.1); MAGNESIUM 1.9 mg/dL (1.8-2.4); POTASSIUM 3.7 mmol/L (3.5-5.1); TOT PROT 6.5 g/dl (6.4-8.2)
--- NOTE | 2019-07-23 09:47 | PN ---
Teaching Attending Note ATTENDING PHYSICIAN STATEMENT I saw and evaluated the patient. I reviewed the resident's note and discussed the case with the resident. I agree with the resident's findings and plan as documented. SUBJECTIVE: OBJECTIVE: ASSESSMENT AND PLAN:
[2019-07-23] MEDS ORDERED: ENOXAPARIN NA (PORCINE) 40 MG/0.4 ML DISP.SYRIN SQ SCH (10:00)
--- NOTE | 2019-07-23 11:09 | PN ---
Progress Note, Physician Chief Complaint: Syncope L Nephrectomy History of Present Illness: Previous notes and events reviewed awake and alert NAD denies chest pain or SOB complain of abdominal pain patient complains of non-productive cough - Current Medication List Current Medications: Active Medications Heparin Sodium (Porcine) (Heparin -) 5,000 unit SQ TID [facility] Last Admin: 07/23/19 06:52 Dose: 5,000 unit Sodium Chloride (Normal Saline -) 1,000 mls @ 100 mls/hr IV ASDIR [facility] Last Admin: 07/23/19 01:13 Dose: 100 mls/hr Insulin Aspart (Novolog Vial Sliding Scale -) 1 vial SQ TIDAC [facility]; Protocol Last Admin: 07/23/19 08:56 Dose: Not Given - Objective Vital Signs: Vital Signs Temperature 98.0 F 07/22/19 22:54 Pulse Rate 80 07/23/19 06:39 Respiratory Rate 18 07/23/19 06:39 Blood Pressure 142/96 07/23/19 06:39 O2 Sat by Pulse Oximetry (%) 96 07/23/19 06:39 Constitutional: Yes: No Distress, Calm Eyes: Yes: Conjunctiva Clear HENT: Yes: Atraumatic Cardiovascular: Yes: Regular Rate and Rhythm Respiratory: Yes: Regular, CTA Bilaterally Gastrointestinal: Yes: Normal Bowel Sounds, Soft, Tenderness (generalized) Musculoskeletal: Yes: Muscle Weakness Edema: No Neurological: Yes: Alert Psychiatric: Yes: Alert Labs: CBC, BMP 07/23/19 07:45 07/23/19 07:45 Problem List - Problems (1) Abdominal pain Assessment/Plan: GI consult Reglan Pantoprazole Code(s): R10.9 - UNSPECIFIED ABDOMINAL PAIN Qualifiers: Abdominal location: epigastric Qualified Code(s): R10.13 - Epigastric pain (2) Syncope Assessment/Plan: Cardiology and Neurology consult Tele monitoring Carotid US fall precaution troponin neg x 2 Code(s): R55 - SYNCOPE AND COLLAPSE Qualifiers: Syncope type: unspecified Qualified Code(s): R55 - Syncope and collapse (3) Diabetes mellitus Assessment/Plan: BGM ACHS Metformin HgA1c ISS Code(s): E11.9 - TYPE 2 DIABETES MELLITUS WITHOUT COMPLICATIONS (4) GERD (gastroesophageal reflux disease) Assessment/Plan: Pantoprazole Code(s): K21.9 - GASTRO-ESOPHAGEAL REFLUX DISEASE WITHOUT ESOPHAGITIS Qualifiers: Esophagitis presence: esophagitis presence not specified Qualified Code(s) : K21.9 - Gastro-esophageal reflux disease without esophagitis (5) History of nephrectomy Assessment/Plan: BUN/Cr 7.0/1.0 Renal consult Renal US shows s/p L nephrectomy, with morphologically normal right kidney, no evidence of nephrolithiasis, hydronephrosis, or acute pathology Code(s): Z90.5 - ACQUIRED ABSENCE OF KIDNEY (6) HLD (hyperlipidemia) Assessment/Plan: Atorvastatin Code(s): E78.5 - HYPERLIPIDEMIA, UNSPECIFIED Assessment/Plan see problem list dvt ppx
--- NOTE | 2019-07-23 11:52 | EKG ---
Test Reason : Blood Pressure : / mmHG Vent. Rate : 074 BPM Atrial Rate : 074 BPM P-R Int : 156 ms QRS Dur : 072 ms QT Int : 368 ms P-R-T Axes : 061 -35 069 degrees QTc Int : 408 ms NORMAL SINUS RHYTHM LEFT AXIS DEVIATION NONSPECIFIC T WAVE ABNORMALITY ABNORMAL ECG WHEN COMPARED WITH ECG OF 25-MAY-2019 16:21, NONSPECIFIC T WAVE ABNORMALITY NOW EVIDENT IN LATERAL LEADS Confirmed by LELE BLISS MD ([id number]) on 07/23/2019 11:51:53 AM Referred By: Confirmed By:LELE BLISS MD
[2019-07-23] MEDS ORDERED: PANTOPRAZOLE SODIUM 40 MG VIAL ONE (13:02)
[2019-07-23] MEDS ORDERED: ACETAMINOPHEN 500 MG TABLET (FP) ONE (13:04)
[2019-07-23] MEDS: ACETAMINOPHEN 500 MG TABLET (FP) PO PRN (13:09)
[2019-07-23] MEDS ORDERED: PANTOPRAZOLE SODIUM 40 MG VIAL IVPUSH ONE (13:15)
[2019-07-23] MEDS: METOCLOPRAMIDE HCL INJECTION 10 MG/2 ML VIAL IVPUSH SCH ×2 (13:20→22:23)
--- NOTE | 2019-07-23 14:59 | CON.GI ---
Consult Consult Specialty:: Gastroenterology ( covering the [facility] GI service ) Referred by:: Patti Camacho NP Reason for Consultation:: abdominal pain - History of Present Illness Chief Complaint: dyspepsia History of Present Illness: 68M is admitted after a syncopal spell while at PT. He also reports that he has epigastric burning and bloating that has led to vomiting. He denies hematemesis , melena or rectal bleeding. He had an EGD and a colonoscopy with Dr Porter on 05/28/19 which revealed a small patch of gastritis and moderate diverticulosis in the sigmoid colon. He was also found to have a rectal ulcer and had a tubular adenoma removed from the descending colon. 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year[place] 1980 History of Recent Travel: No Home Medications - Allergies Allergies/Adverse Reactions: Allergies Allergy/AdvReac Type Severity Reaction Status Date / Time No Known Allergies Allergy Verified 07/22/19 16:03 - Home Medications Home Medications: Ambulatory Orders Atorvastatin Calcium 20 mg PO HS 02/11/19 Brimonidine Tartrate [Alphagan 0.2% -] 1 drop OU BID 02/11/19 Dorzolamide HCl [Trusopt 2% -] 1 drop OU BID 02/11/19 Fluticasone Propionate [Flonase Allergy Relief] 2 spray NS DAILY PRN 02/11/19 Gabapentin 300 mg PO BID 02/11/19 Metformin HCl [Glucophage] 500 mg PO BID 02/11/19 Montelukast Sodium [Singulair] 10 mg PO DAILY 02/11/19 Omeprazole 40 mg PO DAILY 02/11/19 Acetaminophen [Tylenol .Extra-Strength -] 500 mg PO Q6H PRN tablet 06/04/19 Insulin Sliding Scale [Novolog Vial Sliding Scale -] 1 vial SQ TIDAC units 08/19 Mirtazapine [Remeron -] 7.5 mg PO HS tablet 06/04/19 Polyethylene Glycol 3350 [Miralax 119 gm Btl -] 17 gm PO BID bottle 06/04/19 Sennosides [Senna] 2 tab PO HS 07/22/19 Family Medical History Other Family History: mother and father naturally Review of Systems - Review of Systems Constitutional: reports: Loss of Appetite, Unintentional Wgt. Loss, Weakness Eyes: reports: No Symptoms HENT: reports: No Symptoms Neck: reports: Swollen Glands Cardiovascular: reports: Chest Pain Respiratory: reports: SOB on Exertion Gastrointestinal: reports: Abdominal Pain, Vomiting Genitourinary: reports: No Symptoms Musculoskeletal: reports: Back Pain, Joint Pain Physical Exam-GI Vital Signs: Vital Signs Temperature 97.9 F 07/23/19 11:59 Pulse Rate 69 07/23/19 12:41 Respiratory Rate 20 07/23/19 11:59 Blood Pressure 157/95 07/23/19 12:41 O2 Sat by Pulse Oximetry (%) 98 07/23/19 12:41 CBC,CMP WBC 3.0 K/mm3 (4.0-10.0) L 07/23/19 07:45 RBC 3.90 M/mm3 (4.00-5.60) L 07/23/19 07:45 Hgb 12.9 GM/dL (11.7-16.9) 07/23/19 07:45 Hct 37.8 % (35.4-49) 07/23/19 07:45 MCV 96.9 fl (80-96) H 07/23/19 07:45 MCH 33.0 pg (25.7-33.7) 07/23/19 07:45 MCHC 34.0 g/dl (32.0-35.9) 07/23/19 07:45 RDW 14.7 % (11.9-15.9) 07/23/19 07:45 Plt Count 135 K/MM3 (134-434) 07/23/19 07:45 MPV 8.8 fl (7.5-11.1) 07/23/19 07:45 Absolute Neuts (auto) 2.0 K/mm3 (1.5-8.0) 07/22/19 17:00 Neutrophils % 56.1 % (42.8-82.8) 07/22/19 17:00 Lymphocytes % 31.5 % (8-40) 07/22/19 17:00 Monocytes % 9.7 % (3.8-10.2) 07/22/19 17:00 Eosinophils % 1.9 % (0-4.5) 07/22/19 17:00 Basophils % 0.8 % (0-2.0) 07/22/19 17:00 Nucleated RBC % 0 % (0-0) 07/22/19 17:00 Sodium 141 mmol/L (136-145) 07/23/19 07:45 Potassium 3.7 mmol/L (3.5-5.1) 07/23/19 07:45 Chloride 108 mmol/L (98-107) H 07/23/19 07:45 Carbon Dioxide 28 mmol/L (21-32) 07/23/19 07:45 Anion Gap 5 MMOL/L (8-16) L 07/23/19 07:45 BUN 7.0 mg/dL (7-18) 07/23/19 07:45 Creatinine 1.0 mg/dL (0.55-1.3) 07/23/19 07:45 Est GFR (CKD-EPI)AfAm 87.99 07/23/19 07:45 Est GFR (CKD-EPI)NonAf 75.92 07/23/19 07:45 POC Glucometer 90 UNITS (80-120) 07/23/19 11:21 Random Glucose 85 mg/dL (74-106) 07/23/19 07:45 Calcium 8.4 mg/dL (8.5-10.1) L 07/23/19 07:45 Magnesium 1.9 mg/dL (1.8-2.4) 07/23/19 07:45 Total Bilirubin 0.5 mg/dL (0.2-1) 07/23/19 07:45 AST 8 U/L (15-37) L 07/23/19 07:45 ALT 11 U/L (13-61) L 07/23/19 07:45 Alkaline Phosphatase 135 U/L (45-117) H 07/23/19 07:45 Troponin I < 0.02 ng/ml (0.00-0.05) 07/23/19 01:33 Total Protein 6.5 g/dl (6.4-8.2) 07/23/19 07:45 Albumin 3.3 g/dl (3.4-5.0) L 07/23/19 07:45 Current Medications Generic Name Dose Route Start Last Admin Trade Name Freq PRN Reason Stop Dose Admin Acetaminophen 500 mg 07/23/19 12:57 07/23/19 13:09 Tylenol - PO 500 mg Q6H PRN Administration PAIN 1-3 Atorvastatin Calcium 20 mg 07/23/19 22:00 Lipitor - PO HS NOEMY Brimonidine Tartrate 1 drop 07/23/19 22:00 Alphagan 0.2% - OU BID NOEMY Dorzolamide HCl 1 drop 07/23/19 22:00 Trusopt 2% OU BID NOEMY Gabapentin 300 mg 07/23/19 22:00 Neurontin - PO BID NOEMY Heparin Sodium (Porcine) 5,000 unit 07/23/19 06:00 07/23/19 14:50 Heparin - SQ 5,000 unit TID NOEMY Administration Sodium Chloride 1,000 mls @ 100 mls/hr 07/22/19 22:00 07/23/19 01:13 Normal Saline - IV 100 mls/hr ASDIR NOEMY Administration Insulin Aspart 1 vial 07/23/19 07:00 07/23/19 11:59 Novolog Vial Sliding Scale - SQ Not [facility] Protocol Insulin Aspart 1 vial 07/23/19 16:30 Novolog Vial Sliding Scale - SQ TIDAC [facility] Protocol Metformin HCl 500 mg 07/23/19 16:30 Glucophage - PO BIDAC NOEMY Mirtazapine 7.5 mg 07/23/19 22:00 Remeron - PO HS NOEMY Montelukast Sodium 10 mg 07/24/19 22:00 Singulair - PO HS NOEMY Polyethylene Glycol 17 gm 07/23/19 22:00 Miralax (For Daily Use) - PO BID NOEMY Constitutional: Yes: Calm Eyes: Yes: Conjunctiva Clear HENT: Yes: Normocephalic Neck: Yes: Trachea Midline Cardiovascular: Yes: Regular Rate and Rhythm Respiratory: Yes: CTA Bilaterally Gastrointestinal Inspection: Yes: Scars (left flank incision) ...Auscultate: Yes: Normoactive Bowel Sounds ...Palpate: Yes: Soft, Other (nontender) ...Percussion: Yes: Tympanitic ...Rectal Exam: Yes: Guaiac Negative (no maases, brown guaiac negative stool) Edema: No Neurological: Yes: Alert Labs: CBC, BMP 07/23/19 07:45 07/23/19 07:45 Problem List - Problems (1) Abdominal pain Code(s): R10.9 - UNSPECIFIED ABDOMINAL PAIN Qualifiers: Abdominal location: epigastric Qualified Code(s): R10.13 - Epigastric pain (2) Syncope Code(s): R55 - SYNCOPE AND COLLAPSE Qualifiers: Syncope type: unspecified Qualified Code(s): R55 - Syncope and collapse (3) Abnormal weight loss Code(s): R63.4 - ABNORMAL WEIGHT LOSS (4) Atypical chest pain Code(s): R07.89 - OTHER CHEST PAIN (5) Diabetes mellitus Code(s): E11.9 - TYPE 2 DIABETES MELLITUS WITHOUT COMPLICATIONS (6) Diverticulosis Code(s): K57.90 - DVRTCLOS OF INTEST, PART UNSP, W/O PERF OR ABSCESS W/O BLEED (7) Vomiting Code(s): R11.10 - VOMITING, UNSPECIFIED Qualifiers: Vomiting type: unspecified (8) Colon adenoma Code(s): D12.6 - BENIGN NEOPLASM OF COLON, UNSPECIFIED Assessment/Plan Assessment: - I suspect that Leslie has diabetic gastroparesis leading to GERD. I will start Reglan and a PPI - Personal h/o tubular adenoma and rectal ulcer - Diverticulosis Plan: -- Reglan 10mg IVPB q6h -- PPI -- Advance diet as tolerated -- Please recall the [facility] GI service as needed
[2019-07-23] MEDS ORDERED: INSULIN SLIDING SCALE (NOVOLOG) 1 VIAL SQ SCH (16:30)
[2019-07-23] MEDS: metFORMIN HCL 500 MG TABLET (FP) PO SCH (18:36)
[2019-07-23] MEDS: MIRTAZAPINE 15 MG TABLET (FP) PO SCH (22:25)
[2019-07-23] MEDS: ATORVASTATIN CA 20 MG TABLET (FP) PO SCH (22:25)
[2019-07-23] MEDS: GABAPENTIN 300 MG CAPSULE PO SCH (22:26)
[2019-07-23] MEDS: POLYETHYLENE GLYCOL 3350 119 GM BTL PO SCH (22:27)
[2019-07-23] MEDS: PANTOPRAZOLE SODIUM 40 MG VIAL IVPUSH SCH (22:29)
[2019-07-24] MEDS: DORZOLAMIDE 2% HCL OPHTHALMIC SOLUTION 10 ML BOTTLE OU SCH ×3 (00:50→22:17)
[2019-07-24] MEDS: BRIMONIDINE TARTRATE 0.2% OPHTHALMIC 5 ML BOTTLE OU SCH ×3 (00:50→22:16)
[2019-07-24] MEDS: METOCLOPRAMIDE HCL INJECTION 10 MG/2 ML VIAL IVPUSH SCH ×2 (02:37→09:40)
[2019-07-24] MEDS: metFORMIN HCL 500 MG TABLET (FP) PO SCH ×2 (06:06→18:33)
[2019-07-24] MEDS: INSULIN SLIDING SCALE (NOVOLOG) 1 VIAL SQ SCH ×2 (06:06→16:19)
[2019-07-24] MEDS: HEPARIN NA (PORCINE) 5,000 UNITS/ML 1ML VIAL SQ SCH ×3 (06:10→22:16)
[2019-07-24 08:20] LABS: AMYLASE 76 U/L (25-115); GAMMA GLUTAMYL TRANSPEPTIDASE 16 U/L (5-85); LIPASE 58 U/L (73-393)
[2019-07-24] MEDS: POLYETHYLENE GLYCOL 3350 119 GM BTL PO SCH ×2 (09:41→22:13)
[2019-07-24] MEDS: PANTOPRAZOLE SODIUM 40 MG VIAL IVPUSH SCH ×2 (09:42→22:16)
[2019-07-24] MEDS: GABAPENTIN 300 MG CAPSULE PO SCH ×2 (09:42→22:16)
--- NOTE | 2019-07-24 10:53 | PN ---
Progress Note, Physician Chief Complaint: AWAKE ALERT BEDSIDE C/O DYSPHAGIA AND ABD EPIGASTRIC PAIN NO FEVER OR CHILLS - Current Medication List Current Medications: Active Medications Acetaminophen (Tylenol -) 500 mg PO Q6H PRN PRN Reason: PAIN 1-3 Last Admin: 07/23/19 13:09 Dose: 500 mg Al Hydroxide/Mg Hydroxide (Mylanta Oral Suspension -) 30 ml PO Q6H PRN PRN Reason: DYSPEPSIA Atorvastatin Calcium (Lipitor -) 20 mg PO HS [facility] Last Admin: 07/23/19 22:25 Dose: 20 mg Brimonidine Tartrate (Alphagan 0.2% -) 1 drop OU BID [facility] Last Admin: 07/24/19 09:58 Dose: 1 drop Dorzolamide HCl (Trusopt 2%) 1 drop OU BID [facility] Last Admin: 07/24/19 09:58 Dose: 1 drop Gabapentin (Neurontin -) 300 mg PO BID [facility] Last Admin: 07/24/19 09:42 Dose: 300 mg Heparin Sodium (Porcine) (Heparin -) 5,000 unit SQ TID [facility] Last Admin: 07/24/19 06:10 Dose: 5,000 unit Sodium Chloride (Normal Saline -) 1,000 mls @ 100 mls/hr IV ASDIR [facility] Last Admin: 07/23/19 22:27 Dose: 100 mls/hr Insulin Aspart (Novolog Vial Sliding Scale -) 1 vial SQ TIDAC [facility]; Protocol Last Admin: 07/24/19 06:06 Dose: Not Given Insulin Aspart (Novolog Vial Sliding Scale -) 1 vial SQ TIDAC [facility]; Protocol Metformin HCl (Glucophage -) 500 mg PO BIDAC [facility] Last Admin: 07/24/19 06:06 Dose: Not Given Metoclopramide HCl (Reglan Injection -) 10 mg IVPUSH Q6H-IV [facility] Last Admin: 07/24/19 09:40 Dose: 10 mg Mirtazapine (Remeron -) 7.5 mg PO HS [facility] Last Admin: 07/23/19 22:25 Dose: 7.5 mg Montelukast Sodium (Singulair -) 10 mg PO HS [facility] Pantoprazole Sodium (Protonix Iv) 40 mg IVPUSH BID [facility] Last Admin: 07/24/19 09:42 Dose: 40 mg Polyethylene Glycol (Miralax (For Daily Use) -) 17 gm PO BID [facility] Last Admin: 07/24/19 09:41 Dose: Not Given - Objective Vital Signs: Vital Signs Temperature 98.7 F 07/24/19 06:00 Pulse Rate 90 07/24/19 06:00 Respiratory Rate 18 07/24/19 06:00 Blood Pressure 119/80 07/24/19 06:00 O2 Sat by Pulse Oximetry (%) 98 07/23/19 20:00 Constitutional: Yes: Mild Distress HENT: Yes: WNL Neck: Yes: WNL Cardiovascular: Yes: Pulse Irregular Respiratory: Yes: WNL Gastrointestinal: Yes: Normal Bowel Sounds, Soft Genitourinary: Yes: WNL Musculoskeletal: Yes: Muscle Weakness Edema: No Peripheral Pulses WNL: Yes Integumentary: Yes: WNL Wound/Incision: Yes: Clean/Dry Neurological: Yes: Pre-Existing Deficit ...Motor Strength: LLE, RLE Psychiatric: Yes: WNL Labs: CBC, BMP 07/23/19 07:45 07/23/19 07:45 Problem List - Problems (1) Gastroparesis Code(s): K31.84 - GASTROPARESIS (2) Gastroparesis due to DM Code(s): E11.43 - TYPE 2 DIABETES W DIABETIC AUTONOMIC (POLY)NEUROPATHY; K31.84 - GASTROPARESIS (3) Abdominal pain Code(s): R10.9 - UNSPECIFIED ABDOMINAL PAIN Qualifiers: Abdominal location: epigastric Qualified Code(s): R10.13 - Epigastric pain (4) Colon adenoma Code(s): D12.6 - BENIGN NEOPLASM OF COLON, UNSPECIFIED (5) HLD (hyperlipidemia) Code(s): E78.5 - HYPERLIPIDEMIA, UNSPECIFIED (6) Syncope Code(s): R55 - SYNCOPE AND COLLAPSE Qualifiers: Syncope type: unspecified Qualified Code(s): R55 - Syncope and collapse (7) Abnormal weight loss Code(s): R63.4 - ABNORMAL WEIGHT LOSS (8) Atypical chest pain Code(s): R07.89 - OTHER CHEST PAIN (9) Diabetes mellitus Code(s): E11.9 - TYPE 2 DIABETES MELLITUS WITHOUT COMPLICATIONS (10) Dysphagia Code(s): R13.10 - DYSPHAGIA, UNSPECIFIED Qualifiers: Dysphagia type: esophageal phase Qualified Code(s): R13.10 - Dysphagia, unspecified (11) Failure to thrive Code(s): RYQ7210 - (12) History of nephrectomy Code(s): Z90.5 - ACQUIRED ABSENCE OF KIDNEY (13) Lung nodule < 6cm on CT Code(s): R91.1 - SOLITARY PULMONARY NODULE (14) Prostate cancer Code(s): C61 - MALIGNANT NEOPLASM OF PROSTATE (15) Rectal ulcer Code(s): K62.6 - ULCER OF ANUS AND RECTUM Assessment/Plan ON IV REGLAN FOR GASTROPARESIS ON TELEMETRY FOR SYNCOPE AND CARDIAC MONITORING NO ACUTE ALARMS CHANGE TO SOFT DIET SWALLOW EVAL FOR DYSPHAGIA WORKUP MODIFIED BARIUM NEEDED AND ESOPHOGRAM GI EVAL APPRECIATED PT EVAL OOB TO CHAIR WITH ASSIST
[2019-07-24] MEDS: MAG HYDROX/AL HYDROX/SIMETH 30 ML UNIT-DOSE CUP PO PRN ×2 (12:14→17:12)
--- NOTE | 2019-07-24 13:17 | PN ---
Progress Note (short form) - Note Progress Note: Pt still complains of difficulty swallowing. Says he is eating but "not much." Abdomen soft, nontender. No new episodes of vomiting reported. Given his admission for syncope and continued EKG monitoring will hold metoclopramide. Metoclopramide can itself be a rare cause of SVT, hypotension and bradycardia.
--- NOTE | 2019-07-24 15:03 | CON.CARD ---
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 He reports episodes of LOC occur when seated and associated with lightheadedness and vomiting either before or after the event. Reports several episodes recently. Unable to stand after his stroke and is wheelchair dependant. He has poor po intake due to abdominal pain and felt to have diabetic gastroparesis. Nursing reported significant orthostatic BP decline last night which has resolved after fluid IV. Telemetry shows one sinus pause of 4 sec Resident dani Collins for rehab. 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 History of Recent Travel: No Home Medications - Allergies Allergies/Adverse Reactions: Allergies Allergy/AdvReac Type Severity Reaction Status Date / Time No Known Allergies Allergy Verified 07/22/19 16:03 - Home Medications Home Medications: Ambulatory Orders Atorvastatin Calcium 20 mg PO HS 02/11/19 Brimonidine Tartrate [Alphagan 0.2% -] 1 drop OU BID 02/11/19 Dorzolamide HCl [Trusopt 2% -] 1 drop OU BID 02/11/19 Fluticasone Propionate [Flonase Allergy Relief] 2 spray NS DAILY PRN 02/11/19 Gabapentin 300 mg PO BID 02/11/19 Metformin HCl [Glucophage] 500 mg PO BID 02/11/19 Montelukast Sodium [Singulair] 10 mg PO DAILY 02/11/19 Omeprazole 40 mg PO DAILY 02/11/19 Acetaminophen [Tylenol .Extra-Strength -] 500 mg PO Q6H PRN tablet 06/04/19 Insulin Sliding Scale [Novolog Vial Sliding Scale -] 1 vial SQ TIDAC units 08/19 Mirtazapine [Remeron -] 7.5 mg PO HS tablet 06/04/19 Polyethylene Glycol 3350 [Miralax 119 gm Btl -] 17 gm PO BID bottle 06/04/19 Sennosides [Senna] 2 tab PO HS 07/22/19 Review of Systems - Review of Systems Constitutional: reports: No Symptoms Eyes: reports: No Symptoms HENT: reports: No Symptoms Neck: reports: No Symptoms Cardiovascular: denies: Chest Pain, Edema, Palpitations, Shortness of Breath Respiratory: reports: No Symptoms Gastrointestinal: reports: Abdominal Pain, Bloating, Vomiting Genitourinary: reports: No Symptoms Breasts: reports: No Symptoms Reported Vital Signs: Vital Signs Temperature 98.2 F 07/24/19 10:00 Pulse Rate 91 H 07/24/19 10:00 Respiratory Rate 18 07/24/19 10:00 Blood Pressure 117/76 07/24/19 10:00 O2 Sat by Pulse Oximetry (%) 98 07/23/19 20:00 Constitutional: Yes: No Distress, Calm, Thin Eyes: Yes: Conjunctiva Clear, EOM Intact HENT: Yes: Atraumatic, Normocephalic Neck: Yes: Supple, Trachea Midline Respiratory: Yes: Regular, CTA Bilaterally Gastrointestinal: Yes: Normal Bowel Sounds, Soft Renal/: Yes: WNL Cardiovascular: Yes: WNL, Regular Rate and Rhythm JVD: No Carotid Bruit: No PMI: Non-Displaced Heart Sounds: Yes: S1, S2 Murmur: Yes: Systolic Murmur (2/6) Edema: No - Other Data Labs, Other Data: CBC, BMP 07/23/19 07:45 07/23/19 07:45 Problem List - Problems (1) Syncope Code(s): R55 - SYNCOPE AND COLLAPSE Qualifiers: Syncope type: unspecified Qualified Code(s): R55 - Syncope and collapse Assessment/Plan 68 M Diabetic gastroparesis Poor PO intake frequent dizziness and recurrent syncope. Nursing reports orthostatic BP decline at time of adnission which resolved after IVF. Telemetry showed 4 sec pause. Recent echocardiogram with noraml LV function and no valvular heart disease or pulm HTN. Syncope is possibly due to poor PO intake or orthostatic BP decline due to diabetic autonomic dysfunction. The Nocturnal pause on telemetry possibly from increased vagal tone and may be unrelated. Will ask arrhythmia to evaluate pt and see if ILR or PPM is appropriate. Dr. Mustafa was called. Avoid AV caitlin blocking agents. No need to repeat echocardiogram had one dos recently Can stop IV fluid.
--- NOTE | 2019-07-24 19:58 | CONSULT ---
Consult - text type - Consultation Consultation Note: NEUROLOGY CONSULTATION is greatly appreciated: This 68 yo RH man with h/o DM, GERD, Nephrectomy and RT for prostate CA was seen by me 0n 02/12/19 after recurrent syncope suggesting dysautonomia. S/P CVA 10 years ago with residual mild, left hemiparesis. He came in from home in Jan., ambulating independently with a cane but is now, apparently, in NH and predominantly wheelchair bound. In spite of that, he claims multiple, recurrent episodes of syncope including the admission event which reportedly occurred while seated. Many prior episodes were post-prandial. Cardiology consultation read and appreciated. In addition to documented orthostatic hypotension, patient also had a 4 sec pause on telemetry. EF Normal. Meds include: Atorvastatin; Fluticasone; Gabapentin 300 mg PO BID (?); Metformin; Montelukast; Omeprazole; Insulin; and, Mirtazapine. Now off all BP meds. CT of head (reviewed): Mild diffuse atrophy and scattered microvascular changes. No large CVA's seen. JOE: No head trauma. No bruits. Cor reg NEURO: Awake, alert. O x [facility]. 2018. Recalls 1 of 3. +Glabella CN: Full webb. Full EOM's. No obvious facial. Gag OK Motor: B/L drift- downward on the right and upward on the left. Reduced PEPPER's. No sig cogwheeling. Brisk reflexes with B/L ankle clonus and B/L Babinski signs. Coord: Min left FTN dystaxia Sensory: Seems not to feel vibration below either knee. Gait: Unsteady, B/L circumduction IMP: 1. Since January the neuro exam has changed now with B/L motor signs and hyperreflexia -consider new left CVA and/or Cervical myelopathy 2. Recurrent syncope due to dysautonomia and/or Bradyarrhythmia SUGGEST: Check orthostatic BP's Continue Telemetry and cardiac eval as per Dr. Rios MRI of brain and Cervical spine (Both C-) Check B12, TSH, RPR PT for eval and gait training with walker. Thank you very much, Brandin Hutchison MD
[2019-07-24] MEDS: SODIUM CHLORIDE 1,000 ML IV SCH (22:13)
[2019-07-24] MEDS: ATORVASTATIN CA 20 MG TABLET (FP) PO SCH (22:13)
[2019-07-24] MEDS: MONTELUKAST NA 10 MG TABLET PO SCH (22:15)
[2019-07-24] MEDS: MIRTAZAPINE 15 MG TABLET (FP) PO SCH (22:15)
--- NOTE | 2019-07-24 22:52 | CON.NEP ---
Consult Consult Specialty:: Nephrology Reason for Consultation:: s/p nephrectomy - History of Present Illness Chief Complaint: fainting and presyncope History of Present Illness: admitted s/p syncopal episode today. The pt reports being a PT today at 1000 and while sitting in a chair he felt lightheaded while in PT s/p 'passed out' for approximately 30 seconds. did not fall out of the chair no chest pain before/after. 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 History of Recent Travel: No Home Medications - Allergies Allergies/Adverse Reactions: Allergies Allergy/AdvReac Type Severity Reaction Status Date / Time No Known Allergies Allergy Verified 07/22/19 16:03 - Home Medications Home Medications: Ambulatory Orders Atorvastatin Calcium 20 mg PO HS 02/11/19 Brimonidine Tartrate [Alphagan 0.2% -] 1 drop OU BID 02/11/19 Dorzolamide HCl [Trusopt 2% -] 1 drop OU BID 02/11/19 Fluticasone Propionate [Flonase Allergy Relief] 2 spray NS DAILY PRN 02/11/19 Gabapentin 300 mg PO BID 02/11/19 Metformin HCl [Glucophage] 500 mg PO BID 02/11/19 Montelukast Sodium [Singulair] 10 mg PO DAILY 02/11/19 Omeprazole 40 mg PO DAILY 02/11/19 Acetaminophen [Tylenol .Extra-Strength -] 500 mg PO Q6H PRN tablet 06/04/19 Insulin Sliding Scale [Novolog Vial Sliding Scale -] 1 vial SQ TIDAC units 08/19 Mirtazapine [Remeron -] 7.5 mg PO HS tablet 06/04/19 Polyethylene Glycol 3350 [Miralax 119 gm Btl -] 17 gm PO BID bottle 06/04/19 Sennosides [Senna] 2 tab PO HS 07/22/19 Nephrology Consult - Height Height: 5 ft 6 in - Weight Weight: 135 lb 3.2 oz - BMI Body Mass Index (BMI): 21.8 - Lab Results CBC,BMP: CBC, BMP 07/23/19 07:45 07/23/19 07:45 Anion Gap: Anion Gap Anion Gap 5 MMOL/L (8-16) L 07/23/19 07:45 - Physical Examination Vital Signs: Vital Signs Temperature 98.1 F 07/24/19 18:32 Pulse Rate 80 07/24/19 18:32 Respiratory Rate 18 07/24/19 18:32 Blood Pressure 96/54 L 07/24/19 18:32 O2 Sat by Pulse Oximetry (%) 98 07/23/19 20:00 Assessment/Plan admitted for eval of syncope gives 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
[2019-07-24 22:53] VITALS: BMI 21.8
[2019-07-25] MEDS: INSULIN SLIDING SCALE (NOVOLOG) 1 VIAL SQ SCH ×3 (06:17→17:22)
[2019-07-25] MEDS: HEPARIN NA (PORCINE) 5,000 UNITS/ML 1ML VIAL SQ SCH ×2 (06:17→14:53)
[2019-07-25] MEDS: metFORMIN HCL 500 MG TABLET (FP) PO SCH ×2 (09:23→18:21)
[2019-07-25] MEDS: GABAPENTIN 300 MG CAPSULE PO SCH ×2 (10:22→21:33)
[2019-07-25] MEDS: DORZOLAMIDE 2% HCL OPHTHALMIC SOLUTION 10 ML BOTTLE OU SCH ×2 (10:22→21:43)
[2019-07-25] MEDS: PANTOPRAZOLE SODIUM 40 MG VIAL IVPUSH SCH ×2 (10:22→21:34)
[2019-07-25] MEDS: BRIMONIDINE TARTRATE 0.2% OPHTHALMIC 5 ML BOTTLE OU SCH ×2 (10:22→21:43)
[2019-07-25] MEDS: POLYETHYLENE GLYCOL 3350 119 GM BTL PO SCH ×2 (10:23→21:33)
--- NOTE | 2019-07-25 11:12 | PN ---
Progress Note, Physician Chief Complaint: PATIENT WITH 4.05 SEC PAUSE ON TELEMETRY DENIES CHEST PAIN OR SOB TOLERATING SOFT DIET - Current Medication List Current Medications: Active Medications Acetaminophen (Tylenol -) 500 mg PO Q6H PRN PRN Reason: PAIN 1-3 Last Admin: 07/23/19 13:09 Dose: 500 mg Al Hydroxide/Mg Hydroxide (Mylanta Oral Suspension -) 30 ml PO Q6H PRN PRN Reason: DYSPEPSIA Last Admin: 07/24/19 17:12 Dose: 30 ml Atorvastatin Calcium (Lipitor -) 20 mg PO HS [facility] Last Admin: 07/24/19 22:13 Dose: Not Given Brimonidine Tartrate (Alphagan 0.2% -) 1 drop OU BID [facility] Last Admin: 07/25/19 10:22 Dose: 1 drop Dorzolamide HCl (Trusopt 2%) 1 drop OU BID [facility] Last Admin: 07/25/19 10:22 Dose: 1 drop Gabapentin (Neurontin -) 300 mg PO BID [facility] Last Admin: 07/25/19 10:22 Dose: 300 mg Heparin Sodium (Porcine) (Heparin -) 5,000 unit SQ TID [facility] Last Admin: 07/25/19 06:17 Dose: 5,000 unit Sodium Chloride (Normal Saline -) 1,000 mls @ 100 mls/hr IV ASDIR [facility] Last Admin: 07/24/19 22:13 Dose: Not Given Insulin Aspart (Novolog Vial Sliding Scale -) 1 vial SQ TIDAC [facility]; Protocol Last Admin: 07/25/19 06:17 Dose: Not Given Metformin HCl (Glucophage -) 500 mg PO BIDAC [facility] Last Admin: 07/25/19 09:23 Dose: 500 mg Mirtazapine (Remeron -) 7.5 mg PO HS [facility] Last Admin: 07/24/19 22:15 Dose: 7.5 mg Montelukast Sodium (Singulair -) 10 mg PO HS [facility] Last Admin: 07/24/19 22:15 Dose: 10 mg Pantoprazole Sodium (Protonix Iv) 40 mg IVPUSH BID [facility] Last Admin: 07/25/19 10:22 Dose: 40 mg Polyethylene Glycol (Miralax (For Daily Use) -) 17 gm PO BID [facility] Last Admin: 07/25/19 10:23 Dose: Not Given - Objective Vital Signs: Vital Signs Temperature 97.9 F 02/23/20 09:00 Pulse Rate 76 07/25/19 09:00 Respiratory Rate 20 07/25/19 09:00 Blood Pressure 139/92 07/25/19 09:00 O2 Sat by Pulse Oximetry (%) 98 07/23/19 20:00 Constitutional: Yes: Mild Distress Cardiovascular: Yes: Pulse Irregular Respiratory: Yes: WNL Gastrointestinal: Yes: Soft Genitourinary: Yes: WNL Musculoskeletal: Yes: WNL Extremities: Yes: WNL Edema: No Integumentary: Yes: WNL Wound/Incision: Yes: Clean/Dry Neurological: Yes: WNL ...Motor Strength: WNL Psychiatric: Yes: WNL Labs: CBC, BMP 07/23/19 07:45 07/23/19 07:45 Problem List - Problems (1) Gastroparesis Code(s): K31.84 - GASTROPARESIS (2) Gastroparesis due to DM Code(s): E11.43 - TYPE 2 DIABETES W DIABETIC AUTONOMIC (POLY)NEUROPATHY; K31.84 - GASTROPARESIS (3) Abdominal pain Code(s): R10.9 - UNSPECIFIED ABDOMINAL PAIN Qualifiers: Abdominal location: epigastric Qualified Code(s): R10.13 - Epigastric pain (4) Colon adenoma Code(s): D12.6 - BENIGN NEOPLASM OF COLON, UNSPECIFIED (5) HLD (hyperlipidemia) Code(s): E78.5 - HYPERLIPIDEMIA, UNSPECIFIED (6) Syncope Code(s): R55 - SYNCOPE AND COLLAPSE Qualifiers: Syncope type: unspecified Qualified Code(s): R55 - Syncope and collapse (7) Abnormal weight loss Code(s): R63.4 - ABNORMAL WEIGHT LOSS (8) Atypical chest pain Code(s): R07.89 - OTHER CHEST PAIN (9) Diabetes mellitus Code(s): E11.9 - TYPE 2 DIABETES MELLITUS WITHOUT COMPLICATIONS (10) Dysphagia Code(s): R13.10 - DYSPHAGIA, UNSPECIFIED Qualifiers: Dysphagia type: esophageal phase Qualified Code(s): R13.10 - Dysphagia, unspecified (11) Failure to thrive Code(s): XHT1526 - (12) History of nephrectomy Code(s): Z90.5 - ACQUIRED ABSENCE OF KIDNEY (13) Lung nodule < 6cm on CT Code(s): R91.1 - SOLITARY PULMONARY NODULE (14) Prostate cancer Code(s): C61 - MALIGNANT NEOPLASM OF PROSTATE (15) Rectal ulcer Code(s): K62.6 - ULCER OF ANUS AND RECTUM Assessment/Plan ON IV REGLAN FOR GASTROPARESIS STOPPED WHICH MAY CAUSE CARDIAC ARRYTHMIS ON TELEMETRY FOR SYNCOPE AND CARDIAC MONITORING AND 4.05 SEC PAUSE, DR FRIAS EPS CARDIOLOGY TO EVALUATE FOR PACEMAKER PLACEMENT CHANGE TO SOFT DIET HAS BEEN TOLERATED SWALLOW EVAL FOR DYSPHAGIA WORKUP MODIFIED BARIUM NEEDED AND ESOPHOGRAM GI EVAL APPRECIATED PT EVAL OOB TO CHAIR WITH ASSIST
[2019-07-25 11:39] LABS: BLOOD UREA NITROGEN 9.6 mg/dL (7-18); CALCIUM 8.2 mg/dL (8.5-10.1); CREATININE 1.2 mg/dL (0.55-1.3); POTASSIUM 3.7 mmol/L (3.5-5.1)
--- NOTE | 2019-07-25 17:23 | PN ---
Progress Note, Physician Chief Complaint: Telem 4 sec AV caitlin block. Pt was supine at the andrés and asymptomatic. 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 He reports episodes of LOC occur when seated and associated with lightheadedness and vomiting either before or after the event. Reports several episodes recently. Unable to stand after his stroke and is wheelchair dependant. He has poor po intake due to abdominal pain and felt to have diabetic gastroparesis. Nursing reported significant orthostatic BP decline last night which has resolved after fluid IV. Telemetry shows one sinus pause of 4 sec Resident dani Collins for rehab. Echo 05/2019 Normal LV function no pulm HN or valvular pathology - Current Medication List Current Medications: Active Medications Acetaminophen (Tylenol -) 500 mg PO Q6H PRN PRN Reason: PAIN 1-3 Last Admin: 07/23/19 13:09 Dose: 500 mg Al Hydroxide/Mg Hydroxide (Mylanta Oral Suspension -) 30 ml PO Q6H PRN PRN Reason: DYSPEPSIA Last Admin: 07/24/19 17:12 Dose: 30 ml Atorvastatin Calcium (Lipitor -) 20 mg PO HS [facility] Last Admin: 07/24/19 22:13 Dose: Not Given Brimonidine Tartrate (Alphagan 0.2% -) 1 drop OU BID [facility] Last Admin: 07/25/19 10:22 Dose: 1 drop Dorzolamide HCl (Trusopt 2%) 1 drop OU BID [facility] Last Admin: 07/25/19 10:22 Dose: 1 drop Gabapentin (Neurontin -) 300 mg PO BID [facility] Last Admin: 07/25/19 10:22 Dose: 300 mg Heparin Sodium (Porcine) (Heparin -) 5,000 unit SQ TID [facility] Last Admin: 07/25/19 14:53 Dose: 5,000 unit Sodium Chloride (Normal Saline -) 1,000 mls @ 100 mls/hr IV ASDIR [facility] Last Admin: 07/24/19 22:13 Dose: Not Given Insulin Aspart (Novolog Vial Sliding Scale -) 1 vial SQ TIDAC [facility]; Protocol Last Admin: 07/25/19 12:00 Dose: Not Given Metformin HCl (Glucophage -) 500 mg PO BIDAC [facility] Last Admin: 07/25/19 09:23 Dose: 500 mg Mirtazapine (Remeron -) 7.5 mg PO HS [facility] Last Admin: 07/24/19 22:15 Dose: 7.5 mg Montelukast Sodium (Singulair -) 10 mg PO HS [facility] Last Admin: 07/24/19 22:15 Dose: 10 mg Pantoprazole Sodium (Protonix Iv) 40 mg IVPUSH BID [facility] Last Admin: 07/25/19 10:22 Dose: 40 mg Polyethylene Glycol (Miralax (For Daily Use) -) 17 gm PO BID [facility] Last Admin: 07/25/19 10:23 Dose: Not Given - Objective Vital Signs: Vital Signs Temperature 98.1 F 07/25/19 14:00 Pulse Rate 78 07/25/19 14:00 Respiratory Rate 07/25/19 14:00 Blood Pressure 127/87 07/25/19 14:00 O2 Sat by Pulse Oximetry (%) 98 07/23/19 20:00 Constitutional: Yes: Well Nourished, No Distress Eyes: Yes: Conjunctiva Clear HENT: Yes: Atraumatic, Normocephalic Neck: Yes: Supple, Trachea Midline Cardiovascular: Yes: Regular Rate and Rhythm Respiratory: Yes: Regular, CTA Bilaterally Gastrointestinal: Yes: Normal Bowel Sounds Edema: No Labs: CBC, BMP 07/23/19 07:45 07/25/19 05:46 Problem List - Problems (1) Syncope Code(s): R55 - SYNCOPE AND COLLAPSE Qualifiers: Syncope type: unspecified Qualified Code(s): R55 - Syncope and collapse Assessment/Plan 68 M Diabetic gastroparesis Poor PO intake frequent dizziness and recurrent syncope. Nursing reports orthostatic BP decline at time of admission which resolved after IVF. Telemetry shows recurrent 4 sec pauses Recent echocardiogram with noraml LV function and no valvular heart disease or pulm HTN. Would consider PPM placement. although some symptoms maybe due to poor PO intake and orthostatic BP decline which seems to have resolved. Dr. Mustafa to see pt. Avoid AV caitlin blocking agents. No need to repeat echocardiogram had one dos recently Keep NPO after midnight. Hold SQ heparin
--- NOTE | 2019-07-25 17:58 | CON.CARD ---
Consult Consult Specialty:: Cardiac Electrophysiology Referred by:: Cardiology Reason for Consultation:: Heart block. Syncope - History of Present Illness Chief Complaint: Syncope History of Present Illness: Mr. 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 The patient reports that the LOC occurs mostly when he is lying down and are not associated with position changes. He reports dizziness and chest discomfort prior to the syncopal events. He can have upto 1-2 events a day. He denies any associated trauma. Noted to have pauses upto 4.2 seconds while sleeping and awake on telemetry. He had orthostatic blood pressure drop reported during hospitalization that resolved after fluid infusion. Echo from 2018 with normal LVEF. Denies any dyspnea, palpitations. Unable to stand after his stroke and is wheelchair dependant. Echo 05/2019 Normal LV function no pulm HN or valvular pathology He has not been on any av caitlin blocking agents as an outpt or during his inpatient stay. - History Source History Provided By: Patient, Medical Record Limitations to Obtaining History: No Limitations - Past Medical History [employer]: Yes: CVA (left hemiparesis resolved), Other (Glaucoma) Cardio/Vascular: Yes: HTN, Hyperlipdemia Gastrointestinal: Yes: Constipation, Diverticulosis, Gastritis, Peptic Ulcer Disease, Other (colon adenoma removed 05/20, also had a rectal ulcer) Renal/: Yes: Cancer (Prostate cancer was radiated. 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 [employer] History of Recent Travel: No Home Medications - Allergies Allergies/Adverse Reactions: Allergies Allergy/AdvReac Type Severity Reaction Status Date / Time No Known Allergies Allergy Verified 07/22/19 16:03 - Home Medications Home Medications: Ambulatory Orders Atorvastatin Calcium 20 mg PO HS 02/11/19 Brimonidine Tartrate [Alphagan 0.2% -] 1 drop OU BID 02/11/19 Dorzolamide HCl [Trusopt 2% -] 1 drop OU BID 02/11/19 Fluticasone Propionate [Flonase Allergy Relief] 2 spray NS DAILY PRN 02/11/19 Gabapentin 300 mg PO BID 02/11/19 Metformin HCl [Glucophage] 500 mg PO BID 02/11/19 Montelukast Sodium [Singulair] 10 mg PO DAILY 02/11/19 Omeprazole 40 mg PO DAILY 02/11/19 Acetaminophen [Tylenol .Extra-Strength -] 500 mg PO Q6H PRN tablet 06/04/19 Insulin Sliding Scale [Novolog Vial Sliding Scale -] 1 vial SQ TIDAC units 08/19 Mirtazapine [Remeron -] 7.5 mg PO HS tablet 06/04/19 Polyethylene Glycol 3350 [Miralax 119 gm Btl -] 17 gm PO BID bottle 06/04/19 Sennosides [Senna] 2 tab PO HS 07/22/19 Family Medical History Family History: Denies (no fam hx of scd) Review of Systems - Review of Systems Constitutional: denies: Chills, Fever Eyes: denies: Blurred Vision, Recent Change in Vision HENT: denies: Difficult Swallowing, Epistaxis Neck: denies: Tenderness Cardiovascular: reports: Chest Pain. denies: Palpitations, Shortness of Breath Respiratory: denies: Hemoptysis, SOB on Exertion Gastrointestinal: reports: Nausea. denies: Abdominal Pain Genitourinary: denies: Dysuria, Flank Pain Musculoskeletal: reports: Muscle Weakness Neurological: reports: Syncope Hematology/Lymphatic: denies: Excessive Bleeding Psychiatric: denies: No Symptoms Vital Signs: Vital Signs Temperature 98.1 F 07/25/19 14:00 Pulse Rate 78 07/25/19 14:00 Respiratory Rate 07/25/19 14:00 Blood Pressure 127/87 07/25/19 14:00 O2 Sat by Pulse Oximetry (%) 98 07/23/19 20:00 Constitutional: Yes: Well Nourished Eyes: Yes: WNL HENT: Yes: WNL Neck: Yes: WNL Respiratory: Yes: WNL Gastrointestinal: Yes: WNL Cardiovascular: Yes: Regular Rate and Rhythm JVD: No PMI: Non-Displaced Heart Sounds: Yes: S1, S2 Musculoskeletal: Yes: Muscle Weakness Extremities: Yes: WNL Edema: No Peripheral Pulses WNL: Yes Neurological: Yes: Alert, Oriented Psychiatric: Yes: Alert, Oriented - Other Data Labs, Other Data: CBC, BMP 07/23/19 07:45 07/25/19 05:46 Echo: Report Reviewed Ejection Fraction %: LVEF > or = 40 % Imaging - Results EKG: Image Reviewed Problem List - Problems (1) Heart block AV complete Code(s): I44.2 - ATRIOVENTRICULAR BLOCK, COMPLETE (2) HLD (hyperlipidemia) Code(s): E78.5 - HYPERLIPIDEMIA, UNSPECIFIED (3) Syncope Code(s): R55 - SYNCOPE AND COLLAPSE Qualifiers: Syncope type: unspecified Qualified Code(s): R55 - Syncope and collapse (4) Atypical chest pain Code(s): R07.89 - OTHER CHEST PAIN Assessment/Plan 68 year old male with a pmh of inc chol, dm, normal LVEF, p/w recurrent syncope , found to have episodic complete heart block. Extensive conversation with the patient regarding pathophysiology of conduction system disease and r/b/a to ppm implant. pt is agreeable to proceed. consent obtained and placed in chart. no prior shoulder surgery. not on av caitlin blocking agents. not on a/c. does not appear that pauses are vagal mediated. recurrent episodes of syncope increases risks of injury without intervention. pt in agreement with plan. d/w cardiology. - no av caitlin blocking agents - npo after midnight tonight - hold metformin - LUE IVL - plan for ppm tomorrow am - keep k 4-4.5, mg 2-2.5 - consent in chart - care as per primary services Time spent: 58 minutes. Thank you for allowing me to participate in the care of this patient. Please call with any questions.
--- NOTE | 2019-07-25 19:21 | PN ---
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 h/o left nephrectomy for renal mass (cancer) 1987 in Hosp in [facility] no right sided symptoms since then no pain or colic in right flank labs and Urine are normal renal sono Current Medications Acetaminophen (Tylenol -) 500 mg PO Q6H PRN PRN Reason: PAIN 1-3 Last Admin: 07/23/19 13:09 Dose: 500 mg Al Hydroxide/Mg Hydroxide (Mylanta Oral Suspension -) 30 ml PO Q6H PRN PRN Reason: DYSPEPSIA Last Admin: 07/24/19 17:12 Dose: 30 ml Atorvastatin Calcium (Lipitor -) 20 mg PO HS [facility] Last Admin: 07/24/19 22:13 Dose: Not Given Brimonidine Tartrate (Alphagan 0.2% -) 1 drop OU BID [facility] Last Admin: 07/25/19 10:22 Dose: 1 drop Dorzolamide HCl (Trusopt 2%) 1 drop OU BID [facility] Last Admin: 07/25/19 10:22 Dose: 1 drop Gabapentin (Neurontin -) 300 mg PO BID [facility] Last Admin: 07/25/19 10:22 Dose: 300 mg Heparin Sodium (Porcine) (Heparin -) 5,000 unit SQ TID [facility] Last Admin: 07/25/19 14:53 Dose: 5,000 unit Sodium Chloride (Normal Saline -) 1,000 mls @ 100 mls/hr IV ASDIR [facility] Last Admin: 07/24/19 22:13 Dose: Not Given Insulin Aspart (Novolog Vial Sliding Scale -) 1 vial SQ TIDAC [facility]; Protocol Last Admin: 07/25/19 17:22 Dose: Not Given Metformin HCl (Glucophage -) 500 mg PO BIDAC [facility] Last Admin: 07/25/19 18:21 Dose: Not Given Mirtazapine (Remeron -) 7.5 mg PO HS [facility] Last Admin: 07/24/19 22:15 Dose: 7.5 mg Montelukast Sodium (Singulair -) 10 mg PO HS [facility] Last Admin: 07/24/19 22:15 Dose: 10 mg Pantoprazole Sodium (Protonix Iv) 40 mg IVPUSH BID [facility] Last Admin: 07/25/19 10:22 Dose: 40 mg Polyethylene Glycol (Miralax (For Daily Use) -) 17 gm PO BID [facility] Last Admin: 07/25/19 10:23 Dose: Not Given Vancomycin HCl (Vancomycin (Pre-Docked)) 1,000 mg IVPB [employer] ONE Stop: 07/26/19 11:01 Last Vital Signs Temp Pulse Resp BP Pulse Ox 98.6 F 77 20 130/85 98 07/25/19 17:00 07/25/19 17:00 07/25/19 17:00 07/25/19 17:00 07/23/19 20:00 Lungs clear Heart reg abd sof nontender ext no edema CBC, BMP 07/25/19 05:46 IMP syncope sinus pauses for PPM tomorrow s/p trasient gross hematuria no recurence of hematuria no urinary sx normal imaging of remaining right kidney s/t left nephrectomy 1987 prob [facility]
[2019-07-25] MEDS: MAG HYDROX/AL HYDROX/SIMETH 30 ML UNIT-DOSE CUP PO PRN (20:51)
[2019-07-25] MEDS: SODIUM CHLORIDE 1,000 ML IV SCH (21:33)
[2019-07-25] MEDS: MIRTAZAPINE 15 MG TABLET (FP) PO SCH (21:33)
[2019-07-25] MEDS: ATORVASTATIN CA 20 MG TABLET (FP) PO SCH (21:33)
[2019-07-25] MEDS: MONTELUKAST NA 10 MG TABLET PO SCH (21:34)
[2019-07-26 07:03] LABS: HEMATOCRIT 37.4 % (35.4-49); HEMOGLOBIN 12.8 GM/dL (11.7-16.9); MCHC 34.1 g/dl (32.0-35.9); MEAN CELL VOLUME 96.9 fl (80-96); PLATELET COUNT 126 K/MM3 (134-434); RBC 3.86 M/mm3 (4.00-5.60); RDW 14.8 % (11.9-15.9)
[2019-07-26 07:30] LABS: ALBUMIN 3.3 g/dl (3.4-5.0); BILIRUBIN,TOTAL 0.5 mg/dL (0.2-1); BLOOD UREA NITROGEN 8.5 mg/dL (7-18); CALCIUM 8.3 mg/dL (8.5-10.1); MAGNESIUM 2.3 mg/dL (1.8-2.4); POTASSIUM 3.6 mmol/L (3.5-5.1); TOT PROT 6.2 g/dl (6.4-8.2)
[2019-07-26] MEDS: INSULIN SLIDING SCALE (NOVOLOG) 1 VIAL SQ SCH ×3 (07:46→17:52)
--- NOTE | 2019-07-26 09:24 | PN ---
Progress Note, Physician Chief Complaint: Syncope L Nephrectomy History of Present Illness: Previous notes and events reviewed awake and alert NAD denies chest pain or SOB patient is refusing pacemaker implantation today because he is tired and did not sleep last night Dr Mustafa notified and will come speak with patient continue with intermittent episode of dizziness - Current Medication List Current Medications: Active Medications Acetaminophen (Tylenol -) 500 mg PO Q6H PRN PRN Reason: PAIN 1-3 Last Admin: 07/23/19 13:09 Dose: 500 mg Al Hydroxide/Mg Hydroxide (Mylanta Oral Suspension -) 30 ml PO Q6H PRN PRN Reason: DYSPEPSIA Last Admin: 07/25/19 20:51 Dose: 30 ml Atorvastatin Calcium (Lipitor -) 20 mg PO HS [facility] Last Admin: 07/25/19 21:33 Dose: Not Given Brimonidine Tartrate (Alphagan 0.2% -) 1 drop OU BID [facility] Last Admin: 07/25/19 21:43 Dose: 1 drop Dorzolamide HCl (Trusopt 2%) 1 drop OU BID [facility] Last Admin: 07/25/19 21:43 Dose: 1 drop Gabapentin (Neurontin -) 300 mg PO BID [facility] Last Admin: 07/25/19 21:33 Dose: 300 mg Heparin Sodium (Porcine) (Heparin -) 5,000 unit SQ TID [facility] Last Admin: 07/25/19 14:53 Dose: 5,000 unit Sodium Chloride (Normal Saline -) 1,000 mls @ 100 mls/hr IV ASDIR [facility] Last Admin: 07/25/19 21:33 Dose: Not Given Insulin Aspart (Novolog Vial Sliding Scale -) 1 vial SQ TIDAC [facility]; Protocol Last Admin: 07/26/19 07:46 Dose: Not Given Metformin HCl (Glucophage -) 500 mg PO BIDAC [facility] Last Admin: 07/25/19 18:21 Dose: Not Given Mirtazapine (Remeron -) 7.5 mg PO HS [facility] Last Admin: 07/25/19 21:33 Dose: 7.5 mg Montelukast Sodium (Singulair -) 10 mg PO HS [facility] Last Admin: 07/25/19 21:34 Dose: 10 mg Pantoprazole Sodium (Protonix Iv) 40 mg IVPUSH BID [facility] Last Admin: 07/25/19 21:34 Dose: 40 mg Polyethylene Glycol (Miralax (For Daily Use) -) 17 gm PO BID [facility] Last Admin: 07/25/19 21:33 Dose: Not Given Vancomycin HCl (Vancomycin (Pre-Docked)) 1,000 mg IVPB [employer] CAR[employer]ER ONE Stop: 07/26/19 11:01 - Objective Vital Signs: Vital Signs Temperature 98.2 F 07/26/19 01:00 Pulse Rate 76 07/26/19 05:00 Respiratory Rate 20 07/26/19 05:00 Blood Pressure 116/86 07/26/19 05:00 O2 Sat by Pulse Oximetry (%) 98 07/23/19 20:00 Constitutional: Yes: No Distress, Calm Eyes: Yes: Conjunctiva Clear HENT: Yes: Atraumatic Cardiovascular: Yes: Regular Rate and Rhythm Respiratory: Yes: Regular, CTA Bilaterally Gastrointestinal: Yes: Normal Bowel Sounds, Soft Genitourinary: Yes: Incontinence Musculoskeletal: Yes: Muscle Weakness Extremities: Yes: WNL Edema: No Neurological: Yes: Alert, Oriented Psychiatric: Yes: Alert, Oriented Labs: CBC, BMP 07/26/19 06:05 07/26/19 06:05 Problem List - Problems (1) Abdominal pain Assessment/Plan: GI on board Reglan Pantoprazole Code(s): R10.9 - UNSPECIFIED ABDOMINAL PAIN Qualifiers: Abdominal location: epigastric Qualified Code(s): R10.13 - Epigastric pain (2) Syncope Assessment/Plan: Cardiology on board patient is pending Pacemaker implant today Tele monitoring Carotid US shows minimal initmal thickening in the distal common carotid arteryand at the bifurcation bilaterally without evidence of hemodynamically significant stenosis fall precaution troponin neg x 2 Code(s): R55 - SYNCOPE AND COLLAPSE Qualifiers: Syncope type: unspecified Qualified Code(s): R55 - Syncope and collapse (3) Diabetes mellitus Assessment/Plan: BGM ACHS Metformin HgA1c 5.6% ISS Code(s): E11.9 - TYPE 2 DIABETES MELLITUS WITHOUT COMPLICATIONS (4) GERD (gastroesophageal reflux disease) Assessment/Plan: Pantoprazole Code(s): K21.9 - GASTRO-ESOPHAGEAL REFLUX DISEASE WITHOUT ESOPHAGITIS Qualifiers: Esophagitis presence: esophagitis presence not specified Qualified Code(s) : K21.9 - Gastro-esophageal reflux disease without esophagitis (5) History of nephrectomy Assessment/Plan: BUN/Cr 8.5/1.0 Renal consult Renal US shows s/p L nephrectomy, with morphologically normal right kidney, no evidence of nephrolithiasis, hydronephrosis, or acute pathology Code(s): Z90.5 - ACQUIRED ABSENCE OF KIDNEY (6) HLD (hyperlipidemia) Assessment/Plan: Atorvastatin Code(s): E78.5 - HYPERLIPIDEMIA, UNSPECIFIED Assessment/Plan see problem list dvt ppx
--- NOTE | 2019-07-26 10:13 | PN ---
Progress Note (short form) - Note Progress Note: Spoke with Dr Mustafa in regards to patient refusing Pacemaker implant today. Patient states he is not feeling well but unable to describe symptoms he is feeling. Patient does want pacemaker inserted but not today. Procedure rescheduled for 10:30 AM. Patient will NPO after midnight on morning. Hold Heparin and Metformin the morning of procedure and patient should have Vancomycin 1g IVPB on standby prior going to OR. Problem List - Problems (1) Abdominal pain Code(s): R10.9 - UNSPECIFIED ABDOMINAL PAIN Qualifiers: Abdominal location: epigastric Qualified Code(s): R10.13 - Epigastric pain (2) Syncope Code(s): R55 - SYNCOPE AND COLLAPSE Qualifiers: Syncope type: unspecified Qualified Code(s): R55 - Syncope and collapse (3) Diabetes mellitus Code(s): E11.9 - TYPE 2 DIABETES MELLITUS WITHOUT COMPLICATIONS (4) GERD (gastroesophageal reflux disease) Code(s): K21.9 - GASTRO-ESOPHAGEAL REFLUX DISEASE WITHOUT ESOPHAGITIS Qualifiers: Esophagitis presence: esophagitis presence not specified Qualified Code(s) : K21.9 - Gastro-esophageal reflux disease without esophagitis (5) History of nephrectomy Code(s): Z90.5 - ACQUIRED ABSENCE OF KIDNEY (6) HLD (hyperlipidemia) Code(s): E78.5 - HYPERLIPIDEMIA, UNSPECIFIED
[2019-07-26] MEDS: PANTOPRAZOLE SODIUM 40 MG VIAL IVPUSH SCH ×2 (10:23→22:10)
[2019-07-26] MEDS: POLYETHYLENE GLYCOL 3350 119 GM BTL PO SCH ×3 (10:23→22:11)
[2019-07-26] MEDS: BRIMONIDINE TARTRATE 0.2% OPHTHALMIC 5 ML BOTTLE OU SCH ×2 (10:23→22:02)
[2019-07-26] MEDS: GABAPENTIN 300 MG CAPSULE PO SCH ×2 (10:23→22:10)
[2019-07-26] MEDS: DORZOLAMIDE 2% HCL OPHTHALMIC SOLUTION 10 ML BOTTLE OU SCH ×2 (10:23→22:12)
--- NOTE | 2019-07-26 10:49 | PN ---
Progress Note, Physician Chief Complaint: syncope History of Present Illness: Mr. 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 The patient reports that the LOC occurs mostly when he is lying down and are not associated with position changes. He reports dizziness and chest discomfort prior to the syncopal events. He can have upto 1-2 events a day. He denies any associated trauma. Noted to have pauses upto 4.2 seconds while sleeping and awake on telemetry. He had orthostatic blood pressure drop reported during hospitalization that resolved after fluid infusion. Echo from 2018 with normal LVEF. Denies any dyspnea, palpitations. Unable to stand after his stroke and is wheelchair dependant. Echo 05/2019 Normal LV function no pulm HN or valvular pathology He has not been on any av caitlin blocking agents as an outpt or during his inpatient stay. - Current Medication List Current Medications: Active Medications Acetaminophen (Tylenol -) 500 mg PO Q6H PRN PRN Reason: PAIN 1-3 Last Admin: 07/23/19 13:09 Dose: 500 mg Al Hydroxide/Mg Hydroxide (Mylanta Oral Suspension -) 30 ml PO Q6H PRN PRN Reason: DYSPEPSIA Last Admin: 07/25/19 20:51 Dose: 30 ml Atorvastatin Calcium (Lipitor -) 20 mg PO HS [facility] Last Admin: 07/25/19 21:33 Dose: Not Given Brimonidine Tartrate (Alphagan 0.2% -) 1 drop OU BID [facility] Last Admin: 07/26/19 10:23 Dose: 1 drop Dorzolamide HCl (Trusopt 2%) 1 drop OU BID [facility] Last Admin: 07/26/19 10:23 Dose: 1 drop Gabapentin (Neurontin -) 300 mg PO BID [facility] Last Admin: 07/26/19 10:23 Dose: 300 mg Heparin Sodium (Porcine) (Heparin -) 5,000 unit SQ TID [facility] Last Admin: 07/25/19 14:53 Dose: 5,000 unit Sodium Chloride (Normal Saline -) 1,000 mls @ 100 mls/hr IV ASDIR [facility] Last Admin: 07/25/19 21:33 Dose: Not Given Insulin Aspart (Novolog Vial Sliding Scale -) 1 vial SQ TIDAC [facility]; Protocol Last Admin: 07/26/19 07:46 Dose: Not Given Metformin HCl (Glucophage -) 500 mg PO BIDAC [facility] Last Admin: 07/25/19 18:21 Dose: Not Given Mirtazapine (Remeron -) 7.5 mg PO [facility] Last Admin: 07/25/19 21:33 Dose: 7.5 mg Montelukast Sodium (Singulair -) 10 mg PO [facility] Last Admin: 07/25/19 21:34 Dose: 10 mg Pantoprazole Sodium (Protonix Iv) 40 mg IVPUSH BID [facility] Last Admin: 07/26/19 10:23 Dose: 40 mg Polyethylene Glycol (Miralax (For Daily Use) -) 17 gm PO BID [facility] Last Admin: 07/26/19 10:26 Dose: Not Given Vancomycin HCl (Vancomycin (Pre-Docked)) 1,000 mg IVPB [employer] Stop: 07/26/19 11:01 - Objective Vital Signs: Vital Signs Temperature 98.2 F 07/26/19 01:00 Pulse Rate 76 07/26/19 05:00 Respiratory Rate 20 07/26/19 05:00 Blood Pressure 116/86 07/26/19 05:00 O2 Sat by Pulse Oximetry (%) 98 07/23/19 20:00 Constitutional: Yes: Well Nourished, No Distress Eyes: Yes: EOM Intact HENT: Yes: WNL Neck: Yes: WNL Cardiovascular: Yes: WNL, Regular Rate and Rhythm Respiratory: Yes: WNL, Regular, CTA Bilaterally Gastrointestinal: Yes: WNL, Normal Bowel Sounds, Soft Edema: No Peripheral Pulses WNL: Yes Neurological: Yes: Alert, Oriented Psychiatric: Yes: Alert, Oriented Labs: CBC, BMP 07/26/19 06:05 07/26/19 06:05 Problem List - Problems (1) Heart block AV complete Code(s): I44.2 - ATRIOVENTRICULAR BLOCK, COMPLETE (2) HLD (hyperlipidemia) Code(s): E78.5 - HYPERLIPIDEMIA, UNSPECIFIED (3) Syncope Code(s): R55 - SYNCOPE AND COLLAPSE Qualifiers: Syncope type: unspecified Qualified Code(s): R55 - Syncope and collapse (4) Atypical chest pain Code(s): R07.89 - OTHER CHEST PAIN Assessment/Plan 68 year old male with a pmh of inc chol, dm, normal LVEF, p/w recurrent syncope , found to have episodic complete heart block. pt was scheduled for ppm today but is declining today stating that he is not feeling well but unable to describe symptoms. pt agreeable to reschedule ppm for another day. will reschedule for at 10:30 am. - no av caitlin blocking agents - npo after midnight Friday night - check orthostatics, continue fluid hydration. if still orthostatic, consider midodrine. - hold metformin - LUE IVL - plan for ppm - keep k 4-4.5, mg 2-2.5 - consent in chart - care as per primary services - case d/w medicine and cardiology
[2019-07-26] MEDS ORDERED: VANCOMYCIN 1 GM in D5W (PRE-DOCKED) 1,000 MG/250 ML IVPB ONE (11:00)
[2019-07-26] MEDS: HEPARIN NA (PORCINE) 5,000 UNITS/ML 1ML VIAL SQ SCH ×2 (13:14→22:03)
--- NOTE | 2019-07-26 13:48 | PN ---
Progress Note, Physician History of Present Illness: Pt seen and examined at bedside. He is awake and alert. He denies shortness of breath. - Current Medication List Current Medications: Active Medications Acetaminophen (Tylenol -) 500 mg PO Q6H PRN PRN Reason: PAIN 1-3 Last Admin: 07/23/19 13:09 Dose: 500 mg Al Hydroxide/Mg Hydroxide (Mylanta Oral Suspension -) 30 ml PO Q6H PRN PRN Reason: DYSPEPSIA Last Admin: 07/25/19 20:51 Dose: 30 ml Atorvastatin Calcium (Lipitor -) 20 mg PO HS [facility] Last Admin: 07/25/19 21:33 Dose: Not Given Brimonidine Tartrate (Alphagan 0.2% -) 1 drop OU BID [facility] Last Admin: 07/26/19 10:23 Dose: 1 drop Dorzolamide HCl (Trusopt 2%) 1 drop OU BID [facility] Last Admin: 07/26/19 10:23 Dose: 1 drop Gabapentin (Neurontin -) 300 mg PO BID [facility] Last Admin: 07/26/19 10:23 Dose: 300 mg Heparin Sodium (Porcine) (Heparin -) 5,000 unit SQ TID [facility] Last Admin: 07/26/19 13:14 Dose: 5,000 unit Sodium Chloride (Normal Saline -) 1,000 mls @ 100 mls/hr IV ASDIR [facility] Last Admin: 07/25/19 21:33 Dose: Not Given Insulin Aspart (Novolog Vial Sliding Scale -) 1 vial SQ TIDAC [facility]; Protocol Last Admin: 07/26/19 12:31 Dose: Not Given Metformin HCl (Glucophage -) 500 mg PO BIDAC [facility] Last Admin: 07/25/19 18:21 Dose: Not Given Mirtazapine (Remeron -) 7.5 mg PO HS [facility] Last Admin: 07/25/19 21:33 Dose: 7.5 mg Montelukast Sodium (Singulair -) 10 mg PO HS [facility] Last Admin: 07/25/19 21:34 Dose: 10 mg Pantoprazole Sodium (Protonix Iv) 40 mg IVPUSH BID [facility] Last Admin: 07/26/19 10:23 Dose: 40 mg Polyethylene Glycol (Miralax (For Daily Use) -) 17 gm PO BID [facility] Last Admin: 07/26/19 10:26 Dose: Not Given - Objective Vital Signs: Vital Signs Temperature 97.7 F 07/26/19 10:00 Pulse Rate 77 07/26/19 10:00 Respiratory Rate 20 07/26/19 10:00 Blood Pressure 120/78 07/26/19 10:00 O2 Sat by Pulse Oximetry (%) 95 07/26/19 09:00 Constitutional: Yes: Calm Eyes: Yes: Conjunctiva Clear HENT: Yes: Atraumatic Cardiovascular: Yes: S1, S2 Respiratory: Yes: CTA Bilaterally Gastrointestinal: Yes: Soft Genitourinary: Yes: WNL Musculoskeletal: Yes: WNL Edema: No Neurological: Yes: Oriented Psychiatric: Yes: Oriented Labs: CBC, BMP 07/26/19 06:05 07/26/19 06:05 Assessment/Plan Current Medications Generic Name Dose Route Start Last Admin Trade Name Freq PRN Reason Stop Dose Admin Acetaminophen 500 mg 07/23/19 12:57 07/23/19 13:09 Tylenol - PO 500 mg Q6H PRN Administration PAIN 1-3 Al Hydroxide/Mg Hydroxide 30 ml 07/23/19 15:13 07/25/19 20:51 Mylanta Oral Suspension - PO 30 ml Q6H PRN Administration DYSPEPSIA Atorvastatin Calcium 20 mg 07/23/19 22:00 07/25/19 21:33 Lipitor - PO Not Given HS [facility] Brimonidine Tartrate 1 drop 07/23/19 22:00 07/26/19 10:23 Alphagan 0.2% - OU 1 drop BID [facility] Administration Dorzolamide HCl 1 drop 07/23/19 22:00 07/26/19 10:23 Trusopt 2% OU 1 drop BID [facility] Administration Gabapentin 300 mg 07/23/19 22:00 07/26/19 10:23 Neurontin - PO 300 mg BID [facility] Administration Heparin Sodium (Porcine) 5,000 unit 07/23/19 06:00 07/26/19 13:14 Heparin - SQ 5,000 unit TID [facility] Administration Sodium Chloride 1,000 mls @ 100 mls/hr 07/22/19 22:00 07/25/19 21:33 Normal Saline - IV Not Given ASDIR [facility] Insulin Aspart 1 vial 07/23/19 07:00 07/26/19 12:31 Novolog Vial Sliding Scale - SQ Not Given TIDAC [facility] Protocol Metformin HCl 500 mg 07/23/19 16:30 07/25/19 18:21 Glucophage - PO Not Given BIDAC [facility] Mirtazapine 7.5 mg 07/23/19 22:00 07/25/19 21:33 Remeron - PO 7.5 mg HS [facility] Administration Montelukast Sodium 10 mg 07/24/19 22:00 07/25/19 21:34 Singulair - PO 10 mg HS [facility] Administration Pantoprazole Sodium 40 mg 07/23/19 22:00 07/26/19 10:23 Protonix Iv IVPUSH 40 mg BID [facility] Administration Polyethylene Glycol 17 gm 07/23/19 22:00 07/26/19 10:26 Miralax (For Daily Use) - PO Not Given BID [facility] Laboratory Tests 07/22/19 18:41 Urine Protein Negative Urine Blood Negative IMP syncope CKD s/p left nephrectomy DM hematuria Plan - ua neg for blood or protein - renal function stable - avoid nsaids - cardio workup for syncope
--- NOTE | 2019-07-26 16:00 | PN ---
Progress Note, Physician History of Present Illness: pt seen and examined today in nad. no overnight events. no new complaints. states he is feeling well. - Current Medication List Current Medications: Active Medications Acetaminophen (Tylenol -) 500 mg PO Q6H PRN PRN Reason: PAIN 1-3 Last Admin: 07/23/19 13:09 Dose: 500 mg Al Hydroxide/Mg Hydroxide (Mylanta Oral Suspension -) 30 ml PO Q6H PRN PRN Reason: DYSPEPSIA Last Admin: 07/25/19 20:51 Dose: 30 ml Atorvastatin Calcium (Lipitor -) 20 mg PO HS [facility] Last Admin: 07/25/19 21:33 Dose: Not Given Brimonidine Tartrate (Alphagan 0.2% -) 1 drop OU BID [facility] Last Admin: 07/26/19 10:23 Dose: 1 drop Dorzolamide HCl (Trusopt 2%) 1 drop OU BID [facility] Last Admin: 07/26/19 10:23 Dose: 1 drop Gabapentin (Neurontin -) 300 mg PO BID [facility] Last Admin: 07/26/19 10:23 Dose: 300 mg Heparin Sodium (Porcine) (Heparin -) 5,000 unit SQ TID [facility] Last Admin: 07/26/19 13:14 Dose: 5,000 unit Sodium Chloride (Normal Saline -) 1,000 mls @ 100 mls/hr IV ASDIR [facility] Last Admin: 07/25/19 21:33 Dose: Not Given Insulin Aspart (Novolog Vial Sliding Scale -) 1 vial SQ TIDAC [facility]; Protocol Last Admin: 07/26/19 12:31 Dose: Not Given Metformin HCl (Glucophage -) 500 mg PO BIDAC [facility] Last Admin: 07/25/19 18:21 Dose: Not Given Mirtazapine (Remeron -) 7.5 mg PO HS [facility] Last Admin: 07/25/19 21:33 Dose: 7.5 mg Montelukast Sodium (Singulair -) 10 mg PO HS [facility] Last Admin: 07/25/19 21:34 Dose: 10 mg Pantoprazole Sodium (Protonix Iv) 40 mg IVPUSH BID [facility] Last Admin: 07/26/19 10:23 Dose: 40 mg Polyethylene Glycol (Miralax (For Daily Use) -) 17 gm PO BID [facility] Last Admin: 07/26/19 10:26 Dose: Not Given - Objective Vital Signs: Vital Signs Temperature 97.7 F 07/26/19 14:00 Pulse Rate 81 07/26/19 14:00 Respiratory Rate 20 07/26/19 14:00 Blood Pressure 121/77 07/26/19 14:00 O2 Sat by Pulse Oximetry (%) 95 07/26/19 09:00 Constitutional: Yes: No Distress, Calm Eyes: Yes: Conjunctiva Clear, EOM Intact HENT: Yes: Atraumatic, Normocephalic Neck: Yes: Supple, Trachea Midline Cardiovascular: Yes: Regular Rate and Rhythm, S1, S2. No: Bradycardia, Tachycardia, Pulse Irregular, Bruit, JVD, Gallop, Murmur, Rub, S3, S4, Varicosities Respiratory: Yes: Regular, CTA Bilaterally. No: Rales, Rhonchi, Wheezes Gastrointestinal: Yes: Normal Bowel Sounds, Soft. No: Distention, Tenderness Musculoskeletal: Yes: WNL Extremities: Yes: WNL Edema: No Peripheral Pulses WNL: Yes Peripheral Pulses: Left Doralis Pedis: 2+, Right Dorsalis Pedis: 2+ Neurological: Yes: Alert, Oriented Psychiatric: Yes: Alert, Oriented Labs: CBC, BMP 07/26/19 06:05 07/26/19 06:05 - ....Imaging Chest X-ray: Report Reviewed, Image Reviewed EKG: Report Reviewed, Image Reviewed Other: Report Reviewed, Image Reviewed (tele-nsr, no further sig pauses) Assessment/Plan 68 M Diabetic gastroparesis Poor PO intake frequent dizziness and recurrent syncope. Nursing reports orthostatic BP decline at time of admission which resolved after IVF. Telemetry shows recurrent 4 sec pauses Recent echocardiogram with noraml LV function and no valvular heart disease or pulm HTN. EP evaluation appreciated PPM is planned for 07/29 cont tele monitoring Avoid AV caitlin blocking agents. No need to repeat echocardiogram had one dos recently Keep NPO after midnight friday night for procedure . Hold SQ heparin prior to ppm
[2019-07-26] MEDS: ATORVASTATIN CA 20 MG TABLET (FP) PO SCH ×2 (22:10→22:23)
[2019-07-26] MEDS: MIRTAZAPINE 15 MG TABLET (FP) PO SCH (22:10)
[2019-07-26] MEDS: MONTELUKAST NA 10 MG TABLET PO SCH (22:11)
[2019-07-27] MEDS: metFORMIN HCL 500 MG TABLET (FP) PO SCH ×3 (06:38→16:47)
[2019-07-27] MEDS: HEPARIN NA (PORCINE) 5,000 UNITS/ML 1ML VIAL SQ SCH ×3 (06:38→21:43)
[2019-07-27 07:06] LABS: HEMATOCRIT 36.6 % (35.4-49); HEMOGLOBIN 12.4 GM/dL (11.7-16.9); MCH 32.9 pg (25.7-33.7); MCHC 33.8 g/dl (32.0-35.9); MEAN CELL VOLUME 97.3 fl (80-96); PLATELET COUNT 119 K/MM3 (134-434); RBC 3.76 M/mm3 (4.00-5.60); RDW 14.6 % (11.9-15.9); WHITE BLOOD COUNT 3.3 K/mm3 (4.0-10.0)
[2019-07-27 07:40] LABS: ALBUMIN 3.1 g/dl (3.4-5.0); BILIRUBIN,TOTAL 0.3 mg/dL (0.2-1); BLOOD UREA NITROGEN 10.6 mg/dL (7-18); CALCIUM 8.2 mg/dL (8.5-10.1); CREATININE 1.3 mg/dL (0.55-1.3); POTASSIUM 3.3 mmol/L (3.5-5.1); TOT PROT 6.2 g/dl (6.4-8.2)
[2019-07-27] MEDS: GABAPENTIN 300 MG CAPSULE PO SCH ×2 (09:11→21:43)
[2019-07-27] MEDS: POLYETHYLENE GLYCOL 3350 119 GM BTL PO SCH ×2 (09:11→21:44)
[2019-07-27] MEDS: PANTOPRAZOLE SODIUM 40 MG VIAL IVPUSH SCH (09:11)
[2019-07-27] MEDS: DORZOLAMIDE 2% HCL OPHTHALMIC SOLUTION 10 ML BOTTLE OU SCH ×2 (09:12→21:45)
[2019-07-27] MEDS: BRIMONIDINE TARTRATE 0.2% OPHTHALMIC 5 ML BOTTLE OU SCH ×2 (09:12→22:32)
--- NOTE | 2019-07-27 09:52 | PN ---
Progress Note, Physician Chief Complaint: no complaints tele 2.2 sec pause History of Present Illness: 68 M Diabetic gastroparesis Poor PO intake frequent dizziness and recurrent syncope. Nursing reports orthostatic BP decline at time of admission which resolved after IVF. Telemetry shows recurrent 4 sec pauses Recent echocardiogram with noraml LV function and no valvular heart disease or pulm HTN. EP evaluation appreciated PPM is planned for 07/29 - Current Medication List Current Medications: Active Medications Acetaminophen (Tylenol -) 500 mg PO Q6H PRN PRN Reason: PAIN 1-3 Last Admin: 07/23/19 13:09 Dose: 500 mg Al Hydroxide/Mg Hydroxide (Mylanta Oral Suspension -) 30 ml PO Q6H PRN PRN Reason: DYSPEPSIA Last Admin: 07/25/19 20:51 Dose: 30 ml Atorvastatin Calcium (Lipitor -) 20 mg PO HS [facility] Last Admin: 07/26/19 22:23 Dose: Not Given Brimonidine Tartrate (Alphagan 0.2% -) 1 drop OU BID [facility] Last Admin: 07/27/19 09:12 Dose: 1 drop Dorzolamide HCl (Trusopt 2%) 1 drop OU BID [facility] Last Admin: 07/27/19 09:12 Dose: 1 drop Gabapentin (Neurontin -) 300 mg PO BID [facility] Last Admin: 07/27/19 09:11 Dose: 300 mg Heparin Sodium (Porcine) (Heparin -) 5,000 unit SQ TID [facility] Last Admin: 07/27/19 06:38 Dose: 5,000 unit Sodium Chloride (Normal Saline -) 1,000 mls @ 100 mls/hr IV ASDIR [facility] Last Admin: 07/25/19 21:33 Dose: Not Given Insulin Aspart (Novolog Vial Sliding Scale -) 1 vial SQ TIDAC [facility]; Protocol Last Admin: 07/26/19 17:52 Dose: 2 units Metformin HCl (Glucophage -) 500 mg PO BIDAC [facility] Last Admin: 07/27/19 06:38 Dose: 500 mg Mirtazapine (Remeron -) 7.5 mg PO HS [facility] Last Admin: 07/26/19 22:10 Dose: 7.5 mg Montelukast Sodium (Singulair -) 10 mg PO HS [facility] Last Admin: 07/26/19 22:11 Dose: 10 mg Pantoprazole Sodium (Protonix Iv) 40 mg IVPUSH BID [facility] Last Admin: 07/27/19 09:11 Dose: 40 mg Polyethylene Glycol (Miralax (For Daily Use) -) 17 gm PO BID [facility] Last Admin: 07/27/19 09:11 Dose: 17 gm - Objective Vital Signs: Vital Signs Temperature 98.3 F 07/27/19 05:29 Pulse Rate 71 07/27/19 05:29 Respiratory Rate 20 07/27/19 05:29 Blood Pressure 130/83 07/27/19 05:29 O2 Sat by Pulse Oximetry (%) 97 07/26/19 20:59 Constitutional: Yes: No Distress Eyes: Yes: EOM Intact HENT: Yes: Normocephalic Neck: Yes: Trachea Midline Cardiovascular: Yes: Pulse Irregular Respiratory: Yes: CTA Bilaterally Gastrointestinal: Yes: Normal Bowel Sounds, Soft Musculoskeletal: Yes: WNL Extremities: Yes: WNL Edema: No Peripheral Pulses WNL: Yes Labs: CBC, BMP 07/27/19 06:35 07/27/19 06:35 Assessment/Plan 68 M Diabetic gastroparesis Poor PO intake frequent dizziness and recurrent syncope. Nursing reports orthostatic BP decline at time of admission which resolved after IVF. Telemetry shows recurrent 4 sec pauses Recent echocardiogram with noraml LV function and no valvular heart disease or pulm HTN. EP evaluation appreciated PPM is planned for 07/29 cont tele monitoring Avoid AV caitlin blocking agents. No need to repeat echocardiogram had one dos recently Keep NPO after midnight friday night for procedure . Hold SQ heparin prior to ppm
[2019-07-27] MEDS: INSULIN SLIDING SCALE (NOVOLOG) 1 VIAL SQ SCH ×2 (11:23→16:33)
--- NOTE | 2019-07-27 15:11 | PN ---
Progress Note (short form) - Note Progress Note: Renal follow up for CKD Seen and examined at the bedside awake and alert offers no acute complaints denies any sob, cp, fever, chills, N/V/D Vital Signs Temperature 98.3 F 07/27/19 14:00 Pulse Rate 72 07/27/19 14:00 Respiratory Rate 20 07/27/19 14:00 Blood Pressure 88/62 L 07/27/19 14:00 O2 Sat by Pulse Oximetry (%) 96 07/27/19 09:00 Intake & Output 07/24/19 07/25/19 07/26/19 07/27/19 23:59 23:59 23:59 23:59 Intake Total 300 200 510 720 Output Total 550 700 Balance 300 -350 -190 720 Weight 61.326 kg NAD awake and alert RRR CTA soft NT/ND no LE edema CBC, BMP 07/27/19 06:35 07/27/19 06:35 Current Medications Acetaminophen (Tylenol -) 500 mg PO Q6H PRN PRN Reason: PAIN 1-3 Last Admin: 07/23/19 13:09 Dose: 500 mg Al Hydroxide/Mg Hydroxide (Mylanta Oral Suspension -) 30 ml PO Q6H PRN PRN Reason: DYSPEPSIA Last Admin: 07/25/19 20:51 Dose: 30 ml Atorvastatin Calcium (Lipitor -) 20 mg PO HS [facility] Last Admin: 07/26/19 22:23 Dose: Not Given Brimonidine Tartrate (Alphagan 0.2% -) 1 drop OU BID [facility] Last Admin: 07/27/19 09:12 Dose: 1 drop Dorzolamide HCl (Trusopt 2%) 1 drop OU BID [facility] Last Admin: 07/27/19 09:12 Dose: 1 drop Gabapentin (Neurontin -) 300 mg PO BID [facility] Last Admin: 07/27/19 09:11 Dose: 300 mg Heparin Sodium (Porcine) (Heparin -) 5,000 unit SQ TID [facility] Last Admin: 07/27/19 13:10 Dose: 5,000 unit Insulin Aspart (Novolog Vial Sliding Scale -) 1 vial SQ TIDAC [facility]; Protocol Last Admin: 07/27/19 11:23 Dose: Not Given Metformin HCl (Glucophage -) 500 mg PO BIDAC [facility] Last Admin: 07/27/19 06:38 Dose: 500 mg Mirtazapine (Remeron -) 7.5 mg PO HS [facility] Last Admin: 07/26/19 22:10 Dose: 7.5 mg Montelukast Sodium (Singulair -) 10 mg PO HS [facility] Last Admin: 07/26/19 22:11 Dose: 10 mg Pantoprazole Sodium (Protonix Iv) 40 mg IVPUSH BID [facility] Last Admin: 07/27/19 09:11 Dose: 40 mg Polyethylene Glycol (Miralax (For Daily Use) -) 17 gm PO BID [facility] Last Admin: 07/27/19 09:11 Dose: 17 gm 68 y/o/m with PMHx of Prostate cancer s/p radiation (2010), s/p L sided nephrectomy in 2008, 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 1. Syncope 2. CKD 3. Unilateral kidney 4. Hx of prostate cancer Renal function is stable at this time. UA without any proteinuria or sediment Continue syncope work up as per primary team will follow up as needed Erlin Ibrahim DO
[2019-07-27] MEDS ORDERED: POTASSIUM CHLORIDE TABS 20 MEQ TABLET.ER (FP) PO ONE (16:16)
--- NOTE | 2019-07-27 16:19 | PN ---
Progress Note, Physician Chief Complaint: AWAKE ALERT IN BED SCHEDULED FOR [facility] FRIDAY DENIES CHEST PAIN - Current Medication List Current Medications: Active Medications Acetaminophen (Tylenol -) 500 mg PO Q6H PRN PRN Reason: PAIN 1-3 Last Admin: 07/23/19 13:09 Dose: 500 mg Al Hydroxide/Mg Hydroxide (Mylanta Oral Suspension -) 30 ml PO Q6H PRN PRN Reason: DYSPEPSIA Last Admin: 07/25/19 20:51 Dose: 30 ml Atorvastatin Calcium (Lipitor -) 20 mg PO [facility] Last Admin: 07/26/19 22:23 Dose: Not Given Brimonidine Tartrate (Alphagan 0.2% -) 1 drop OU BID [facility] Last Admin: 07/27/19 09:12 Dose: 1 drop Dorzolamide HCl (Trusopt 2%) 1 drop OU BID [facility] Last Admin: 07/27/19 09:12 Dose: 1 drop Gabapentin (Neurontin -) 300 mg PO BID [facility] Last Admin: 07/27/19 09:11 Dose: 300 mg Heparin Sodium (Porcine) (Heparin -) 5,000 unit SQ TID [facility] Last Admin: 07/27/19 13:10 Dose: 5,000 unit Insulin Aspart (Novolog Vial Sliding Scale -) 1 vial SQ TIDAC [facility]; Protocol Last Admin: 07/27/19 11:23 Dose: Not Given Metformin HCl (Glucophage -) 500 mg PO BIDAC [facility] Last Admin: 07/27/19 06:38 Dose: 500 mg Mirtazapine (Remeron -) 7.5 mg PO [facility] Last Admin: 07/26/19 22:10 Dose: 7.5 mg Montelukast Sodium (Singulair -) 10 mg PO [facility] Last Admin: 07/26/19 22:11 Dose: 10 mg Pantoprazole Sodium (Protonix Iv) 40 mg IVPUSH BID [facility] Last Admin: 07/27/19 09:11 Dose: 40 mg Polyethylene Glycol (Miralax (For Daily Use) -) 17 gm PO BID [facility] Last Admin: 07/27/19 09:11 Dose: 17 gm - Objective Vital Signs: Vital Signs Temperature 98.3 F 07/27/19 14:00 Pulse Rate 72 07/27/19 14:00 Respiratory Rate 20 07/27/19 14:00 Blood Pressure 88/62 L 07/27/19 14:00 O2 Sat by Pulse Oximetry (%) 96 07/27/19 09:00 Constitutional: Yes: No Distress HENT: Yes: WNL Neck: Yes: WNL Cardiovascular: Yes: Bradycardia, Pulse Irregular Respiratory: Yes: WNL Gastrointestinal: Yes: WNL Genitourinary: Yes: WNL Musculoskeletal: Yes: WNL Extremities: Yes: WNL Edema: No Peripheral Pulses WNL: Yes Integumentary: Yes: WNL Wound/Incision: Yes: Clean/Dry Neurological: Yes: WNL ...Motor Strength: WNL Psychiatric: Yes: WNL Labs: CBC, BMP 07/27/19 06:35 07/27/19 06:35 Problem List - Problems (1) Gastroparesis Code(s): K31.84 - GASTROPARESIS (2) Gastroparesis due to DM Code(s): E11.43 - TYPE 2 DIABETES W DIABETIC AUTONOMIC (POLY)NEUROPATHY; K31.84 - GASTROPARESIS (3) Abdominal pain Code(s): R10.9 - UNSPECIFIED ABDOMINAL PAIN Qualifiers: Abdominal location: epigastric Qualified Code(s): R10.13 - Epigastric pain (4) Colon adenoma Code(s): D12.6 - BENIGN NEOPLASM OF COLON, UNSPECIFIED (5) HLD (hyperlipidemia) Code(s): E78.5 - HYPERLIPIDEMIA, UNSPECIFIED (6) Syncope Code(s): R55 - SYNCOPE AND COLLAPSE Qualifiers: Syncope type: unspecified Qualified Code(s): R55 - Syncope and collapse (7) Abnormal weight loss Code(s): R63.4 - ABNORMAL WEIGHT LOSS (8) Atypical chest pain Code(s): R07.89 - OTHER CHEST PAIN (9) Diabetes mellitus Code(s): E11.9 - TYPE 2 DIABETES MELLITUS WITHOUT COMPLICATIONS (10) Dysphagia Code(s): R13.10 - DYSPHAGIA, UNSPECIFIED Qualifiers: Dysphagia type: esophageal phase Qualified Code(s): R13.10 - Dysphagia, unspecified (11) Failure to thrive Code(s): [id number] - (12) History of nephrectomy Code(s): Z90.5 - ACQUIRED ABSENCE OF KIDNEY (13) Lung nodule < 6cm on CT Code(s): R91.1 - SOLITARY PULMONARY NODULE (14) Prostate cancer Code(s): C61 - MALIGNANT NEOPLASM OF PROSTATE (15) Rectal ulcer Code(s): K62.6 - ULCER OF ANUS AND RECTUM Assessment/Plan PACEMAKER PLACEMENT SCHEDULED FOR FRIDAY NO 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
[2019-07-27] MEDS ORDERED: INSULIN (NOVOLOG) ASPART 100 UNITS/ML 10ML VIAL ONE (16:39)
--- NOTE | 2019-07-27 16:57 | PN.GI ---
GI Progress Note Subjective: Currently denies nausea, no abdominal pain Scheduled for PPM on - Objective Vital Signs: Vital Signs Temperature 98.3 F 07/27/19 14:00 Pulse Rate 72 07/27/19 14:00 Respiratory Rate 07/27/19 14:00 Blood Pressure 88/62 L 07/27/19 14:00 O2 Sat by Pulse Oximetry (%) 96 07/27/19 09:00 Constitutional: Calm Eyes: No: Sclera Icterus Cardiovascular: Yes: Regular Rate and Rhythm Respiratory: Yes: CTA Bilaterally Gastrointestinal Inspection: No: Distention ...Auscultate: Yes: Normoactive Bowel Sounds ...Palpate: Yes: Soft, Tenderness, Rebound. No: Hepatomegaly, Splenomegaly, Tenderness ...Percussion: No: Tympanitic Neurological: Yes: Alert Labs: CBC, BMP 07/27/19 06:35 07/27/19 06:35 Problem List - Problems (1) Nausea Assessment/Plan: Main complaint is nausea: ? cardiac in origin ? Medication induced Gastroparesis a possibility but blood glucose not particularly elevated on admission - Patient will have PPM. Avoiding reglan for now - Pantoprazole 20mg PO daily - Consider medication elimination starting with gabapentin - Low fiber diet Code(s): R11.0 - NAUSEA
[2019-07-27] MEDS: MIRTAZAPINE 15 MG TABLET (FP) PO SCH (21:43)
[2019-07-27] MEDS: MONTELUKAST NA 10 MG TABLET PO SCH (21:44)
[2019-07-27] MEDS: ATORVASTATIN CA 20 MG TABLET (FP) PO SCH (21:44)
[2019-07-28] MEDS: metFORMIN HCL 500 MG TABLET (FP) PO SCH ×2 (06:14→16:59)
[2019-07-28] MEDS: INSULIN SLIDING SCALE (NOVOLOG) 1 VIAL SQ SCH ×3 (06:14→16:57)
[2019-07-28] MEDS: HEPARIN NA (PORCINE) 5,000 UNITS/ML 1ML VIAL SQ SCH ×3 (06:14→22:36)
[2019-07-28 09:17] LABS: BLOOD UREA NITROGEN 8.6 mg/dL (7-18); CALCIUM 8.2 mg/dL (8.5-10.1); CREATININE 1.2 mg/dL (0.55-1.3); MAGNESIUM 2.3 mg/dL (1.8-2.4); POTASSIUM 4.2 mmol/L (3.5-5.1)
--- NOTE | 2019-07-28 11:01 | PN ---
Progress Note, Physician Chief Complaint: AWAKE ALERT BEDSIDE DENIES CHEST PAIN OR SOB DOES C/O DIZZINESS NO N/V - Current Medication List Current Medications: Active Medications Acetaminophen (Tylenol -) 500 mg PO Q6H PRN PRN Reason: PAIN 1-3 Last Admin: 07/23/19 13:09 Dose: 500 mg Al Hydroxide/Mg Hydroxide (Mylanta Oral Suspension -) 30 ml PO Q6H PRN PRN Reason: DYSPEPSIA Last Admin: 07/25/19 20:51 Dose: 30 ml Atorvastatin Calcium (Lipitor -) 20 mg PO [facility] Last Admin: 07/27/19 21:44 Dose: Not Given Brimonidine Tartrate (Alphagan 0.2% -) 1 drop OU BID [facility] Last Admin: 07/27/19 22:32 Dose: 1 drop Dorzolamide HCl (Trusopt 2%) 1 drop OU BID [facility] Last Admin: 07/27/19 21:45 Dose: 1 drop Heparin Sodium (Porcine) (Heparin -) 5,000 unit SQ TID [facility] Last Admin: 07/28/19 06:14 Dose: 5,000 unit Insulin Aspart (Novolog Vial Sliding Scale -) 1 vial SQ TIDAC [facility]; Protocol Last Admin: 07/28/19 06:14 Dose: Not Given [facility]) [facility] Last Admin: 07/28/19 06:14 Dose: Not Given Mirtazapine (Remeron -) 7.5 mg PO [facility] Last Admin: 07/27/19 21:43 Dose: 7.5 mg Montelukast Sodium (Singulair -) 10 mg PO [facility] Last Admin: 07/27/19 21:44 Dose: 10 mg Pantoprazole Sodium (Protonix -) 20 mg PO DAILY [facility] Polyethylene Glycol (Miralax (For Daily Use) -) 17 gm PO BID [facility] Last Admin: 07/27/19 21:44 Dose: Not Given - Objective Vital Signs: Vital Signs Temperature 98.1 F 07/28/19 06:00 Pulse Rate 80 07/28/19 06:00 Respiratory Rate 20 07/28/19 06:00 Blood Pressure 137/90 07/28/19 06:00 O2 Sat by Pulse Oximetry (%) 96 07/27/19 20:16 Constitutional: Yes: Mild Distress Cardiovascular: Yes: Bradycardia, Pulse Irregular Respiratory: Yes: WNL Gastrointestinal: Yes: Soft Musculoskeletal: Yes: Muscle Weakness Edema: No Integumentary: Yes: WNL Wound/Incision: Yes: Clean/Dry Neurological: Yes: WNL ...Motor Strength: WNL Psychiatric: Yes: WNL Labs: CBC, BMP 07/27/19 06:35 07/28/19 08:10 Problem List - Problems (1) Gastroparesis Code(s): K31.84 - GASTROPARESIS (2) Gastroparesis due to DM Code(s): E11.43 - TYPE 2 DIABETES W DIABETIC AUTONOMIC (POLY)NEUROPATHY; K31.84 - GASTROPARESIS (3) Abdominal pain Code(s): R10.9 - UNSPECIFIED ABDOMINAL PAIN Qualifiers: Abdominal location: epigastric Qualified Code(s): R10.13 - Epigastric pain (4) Colon adenoma Code(s): D12.6 - BENIGN NEOPLASM OF COLON, UNSPECIFIED (5) HLD (hyperlipidemia) Code(s): E78.5 - HYPERLIPIDEMIA, UNSPECIFIED (6) Syncope Code(s): R55 - SYNCOPE AND COLLAPSE Qualifiers: Syncope type: unspecified Qualified Code(s): R55 - Syncope and collapse (7) Abnormal weight loss Code(s): R63.4 - ABNORMAL WEIGHT LOSS (8) Atypical chest pain Code(s): R07.89 - OTHER CHEST PAIN (9) Diabetes mellitus Code(s): E11.9 - TYPE 2 DIABETES MELLITUS WITHOUT COMPLICATIONS (10) Dysphagia Code(s): R13.10 - DYSPHAGIA, UNSPECIFIED Qualifiers: Dysphagia type: esophageal phase Qualified Code(s): R13.10 - Dysphagia, unspecified (11) Failure to thrive Code(s): [id number] - (12) History of nephrectomy Code(s): Z90.5 - ACQUIRED ABSENCE OF KIDNEY (13) Lung nodule < 6cm on CT Code(s): R91.1 - SOLITARY PULMONARY NODULE (14) Prostate cancer Code(s): C61 - MALIGNANT NEOPLASM OF PROSTATE (15) Rectal ulcer Code(s): K62.6 - ULCER OF ANUS AND RECTUM Assessment/Plan PACEMAKER PLACEMENT SCHEDULED FOR FRIDAY 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
[2019-07-28] MEDS ORDERED: INSULIN (NOVOLOG) ASPART 100 UNITS/ML 10ML VIAL ONE (11:04)
[2019-07-28] MEDS: PANTOPRAZOLE 20 MG TABLET PO SCH (11:14)
[2019-07-28] MEDS: POLYETHYLENE GLYCOL 3350 119 GM BTL PO SCH ×2 (11:15→22:35)
[2019-07-28] MEDS: BRIMONIDINE TARTRATE 0.2% OPHTHALMIC 5 ML BOTTLE OU SCH ×2 (11:15→22:40)
[2019-07-28] MEDS: DORZOLAMIDE 2% HCL OPHTHALMIC SOLUTION 10 ML BOTTLE OU SCH ×2 (11:16→22:40)
--- NOTE | 2019-07-28 11:49 | PN ---
Progress Note, Physician History of Present Illness: pt seen and examined today in nad. no overnight events. no new complaints. - Current Medication List Current Medications: Active Medications Acetaminophen (Tylenol -) 500 mg PO Q6H PRN PRN Reason: PAIN 1-3 Last Admin: 07/23/19 13:09 Dose: 500 mg Al Hydroxide/Mg Hydroxide (Mylanta Oral Suspension -) 30 ml PO Q6H PRN PRN Reason: DYSPEPSIA Last Admin: 07/25/19 20:51 Dose: 30 ml Atorvastatin Calcium (Lipitor -) 20 mg PO [facility] Last Admin: 07/27/19 21:44 Dose: Not Given Brimonidine Tartrate (Alphagan 0.2% -) 1 drop OU BID [facility] Last Admin: 07/28/19 11:15 Dose: 1 drop Dorzolamide HCl (Trusopt 2%) 1 drop OU BID [facility] Last Admin: 07/28/19 11:16 Dose: 1 drop Heparin Sodium (Porcine) (Heparin -) 5,000 unit SQ TID [facility] Last Admin: 07/28/19 06:14 Dose: 5,000 unit Insulin Aspart (Novolog Vial Sliding Scale -) 1 vial SQ TIDAC [facility]; Protocol Last Admin: 07/28/19 06:14 Dose: Not Given Metformin HCl (Glucophage -) 500 mg PO BIDAC [facility] Last Admin: 07/28/19 06:14 Dose: Not Given Mirtazapine (Remeron -) 7.5 mg PO [facility] Last Admin: 07/27/19 21:43 Dose: 7.5 mg Montelukast Sodium (Singulair -) 10 mg PO [facility] Last Admin: 07/27/19 21:44 Dose: 10 mg Pantoprazole Sodium (Protonix -) 20 mg PO DAILY [facility] Last Admin: 07/28/19 11:14 Dose: 20 mg Polyethylene Glycol (Miralax (For Daily Use) -) 17 gm PO BID [facility] Last Admin: 07/28/19 11:15 Dose: 17 gm - Objective Vital Signs: Vital Signs Temperature 98.1 F 07/28/19 06:00 Pulse Rate 80 07/28/19 06:00 Respiratory Rate 20 07/28/19 06:00 Blood Pressure 137/90 07/28/19 06:00 O2 Sat by Pulse Oximetry (%) 96 07/27/19 20:16 Constitutional: Yes: No Distress, Calm Eyes: Yes: Conjunctiva Clear, EOM Intact HENT: Yes: Atraumatic, Normocephalic Neck: Yes: Supple, Trachea Midline Cardiovascular: Yes: Regular Rate and Rhythm, S1, S2. No: Bradycardia, Tachycardia, Pulse Irregular, Bruit, JVD, Gallop, Murmur, Rub, S3, S4, Varicosities Respiratory: Yes: Regular, CTA Bilaterally. No: Rales, Rhonchi, Wheezes Gastrointestinal: Yes: Normal Bowel Sounds, Soft. No: Distention, Tenderness Breast(s): Yes: WNL Musculoskeletal: Yes: WNL Extremities: Yes: WNL Edema: No Peripheral Pulses WNL: Yes Neurological: Yes: Alert, Oriented Psychiatric: Yes: Alert, Oriented Labs: CBC, BMP 07/27/19 06:35 07/28/19 08:10 - ....Imaging Chest X-ray: Report Reviewed, Image Reviewed EKG: Report Reviewed, Image Reviewed Other: Report Reviewed, Image Reviewed (tele-no further sig arrhythmias) Assessment/Plan 68 M Diabetic gastroparesis Poor PO intake frequent dizziness and recurrent syncope. Nursing reports orthostatic BP decline at time of admission which resolved after IVF. Telemetry shows recurrent 4 sec pauses Recent echocardiogram with normarl LV function and no valvular heart disease or pulm HTN. EP evaluation appreciated PPM is planned for 07/29 cont tele monitoring Avoid AV caitlin blocking agents. No need to repeat echocardiogram had one recently showing normal lvef Keep NPO after midnight tonight for procedure . Hold SQ heparin prior to ppm
--- NOTE | 2019-07-28 12:30 | PN.GI ---
GI Progress Note Subjective: No abdominal pain. No nausea. - Objective Vital Signs: Vital Signs Temperature 98.1 F 07/28/19 06:00 Pulse Rate 80 07/28/19 06:00 Respiratory Rate 20 07/28/19 06:00 Blood Pressure 137/90 07/28/19 06:00 O2 Sat by Pulse Oximetry (%) 96 07/27/19 20:16 Gastrointestinal Inspection: No: Distention ...Auscultate: Yes: Normoactive Bowel Sounds ...Palpate: Yes: Soft. No: Tenderness Labs: CBC, BMP 07/27/19 06:35 07/28/19 08:10 Assessment/Plan Uncertain etiology to abdominal pain/epigastric burning, but likely CV in origin. Unrevealing endoscopic evaluations 05/28/19 For PPM tomorrow Continue with PPI for now Further GI evaluation following PPM (motility, pH testing)
[2019-07-28] MEDS: MIRTAZAPINE 15 MG TABLET (FP) PO SCH (22:35)
[2019-07-28] MEDS: MONTELUKAST NA 10 MG TABLET PO SCH (22:35)
[2019-07-28] MEDS: ATORVASTATIN CA 20 MG TABLET (FP) PO SCH (22:35)
[2019-07-29] MEDS: ACETAMINOPHEN 500 MG TABLET (FP) PO PRN (04:00)
[2019-07-29] MEDS: INSULIN SLIDING SCALE (NOVOLOG) 1 VIAL SQ SCH ×3 (08:00→18:01)
[2019-07-29] MEDS ORDERED: EPHEDRINE SULFATE/0.9% NACL/PF 50 MG/10 ML SYRINGE NR ONE (09:18)
[2019-07-29] MEDS ORDERED: SUCCINYLCHOLINE CHLORIDE 200 MG/10 ML SYRINGE ONE (09:18)
[2019-07-29] MEDS ORDERED: MIDAZOLAM HCL 2 MG/2 ML SINGLE DOSE VIAL ONE (09:19)
--- NOTE | 2019-07-29 09:44 | PN ---
Progress Note, Physician Chief Complaint: SCHEDULED FOR [facility] TODAY NO CHEST PAIN OR SOB REPORTED DOES HAVE LIGHTHEADEDNESS, NO FALLS - Current Medication List Current Medications: Active Medications Acetaminophen (Tylenol -) 500 mg PO Q6H PRN PRN Reason: PAIN 1-3 Last Admin: 07/29/19 04:00 Dose: 500 mg Al Hydroxide/Mg Hydroxide (Mylanta Oral Suspension -) 30 ml PO Q6H PRN PRN Reason: DYSPEPSIA Last Admin: 07/25/19 20:51 Dose: 30 ml Atorvastatin Calcium (Lipitor -) 20 mg PO [facility] Last Admin: 07/28/19 22:35 Dose: Not Given Brimonidine Tartrate (Alphagan 0.2% -) 1 drop OU BID [facility] Last Admin: 07/28/19 22:40 Dose: 1 drop Dorzolamide HCl (Trusopt 2%) 1 drop OU BID [facility] Last Admin: 07/28/19 22:40 Dose: 1 drop Heparin Sodium (Porcine) (Heparin -) 5,000 unit SQ TID [facility] Last Admin: 07/28/19 22:36 Dose: 5,000 unit Insulin Aspart (Novolog Vial Sliding Scale -) 1 vial SQ TIDAC [facility]; Protocol Last Admin: 07/28/19 16:57 Dose: Not Given Metformin HCl (Glucophage -) 500 mg PO BIDAC [facility] Last Admin: 07/28/19 16:59 Dose: Not Given Mirtazapine (Remeron -) 7.5 mg PO [facility] Last Admin: 07/28/19 22:35 Dose: 7.5 mg Montelukast Sodium (Singulair -) 10 mg PO [facility] Last Admin: 07/28/19 22:35 Dose: 10 mg Pantoprazole Sodium (Protonix -) 20 mg PO DAILY [facility] Last Admin: 07/28/19 11:14 Dose: 20 mg Polyethylene Glycol (Miralax (For Daily Use) -) 17 gm PO BID [facility] Last Admin: 07/28/19 22:35 Dose: Not Given Vancomycin HCl (Vancomycin (Pre-Docked)) 1,000 mg IVPB [employer] [facility] Stop: 07/30/19 09:59 - Objective Vital Signs: Vital Signs Temperature 97.8 F 07/29/19 06:00 Pulse Rate 75 07/29/19 06:00 Respiratory Rate 20 07/29/19 06:00 Blood Pressure 118/76 07/29/19 06:00 O2 Sat by Pulse Oximetry (%) 95 07/29/19 06:00 Constitutional: Yes: Mild Distress Cardiovascular: Yes: Bradycardia, Pulse Irregular Respiratory: Yes: WNL Gastrointestinal: Yes: Soft Genitourinary: Yes: WNL Musculoskeletal: Yes: Muscle Weakness Edema: No Integumentary: Yes: WNL Wound/Incision: Yes: Clean/Dry Neurological: Yes: Pre-Existing Deficit ...Motor Strength: LLE, RLE Psychiatric: Yes: Other Labs: CBC, BMP 07/27/19 06:35 07/28/19 08:10 Problem List - Problems (1) Gastroparesis Code(s): K31.84 - GASTROPARESIS (2) Gastroparesis due to DM Code(s): E11.43 - TYPE 2 DIABETES W DIABETIC AUTONOMIC (POLY)NEUROPATHY; K31.84 - GASTROPARESIS (3) Abdominal pain Code(s): R10.9 - UNSPECIFIED ABDOMINAL PAIN Qualifiers: Abdominal location: epigastric Qualified Code(s): R10.13 - Epigastric pain (4) Colon adenoma Code(s): D12.6 - BENIGN NEOPLASM OF COLON, UNSPECIFIED (5) HLD (hyperlipidemia) Code(s): E78.5 - HYPERLIPIDEMIA, UNSPECIFIED (6) Syncope Code(s): R55 - SYNCOPE AND COLLAPSE Qualifiers: Syncope type: unspecified Qualified Code(s): R55 - Syncope and collapse (7) Abnormal weight loss Code(s): R63.4 - ABNORMAL WEIGHT LOSS (8) Atypical chest pain Code(s): R07.89 - OTHER CHEST PAIN (9) Diabetes mellitus Code(s): E11.9 - TYPE 2 DIABETES MELLITUS WITHOUT COMPLICATIONS (10) Dysphagia Code(s): R13.10 - DYSPHAGIA, UNSPECIFIED Qualifiers: Dysphagia type: esophageal phase Qualified Code(s): R13.10 - Dysphagia, unspecified (11) Failure to thrive Code(s): [id number] - (12) History of nephrectomy Code(s): Z90.5 - ACQUIRED ABSENCE OF KIDNEY (13) Lung nodule < 6cm on CT Code(s): R91.1 - SOLITARY PULMONARY NODULE (14) Prostate cancer Code(s): C61 - MALIGNANT NEOPLASM OF PROSTATE (15) Rectal ulcer Code(s): K62.6 - ULCER OF ANUS AND RECTUM Assessment/Plan MEDICALLY CLEARED FOR LDR RN ORDERED AM LABS BMP/CBC/INR-PT NOW PT EVAL NEEDS SNF FOR LIGHTHEADEDNESS AND PROPER PLACEMENT BEFORE GOING HOME WITH PT/AID.
[2019-07-29] MEDS ORDERED: VANCOMYCIN 1 GM in D5W (PRE-DOCKED) 1,000 MG/250 ML IVPB SCH (10:00)
[2019-07-29] MEDS: PANTOPRAZOLE 20 MG TABLET PO SCH (10:01)
[2019-07-29] MEDS ORDERED: LIDOCAINE HCL 1%, 10 MG/ML (20ML VIAL) ONE (10:17)
[2019-07-29] MEDS ORDERED: VANCOMYCIN 1,000 MG VIAL (RESTRICTED TO ID ONLY) ONE (10:21)
[2019-07-29] MEDS ORDERED: PT OWN MED DRAWER 7, Y5N ONE (10:31)
[2019-07-29] MEDS ORDERED: ceFAZolin SODIUM 1 GM VIAL ONE (10:35)
[2019-07-29] MEDS ORDERED: VANCOMYCIN 1,000 MG VIAL (RESTRICTED TO ID ONLY) IVPB ONE (10:44)
[2019-07-29] MEDS ORDERED: BUPIVACAINE HCL/PF 0.5% (5 MG/ML) 30 ML VIAL IJ ONE (11:15)
[2019-07-29] MEDS ORDERED: ceFAZolin SODIUM 1 GM VIAL IVPB ONE (11:15)
[2019-07-29] MEDS ORDERED: LIDOCAINE HCL 1%, 10 MG/ML (20ML VIAL) NR ONE (11:15)
[2019-07-29] MEDS ORDERED: PROPOFOL 20 ML ONE (12:16)
--- NOTE | 2019-07-29 12:22 | OP ---
Operative Note - Note: Operative Date: 07/29/19 Pre-Operative Diagnosis: Heart Block Operation: Dual chamber Pacemaker Implant via the left Cephalic vein Implants: Medtronic Dual Chamber MRI Compatible PPM Post-Operative Diagnosis: Same as Pre-op Surgeon: Kyle Mustafa V Anesthesiologist/IT AUDITOR: Carly Hogan Anesthesia: MAC Estimated Blood Loss (mls): 10 Operative Report Dictated: Yes
[2019-07-29] MEDS ORDERED: ONDANSETRON 4 MG/2 ML VIAL IVPUSH PRN (12:27)
[2019-07-29] MEDS ORDERED: LACTATED RINGERS SOLUTION 1,000 ML IV SCH (12:30)
--- NOTE | 2019-07-29 12:33 | PN ---
Progress Note, Physician Chief Complaint: syncope History of Present Illness: Mr. 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 The patient reports that the LOC occurs mostly when he is lying down and are not associated with position changes. He reports dizziness and chest discomfort prior to the syncopal events. He can have upto 1-2 events a day. He denies any associated trauma. Noted to have pauses upto 4.2 seconds while sleeping and awake on telemetry. He had orthostatic blood pressure drop reported during hospitalization that resolved after fluid infusion. Echo from 2018 with normal LVEF. Denies any dyspnea, palpitations. Unable to stand after his stroke and is wheelchair dependant. Echo 05/2019 Normal LV function no pulm HN or valvular pathology He has not been on any av caitlin blocking agents as an outpt or during his inpatient stay. For PPM today. - Current Medication List Current Medications: Active Medications Acetaminophen (Tylenol -) 500 mg PO Q6H PRN PRN Reason: PAIN 1-3 Last Admin: 07/29/19 04:00 Dose: 500 mg Al Hydroxide/Mg Hydroxide (Mylanta Oral Suspension -) 30 ml PO Q6H PRN PRN Reason: DYSPEPSIA Last Admin: 07/25/19 20:51 Dose: 30 ml Atorvastatin Calcium (Lipitor -) 20 mg PO [facility] Last Admin: 07/28/19 22:35 Dose: Not Given Brimonidine Tartrate (Alphagan 0.2% -) 1 drop OU BID [facility] Last Admin: 07/28/19 22:40 Dose: 1 drop Dorzolamide HCl (Trusopt 2%) 1 drop OU BID [facility] Last Admin: 07/28/19 22:40 Dose: 1 drop Fentanyl (Sublimaze Injection -) 25 mcg IVPUSH [id number] PRN PRN Reason: PAIN-PACU ORDER X 4 DOSES ONLY Fentanyl (Sublimaze Injection -) 50 mcg IVPUSH [id number] PRN PRN Reason: PAIN-PACU ORDER X 4 DOSES ONLY Heparin Sodium (Porcine) (Heparin -) 5,000 unit SQ TID [facility] Last Admin: 07/28/19 22:36 Dose: 5,000 unit Lactated Ringer's (Lactated Ringers Solution) 1,000 mls @ 75 mls/hr IV [facility] Insulin Aspart (Novolog Vial Sliding Scale -) 1 vial SQ TIDAC [facility]; Protocol Last Admin: 07/29/19 11:07 Dose: Not Given Metformin HCl (Glucophage -) 500 mg PO BIDAC [facility] Last Admin: 07/28/19 16:59 Dose: Not Given Mirtazapine (Remeron -) 7.5 mg PO HS [facility] Last Admin: 07/28/19 22:35 Dose: 7.5 mg Montelukast Sodium (Singulair -) 10 mg PO [facility] Last Admin: 07/28/19 22:35 Dose: 10 mg Ondansetron HCl (Zofran Injection) 4 mg IVPUSH Q6H PRN PRN Reason: NAUSEA AND/OR VOMITING Pantoprazole Sodium (Protonix -) 20 mg PO DAILY [facility] Last Admin: 07/29/19 10:01 Dose: 20 mg Polyethylene Glycol (Miralax (For Daily Use) -) 17 gm PO BID [facility] Last Admin: 07/28/19 22:35 Dose: Not Given Vancomycin HCl (Vancomycin (Pre-Docked)) 1,000 mg IVPB [facility] Stop: 07/30/19 09:59 - Objective Vital Signs: Vital Signs Temperature 97.4 F L 07/29/19 10:00 Pulse Rate 78 07/29/19 10:00 Respiratory Rate 22 H 07/29/19 10:00 Blood Pressure 140/97 07/29/19 10:00 O2 Sat by Pulse Oximetry (%) 95 07/29/19 06:00 Constitutional: Yes: Well Nourished, No Distress, Calm Eyes: Yes: Conjunctiva Clear, EOM Intact HENT: Yes: WNL Neck: Yes: Supple Cardiovascular: Yes: Regular Rate and Rhythm Respiratory: Yes: Regular, CTA Bilaterally Gastrointestinal: Yes: Normal Bowel Sounds, Soft Edema: No Neurological: Yes: Alert, Oriented Psychiatric: Yes: Alert, Oriented Labs: CBC, BMP 07/27/19 06:35 07/28/19 08:10 - ....Imaging EKG: Image Reviewed Problem List - Problems (1) Heart block AV complete Code(s): I44.2 - ATRIOVENTRICULAR BLOCK, COMPLETE (2) HLD (hyperlipidemia) Code(s): E78.5 - HYPERLIPIDEMIA, UNSPECIFIED (3) Syncope Code(s): R55 - SYNCOPE AND COLLAPSE Qualifiers: Syncope type: unspecified Qualified Code(s): R55 - Syncope and collapse (4) Atypical chest pain Code(s): R07.89 - OTHER CHEST PAIN Assessment/Plan 68 year old male with a pmh of inc chol, dm, normal LVEF, p/w recurrent syncope , found to have episodic complete heart block, here for ppm implant today. - no av caitlin blocking agents - npo, hep sq held - vanco 1 gram ivss x 1 on-call to OR - LUE IVL already placed - plan for ppm today am - keep k 4-4.5, mg 2-2.5 - consent in chart - care as per primary services - case d/w medicine and cardiology
[2019-07-29] MEDS ORDERED: ACETAMINOPHEN 500 MG TABLET (FP) PO PRN (12:39)
[2019-07-29] MEDS ORDERED: MAG HYDROX/AL HYDROX/SIMETH 30 ML UNIT-DOSE CUP PO PRN (12:39)
--- NOTE | 2019-07-29 14:06 | EKG ---
Test Reason : Blood Pressure : / mmHG Vent. Rate : 107 BPM Atrial Rate : 107 BPM P-R Int : 160 ms QRS Dur : 074 ms QT Int : 338 ms P-R-T Axes : 058 -45 057 degrees QTc Int : 451 ms SINUS TACHYCARDIA LEFT AXIS DEVIATION ABNORMAL ECG WHEN COMPARED WITH ECG OF 22-JUL-2019 17:00, NONSPECIFIC T WAVE ABNORMALITY NO LONGER EVIDENT IN LATERAL LEADS Confirmed by SHIV KEBEDE MD ([id number]) on 07/29/2019 2:05:37 PM Referred By: Confirmed By:SHIV KEBEDE MD
--- NOTE | 2019-07-29 17:51 | PN ---
Progress Note, Physician - Current Medication List Current Medications: Active Medications Acetaminophen (Tylenol -) 500 mg PO Q6H PRN PRN Reason: PAIN 1-3 Al Hydroxide/Mg Hydroxide (Mylanta Oral Suspension -) 30 ml PO Q6H PRN PRN Reason: DYSPEPSIA Atorvastatin Calcium (Lipitor -) 20 mg PO HS [facility] Brimonidine Tartrate (Alphagan 0.2% -) 1 drop OU BID [facility] Dorzolamide HCl (Trusopt 2%) 1 drop OU BID [facility] Fentanyl (Sublimaze Injection -) 25 mcg IVPUSH [id number] PRN PRN Reason: PAIN-PACU ORDER X 4 DOSES ONLY Insulin Aspart (Novolog Vial Sliding Scale -) 1 vial SQ TIDAC [facility]; Protocol Metformin HCl (Glucophage -) 500 mg PO BIDAC [facility] Mirtazapine (Remeron -) 7.5 mg PO HS [facility] Montelukast Sodium (Singulair -) 10 mg PO HS [facility] Ondansetron HCl (Zofran Injection) 4 mg IVPUSH Q6H PRN PRN Reason: NAUSEA AND/OR VOMITING Pantoprazole Sodium (Protonix -) 20 mg PO DAILY [facility] Polyethylene Glycol (Miralax (For Daily Use) -) 17 gm PO BID [facility] - Objective Vital Signs: Vital Signs Temperature 98.3 F 07/29/19 14:00 Pulse Rate 97 H 07/29/19 14:00 Respiratory Rate 20 07/29/19 14:00 Blood Pressure 135/99 07/29/19 14:00 O2 Sat by Pulse Oximetry (%) 100 07/29/19 13:50 Labs: CBC, BMP 07/27/19 06:35 07/28/19 08:10 Assessment/Plan 68 M Diabetic gastroparesis Poor PO intake frequent dizziness and recurrent syncope. Nursing reports orthostatic BP decline at time of admission which resolved after IVF. Telemetry shows recurrent 4 sec pauses Recent echocardiogram with normarl LV function and no valvular heart disease or pulm HTN. EP evaluation appreciated s/p PPM today Cxr PA/Lat in am cont tele monitoring tonight Pain control with tylenol prn Plan for likely discharge home tomorrow.
[2019-07-29] MEDS: metFORMIN HCL 500 MG TABLET (FP) PO SCH (18:01)
--- NOTE | 2019-07-29 18:15 | OP ---
DATE OF OPERATION: 07/29/2019 PROCEDURE: Dual-chamber pacemaker implant. SURGEON: Marycruz Mustafa MD ANESTHESIOLOGIST: Carly Hogan MD. COMPLICATIONS: No complications. BLOOD LOSS: Minimal. INDICATION: This is a 68-year-old male with a past medical history of increased cholesterol, diabetes, normal LVEF, presenting with recurrent syncope, found to have episodic complete heart block, here for pacemaker implant. The patient met standard criteria for implantation of a dual-chamber pacemaker. Informed consent was obtained and adequate time for questions, answers were offered to the patient and his prior to the procedure. DESCRIPTION OF PROCEDURE: Preoperative antibiotics were administered. The procedure was performed during continuous ECG monitoring and with both conscious sedation and local anesthesia administered. Oxygen saturation and exhaled CO2 content were monitored continuously. The left infraclavicular region was prepped and broadly draped. Following administration of local anesthesia, an incision was made in the left deltopectoral groove. Using a combination of blunt and sharp dissection and with conscious attention to hemostasis, cephalic vein was found and isolated. Access was obtained. Using fluoroscopic guidance, 2 guidewires were advanced into the central venous circulation and a hemostatic introducer was passed over the ventricular guidewire. Using fluoroscopic guidance, the ventricular lead was advanced to the right ventricle and was positioned into the mid septum where acute pacing and sensing thresholds and impedances were found to be adequate. The introducer was then removed. Utilizing similar technique, the atrial lead was positioned in the right atrial appendage, where acute pacing and sensing thresholds and impedances were found to be adequate. After assuring that lead positions were stable and that sensing and pacing thresholds and impedances were adequate following stylet removal, the proximal portion of the leads were stabilized by securing the leads to tissue at the venous access site using nonabsorbable silk sutures. A hemostatic suture was placed. A subcutaneous pocket was created contiguous with the incision site and hemostasis was secured. All sponges were removed, and the wound was irrigated with antibiotic solution. The pulse generator was then connected to the proximal portions of the pacemaker leads and after confirming the adequacy of the electrical connection, the device was placed in the pocket. The incision was then closed in layers using absorbable sutures. Dermabond and Steri-Strips were applied. A sterile bandage was applied. Proper device function was confirmed, and the patient was transferred to the postprocedure monitoring area for additional observation. Final device settings were as follows: Medtronic Tracy XT DR MRI IPG [id number] dual-chamber pacemaker; serial number [id number]; implanted July 29, 2019. AAI-DDD 60 to 130 beats per minute. Paced AV 180 ms. Sensed AV 150 ms. The atrial lead was a Medtronic [id number]; serial number [id number]; implanted July 29, 2019. Bipolar polarity. P waves 2.5 mV. Sensitivity 0.3 mV. Atrial impedance 456 ohms. Atrial threshold 0.5 V at 0.4 ms. Amplitude 3.5V at 0.4 ms. The ventricular lead was a Medtronic [id number]; serial number [id number]; implanted July 29, 2019. Bipolar polarity. R waves 8.3 mV. Sensitivity 0.9 mV. Ventricular impedance 513 ohms. Ventricular threshold 0.75 V at 0.4 ms. Amplitude 3.5 V at 0.4 ms. MARYCRUZ MUSTAFA M.D. [id number] cc: MD Ralph Encarnacion MD MTDD
[2019-07-29] MEDS: POLYETHYLENE GLYCOL 3350 119 GM BTL PO SCH (22:20)
[2019-07-29] MEDS: ATORVASTATIN CA 20 MG TABLET (FP) PO SCH (22:20)
[2019-07-29] MEDS: MONTELUKAST NA 10 MG TABLET PO SCH (22:21)
[2019-07-29] MEDS: MIRTAZAPINE 15 MG TABLET (FP) PO SCH (22:21)
[2019-07-29] MEDS: DORZOLAMIDE 2% HCL OPHTHALMIC SOLUTION 10 ML BOTTLE OU SCH (22:22)
[2019-07-29] MEDS: BRIMONIDINE TARTRATE 0.2% OPHTHALMIC 5 ML BOTTLE OU SCH (22:22)
[2019-07-30] MEDS: INSULIN SLIDING SCALE (NOVOLOG) 1 VIAL SQ SCH ×3 (06:15→18:06)
[2019-07-30] MEDS: metFORMIN HCL 500 MG TABLET (FP) PO SCH ×2 (06:18→18:05)
[2019-07-30 08:10] LABS: BASO % 0.4 % (0-2.0); EOS % 1.4 % (0-4.5); HEMATOCRIT 37.7 % (35.4-49); HEMOGLOBIN 12.8 GM/dL (11.7-16.9); LYMPH % 23.1 % (8-40); MCH 33.1 pg (25.7-33.7); MCHC 33.9 g/dl (32.0-35.9); MEAN CELL VOLUME 97.6 fl (80-96); MEAN PLT VOLUME 9.2 fl (7.5-11.1); MONO % 10.1 % (3.8-10.2); PLATELET COUNT 112 K/MM3 (134-434); RBC 3.86 M/mm3 (4.00-5.60); RDW 14.5 % (11.9-15.9); WHITE BLOOD COUNT 4.1 K/mm3 (4.0-10.0)
[2019-07-30 08:30] LABS: INR 0.99 (0.83-1.09); PROTHROMBIN TIME (PATIENT) 11.7 SEC (9.7-13.0)
[2019-07-30 08:32] LABS: BLOOD UREA NITROGEN 5.7 mg/dL (7-18); MAGNESIUM 1.8 mg/dL (1.8-2.4)
--- NOTE | 2019-07-30 10:00 | DS ---
Physical Examination Vital Signs: Vital Signs Temperature 98.4 F 07/30/19 06:08 Pulse Rate 81 07/30/19 09:50 Respiratory Rate 22 H 07/30/19 09:50 Blood Pressure 125/84 07/30/19 09:50 O2 Sat by Pulse Oximetry (%) 98 07/29/19 21:00 Findings/Remarks: Laboratory Last Values WBC 4.1 K/mm3 (4.0-10.0) 07/30/19 06:14 RBC 3.86 M/mm3 (4.00-5.60) L 07/30/19 06:14 Hgb 12.8 GM/dL (11.7-16.9) 07/30/19 06:14 Hct 37.7 % (35.4-49) 07/30/19 06:14 MCV 97.6 fl (80-96) H 07/30/19 06:14 MCH 33.1 pg (25.7-33.7) 07/30/19 06:14 MCHC 33.9 g/dl (32.0-35.9) 07/30/19 06:14 RDW 14.5 % (11.9-15.9) 07/30/19 06:14 Plt Count 112 K/MM3 (134-434) L 07/30/19 06:14 MPV 9.2 fl (7.5-11.1) 07/30/19 06:14 Absolute Neuts (auto) 2.7 K/mm3 (1.5-8.0) 07/30/19 06:14 Neutrophils % 65.0 % (42.8-82.8) 07/30/19 06:14 Lymphocytes % 23.1 % (8-40) D 07/30/19 06:14 Monocytes % 10.1 % (3.8-10.2) 07/30/19 06:14 Eosinophils % 1.4 % (0-4.5) 07/30/19 06:14 Basophils % 0.4 % (0-2.0) 07/30/19 06:14 Nucleated RBC % 0 % (0-0) 07/30/19 06:14 Retic Count 0.77 % (0.5-1.5) 07/24/19 05:18 PT with INR 11.70 SEC (9.7-13.0) 07/30/19 06:14 INR 0.99 (0.83-1.09) 07/30/19 06:14 Sodium 142 mmol/L (136-145) 07/30/19 06:14 Potassium 4.0 mmol/L (3.5-5.1) 07/30/19 06:14 Chloride 106 mmol/L (98-107) 07/30/19 06:14 Carbon Dioxide 32 mmol/L (21-32) 07/30/19 06:14 Anion Gap 4 MMOL/L (8-16) L 07/30/19 06:14 BUN 5.7 mg/dL (7-18) L 07/30/19 06:14 Creatinine 1.0 mg/dL (0.55-1.3) 07/30/19 06:14 Est GFR (CKD-EPI)AfAm 87.99 07/30/19 06:14 Est GFR (CKD-EPI)NonAf 75.92 07/30/19 06:14 POC Glucometer 82 UNITS (80-120) 07/30/19 05:02 Random Glucose 97 mg/dL (74-106) 07/30/19 06:14 Hemoglobin A1c % 5.6 % (4.2-6.3) 07/24/19 05:18 Calcium 8.0 mg/dL (8.5-10.1) L 07/30/19 06:14 Magnesium 1.8 mg/dL (1.8-2.4) 07/30/19 06:14 Iron 143 ug/dL (50-175) 07/24/19 05:18 TIBC 218 ug/dL (250-450) L 07/24/19 05:18 Iron Saturation 65 % (17.5-39) H 07/24/19 05:18 Unsaturated IBC 75 ug/dL (200-275) L 07/24/19 05:18 Ferritin 72.4 ng/ml (8-388) 07/24/19 05:18 Total Bilirubin 0.3 mg/dL (0.2-1) 07/27/19 06:35 GGT 16 U/L (5-85) 07/24/19 05:18 AST 9 U/L (15-37) L 07/27/19 06:35 ALT 13 U/L (13-61) 07/27/19 06:35 Alkaline Phosphatase 117 U/L (45-117) 07/27/19 06:35 Troponin I < 0.02 ng/ml (0.00-0.05) 07/23/19 01:33 C-Reactive Protein < 0.3 MG/DL (0.00-0.3) 07/24/19 05:18 Total Protein 6.2 g/dl (6.4-8.2) L 07/27/19 06:35 Albumin 3.1 g/dl (3.4-5.0) L 07/27/19 06:35 Total Amylase 76 U/L (25-115) 07/24/19 05:18 Lipase 58 U/L (73-393) L 07/24/19 05:18 Vitamin B12 482 pg/ml (193-986) 07/25/19 05:46 TSH 0.86 uIU/ml (0.358-3.74) D 07/25/19 05:46 Urine Color Yellow 07/22/19 18:41 Urine Appearance Clear 07/22/19 18:41 Urine pH 6.0 (5.0-8.0) 07/22/19 18:41 Ur Specific [place] 1.009 (1.010-1.035) L 07/22/19 18:41 Urine Protein Negative (NEGATIVE) 07/22/19 18:41 Urine Glucose (UA) Negative (NEGATIVE) 07/22/19 18:41 Urine Ketones Negative (NEGATIVE) 07/22/19 18:41 Urine Blood Negative (NEGATIVE) 07/22/19 18:41 Urine Nitrite Negative (NEGATIVE) 07/22/19 18:41 Urine Bilirubin Negative (NEGATIVE) 07/22/19 18:41 Urine Urobilinogen 1.0 mg/dL (0.2-1.0) 07/22/19 18:41 Ur Leukocyte Esterase Negative (NEGATIVE) 07/22/19 18:41 RPR Titer Nonreactive (NONREACTIVE) 07/25/19 05:46 Home Medication List Medication Instructions Recorded Confirmed Type Atorvastatin Calcium 20 mg PO HS 02/11/19 07/22/19 History Brimonidine Tartrate [Alphagan 1 drop OU BID 02/11/19 07/22/19 History 0.2% -] Dorzolamide HCl [Trusopt 2% -] 1 drop OU BID 02/11/19 07/22/19 History Fluticasone Propionate [Flonase 2 spray NS DAILY PRN 02/11/19 07/22/19 History Allergy Relief] Gabapentin 300 mg PO BID 02/11/19 07/22/19 History Metformin HCl [Glucophage] 500 mg PO BID 02/11/19 07/22/19 History Montelukast Sodium [Singulair] 10 mg PO DAILY 02/11/19 07/22/19 History Sennosides [Senna] 2 tab PO HS 07/22/19 07/22/19 History Active Medications Generic Name Dose Route Start Last Admin Trade Name Freq PRN Reason Stop Dose Admin Acetaminophen 500 mg 07/29/19 12:39 Tylenol - PO Q6H PRN PAIN 1-3 Al Hydroxide/Mg Hydroxide 30 ml 07/29/19 12:39 Mylanta Oral Suspension - PO Q6H PRN DYSPEPSIA Atorvastatin Calcium 20 mg 07/29/19 22:00 07/29/19 22:20 Lipitor - PO Not Given HS NOEMY Brimonidine Tartrate 1 drop 07/29/19 22:00 07/29/19 22:22 Alphagan 0.2% - OU 1 drop BID NOEMY Administration Dorzolamide HCl 1 drop 07/29/19 22:00 07/29/19 22:22 Trusopt 2% OU 1 drop BID NOEMY Administration Fentanyl 25 mcg 07/29/19 12:27 Sublimaze Injection - IVPUSH [id number] PRN PAIN-PACU ORDER X 4 DOSES ONLY Insulin Aspart 1 vial 07/29/19 16:30 07/30/19 06:15 Novolog Vial Sliding Scale - SQ Not Given TIDAC [facility] Protocol Metformin HCl 500 mg 07/29/19 16:30 07/30/19 06:18 Glucophage - PO Not Given BIDAC NOEMY Mirtazapine 7.5 mg 07/29/19 22:00 07/29/19 22:21 Remeron - PO 7.5 mg HS NOEMY Administration Montelukast Sodium 10 mg 07/29/19 22:00 07/29/19 22:21 Singulair - PO 10 mg HS NOEMY Administration Ondansetron HCl 4 mg 07/29/19 12:27 Zofran Injection IVPUSH Q6H PRN NAUSEA AND/OR VOMITING Pantoprazole Sodium 20 mg 07/30/19 10:00 Protonix - PO DAILY NOEMY Polyethylene Glycol 17 gm 07/29/19 22:00 07/29/19 22:20 Miralax (For Daily Use) - PO Not Given BID NOEMY Constitutional: Yes: No Distress, Calm Eyes: Yes: Conjunctiva Clear HENT: Yes: Atraumatic Cardiovascular: Yes: Regular Rate and Rhythm Respiratory: Yes: Regular, CTA Bilaterally Gastrointestinal: Yes: Normal Bowel Sounds, Soft Musculoskeletal: Yes: Muscle Weakness Extremities: Yes: WNL Edema: No Wound/Incision: Yes: Dressing Dry and Intact (L upper chest) Neurological: Yes: Alert Psychiatric: Yes: Alert Labs: CBC, BMP 07/30/19 06:14 07/30/19 06:14 Discharge Summary Problems reviewed: Yes Reason For Visit: DIABETES MELLITUS Current Active Problems Abdominal pain (Acute) Colon adenoma (Acute) Gastroparesis (Acute) Gastroparesis due to DM (Acute) HLD (hyperlipidemia) (Acute) Heart block AV complete (Acute) Nausea (Acute) Syncope (Acute) Hospital Course: 68 y/o/m with PMHx of Prostate cancer s/p radiation (2010), s/p L sided nephrectomy in 2008, 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 Patient is currently a resident of [facility] for rehab. He states that he first passed out while he was PT while sitting in a wheelchair and felt lightheaded. He passed out for 30 seconds but did not fall out of his chair. He did not have any incontinence. He believes that his blood pressure was low but does not remember what it was when it was checked. He then also passed out again a second time after he returned to [facility]. Again he was sitting in a chair and did not fall out of the chair but he does not recall how long he was unconscious for. He denied any incontinence during this episode. He states he has fainting episodes in the past due to low blood pressure but he does not recall the last time he had a fainting episode. He feels little dizzy when he moves his head around. He denies any new focal weakness. He denies chest pain or palpitations during either episode. He states that he did vomit once yesterday, NBNB, but no vomit today. He complains of chronic nausea with eating and states this is why he is on omeprazole. Patient complaints of blood in urine once last Friday (07/16/19) but no episodes of hematuria since then. He denies being on blood thinners. He had an EGD during his last hospitalization here. Patient denies chest pain, diarrhea, headache, fever, chills, changes in vision. Patient had pacemaker placed on 07/29/19. Pending CXR to R/O pneumothorax. Patient denies chest pain or respiratory distress. He complained of dizziness this morning but no orthostatic hypotension noted with BP. - Problems (1) Abdominal pain Assessment/Plan: GI on board Reglan Pantoprazole Code(s): R10.9 - UNSPECIFIED ABDOMINAL PAIN Qualifiers: Abdominal location: epigastric Qualified Code(s): R10.13 - Epigastric pain (2) Syncope Assessment/Plan: Cardiology on board patient is pending Pacemaker implant today Tele monitoring Carotid US shows minimal initmal thickening in the distal common carotid arteryand at the bifurcation bilaterally without evidence of hemodynamically significant stenosis fall precaution troponin neg x 2 Code(s): R55 - SYNCOPE AND COLLAPSE Qualifiers: Syncope type: unspecified Qualified Code(s): R55 - Syncope and collapse (3) Diabetes mellitus Assessment/Plan: BGM ACHS Metformin HgA1c 5.6% ISS Code(s): E11.9 - TYPE 2 DIABETES MELLITUS WITHOUT COMPLICATIONS (4) GERD (gastroesophageal reflux disease) Assessment/Plan: Pantoprazole Code(s): K21.9 - GASTRO-ESOPHAGEAL REFLUX DISEASE WITHOUT ESOPHAGITIS Qualifiers: Esophagitis presence: esophagitis presence not specified Qualified Code(s) : K21.9 - Gastro-esophageal reflux disease without esophagitis (5) History of nephrectomy Assessment/Plan: BUN/Cr 8.5/1.0 Renal consult Renal US shows s/p L nephrectomy, with morphologically normal right kidney, no evidence of nephrolithiasis, hydronephrosis, or acute pathology Code(s): Z90.5 - ACQUIRED ABSENCE OF KIDNEY (6) HLD (hyperlipidemia) Assessment/Plan: Atorvastatin Code(s): E78.5 - HYPERLIPIDEMIA, UNSPECIFIED Condition: Stable - Instructions Diet, Activity, Other Instructions: Follow up with PCP in 1 week of discharge Follow up with Neurology Dr Hutchison for dizziness Follow up with Cardiology Dr Mahan after pacemaker implantation patient will need follow up with cardiology every 3 months for pacemaker check return to ER if develop severe pain, chest pain, respiratory distress, altered mental status Referrals: Levy Montalvo MD [Staff Physician] - Brandin Hutchison MD [Staff Physician] - Walter Mahan MD [Staff Physician] - Disposition: LONG-TERM FACILITY - Home Medications Comprehensive Discharge Medication List: Ambulatory Orders Atorvastatin Calcium 20 mg PO HS 02/11/19 Brimonidine Tartrate [Alphagan 0.2% -] 1 drop OU BID 02/11/19 Dorzolamide HCl [Trusopt 2% -] 1 drop OU BID 02/11/19 Fluticasone Propionate [Flonase Allergy Relief] 2 spray NS DAILY PRN 02/11/19 Gabapentin 300 mg PO BID 02/11/19 Metformin HCl [Glucophage] 500 mg PO BID 02/11/19 Montelukast Sodium [Singulair] 10 mg PO DAILY 02/11/19 Acetaminophen [Tylenol .Extra-Strength -] 500 mg PO Q6H PRN tablet 06/04/19 Insulin Sliding Scale [Novolog Vial Sliding Scale -] 1 vial SQ TIDAC units 08/19 Mirtazapine [Remeron -] 7.5 mg PO HS tablet 06/04/19 Polyethylene Glycol 3350 [Miralax 119 gm Btl -] 17 gm PO BID bottle 06/04/19 Sennosides [Senna] 2 tab PO HS 07/22/19 Pantoprazole Sodium [Protonix -] 20 mg PO DAILY tablet.ec 07/30/19
[2019-07-30] MEDS: PANTOPRAZOLE 20 MG TABLET PO SCH (10:21)
[2019-07-30] MEDS: DORZOLAMIDE 2% HCL OPHTHALMIC SOLUTION 10 ML BOTTLE OU SCH ×2 (10:22→21:25)
[2019-07-30] MEDS: BRIMONIDINE TARTRATE 0.2% OPHTHALMIC 5 ML BOTTLE OU SCH ×2 (10:22→21:24)
[2019-07-30] MEDS: POLYETHYLENE GLYCOL 3350 119 GM BTL PO SCH ×2 (10:23→21:26)
--- NOTE | 2019-07-30 17:13 | PN ---
Progress Note, Physician History of Present Illness: pt seen and examined today in nad. pain at icd site improved. no new complaints. - Current Medication List Current Medications: Active Medications Acetaminophen (Tylenol -) 500 mg PO Q6H PRN PRN Reason: PAIN 1-3 Al Hydroxide/Mg Hydroxide (Mylanta Oral Suspension -) 30 ml PO Q6H PRN PRN Reason: DYSPEPSIA Atorvastatin Calcium (Lipitor -) 20 mg PO [facility] Last Admin: 07/29/19 22:20 Dose: Not Given Brimonidine Tartrate (Alphagan 0.2% -) 1 drop OU BID [facility] Last Admin: 07/30/19 10:22 Dose: 1 drop Dorzolamide HCl (Trusopt 2%) 1 drop OU BID [facility] Last Admin: 07/30/19 10:22 Dose: 1 drop Fentanyl (Sublimaze Injection -) 25 mcg IVPUSH [id number] PRN PRN Reason: PAIN-PACU ORDER X 4 DOSES ONLY Insulin Aspart (Novolog Vial Sliding Scale -) 1 vial SQ TIDAC [facility]; Protocol Last Admin: 07/30/19 12:18 Dose: Not Given [facility] -) [facility] Last Admin: 07/30/19 06:18 Dose: Not Given Mirtazapine (Remeron -) 7.5 mg PO [facility] Last Admin: 07/29/19 22:21 Dose: 7.5 mg Montelukast Sodium (Singulair -) 10 mg PO [facility] Last Admin: 07/29/19 22:21 Dose: 10 mg Ondansetron HCl (Zofran Injection) 4 mg IVPUSH Q6H PRN PRN Reason: NAUSEA AND/OR VOMITING Pantoprazole Sodium (Protonix -) 20 mg PO DAILY [facility] Last Admin: 07/30/19 10:21 Dose: 20 mg Polyethylene Glycol (Miralax (For Daily Use) -) 17 gm PO BID [facility] Last Admin: 07/30/19 10:23 Dose: Not Given - Objective Vital Signs: Vital Signs Temperature 97.8 F 07/30/19 14:00 Pulse Rate 84 07/30/19 14:00 Respiratory Rate 20 07/30/19 14:00 Blood Pressure 110/76 07/30/19 14:00 O2 Sat by Pulse Oximetry (%) 98 07/29/19 21:00 Constitutional: Yes: No Distress, Calm Eyes: Yes: Conjunctiva Clear, EOM Intact HENT: Yes: Atraumatic, Normocephalic Neck: Yes: Supple, Trachea Midline Cardiovascular: Yes: Regular Rate and Rhythm, S1, S2. No: Bradycardia, Tachycardia, Pulse Irregular, Bruit, JVD, Gallop, Murmur, Rub, S3, S4, Varicosities Respiratory: Yes: Regular, CTA Bilaterally. No: Rales, Rhonchi, Wheezes Gastrointestinal: Yes: Normal Bowel Sounds, Soft. No: Distention, Tenderness Edema: No Peripheral Pulses WNL: Yes Peripheral Pulses: Left Doralis Pedis: 2+, Right Dorsalis Pedis: 2+ Neurological: Yes: Alert, Oriented Psychiatric: Yes: Alert, Oriented Labs: CBC, BMP 07/30/19 06:14 07/30/19 06:14 INR, PTT INR 0.99 (0.83-1.09) 07/30/19 06:14 - ....Imaging Chest X-ray: Report Reviewed, Image Reviewed EKG: Report Reviewed, Image Reviewed Other: Report Reviewed, Image Reviewed (tele-no sig arrhythmias) Assessment/Plan 68 M Diabetic gastroparesis Poor PO intake frequent dizziness and recurrent syncope. Nursing reports orthostatic BP decline at time of admission which resolved after IVF. Telemetry shows recurrent 4 sec pauses Recent echocardiogram with normarl LV function and no valvular heart disease or pulm HTN. EP evaluation appreciated s/p PPM 07/29/19 Cxr PA/Lat today reported as apical pneumothorax (L) Will need further evaluation for the above cont tele monitoring tonight Pain control with tylenol prn
[2019-07-30] MEDS: MIRTAZAPINE 15 MG TABLET (FP) PO SCH (21:25)
[2019-07-30] MEDS: MONTELUKAST NA 10 MG TABLET PO SCH (21:26)
[2019-07-30] MEDS: ATORVASTATIN CA 20 MG TABLET (FP) PO SCH ×2 (21:26→21:30)
[2019-07-31] MEDS: INSULIN SLIDING SCALE (NOVOLOG) 1 VIAL SQ SCH ×3 (06:51→17:20)
[2019-07-31] MEDS: metFORMIN HCL 500 MG TABLET (FP) PO SCH ×2 (06:52→17:20)
[2019-07-31] MEDS: DORZOLAMIDE 2% HCL OPHTHALMIC SOLUTION 10 ML BOTTLE OU SCH ×2 (09:22→22:26)
[2019-07-31] MEDS: PANTOPRAZOLE 20 MG TABLET PO SCH (09:22)
[2019-07-31] MEDS: POLYETHYLENE GLYCOL 3350 119 GM BTL PO SCH ×2 (09:22→22:26)
[2019-07-31] MEDS: BRIMONIDINE TARTRATE 0.2% OPHTHALMIC 5 ML BOTTLE OU SCH ×2 (09:22→22:26)
--- NOTE | 2019-07-31 11:09 | PN ---
Progress Note, Physician Chief Complaint: AWAKE ALERT BEDSIDE C/O VOMITING OVERNIGHT FEVER 100.1 DENIES CHEST PAIN OR SOB - Current Medication List Current Medications: Active Medications Acetaminophen (Tylenol -) 500 mg PO Q6H PRN PRN Reason: PAIN 1-3 Last Admin: 07/30/19 21:23 Dose: 500 mg Al Hydroxide/Mg Hydroxide (Mylanta Oral Suspension -) 30 ml PO Q6H PRN PRN Reason: DYSPEPSIA Last Admin: 07/31/19 09:21 Dose: 30 ml Atorvastatin Calcium (Lipitor -) 20 mg PO [facility] Last Admin: 07/30/19 21:30 Dose: Not Given Brimonidine Tartrate (Alphagan 0.2% -) 1 drop OU BID [facility] Last Admin: 07/31/19 09:22 Dose: 1 drop Dorzolamide HCl (Trusopt 2%) 1 drop OU BID [facility] Last Admin: 07/31/19 09:22 Dose: 1 drop Fentanyl (Sublimaze Injection -) 25 mcg IVPUSH [id number] PRN PRN Reason: PAIN-PACU ORDER X 4 DOSES ONLY Insulin Aspart (Novolog Vial Sliding Scale -) 1 vial SQ TIDAC [facility]; Protocol Last Admin: 07/31/19 11:05 Dose: Not Given [facility]) [facility] Last Admin: 07/31/19 06:52 Dose: Not Given Mirtazapine (Remeron -) 7.5 mg PO [facility] Last Admin: 07/30/19 21:25 Dose: 7.5 mg Montelukast Sodium (Singulair -) 10 mg PO [facility] Last Admin: 07/30/19 21:26 Dose: 10 mg Ondansetron HCl (Zofran Injection) 4 mg IVPUSH Q6H PRN PRN Reason: NAUSEA AND/OR VOMITING Pantoprazole Sodium (Protonix -) 20 mg PO DAILY [facility] Last Admin: 07/31/19 09:22 Dose: 20 mg Polyethylene Glycol (Miralax (For Daily Use) -) 17 gm PO BID [facility] Last Admin: 07/31/19 09:22 Dose: Not Given - Objective Vital Signs: Vital Signs Temperature 98.5 F 07/31/19 09:27 Pulse Rate 74 07/31/19 09:27 Respiratory Rate 20 07/31/19 09:27 Blood Pressure 108/73 07/31/19 09:27 O2 Sat by Pulse Oximetry (%) 98 07/31/19 09:00 Constitutional: Yes: Mild Distress Cardiovascular: Yes: Regular Rate and Rhythm Respiratory: Yes: Diminished Gastrointestinal: Yes: Soft Genitourinary: Yes: WNL Musculoskeletal: Yes: Muscle Weakness Wound/Incision: Yes: Clean/Dry (PACEMAKER SITE CLEAN STERI STRIPS IN PLACE), Steri Strips Neurological: Yes: Pre-Existing Deficit Labs: CBC, BMP 07/30/19 06:14 07/30/19 06:14 INR, PTT INR 0.99 (0.83-1.09) 07/30/19 06:14 Problem List - Problems (1) Gastroparesis Code(s): K31.84 - GASTROPARESIS (2) Gastroparesis due to DM Code(s): E11.43 - TYPE 2 DIABETES W DIABETIC AUTONOMIC (POLY)NEUROPATHY; K31.84 - GASTROPARESIS (3) Abdominal pain Code(s): R10.9 - UNSPECIFIED ABDOMINAL PAIN Qualifiers: Abdominal location: epigastric Qualified Code(s): R10.13 - Epigastric pain (4) Colon adenoma Code(s): D12.6 - BENIGN NEOPLASM OF COLON, UNSPECIFIED (5) HLD (hyperlipidemia) Code(s): E78.5 - HYPERLIPIDEMIA, UNSPECIFIED (6) Syncope Code(s): R55 - SYNCOPE AND COLLAPSE Qualifiers: Syncope type: unspecified Qualified Code(s): R55 - Syncope and collapse (7) Abnormal weight loss Code(s): R63.4 - ABNORMAL WEIGHT LOSS (8) Atypical chest pain Code(s): R07.89 - OTHER CHEST PAIN (9) Diabetes mellitus Code(s): E11.9 - TYPE 2 DIABETES MELLITUS WITHOUT COMPLICATIONS (10) Dysphagia Code(s): R13.10 - DYSPHAGIA, UNSPECIFIED Qualifiers: Dysphagia type: esophageal phase Qualified Code(s): R13.10 - Dysphagia, unspecified (11) Failure to thrive Code(s): [id number] - (12) History of nephrectomy Code(s): Z90.5 - ACQUIRED ABSENCE OF KIDNEY (13) Lung nodule < 6cm on CT Code(s): R91.1 - SOLITARY PULMONARY NODULE (14) Prostate cancer Code(s): C61 - MALIGNANT NEOPLASM OF PROSTATE (15) Rectal ulcer Code(s): K62.6 - ULCER OF ANUS AND RECTUM Assessment/Plan S/P BLOCKER HEATED METAL FORMS VOMITING WITH FEVER CHECK BLOOD CULTURES, URINE CULTURES ABD XRAY R/O ILEUS CBC/CMP NOW OOB WITH ASSIST CARDIO EVAL APPRECIATED APICAL PNEUMOTHORAX SEEN ON CXR PULM EVAL APPRECIATED
[2019-07-31] MEDS ORDERED: SODIUM CHLORIDE 250 ML IV STA (11:19)
[2019-07-31] MEDS ORDERED: ONDANSETRON 4 MG/2 ML VIAL IVPUSH ONE (11:20)
[2019-07-31] MEDS ORDERED: SODIUM CHLORIDE 1,000 ML IV SCH (11:30)
[2019-07-31 12:19] LABS: HEMATOCRIT 35.9 % (35.4-49); HEMOGLOBIN 12.2 GM/dL (11.7-16.9); MCH 33.3 pg (25.7-33.7); MCHC 33.9 g/dl (32.0-35.9); MEAN CELL VOLUME 98.2 fl (80-96); MEAN PLT VOLUME 8.5 fl (7.5-11.1); PLATELET COUNT 110 K/MM3 (134-434); RBC 3.66 M/mm3 (4.00-5.60); RDW 15.1 % (11.9-15.9); WHITE BLOOD COUNT 4.3 K/mm3 (4.0-10.0)
[2019-07-31] MEDS ORDERED: PT OWN MED DRAWER 7, Y5N ONE ×2 (12:31→17:32)
[2019-07-31 12:50] LABS: BILIRUBIN,TOTAL 0.6 mg/dL (0.2-1); BLOOD UREA NITROGEN 10.2 mg/dL (7-18); CALCIUM 8.3 mg/dL (8.5-10.1); CREATININE 1.1 mg/dL (0.55-1.3); POTASSIUM 4.2 mmol/L (3.5-5.1); TOT PROT 6.2 g/dl (6.4-8.2)
[2019-07-31 14:27] LABS: URINE APPEARANCE CLEAR; URINE BILIRUBIN NEGATIVE (NEGATIVE); URINE COLOR YELLOW; URINE GLUCOSE (UA) NEGATIVE (NEGATIVE); URINE KETONE NEGATIVE (NEGATIVE); URINE LEUK ESTERASE NEGATIVE (NEGATIVE); URINE NITRITE NEGATIVE (NEGATIVE); URINE PROTEIN NEGATIVE (NEGATIVE); URINE UROBILINOGEN 4.0 E.U/dl mg/dL (0.2-1.0)
--- NOTE | 2019-07-31 15:34 | CON.PULM ---
Consult Consult Specialty:: PULM/CCM Referred by:: LIZETH Reason for Consultation:: PTX - History of Present Illness Chief Complaint: SYNCOPE History of Present Illness: 68 M, Prostate cancer s/p radiation (2010), s/p L sided nephrectomy in 2008, CVA with residual LLE weakness, DM, and GERD. Admityted via the ER due due to 2 syncopal episodes. Patient is S/P PPM placement on 07/29. CXR revealed a possible Left apical PTX. Repeat imaging revealed no evidence of PTX. Finding on previous image was likely a skin fold. The patient is awake and alert in NAD on RA. He denies CP or SOB. CT 05/25/2019: 0.5 cm and 0.4 cm non-calcified RL Nodule stable from pervious CT - History Source History Provided By: Patient Limitations to Obtaining History: No Limitations - Past Medical History [employer]: Yes: CVA (left hemiparesis resolved), Other (Glaucoma) Cardio/Vascular: Yes: HTN, Hyperlipdemia Gastrointestinal: Yes: Constipation, Diverticulosis, Gastritis, Peptic Ulcer Disease, Other (colon adenoma removed 05/20, also had a rectal ulcer) Renal/: Yes: Cancer (Prostate cancer was radiated. 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 History of Recent Travel: No Home Medications - Allergies Allergies/Adverse Reactions: Allergies Allergy/AdvReac Type Severity Reaction Status Date / Time No Known Allergies Allergy Verified 07/22/19 16:03 - Home Medications Home Medications: Ambulatory Orders Atorvastatin Calcium 20 mg PO HS 02/11/19 Brimonidine Tartrate [Alphagan 0.2% -] 1 drop OU BID 02/11/19 Dorzolamide HCl [Trusopt 2% -] 1 drop OU BID 02/11/19 Fluticasone Propionate [Flonase Allergy Relief] 2 spray NS DAILY PRN 02/11/19 Gabapentin 300 mg PO BID 02/11/19 Metformin HCl [Glucophage] 500 mg PO BID 02/11/19 Montelukast Sodium [Singulair] 10 mg PO DAILY 02/11/19 Acetaminophen [Tylenol .Extra-Strength -] 500 mg PO Q6H PRN tablet 06/04/19 Insulin Sliding Scale [Novolog Vial Sliding Scale -] 1 vial SQ TIDAC units 08/19 Mirtazapine [Remeron -] 7.5 mg PO HS tablet 06/04/19 Polyethylene Glycol 3350 [Miralax 119 gm Btl -] 17 gm PO BID bottle 06/04/19 Sennosides [Senna] 2 tab PO HS 07/22/19 Pantoprazole Sodium [Protonix -] 20 mg PO DAILY tablet.ec 07/30/19 Review of Systems - Review of Systems Constitutional: reports: Malaise. denies: Chills, Fever, Night Sweats Eyes: reports: No Symptoms HENT: reports: No Symptoms Neck: reports: No Symptoms Cardiovascular: denies: Chest Pain, Edema, Palpitations, Shortness of Breath Respiratory: denies: Cough, Hemoptysis, Orthopnea, PND, Snoring, SOB, SOB on Exertion, Wheezing Gastrointestinal: reports: No Symptoms Genitourinary: reports: No Symptoms Breasts: reports: No Symptoms Reported Musculoskeletal: reports: No Symptoms Integumentary: reports: No Symptoms Neurological: reports: Change in LOC Endocrine: reports: No Symptoms Hematology/Lymphatic: reports: No Symptoms Psychiatric: reports: No Symptoms Physical Exam Vital Sings: Vital Signs Temperature 98.5 F 07/31/19 14:00 Pulse Rate 78 07/31/19 14:00 Respiratory Rate 18 07/31/19 12:08 Blood Pressure 142/88 07/31/19 14:00 O2 Sat by Pulse Oximetry (%) 98 07/31/19 09:00 Constitutional: Yes: No Distress, Calm, Thin Eyes: Yes: Conjunctiva Clear, EOM Intact HENT: Yes: Atraumatic, Normocephalic Neck: Yes: Supple, Trachea Midline Cardiovascular: Yes: Regular Rate and Rhythm Respiratory: Yes: Diminished. No: Accessory Muscle Use, Rales, Rhonchi, SOB, SOB on Exertion, Stridor, Tachypnea, Wheezes ...Inspection: Yes: WNL, Other (PPM ) ...Clubbing: No Gastrointestinal: Yes: Normal Bowel Sounds, Soft Renal/: Yes: WNL Musculoskeletal: Yes: WNL Extremities: Yes: WNL Edema: No Peripheral Pulses WNL: Yes Integumentary: Yes: WNL Neurological: Yes: WNL ...Motor Strength: WNL Psychiatric: Yes: WNL, Alert, Oriented Labs: CBC, BMP 07/31/19 12:05 07/31/19 12:05 Imaging - Results Chest X-ray: Report Reviewed, Image Reviewed Problem List - Problems (1) HLD (hyperlipidemia) Code(s): E78.5 - HYPERLIPIDEMIA, UNSPECIFIED (2) Heart block AV complete Code(s): I44.2 - ATRIOVENTRICULAR BLOCK, COMPLETE (3) Syncope Code(s): R55 - SYNCOPE AND COLLAPSE Qualifiers: Syncope type: unspecified Qualified Code(s): R55 - Syncope and collapse (4) GERD (gastroesophageal reflux disease) Code(s): K21.9 - GASTRO-ESOPHAGEAL REFLUX DISEASE WITHOUT ESOPHAGITIS Qualifiers: Esophagitis presence: esophagitis presence not specified Qualified Code(s) : K21.9 - Gastro-esophageal reflux disease without esophagitis (5) Glaucoma Code(s): H40.9 - UNSPECIFIED GLAUCOMA (6) History of nephrectomy Code(s): Z90.5 - ACQUIRED ABSENCE OF KIDNEY (7) Prostate cancer Code(s): C61 - MALIGNANT NEOPLASM OF PROSTATE (8) Pulmonary nodule Code(s): R91.1 - SOLITARY PULMONARY NODULE Assessment/Plan There is no PTX noted on follow up imaging. No further workup is needed Patient had CT imaging in 05/2019: 2 sub-centimeter nodules. Can follow up CT in October No smoking was discussed Supplemental O2 as needed Outpatient PFTs DC planning Thank you. Dr Armstrong
[2019-07-31] MEDS: ATORVASTATIN CA 20 MG TABLET (FP) PO SCH ×2 (22:25→22:34)
[2019-07-31] MEDS: MIRTAZAPINE 15 MG TABLET (FP) PO SCH (22:25)
[2019-07-31] MEDS: MONTELUKAST NA 10 MG TABLET PO SCH (22:25)
[2019-08-01] MEDS: metFORMIN HCL 500 MG TABLET (FP) PO SCH ×2 (06:15→15:53)
[2019-08-01] MEDS: INSULIN SLIDING SCALE (NOVOLOG) 1 VIAL SQ SCH ×2 (06:16→11:46)
[2019-08-01] MEDS: DORZOLAMIDE 2% HCL OPHTHALMIC SOLUTION 10 ML BOTTLE OU SCH (10:04)
[2019-08-01] MEDS: POLYETHYLENE GLYCOL 3350 119 GM BTL PO SCH (10:04)
[2019-08-01] MEDS: PANTOPRAZOLE 20 MG TABLET PO SCH (10:04)
[2019-08-01] MEDS: BRIMONIDINE TARTRATE 0.2% OPHTHALMIC 5 ML BOTTLE OU SCH (10:04)
--- NOTE | 2019-08-01 11:11 | PN ---
Progress Note (short form) - Note Progress Note: PATIENT HAD A CT SCAN ORDERED OF CHEST/ABD BECAUSE [employer] CXR SHOWED POSSIBLE PNEUMOTHORAX. HE DRANK THE ORAL CONTRAST FOR THE ABDOMINAL PART AND WILL CONTINUE FOR VOMITING THE CT SCAN. THEN CAN BE DISCHARGED AFTERWARDS Problem List - Problems (1) Gastroparesis Code(s): K31.84 - GASTROPARESIS (2) Gastroparesis due to DM Code(s): E11.43 - TYPE 2 DIABETES W DIABETIC AUTONOMIC (POLY)NEUROPATHY; K31.84 - GASTROPARESIS (3) Abdominal pain Code(s): R10.9 - UNSPECIFIED ABDOMINAL PAIN Qualifiers: Abdominal location: epigastric Qualified Code(s): R10.13 - Epigastric pain (4) Colon adenoma Code(s): D12.6 - BENIGN NEOPLASM OF COLON, UNSPECIFIED (5) HLD (hyperlipidemia) Code(s): E78.5 - HYPERLIPIDEMIA, UNSPECIFIED (6) Syncope Code(s): R55 - SYNCOPE AND COLLAPSE Qualifiers: Syncope type: unspecified Qualified Code(s): R55 - Syncope and collapse (7) Abnormal weight loss Code(s): R63.4 - ABNORMAL WEIGHT LOSS (8) Atypical chest pain Code(s): R07.89 - OTHER CHEST PAIN (9) Diabetes mellitus Code(s): E11.9 - TYPE 2 DIABETES MELLITUS WITHOUT COMPLICATIONS (10) Dysphagia Code(s): R13.10 - DYSPHAGIA, UNSPECIFIED Qualifiers: Dysphagia type: esophageal phase Qualified Code(s): R13.10 - Dysphagia, unspecified (11) Failure to thrive Code(s): [id number] - (12) History of nephrectomy Code(s): Z90.5 - ACQUIRED ABSENCE OF KIDNEY (13) Lung nodule < 6cm on CT Code(s): R91.1 - SOLITARY PULMONARY NODULE (14) Prostate cancer Code(s): C61 - MALIGNANT NEOPLASM OF PROSTATE (15) Rectal ulcer Code(s): K62.6 - ULCER OF ANUS AND RECTUM
--- NOTE | 2019-08-01 13:06 | PN ---
Progress Note (short form) - Note Progress Note: ADDENDUM: CT SCAN CHEST ABDOMEN REVIEWED WITH NO ACUTE FINDINGS PATIENT CAN BE DISCHARGED TO [facility] Problem List - Problems (1) Gastroparesis Code(s): K31.84 - GASTROPARESIS (2) Gastroparesis due to DM Code(s): E11.43 - TYPE 2 DIABETES W DIABETIC AUTONOMIC (POLY)NEUROPATHY; K31.84 - GASTROPARESIS (3) Abdominal pain Code(s): R10.9 - UNSPECIFIED ABDOMINAL PAIN Qualifiers: Abdominal location: epigastric Qualified Code(s): R10.13 - Epigastric pain (4) Colon adenoma Code(s): D12.6 - BENIGN NEOPLASM OF COLON, UNSPECIFIED (5) HLD (hyperlipidemia) Code(s): E78.5 - HYPERLIPIDEMIA, UNSPECIFIED (6) Syncope Code(s): R55 - SYNCOPE AND COLLAPSE Qualifiers: Syncope type: unspecified Qualified Code(s): R55 - Syncope and collapse (7) Abnormal weight loss Code(s): R63.4 - ABNORMAL WEIGHT LOSS (8) Atypical chest pain Code(s): R07.89 - OTHER CHEST PAIN (9) Diabetes mellitus Code(s): E11.9 - TYPE 2 DIABETES MELLITUS WITHOUT COMPLICATIONS (10) Dysphagia Code(s): R13.10 - DYSPHAGIA, UNSPECIFIED Qualifiers: Dysphagia type: esophageal phase Qualified Code(s): R13.10 - Dysphagia, unspecified (11) Failure to thrive Code(s): [id number] - (12) History of nephrectomy Code(s): Z90.5 - ACQUIRED ABSENCE OF KIDNEY (13) Lung nodule < 6cm on CT Code(s): R91.1 - SOLITARY PULMONARY NODULE (14) Prostate cancer Code(s): C61 - MALIGNANT NEOPLASM OF PROSTATE (15) Rectal ulcer Code(s): K62.6 - ULCER OF ANUS AND RECTUM
[2019-08-01 13:44] VITALS: TEMP 98.4
--- NOTE | 2019-08-01 14:36 | PN ---
Progress Note (short form) - Note Progress Note: Resting in NAD. No CP or SOB. No acute events overnight. Intake & Output 07/29/19 07/30/19 07/31/19 08/01/19 23:59 23:59 23:59 23:59 Intake Total 6027 222 0589 50 Output Total 316 130 4878 200 Balance 680 -200 1170 -150 Last Vital Signs Temp Pulse Resp BP Pulse Ox 98.4 F 68 18 157/87 98 08/01/19 09:00 08/01/19 09:00 08/01/19 09:00 08/01/19 09:00 08/01/19 09:00 Active Medications Acetaminophen (Tylenol -) 500 mg PO Q6H PRN PRN Reason: PAIN 1-3 Last Admin: 07/30/19 21:23 Dose: 500 mg Al Hydroxide/Mg Hydroxide (Mylanta Oral Suspension -) 30 ml PO Q6H PRN PRN Reason: DYSPEPSIA Last Admin: 07/31/19 09:21 Dose: 30 ml Atorvastatin Calcium (Lipitor -) 20 mg PO [facility] Last Admin: 07/31/19 22:34 Dose: Not Given Brimonidine Tartrate (Alphagan 0.2% -) 1 drop OU BID [facility] Last Admin: 08/01/19 10:04 Dose: 1 drop Dorzolamide HCl (Trusopt 2%) 1 drop OU BID [facility] Last Admin: 08/01/19 10:04 Dose: 1 drop Insulin Aspart (Novolog Vial Sliding Scale -) 1 vial SQ TIDAC [facility]; Protocol Last Admin: 08/01/19 11:46 Dose: Not Given Metformin HCl (Glucophage -) 500 mg PO BIDAC [facility] Last Admin: 08/01/19 06:15 Dose: Not Given Mirtazapine (Remeron -) 7.5 mg PO HS [facility] Last Admin: 07/31/19 22:25 Dose: 7.5 mg Montelukast Sodium (Singulair -) 10 mg PO HS [facility] Last Admin: 07/31/19 22:25 Dose: 10 mg Ondansetron HCl (Zofran Injection) 4 mg IVPUSH Q6H PRN PRN Reason: NAUSEA AND/OR VOMITING Last Admin: 08/01/19 09:39 Dose: 4 mg Pantoprazole Sodium (Protonix -) 20 mg PO DAILY [facility] Last Admin: 08/01/19 10:04 Dose: 20 mg Polyethylene Glycol (Miralax (For Daily Use) -) 17 gm PO BID [facility] Last Admin: 08/01/19 10:04 Dose: Not Given Constitutional: Yes: No Distress, Calm, Thin Eyes: Yes: Conjunctiva Clear, EOM Intact HENT: Yes: Atraumatic, Normocephalic Neck: Yes: Supple, Trachea Midline Cardiovascular: Yes: Regular Rate and Rhythm Respiratory: Yes: Diminished. No: Accessory Muscle Use, Rales, Rhonchi, SOB, SOB on Exertion, Stridor, Tachypnea, Wheezes ...Inspection: Yes: WNL, Other (PPM ) ...Clubbing: No Gastrointestinal: Yes: Normal Bowel Sounds, Soft Renal/: Yes: WNL Musculoskeletal: Yes: WNL Extremities: Yes: WNL Edema: No Peripheral Pulses WNL: Yes Integumentary: Yes: WNL Neurological: Yes: WNL ...Motor Strength: WNL Psychiatric: Yes: WNL, Alert, Oriented Labs: Laboratory Results - last 24 hr 07/31/19 08/01/19 08/01/19 17:19 05:45 11:41 POC Glucometer 90 83 85 Imaging - Results Chest X-ray: Report Reviewed, Image Reviewed Problem List - Problems (1) HLD (hyperlipidemia) Code(s): E78.5 - HYPERLIPIDEMIA, UNSPECIFIED (2) Heart block AV complete Code(s): I44.2 - ATRIOVENTRICULAR BLOCK, COMPLETE (3) Syncope Code(s): R55 - SYNCOPE AND COLLAPSE Qualifiers: Syncope type: unspecified Qualified Code(s): R55 - Syncope and collapse (4) GERD (gastroesophageal reflux disease) Code(s): K21.9 - GASTRO-ESOPHAGEAL REFLUX DISEASE WITHOUT ESOPHAGITIS Qualifiers: Esophagitis presence: esophagitis presence not specified Qualified Code(s) : K21.9 - Gastro-esophageal reflux disease without esophagitis (5) Glaucoma Code(s): H40.9 - UNSPECIFIED GLAUCOMA (6) History of nephrectomy Code(s): Z90.5 - ACQUIRED ABSENCE OF KIDNEY (7) Prostate cancer Code(s): C61 - MALIGNANT NEOPLASM OF PROSTATE (8) Pulmonary nodule Code(s): R91.1 - SOLITARY PULMONARY NODULE Assessment/Plan There is no PTX noted on follow up imaging. No further workup is needed Patient had CT imaging in 05/2019: 2 sub-centimeter nodules. Can follow up CT in October No smoking was discussed Supplemental O2 as needed Outpatient PFTs Dr Armstrong Problem List - Problems (1) HLD (hyperlipidemia) Code(s): E78.5 - HYPERLIPIDEMIA, UNSPECIFIED (2) Heart block AV complete Code(s): I44.2 - ATRIOVENTRICULAR BLOCK, COMPLETE (3) Syncope Code(s): R55 - SYNCOPE AND COLLAPSE Qualifiers: Syncope type: unspecified Qualified Code(s): R55 - Syncope and collapse (4) GERD (gastroesophageal reflux disease) Code(s): K21.9 - GASTRO-ESOPHAGEAL REFLUX DISEASE WITHOUT ESOPHAGITIS Qualifiers: Esophagitis presence: esophagitis presence not specified Qualified Code(s) : K21.9 - Gastro-esophageal reflux disease without esophagitis (5) Glaucoma Code(s): H40.9 - UNSPECIFIED GLAUCOMA (6) History of nephrectomy Code(s): Z90.5 - ACQUIRED ABSENCE OF KIDNEY (7) Prostate cancer Code(s): C61 - MALIGNANT NEOPLASM OF PROSTATE (8) Pulmonary nodule Code(s): R91.1 - SOLITARY PULMONARY NODULE
[2019-08-01 15:41] VITALS: BP 158/92; PULSE 64
== END 2019-08-01 17:27 | DRG 243 ==
LOC: JER 15:57 → JERBED 17:23 → J4W 07-23 17:23 → OBSVTOIN 07-26 08:22
PROVIDERS: ADMIT Internal Medicine; ATTEND Family Medicine
PROC: 02HK3JZ Insertion of Pacemaker Lead into Right Ventricle, Percutaneous Approach (ICD-10-PCS; 2019-07-29)
PROC: 02H63JZ Insertion of Pacemaker Lead into Right Atrium, Percutaneous Approach (ICD-10-PCS; 2019-07-29)
PROC: 0JH606Z Insertion of Pacemaker, Dual Chamber into Chest Subcutaneous Tissue and Fascia, Open Approach (ICD-10-PCS; principal; 2019-07-29 10:30)
DX: I44.2 Atrioventricular block, complete (principal); I69.354 Hemiplegia and hemiparesis following cerebral infarction affecting left non-dominant side; I95.1 Orthostatic hypotension; K21.9 Gastro-esophageal reflux disease without esophagitis; F17.210 Nicotine dependence, cigarettes, uncomplicated; R55 Syncope and collapse; R07.89 Other chest pain; R11.10 Vomiting, unspecified; D12.6 Benign neoplasm of colon, unspecified; R31.9 Hematuria, unspecified; R62.7 Adult failure to thrive; E78.5 Hyperlipidemia, unspecified; R10.13 Epigastric pain; H40.9 Unspecified glaucoma; E11.43 Type 2 diabetes mellitus with diabetic autonomic (poly)neuropathy; K31.84 Gastroparesis; K59.09 Other constipation; R91.1 Solitary pulmonary nodule; R63.4 Abnormal weight loss; I27.20 Pulmonary hypertension, unspecified; K57.90 Diverticulosis of intestine, part unspecified, without perforation or abscess without bleeding; Z87.11 Personal history of peptic ulcer disease; Z68.21 Body mass index [BMI] 21.0-21.9, adult; Z90.5 Acquired absence of kidney; Z85.46 Personal history of malignant neoplasm of prostate; Z99.3 Dependence on wheelchair
CPT/HCPCS: 36415; 70450-TC; 71045-TC-FY; 71250-TC; 74018-TC-FY; 74176-TC; 76000-TC-FY; 76775-TC; 80048; 80053; 81003; 82150; 82550; 82607; 82728; 82962; 82977; 83036; 83540; 83550; 83690; 83735; 84443; 84484; 85025; 85027; 85044; 85610; 86140; 86593; 87040; 87086; 93005; 93010; 93880-TC; 94760; 97116-GP; 97162-GP; 99285-25; G0378; J0131; J1644; J7030